=== PATIENT | female | born 2000 | race Caucasian/White ===

== ENCOUNTER 2024-04-23 14:13 | Emergency (ER) | payer SELFPAY ==
[2024-04-23 14:14] VITALS: BP 129/86; PULSE 89; RESP 16; TEMP 37; O2SAT 99; BMI 36.8
[2024-04-23 18:14] VITALS: BP 126/84; PULSE 77; RESP 16; O2SAT 98
[2024-04-23 18:23] LABS: Absolute Lymphocyte Count 2.28 X10^3/uL (0.83-4.51); Absolute Neutrophil Count 8.2 X10^3/uL (2.0-7.7); Basophil# 0.03 X10^3/uL; Basophil% 0.3 % (0-1); Eosinophil# 0.09 X10^3/uL; Eosinophils% 0.8 % (0-5); Hematocrit 40.3 % (37-47); Hemoglobin 13.1 g/dL (12.0-15.0); Lymphocyte # 2.28 X10^3/ul (0.83-4.51); Lymphocyte % 20.2 % (19-41); Mean Corp Hgb Conc 32.5 g/dL (32-36); Mean Corpuscular Hgb 28.8 pg (27.0-32.0); Mean Corpuscular Volume 88.6 fL (81-99); Monocyte# 0.71 X10^3/uL; Monocyte% 6.3 % (0-10); NRBC Flagged by Analyzer 0 % (0-5); Neutrophil # 8.16 X10^3/uL (2.7-7.7); Platelet Count 312 K/mm3 (150-450); RBC Distribution Width CV 12.7 % (11.6-14.6); RBC Distribution Width SD 41.1 fl (35.1-43.9); Red Blood Count 4.55 M/mm3 (4.2-5.4); White Blood Count 11.3 K/mm3 (4.4-11.0)
[2024-04-23 18:32] LABS: Red Blood Cells-Urine 0 SEEN /hpf (0-5)
--- NOTE | 2024-04-23 18:37 | EDS_ITS ---
HPI History of Present Illness Chief Complaint: Nausea/Vomiting Narrative Narrative: Chief complaint and HPI: Nausea and vomiting. 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 Patient states that she follows with [facility]. She states that she has been having nausea and vomiting since she was 6 weeks . She states that she assumed this was normal so she did not follow-up with her OB. Patient states that her nausea worsened today so she called the OB office. They referred her to the emergency department for IV fluids. Patient denies any fever, chills, headache, lightheadedness, chest pain, shortness of breath, abdominal pain, dysuria, diarrhea, constipation, vaginal bleeding, vaginal discharge. Patient states that she is not on any antiemetics. Review of systems: See HPI Medications: As listed on the chart Allergies: As listed on the chart PFSH: Per chart Vital signs: As listed on the chart. Reviewed. Physical exam: Gen: A&O x3, NAD Head: Normocephalic, atraumatic Eyes: No sclera icterus, conjunctiva clear ENT: Mildly dry mucous membranes Neck: Trachea midline, No JVD CV: RRR, no murmurs, no peripheral edema Resp: Lungs CTA BL, no w/r/c GI: Abd soft, non-distended, non-tender, no r/r/g : No CVA tender Musc: Full ROM, no deformity Skin: Warm, dry Neuro: Alert, oriented, grossly intact, sensation intact Psych: Cooperative, appropriate mood and affect PFS PFS Home Medications ?Medication ?Instructions ?Recorded ?Last Taken ?Type cephalexin 500 mg capsule 500 mg PO Q8H 7 days #21 caps 04/23/24 Unknown Rx ondansetron 4 mg disintegrating 4 mg PO Q8H PRN PRN Nausea #10 tabs 04/23/24 Unknown Rx tablet Allergy/AdvReac Type Severity Reaction Status Date / Time codeine AdvReac HEADACHE Verified 04/23/24 14:16 prednisone AdvReac HEADACHE Verified 04/23/24 14:16 Social History Smoking Status: Never smoker EXAM Physical Exam Const Vital Signs: 04/23/24 14:14 04/23/24 18:14 12/06/24 20:00 Temperature 98.6 F Temperature Source Oral Pulse Rate 89 77 Respiratory Rate 16 16 14 Blood Pressure 129/86 H 126/84 H Blood Pressure Mean 100 98 Pulse Ox 99 98 Oxygen Delivery Method Room Air Room Air 04/23/24 20:42 Temperature 98.6 F Temperature Source Pulse Rate 77 Respiratory Rate 14 Blood Pressure 126/84 H Blood Pressure Mean 98 Pulse Ox 98 Oxygen Delivery Method MDM MDM MDM Narrative Medical decision making narrative: 24-year-old female with past medical history of coarctation status post surgery as a child who is G1, P0 at 9 weeks via ultrasound presents for evaluation of nausea and vomiting. Patient denies any abdominal pain, chest pain, shortness of breath, dysuria, abdominal pain. She is mildly dry on physical exam. NS bolus and Zofran ordered. Basic lab work obtained as well as UA to assess for dehydration as well as UTI. Differential diagnosis includes but is not limited to symptomatic , dehydration, KIMMY, electrolyte abnormality, UTI. CBC with mild leukocytosis of 11.3 this can be seen in . No anemia. CMP without KIMMY or electrolyte abnormality. No transaminitis. UA positive for mild dehydration with ketones as well as UTI. Patient denies any dysuria or hematuria. Urine culture sent and patient ordered Rocephin. Patient's nausea and vomiting may be secondary to UTI versus symptomatic . On reevaluation, her nausea is improved. Able to tolerate p.o. intake. Patient stable to discharge home. She was educated on her UTI. She will be placed on a 7-day course of Keflex 3 times daily as well as prescribed Zofran. She needs to follow-up with her OB as well as PCP. Return precautions explained. She confirmed understanding the plan. Impression: 1. Nausea and vomiting 2. First trimester 3. UTI Lab Data Labs: Laboratory Results - last 24 hr 04/23/24 04/23/24 18:06 18:25 WBC 11.3 H RBC 4.55 Hgb 13.1 Hct 40.3 MCV 88.6 MCH 28.8 MCHC 32.5 RDW Std Deviation 41.1 RDW Coeff of Ole 12.7 Plt Count 312 MPV 11.0 Immature Gran % (Auto) 0.400 Neut % (Auto) 72.0 H Lymph % (Auto) 20.2 Hubbard % (Auto) 6.3 Eos % (Auto) 0.8 Baso % (Auto) 0.3 Absolute Neuts (auto) 8.2 H Absolute Lymphs (auto) 2.28 Nucleated RBC % 0 Sodium 136 Potassium 3.9 Chloride 106 Carbon Dioxide 24.0 Anion Gap 6 BUN 5 L Creatinine 0.65 Estim Creat Clear Calc 159.53 Est GFR (MDRD) Af Amer 142 Est GFR (MDRD) Non-Af 117 BUN/Creatinine Ratio 7.7 L Glucose 99 Calcium 9.4 Total Bilirubin 0.50 AST 18 ALT 33 Alkaline Phosphatase 57 Total Protein 7.1 Albumin 3.3 Globulin 3.8 Albumin/Globulin Ratio 0.9 Urine Color Yellow Urine Clarity Cloudy Urine pH 6.0 Ur Specific [place] 1.020 Urine Protein 30 H Urine Glucose (UA) Normal Urine Ketones 5 H Urine Occult Blood 10 H Urine Nitrite Negative Urine Bilirubin 1 H Urine Urobilinogen 4 H Ur Leukocyte Esterase 25 H Urine RBC 0 SEEN Urine WBC 10-25 SEEN Ur Squamous Epith Cells 0-5 SEEN Ur Transition Epith Cell 0-5 SEEN Urine Bacteria 2+ Hyaline Casts 0-5 SEEN Urine Mucus 3+ Discharge Plan Triage Chief Complaint: Nausea/Vomiting ED Provider: Stanley Holguin Dx/Rx/DC Orders Clinical Impression: Nausea and vomiting during , UTI (urinary tract infection) during Instructions: Urinary Tract Infections in Women, ED Vomiting (Adult) Prescriptions: New cephalexin 500 mg capsule 500 mg PO Q8H 7 Days Qty: 21 0RF ondansetron 4 mg tablet,disintegrating 4 mg PO Q8H PRN PRN (Reason: Nausea) Qty: 10 0RF Primary Care Provider: Fozia Pope Referrals: Fozia Pope, [id number] [Primary Care Provider] - 3-5 Days Activity Restrictions/Additional Instructions: Take all of your antibiotics. Follow-up with your OB. Return back to the ED if symptoms change or worsen Print Language: Turkmen Disposition Disposition: Home, Self Care Discharge Date/Time: 04/23/24 21:27
[2024-04-23 18:39] LABS: Color, Urine Yellow (Yellow); Glucose, Dipstick Normal (Normal); Ketone-Dipstick 5 mg/dl (Negative); Leukocyte Esterase-Dipstick 25 /ul (Negative); Nitrite-Dipstick Negative (Negative); Occult Blood-Urine 10 /ul (Negative); Protein-Dipstick 30 mg/dl (Negative); Urine Clarity Cloudy (Clear); Urine Urobilinogen 4 mg/dl (Normal)
[2024-04-23 18:45] LABS: Urine Bilirubin Dipstick 1 mg/dL (Negative)
[2024-04-23 18:54] LABS: Bacteria 2+ /hpf (None Seen); Hyaline Cast 0-5 SEEN /lpf (0-5); Mucous, Urine 3+ /hpf (<or=2+); Squamous Epithelial Cells - UA 0-5 SEEN /hpf (5-10); Transitional Epithelial - Ur 0-5 SEEN /hpf (0-5); White Blood Cells 10-25 SEEN /hpf (0-5)
[2024-04-23 19:03] LABS: ALB/GLOB Ratio 0.9 RATIO (0.9-2.4); AST(SGOT) 18 U/L (15-37); Alanine Aminotransfer ALT/SGPT 33 U/L (13-56); Albumin, Serum 3.3 g/dL (3.2-5.0); Alkaline Phosphatase 57 U/L (45-117); Anion Gap 6 (5-15); BUN 5 mg/dL (7-18); BUN/Creat Ratio 7.7 RATIO (10-20); Calcium,Total 9.4 mg/dL (8.5-10.1); Chloride 106 mmol/L (98-107); Creatinine, Serum 0.65 mg/dL (0.55-1.02); EST Glomerular Filtration Rate 117 mL/min (>60); Est Glom Filt Rate - Afr Amer 142 mL/min (>60); Estimated Creatinine Clearance 159.53 ml/min; Globulin 3.8 g/dL (2.2-4.2); Glucose 99 mg/dL (74-106); Potassium 3.9 mmol/L (3.5-5.1); Protein, Total 7.1 g/dL (6.4-8.2); Sodium Level 136 mmol/L (136-145)
[2024-04-23] MEDS: Ondansetron 4 MG/2 ML Vial IV (19:18)
[2024-04-23] MEDS: 0.9% Normal Saline (1000mL) 1,000 ML 999 ML IV (19:18)
[2024-04-23 20:00] VITALS: RESP 14
[2024-04-23] MEDS: Ceftriaxone 1 GM/50 ML BAG IV (20:23)
[2024-04-23 20:42] VITALS: BP 126/84; PULSE 77; RESP 14; TEMP 37; O2SAT 98
== END 2024-04-23 21:27 | disposition home or self-care (01) ==
PROVIDERS: Emergency Provider Surgery; PCP Nurse Practitioner Family; Visit Provider Surgery
DX: O23.41 Unspecified infection of urinary tract in pregnancy, first trimester (principal); O21.9 Vomiting of pregnancy, unspecified; Z3A.09 9 weeks gestation of pregnancy
CPT/HCPCS: 80053; 81001; 85025; 96361; 96365; 96374; 96375; 99282; A4216; J2405

== ENCOUNTER 2024-10-27 10:15 | Outpatient (CLI) | payer SELFPAY ==
--- NOTE | 2024-10-27 10:24 | US_ITS ---
PROCEDURE: BIOPHYSICAL PROF W/O NON STRES 10/27/2024 REASON FOR EXAM: HAVING MULTIPLE VARIABLES DURING ROUTINE VISIT TECHNIQUE: Biophysical profile was performed. COMPARISON: None FINDINGS Number: 1 Position: Vertex Placental Position: Fundal Placental Abnormalities: No evidence of previa. ESTIMATED GESTATIONAL AGE: Baseline: 36 weeks and 2 days. ESTIMATED DATE OF DELIVERY: Baseline: November 22, 2024. BIOPHYSICAL ASSESSMENT: Amniotic Fluid Volume: 4.7 cm Amniotic Fluid Index: 11.1 (8-24 cm normal range) Cardiac Motion: 157 beats per minute (average) Trunk and Limb Motion: Present. Biophysical profile: Breathing movement: 2 Gross body movements: 2 tone: 2 Amniotic fluid volume: 2 Total score: 8/8 US/Biophysical Prof W/O Non Stres IMPRESSION: Normal biophysical profile. Reading Location: [place] [id number]
[2024-10-27 10:37] VITALS: RESP 16; TEMP 36.9
[2024-10-27 10:38] VITALS: BP 114/59; PULSE 95
[2024-10-27 10:47] VITALS: BMI 42.2
--- NOTE | 2024-10-28 07:33 | OB.TRI.NOTE ---
HPI - General General Date of Admission: 10/27/24 Date of Service: 10/27/24 Chief Complaint: variables HPI Narrative LICO CHAWLA, is a 24 F who presents from office with variable on NST. BPP ordered and prolonged monitoring. BPP 8/8 with RICO 11. Reactive tracing. Per MFM NST tomorrow and scheduled for delivery this weekend. Kick counts precautions Maternal Data Information Final VIJAY: 12/02/24 Gestational age: 36+2 PFSH PFSH Home Medications ?Medication ?Instructions ?Recorded ?Last Taken ?Type ondansetron 4 mg disintegrating 4 mg PO Q8H PRN PRN Nausea #10 tabs 04/23/24 10/26/24 Rx tablet aspirin 81 mg tablet 81 mg PO DAILY 10/27/24 10/26/24 History famotidine 20 mg tablet (Pepcid) 20 mg PO DAILY 10/27/24 10/26/24 History labetalol 100 mg tablet 200 mg PO BID 10/27/24 10/27/24 History vit no.95-ferrous 1 tab PO DAILY 10/27/24 10/26/24 History fumarate 28 mg-folic acid 800 mcg tablet () Allergy/AdvReac Type Severity Reaction Status Date / Time codeine AdvReac HEADACHE Verified 10/27/24 10:33 prednisone AdvReac HEADACHE Verified 10/27/24 10:33 Social History Smoking Status: Never smoker History 1 Elective abortions Hx Para 0 Spontaneous abortions Hx # Term Pregnancies Ectopic pregnancies Hx # Pregnancies Multiple births # of living children NST FHR Rate Baby A Baseline: 135 Variability:: Moderate Accelerations:: 15 x 15 Decelerations:: None NST Reactive:: Yes Assessment & Plan (1) 36 weeks gestation of : (2) Chronic hypertension affecting : (3) Maternal congenital cardiac anomaly affecting , antepartum: PLAN: Plan Reactive NST. BPP 8/8 kick counts NST tomorrow Scheduled IOL this at 37 weeks
== END 2024-10-27 13:20 | disposition home or self-care (01) ==
LOC: WPOUT 10:19 → WP 10:19
PROVIDERS: PCP Nurse Practitioner Family; Referring Provider Obstetrics & Gynecology; Visit Provider Obstetrics & Gynecology
DX: O16.3 Unspecified maternal hypertension, third trimester (principal); Z79.82 Long term (current) use of aspirin; Z79.899 Other long term (current) drug therapy; Z3A.36 36 weeks gestation of pregnancy; O99.891 Other specified diseases and conditions complicating pregnancy; Q24.9 Congenital malformation of heart, unspecified
CPT/HCPCS: 59025; 59050; 76819; 99221; G0378

== ENCOUNTER 2024-11-14 01:25 | Emergency (ER) | payer MEDICAID, SELFPAY ==
[2024-11-14 01:26] VITALS: BP 119/73; PULSE 77; RESP 16; TEMP 36.2; O2SAT 99; BMI 40.3
--- NOTE | 2024-11-14 01:51 | CT_ITS ---
PROCEDURE: ABDOMEN/PELVIS W IV CONT ONLY 11/14/2024 REASON FOR EXAM: ABD PAIN S/P TECHNIQUE: ABDOMEN/PELVIS W IV CONT ONLY Coronal and Sagittal reconstruction series were provided. One or more dose reduction techniques were used (e.g., Automated exposure control, adjustment of the mA and/or kV according to patient size, use of iterative reconstruction technique. RADIATION DOSE SUMMARY: CTDlvol: 22 mGy DLP: 1182 mGycm COMPARISON: No FINDINGS: Dependent atelectasis. Small right and tiny left-sided effusions. Normal heart size. The liver, gallbladder, pancreas, spleen, adrenal glands, and kidneys show no acute findings. Small simple right renal cyst. No hydronephrosis or ureteral stone. Normal bladder. No retroperitoneal or pelvic adenopathy. Enlarged, uterus. Low- density, within the uterine cavity, probably represents hemorrhage, no specific evidence for retained products of conception. No free air. Mild omental fat stranding status post recent . Nonobstructed bowel. Normal appendix. No acute large bowel findings. There is anterior pelvic wall partially loculated linear fluid collection, at the incisional site, this is a typical postoperative appearance. Adjacent skin thickening and mild fat stranding. Superimposed infection not completely excluded. CT/Abdomen/Pelvis W IV Cont ONLY IMPRESSION: Status post recent , typical postoperative appearance. Follow up imag ing as clinically determined. Reading Location: [place] [id number]
--- OUTSIDE RECORDS SUMMARY | 2024-11-14 01:57 | XMS RPT_ITS | CCD ---
Author Organization [facility] Care Team Providers Care Solid Waste Facility Supervisor Name Role Phone No, Ref(Historical) Unavailable Unavailable Amalia Gonzales Primary Care Provider No, Referral Unavailable Unavailable Bhavesh Alas MD Unavailable No, Ref(Historical) Unavailable Unavailable No, Referral Unavailable Unavailable Bhavesh Alas MD Unavailable Toshia AMERICAN INDIAN POLICY SPECIALIST.Kwasi HOWELL Primary Care Provider No, Referral Unavailable Unavailable Bahvesh Alas MD Unavailable Toshia AMERICAN INDIAN POLICY SPECIALIST.Kwasi HOWELL Primary Care Provider Uvaldo RN, Lexie Fortune Unavailable Unavailable Toshia HOME MISSION WORKER-CKwasi Primary Care Provider Parish DANIELLE, Dr. Leon Attending Provider Dr. Carolyn Lugo MD Referring Provider Toshia, Kwasi Primary Care Unavailable Carolyn Lugo Attending Unavailable Carolyn Lugo Referring Unavailable Stanley Holguin Attending Unavailabl e Latoniaoble, Kwasi Primary Care Unavailable NEYVASILE BARBOSA MARION Referring Unavail able KNOBLE, KWASI Primary Care Unavailable NEYVASILE BARBOSA MARION Referring Unavail able NELSY AGARWAL Attending Unavailable KNOBLE, KWASI Primary Care Unavailable NEYSALOMONT FAMILIA, MARION Referring Unavail able KNOBLE, KWASI Primary Care Unavailable NEYHART FAMILIA, MARION Referring Unavail able NELSY AGARWAL Attending Unavailable KNOBLE, KWASI Primary Care Unavailable NEYVASILE BARBOSA MARION Referring Unavail able KNOBLE, KWASI Primary Care Unavailable NEYHART BARBOSA, MARION Attending Unavail able DIONNE CARRILLO Referring Unavailable KNOBLE, KWASI Primary Care Unavailable SELF Referring Unavailable KISHA KENDRA Attending Unavailable KNOBLE, KWASI Primary Care Unavailable MOODY, BHAVESH Referring Unavailable KNOBLE, KWASI Primary Care Unavailable BERYL LUGOFER Attending Unavailable KNOBLE, KWASI Primary Care Unavailable NEYHART BARBOSA, MARION Referring Unavail able MOODY, BHAVESH Referring Unavailable KNOBLE, KWASI Primary Care Unavailable JAILYN BOSS Attending Unavailable MOODY, BHAVESH Referring Unavailable KNOBLE, KWASI Primary Care Unavailable KAREN MONTES Attending Unavailable KNOBLE, KWASI Primary Care Unavailable KNOBLE, KWASI Primary Care Unavailable NEYHART BARBOSA, MARION Referring Unavail able KNOBLE, KWASI Primary Care Unavailable NEYHART BARBOSA, MARION Referring Unavail able NEYHART BARBOSA, MARION Referring Unavail able NELSY AGARWAL Attending Unavailable KNOBLE, KWASI Primary Care Unavailable MOODY, BHAVESH Referring Unavailable KNOBLE, KWASI Primary Care Unavailable KNOBLE, KWASI Primary Care Unavailable IDA TORRESA Attending Unavailable PARISHBERYLCAROLYN Referring Unavailable KNOBLE, KWASI Primary Care Unavailable KNOBLE, KWASI Primary Care Unavailable NEYSALOMONT BARBOSA, MARION Attending Unavail able NEYSALOMONT BARBOSA, MARION Referring Unavail able KNOBLE, KWASI Primary Care Unavailable CAROLYN LUGO Referring Unavailable KNOBLE, KWASI Primary Care Unavailable DEBORAH CARROLL Attending Unavailable KNOBLE, KWASI Referring Unavailable KNOBLE, KWASI Primary Care Unavailable DESTINI HANSON Referring Unavailable KNOBLE, KWASI Primary Care Unavailable DUYENUCHIEDENILSONJI Attending Unavailable HIGUCHI, ASHOK Referring Unavailable KNOBLE, KWASI Primary Care Unavailable MOODY, BHAVESH Attending Unavailable MOODY, BHAVESH Referring Unavailable KNOBLE, KWASI Primary Care Unavailable GERA JAILYN Referring Unavailable KNOBLE, KWASI Primary Care Unavailable KNOBLE, KWASI Primary Care Unavailable NEYHART BARBOSA, MARION Referring Unavail able NEYHART BARBOSA, MARION Attending Unavail able ASHLEY AMBRIZ Referring Unavailable DESTINI HANSON Attending Unavailable KNOBLE, KWASI Primary Care Unavailable PLOTTS, DESTINI Referring Unavailable KNOBLE, KWASI Primary Care Unavailable NEYVASILE BARBOSA, MARION Attending Unavail able ASHOK PEDRO Referring Unavailable KNOBLE, KWASI Primary Care Unavailable NEYHART FAMILIA, MARION Attending Unavail able KNOBLE, KWASI Primary Care Unavailable KNOBLE, KWASI Primary Care Unavailable NEYHART BARBOSA, MARION Referring Unavail able NELSY AGARWAL Attending Unavailable KNOBLE, KWASI Primary Care Unavailable NEYHART BARBOSA, MARION Referring Unavail able SELF Referring Unavailable KNOBLE, KWASI Primary Care Unavailable KNOBLE, KWASI Primary Care Unavailable PB, ASHLEY Attending Unavailable KNOBLE, KWASI Primary Care Unavailable KAREN MONTES Referring Unavailable KENDRA TORRES Attending Unavailable KNOBLE, KWASI Primary Care Unavailable PB, ASHLEY Referring Unavailable KNOBLE, KWASI Primary Care Unavailable PB, ASHLEY Referring Unavailable KNOBLE, KWASI Primary Care Unavailable BOSS, JAILYN Referring Unavailable KNOBLE, KWASI Primary Care Unavailable BOSSNAINJAILYN Attending Unavailable SELF Referring Unavailable KNOBLE, KWASI Referring Unavailable CARRILLO DIONNE Attending Unavailable KNOBLE, KWASI Primary Care Unavailable CARRILLO, DIONNE Referring Unavailable KNOBLE, KWASI Primary Care Unavailable LATISHA MALLORY Attending Unavailable KNOBLE, KWASI Primary Care Unavailable KNOBLE, KWASI Primary Care Unavailable NEYHART BARBOSA, MARION Referring Unavail able SELF Referring Unavailable KNOBLE, KWASI Attending Unavailable KNOBLE, KWASI Primary Care Unavailable BOSS, JAILYN Referring Unavailable KNOBLE, KWASI Primary Care Unavailable MEAGAN LEONARD Attending Josey OJEDAOBLE, KWASI Primary Care Unavailable SHIVANI HERNANDEZ Admitting Unavailable MOODY, BHAVESH Referring Unavailable KNOBLE, KWASI Primary Care Unavailable MOODY, BHAVESH Attending Unavailable Allergies Allergy Classification Reported Allergen(s) Allergy Type Date of Onset Reaction(s) Facility (20 sources) Codeine; Translations: [CODEINE] Drug Allergy 7 Other: See Comments [facility] Work Phone: (20 sources) predniSONE; Translations: [PREDNISONE] Drug Allergy 3 Intolerance [facility] Work Phone: (1 source) Codeine Drug Allergy 5 [facility] Repository (1 source) predniSONE Drug Allergy 5 [facility] Repository Medications Current Medications Medication Drug Class(es) Dates Sig (Normalized) Sig (Original) amoxicillin 875 mg oral tablet (3 sources) Penicillin-class Antibacterial Start: 04-06-2022 End: 04-13-2022 take 1 tablet by mouth twice daily amoxicillin (AMOXIL) 875 mg tablet Take 1 tablet by mouth twice daily for 7 days. 14 tablet 0 04/06/2022 04/13/2022 Active Start: 10-09-2021 End: 10-16-2021 take 1 tablet by mouth twice daily amoxicillin (AMOXIL) 875 mg tablet Take 1 tablet by mouth twice daily for 7 days. 14 tablet 0 10/09/2021 10/16/2021 Active Comment on above: Take 1 tablet by souleymane th twice daily for 7 days. amoxicillin 875 mg / clavulanate 125 mg oral tablet (2 sources) Penicillin-class Antibacterial Start: 09-04-19 End: 09-11-19 take 1 tablet by mouth twice daily amoxicillin-clavulanat e potassium (AUGMENTIN) 875-125 mg per tablet Indications: Rhinosinusitis Take 1 tablet by mouth two times a day for 7 days. 14 tablet 0 09/04/2023 09/11/2023 Active Comment on above: Take 1 tablet by souleymane th two times a day for 7 days. aspirin 81 mg oral tablet (20 sources) Platelet Aggregation Inhibitor, Nonsteroidal Anti-inflammatory Drug Start: 10-28-19 take 1 tablet by mouth once daily Aspirin 81 mg tablet Active 81 mg PO DAILY October 27, 2024 12:00am Start: 04-06-2024 take 1 tablet by souleymane th once daily aspirin, enteric coated (ECOTRIN LOW STRENGTH) 81 mg EC tablet Indications: 7 weeks gestation of (HCC) , Encounter for care in first trimester of first (HCC) Take 1 tablet by mouth once daily. 90 tablet 3 04/06/2024 Active cephalexin 500 mg oral capsule (3 sources) Cephalosporin Antibacterial Start: 11-11-2024 End: 11-18-2024 take 1 capsule by mouth four times daily cephALEXin (KEFLEX) 500 mg capsule Take 1 capsule by mouth four times daily for 7 days. 28 capsule 11/11/2024 11/18/2024 Active Start: 04-23-2024 End: 10-27-2024 take 1 capsule by mouth every eight hours Cephalexin 500 mg capsule Discontinued 500 mg PO Q8H 21 April 23, 2024 1:00am October 27, 2024 10:42am doxycycline monohydrate 100 mg oral tablet (2 sources) Tetracycline-class Drug Start: 01-27-2024 End: 02-06-2024 take 1 tablet by mouth twice daily doxycycline monohydrate 100 mg tablet Indications: Erythema migrans Take 1 tablet by mouth two times a day for 10 days. 20 tablet 01/27/2024 02/06/2024 Active famotidine 20 mg oral tablet (20 sources) Histamine-2 Receptor Antagonist Start: 10-27-2024 take 1 tablet by mouth once daily Famotidine (Pepcid) 20 mg tablet Active 20 mg PO DAILY October 27, 2024 12:00am Start: 05-10-2024 take 1 tablet by souleymane th twice daily famotidine (PEPCID) 20 mg tablet Take 1 tablet by mouth two times a day. 60 tablet 1 05/10/2024 Active iv contrast (will be provide d with radiology test) (4 sources) Start: 10-12-2024 End: 10-13-2024 iv contrast (will be provide d with radiology test) Indications: Coarctation of aorta (HCC) MRI Cardiac w/Qflow Inject, intravenously, once for 1 dose. No IV access, insert saline lock prior to the beginning of sedation, infusion, injection of imaging exam. Discontinue saline lock post exam. If Pt has a central line or IVAD, may access for administration according to line specific nursing protocol. Once exam is complete flush line and de-access according to line specific nursing protocol in the MR contrast administration guidelines link 1 each 10/12/2024 10/13/2024 Active Start: 12-03-2023 End: 12-04-2023 inject 1 dose intravenously once iv contrast (will be provided with radiology test) Indications: Inappropriate sinus node tachycardia (HCC) , Coarctation of aorta , SVT (supraventricular tachycardia) (HCC) , Bicuspid aortic valve MRI Card Congenital Inject, intravenously, once for 1 dose. No IV access, insert saline lock prior to the beginning of sedation, infusion, injection of imaging exam. Discontinue saline lock post exam. If Pt has a central line or IVAD, may access for administration according to line specific nursing protocol.Once exam is complete flush line and de-access according to line specific nursing protocol in the MR contrast administration guidelines link 1 Each 0 12/03/2023 12/04/2023 Active Start: 12-10-2022 End: 12-11-2022 inject 1 dose intravenously once iv contrast (will be provided with radiology test) MRI Card Congenital Inject, intravenously, once for 1 dose. No IV access, insert saline lock prior to the beginning of sedation, infusion, injection of imaging exam. Discontinue saline lock post exam. If Pt has a central line or IVAD, may access for administration according to line specific nursing protocol.Once exam is complete flush line and de-access according to line specific nursing protocol in the MR contrast administration guidelines link 1 Each 0 12/10/2022 12/11/2022 Comment on above: MRI Card Congenital Inject, intravenously, once for 1 dose. No IV access, insert saline lock prior to the beginning of sedation, infusion, injection of imaging exam. Discontinue saline lock post exam. If Pt has a central line or IVAD, may access for administration according to line specific nursing protocol.Once exam is complete flush line and de-access according to line specific nursing protocol in the MR contrast administration guidelines link labetalol hydrochloride 200 mg oral tablet (20 sources) beta-Adrenergic Tarik Start: End: take 1 tablet by mouth three times daily labetalol (TRANDATE) 200 mg tablet Take 1 tablet by mouth three times a day. 270 tablet 1 11/08/2024 05/07/2025 Active Start: 08-31-2024 take 1 tablet by souleymane th twice daily labetalol (TRANDATE) 200 mg tablet Take 1 tablet by mouth two times a day. 180 tablet 2 08/31/2024 Suspended Start: 08-07-2024 End: 11-05-2024 take 2 tablets by mouth twice daily Labetalol 100 mg tablet Active 200 mg PO TWICE A DAY October 27, 2024 12:00am Start: 04-07-2024 End: 09-26-2024 take 1 tablet by mouth twice daily labetalol (TRANDATE) 100 mg tablet Take 1 tablet by mouth two times a day. Patient should start on June 28, 2024. 180 tablet 1 06/28/2024 08/07/2024 Discontinued (Adjust Sig - Block E-Cancel) metoclopramide 10 mg oral tablet (5 sources) Dopamine-2 Receptor Antagonist Start: 04-26-2024 End: 05-26-2024 take 1 tablet by mouth every eight hours as needed metoclopramide HCl (REGLAN) 10 mg tablet Take 1 tablet by mouth three times a day as needed. 60 tablet 04/26/2024 05/26/2024 Active metroNIDAZOLE 500 mg oral tablet (3 sources) Nitroimidazole Antimicrobial Start: 05-23-2022 End: 05-30-2022 take 1 tablet by mouth twice daily metroNIDAZOLE (FLAGYL) 500 mg tablet Indications: Bacterial vaginosis Take 1 tablet by mouth twice daily for 7 days. 14 tablet 0 05/23/2022 05/30/2022 Active Comment on above: Take 1 tablet by souleymane th twice daily for 7 days. norethindrone 0.35 mg oral tablet (2 sources) Start: 11-08-2024 End: 10-10-2025 take 1 tablet by mouth once daily Norethindrone, Contraceptive, 0.35 mg tablet Take 1 tablet by mouth once daily. 84 tablet 3 11/08/2024 10/10/2025 Active ondansetron 8 mg oral tablet (20 sources) Serotonin-3 Receptor Antagonist Start: 04-28-2024 End: 10-15-2024 take 1 tablet by mouth every eight hours as needed for nausea ondansetron (ZOFRAN) 8 mg tablet Indications: Nausea and vomiting in (HCC) Take 1 tablet by mouth every 8 hours as needed for nausea/vomiting. 30 tablet 1 09/15/2024 10/15/2024 Active Start: 04-23-2024 take 1 tablet by souleymane th every eight hours as needed for nausea Ondansetron 4 mg tablet,disintegrating Active 4 mg PO EVERY 8 HOURS NEEDED as needed for Nausea April 23, 2024 1:00am End: 09-29-2024 ondansetron HCl (ZOFRAN ORAL ) Take by mouth as needed. 09/29/2024 Discontinued ondansetron HCl (ZOFRAN ORAL) Take by mouth as needed. Active perflutren lipid microsphere s 1.3 mL in NaCl (PF) 0.9% 10 mL injection (DEFINITY) (20 sources) Start: 11-03-2024 End: 11-10-2024 perflutren lipid microsphere s 1.3 mL in NaCl (PF) 0.9% 10 mL injection (DEFINITY) Start: 11-03-2024 End: 11-10-2024 perflutren lipid microsphere s 1.3 mL in NaCl (PF) 0.9% 10 mL injection (DEFINITY) Start: 07-12-2022 End: 10-11-2023 perflutren lipid microsphere s 1.3 mL in NaCl (PF) 0.9% 10 mL injection (DEFINITY) Start: 04-18-2021 End: 07-18-2022 perflutren lipid microsphere s 1.3 mL in NaCl (PF) 0.9% 10 mL injection (DEFINITY) Start: 07-01-2020 End: 09-30-2021 perflutren lipid microsphere s 1.3 mL in NaCl (PF) 0.9% 10 mL injection (DEFINITY) Pnv Cmb#95-Ferrous Fumarate-Fa () 28 mg iron- 800 mcg tablet (1 source) Start: 10-27-2024 Pnv Cmb#95-Omrro tor Fumarate-Fa () 28 mg iron- 800 mcg tablet Active 1 {tbl} PO DAILY October 27, 2024 12:00am predniSONE 20 mg oral tablet (2 sources) Start: 07-13-2022 End: 07-18-2022 take 2 tablets by mouth once daily predniSONE (DELTASONE) 20 mg tablet Take 2 tablets by mouth once daily for 5 days. 10 tablet 0 07/13/2022 07/18/2022 Active Start: 04-06-2022 End: 04-15-2022 predniSONE (DELTASONE) 10 mg tablet Take 4 tabs daily for 3 days, then 2 tabs daily for 3 days, then 1 tab daily for 3 days with food. 21 tablet 0 04/06/2022 04/15/2022 Active Comment on above: Take 4 tabs daily fo r 3 days, then 2 tabs daily for 3 days, then 1 tab daily for 3 days with food. Take 2 tablets by mo [facility] once daily for 5 days. vit no.124/iron/folic ( VITAMIN ORAL) (20 sources) vit no.124/iron/folic ( VITAMIN ORAL) Take by mouth once daily. Suspended vit no. 124/iron/folic ( VITAMIN ORAL) Take by mouth once daily. Active vit no. 124/iron/folic ( VITAMIN ORAL) Take by mouth once daily. 0 Active Comment on above: Take by mouth once d aily. 125 ml sodium chloride 9 mg/ml prefilled syringe (20 sources) Start: 11-03-2024 End: 11-10-2024 sodium chloride 0.9 % (flush) 10 mL (BD POSIFLUSH) Start: 07-01-2020 End: 10-11-2023 sodium chloride 0.9 % (flush ) 10 mL (BD POSIFLUSH) Completed/Discontinued Medications Medication Drug Class(es) Dates Sig (Normalized) Sig (Original) clotrimazole 10 mg/ml topical solution (1 source) Azole Antifungal End: 05-23-2022 clotrimazole (LOTRIMIN) 1 % external solution Apply 3 Drops to affected area three times daily. 0 05/23/2022 Discontinued Comment on above: Apply 3 Drops to aff ected area three times daily. copper 313 mg drug implant (11 sources) Copper-containing Intrauterine Device End: 05-29-2022 copper (PARAGARD) 380 square mm intrauterine device 1 Intra Uterine Device by INTRAUTERINE route. 0 05/29/2022 Discontinued Comment on above: 1 Intra Uterine Alaina ce by INTRAUTERINE route. cyclobenzaprine hydrochloride 5 mg oral tablet (1 source) Muscle Relaxant Start: 06-12-2020 End: 09-25-2021 cyclobenzaprine (FLEXERIL) 5 mg tablet Take 5 mg by mouth as needed. 0 06/12/2020 09/25/2021 Discontinued Comment on above: Take 5 mg by mouth a s needed. ibuprofen 600 mg oral tablet (6 sources) Nonsteroidal Anti-inflammatory Drug Start: 06-12-2020 End: 11-13-2021 ibuprofen (MOTRIN) 600 mg tablet Take 600 mg by mouth as needed. 0 06/12/2020 11/13/2021 Discontinued Comment on above: Take 600 mg by mouth as needed. L. acidophilus-L. rhamnosus 15 billion cell cap (1 source) Start: 02-07-2021 End: 09-25-2021 take 1 capsule by mouth once daily L. acidophilus-L. rhamnosus 15 billion cell cap Indications: BV (bacterial vaginosis) Take 1 capsule by mouth once daily. FLORAJEN WOMEN. If on antibiotic, take at least 1-2 hours before or after antibiotic. KEEP REFRIGERATED 30 capsule 11 02/07/2021 09/25/2021 Discontinued Comment on above: Take 1 capsule by mo [facility] once daily. FLORAJEN WOMEN. If on antibiotic, take at least 1-2 hours before or after antibiotic. KEEP REFRIGERATED letrozole 2.5 mg oral tablet (1 source) Aromatase Inhibitor Start: 03-15-2024 End: 04-06-2024 letrozole (FEMARA) 2.5 mg tablet Indications: Desire for Take 1 tablet by mouth once daily. Starting on cycle day 3 take 1 tablet PO once daily for 5 days. 5 tablet 2 03/15/2024 04/06/2024 Discontinued nadolol 20 mg oral tablet (19 sources) beta-Adrenergic Tarik Start: 04-25-2021 End: 06-24-2023 take 1 tablet by mouth once daily nadolol (CORGARD) 20 mg tablet Take 1 tablet by mouth once daily. 90 tablet 3 06/24/2022 10/07/2022 Discontinued (Course of therapy completed) Comment on above: Take 1 tablet by souleymane once daily. ofloxacin 3 mg/ml otic solution (1 source) Quinolone Antimicrobial Start: 03-30-2022 ofloxacin (FLOXIN) 0.3 % otic solution Indications: Acute otitis externa of left ear, unspecified type Use 5 Drops in both ears once daily. 5 mL 0 03/30/2022 Active Comment on above: Use 5 Drops in both ears once daily. promethazine hydrochloride 12.5 mg rectal suppository (6 sources) Phenothiazine Start: 10-22-2024 take 12.5 mg rectal route every six hours as needed promethazine (PHENERGAN) 12.5 mg suppository 1 suppository by RECTAL route every 6 hours as needed. 12 suppository 10/22/2024 Suspended propranolol hydrochloride 20 mg oral tablet (20 sources) beta-Adrenergic Tarik Start: 10-08-2022 End: 04-07-2024 take 1 tablet by mouth once daily propranolol (INDERAL) 20 mg tablet take 1 tablet by mouth once daily. 90 tablet 3 10/03/2023 04/07/2024 Discontinued (Course of therapy completed) Start: 06-25-2022 End: 08-24-2022 take 1 tablet by mouth twice daily propranolol (INDERAL) 20 mg tablet Take 1 tablet by mouth twice daily. 120 tablet 0 06/25/2022 08/24/2022 Active Comment on above: Take 1 tablet by souleymane th twice daily. Take 1 tablet by souleymane th once daily. take 1 tablet by souleymane th daily Problems Active Problems Problem Classification Problem Date Documented Date Episodic/Chronic Abdominal pain (1 source) Left sided abdominal pain; Translations: [Unspecified abdominal pain] Episodic Cardiac and circulatory congenital anomalies (20 sources) Coarctation of aorta; Translations: [Coarctation of aorta] Onset: 10-28-2016 04-15-2017 Chronic Cardiac and circulatory congenital anomalies (19 sources) History of repair of patent ductus arteriosus; Translations: [Personal history of (corrected) congenital malformations of heart and circulatory system] Onset: 09-30-2024 09-30-2024 Episodic Cardiac dysrhythmias (20 sources) Supraventricular tachycardia; Translations: [Supraventricular tachycardia] Onset: 05-01-2017 Resolved: 11-01-2024 05-01-2017 Chronic Complication of device; implant or graft (1 source) Malposition of intrauterine contraceptive device; Translations: [Displacement of intrauterine contraceptive device, initial encounter] Episodic Deficiency and other anemia (1 source) Iron deficiency anemia, unspecified; Translations: [Iron deficiency anemia, unspecified iron deficiency anemia type] Onset: 10-31-2024 Episodic Esophageal disorders (16 sources) Gastroesophageal reflux disease; Translations: [Gastro-esophageal reflux disease without esophagitis] Onset: 09-30-2024 09-30-2024 Chronic Essential hypertension (1 source) Hypertensive disorder; Translations: [Essential (primary) hypertension] Onset: 10-31-2024 10-31-2024 Chronic Genitourinary symptoms and ill-defined conditions (3 sources) Dysuria; Translations: [Dysuria] Onset: 06-08-2024 06-08-2024 Episodic Heart valve disorders (4 sources) Aortic valve stenosis; Translations: [Nonrheumatic aortic (valve) stenosis] Onset: 11-01-2024 11-04-2024 Chronic Hypertension complicating ; childbirth and the puerperium (20 sources) Pre-existing hypertension complicating , childbirth and puerperium; Translations: [Unspecified pre-existing hypertension complicating , second trimester] Onset: 08-07-2024 08-07-2024 Chronic Immunizations and screening for infectious disease (12 sources) Patient encounter status; Translations: [Encounter for screening for human papillomavirus (HPV)] Onset: 09-01-2024 Episodic Inflammatory diseases of female pelvic organs (1 source) Bacterial vaginosis; Translations: [Acute vaginitis] Episodic Menstrual disorders (20 sources) Secondary oligomenorrhea; Translations: [Secondary oligomenorrhea] Onset: 11-28-2023 Resolved: 08-07-2024 11-28-2023 Chronic Other complications of ; puerperium affecting management of mother (1 source) Suspected abnormality affecting management of mother; Translations: [Maternal care for (suspected) abnormality and damage, unspecified, not applicable or unspecified] 07-21-2024 Episodic Other complications of ; puerperium affecting management of mother (2 sources) Delivered by section - at term; Translations: [Encounter for delivery without indication] Onset: 11-05-2024 11-07-2024 Episodic Other complications of (20 sources) Maternal obesity complicating , childbirth and the puerperium, antepartum; Translations: [Obesity complicating , second trimester] Onset: 12-13-2022 06-08-2024 Chronic Other complications of (2 sources) Obesity complicating , unspecified trimester; Translations: [Obesity in (HCC)] Onset: 06-08-2024 Chronic Other complications of (1 source) Obesity complicating , third trimester; Translations: [Obesity affecting in third trimester, unspecified obesity type (HCC)] Onset: 09-30-2024 Chronic Other complications of (5 sources) Vomiting of , unspecified; Translations: [Unspecified vomiting of , unspecified as to episode of care or not applicable] Onset: 05-26-2024 04-26-2024 Episodic Other complications of (14 sources) Congenital heart disease in ; Translations: [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, antepartum] Onset: 10-28-2016 08-07-2024 Episodic Other complications of (1 source) Urinary tract infection in ; Translations: [Unspecified infection of urinary tract in , unspecified trimester] 05-01-2024 Episodic Other complications of (1 source) Abnormal findings on screening of mother; Translations: [Other abnormal findings on screening of mother] 10-27-2024 Episodic Other complications of (4 sources) Group B Streptococcus carrier; Translations: [Streptococcus B carrier state complicating ] Onset: 10-31-2024 10-31-2024 Episodic Other complications of (1 source) Diseases of the circulatory system complicating , third trimester; Translations: [Maternal congenital cardiac anomaly affecting , antepartum, third trimester (HCC)] Onset: 11-01-2024 Episodic Other complications of (1 source) Other abnormal findings on screening of mother; Translations: [NST (non-stress test) with decelerations] Onset: 10-27-2024 Episodic Other complications of (1 source) Supervision of high risk , unspecified, third trimester; Translations: [Supervision of high risk in third trimester (HCC)] Onset: 10-13-2024 Episodic Other complications of (2 sources) Supervision of high risk , unspecified, first trimester; Translations: [Supervision of high risk in first trimester (HCC)] Onset: 04-06-2024 Episodic Other ear and sense organ disorders (1 source) Impacted cerumen in left ear; Translations: [Impacted cerumen, left ear] Episodic Other female genital disorders (1 source) Vaginal discharge; Translations: [Other specified noninflammatory disorders of vagina] Episodic Other nutritional; endocrine; and metabolic disorders (14 sources) Obese class II; Translations: [Obesity, unspecified] Onset: 12-13-2022 12-13-2022 Chronic Other nutritional; endocrine; and metabolic disorders (20 sources) Obesity; Translations: [Obesity, unspecified] Onset: 12-13-2022 11-28-2023 Chronic Other nutritional; endocrine; and metabolic disorders (20 sources) Body mass index 30+ - obesity; Translations: [Body mass index (BMI) 37.0-37.9, adult] Onset: 04-06-2024 04-06-2024 Chronic Other nutritional; endocrine; and metabolic disorders (1 source) Obesity, unspecified; Translations: [Class 2 obesity with body mass index (BMI) of 39.0 to 39.9 in adult, unspecified obesity type, unspecified whether serious comorbidity present] Onset: 11-28-2023 Chronic Other nutritional; endocrine; and metabolic disorders (1 source) Body mass index (BMI) 39.0-39.9, adult; Translations: [Class 2 obesity with body mass index (BMI) of 39.0 to 39.9 in adult, unspecified obesity type, unspecified whether serious comorbidity present] Onset: 11-28-2023 Chronic Other and delivery including normal (4 sources) First trimester ; Translations: [Encounter for supervision of normal first , first trimester] Onset: 05-10-2024 04-06-2024 Episodic Other screening for suspected conditions (not mental disorders or infectious disease) (2 sources) Cancer cervix screening status; Translations: [Encounter for screening for malignant neoplasm of cervix] Onset: 09-01-2024 Episodic Other skin disorders (2 sources) Hirsutism; Translations: [Hirsutism] 11-28-2023 Episodic Other upper respiratory infections (2 sources) Chronic sinusitis, unspecified; Translations: [Unspecified sinusitis (chronic)] 09-04-2023 Chronic Other upper respiratory infections (1 source) Sore throat symptom; Translations: [Acute pharyngitis, unspecified] Episodic Otitis media and related conditions (2 sources) Acute left otitis media; Translations: [Otitis media, unspecified, left ear] Episodic Ovarian cyst (1 source) Cyst of right ovary; Translations: [Unspecified ovarian cyst, right side] Episodic Jessica-; endo-; and myocarditis; cardiomyopathy (except that caused by tuberculosis or sexually transmitted disease) (4 sources) Cardiomyopathy; Translations: [Cardiomyopathy, unspecified] Chronic Residual codes; unclassified (1 source) Gestation period, 7 weeks; Translations: [Less than 8 weeks gestation of ] 04-06-2024 Episodic Residual codes; unclassified (1 source) Gestation period, 10 weeks; Translations: [10 weeks gestation of ] 04-26-2024 Episodic Residual codes; unclassified (2 sources) Gestation period, 12 weeks; Translations: [12 weeks gestation of ] 05-10-2024 Episodic Residual codes; unclassified (2 sources) Gestation period, 16 weeks; Translations: [16 weeks gestation of ] 06-08-2024 Episodic Residual codes; unclassified (2 sources) Gestation period, 20 weeks; Translations: [20 weeks gestation of ] 07-06-2024 Episodic Residual codes; unclassified (2 sources) Gestation period, 24 weeks; Translations: [24 weeks gestation of ] 08-03-2024 Episodic Residual codes; unclassified (1 source) Gestation period, 28 weeks; Translations: [28 weeks gestation of ] 09-01-2024 Episodic Residual codes; unclassified (1 source) Gestation period, 30 weeks; Translations: [30 weeks gestation of ] 09-15-2024 Episodic Residual codes; unclassified (3 sources) Gestation period, 32 weeks; Translations: [32 weeks gestation of ] 09-29-2024 Episodic Residual codes; unclassified (1 source) Gestation period, 34 weeks; Translations: [34 weeks gestation of ] 10-13-2024 Episodic Residual codes; unclassified (1 source) Gestation period, 35 weeks; Translations: [35 weeks gestation of ] 10-20-2024 Episodic Residual codes; unclassified (3 sources) Gestation period, 36 weeks; Translations: [36 weeks gestation of ] Onset: 10-31-2024 10-27-2024 Episodic Residual codes; unclassified (2 sources) Gestation period, 37 weeks; Translations: [37 weeks gestation of ] Onset: 11-05-2024 11-07-2024 Episodic Residual codes; unclassified (1 source) 37 weeks gestation of ; Translations: [37 weeks gestation of (HCC)] Onset: 11-07-2024 Episodic Residual codes; unclassified (1 source) 36 weeks gestation of ; Translations: [36 weeks gestation of (HCC)] Onset: 10-28-2024 Episodic Residual codes; unclassified (1 source) 35 weeks gestation of ; Translations: [35 weeks gestation of (HCC)] Onset: 10-20-2024 Episodic Residual codes; unclassified (1 source) 34 weeks gestation of ; Translations: [34 weeks gestation of (HCC)] Onset: 10-13-2024 Episodic Residual codes; unclassified (1 source) 32 weeks gestation of ; Translations: [32 weeks gestation of (HCC)] Onset: 10-06-2024 Episodic Residual codes; unclassified (1 source) 30 weeks gestation of ; Translations: [30 weeks gestation of (HCC)] Onset: 09-15-2024 Episodic Residual codes; unclassified (1 source) 28 weeks gestation of ; Translations: [28 weeks gestation of (HCC)] Onset: 09-01-2024 Episodic Unclassified (20 sources) [facility] Education - COMMON Onset: 04-06-2024 04-06-2024 Unclassified (20 sources) Education - [place] Onset: 04-06-2024 04-06-2024 Unclassified (1 source) OPENED IN ERROR 06-08-2024 Unclassified (1 source) Early Onset: 11-11-2024 Unclassified (1 source) Aortic stenosis due to bicuspid aortic valve (HCC); Translations: [Aortic stenosis due to bicuspid aortic valve (HCC)] Onset: 11-04-2024 Unclassified (1 source) Inappropriate sinus node tachycardia (HCC); Translations: [Inappropriate sinus node tachycardia (HCC)] Onset: 06-08-2024 Past or Other Problems Problem Classification Problem Date Documented Date Episodic/Chronic Cardiac dysrhythmias (20 sources) Inappropriate sinus tachycardia; Translations: [Tachycardia, unspecified] Onset: 05-07-2017 05-07-2017 Episodic Contraceptive and procreative management (3 sources) Intrauterine contraceptive device in situ; Translations: [Encounter for routine checking of intrauterine contraceptive device] Onset: 08-06-2024 Episodic Diseases of mouth; excluding dental (2 sources) Geographic tongue; Translations: [Geographic tongue] Onset: 01-27-2024 01-27-2024 Episodic Other circulatory disease (20 sources) History of supraventricular tachycardia; Translations: [Personal history of other diseases of the circulatory system] Onset: 03-24-2017 04-06-2024 Episodic Other circulatory disease (1 source) Personal history of other diseases of the circulatory system; Translations: [History of supraventricular tachycardia] Onset: 04-06-2024 Episodic Other complications of (20 sources) High risk ; Translations: [Supervision of high risk , unspecified, first trimester] Onset: 04-06-2024 04-06-2024 Episodic Other complications of (20 sources) Congenital heart disease; Translations: [Diseases of the circulatory system complicating , third trimester] Onset: 10-28-2016 09-30-2024 Episodic Other complications of (1 source) Supervision of high risk , unspecified, second trimester; Translations: [Supervision of high risk in second trimester] Onset: 08-06-2024 Episodic Other skin disorders (1 source) Hirsutism; Translations: [Hirsutism] Onset: 11-28-2023 Episodic Residual codes; unclassified (20 sources) History of cardiovascular surgery; Translations: [Other specified postprocedural states] Onset: 10-28-2016 Resolved: 11-01-2024 04-06-2024 Episodic Residual codes; unclassified (1 source) 16 weeks gestation of ; Translations: [16 weeks gestation of ] Onset: 06-08-2024 Episodic Residual codes; unclassified (1 source) 12 weeks gestation of ; Translations: [12 weeks gestation of ] Onset: 06-08-2024 Episodic Residual codes; unclassified (1 source) Less than 8 weeks gestation of ; Translations: [7 weeks gestation of ] Onset: 04-06-2024 Episodic Results Test Name Value Interpretation Reference Range Facility Bacteria Ur Culton Bacteria identified Cx Nom (U) Normal [facility] Comment on above: Performed By: #### 6 30-4 ####[facility] [id number] [place] [address] [place] Urinalysis complete panel (U )on 11-10-2024 Bacteria LM.HPF (Urine sed) [#/Area] Negative Normal Negative [facility] Comment on above: Order Comment: Speci men Type: URINE SPECIMENOrdering Facility: [facility] Address: [address] [place] [address] Performed By: #### 2 4356-8 ####[facility] [id number] [place] [address] [place] Bilirubin Ql (U) Negative Normal Negative [facility] Comment on above: Order Comment: Speci men Type: URINE SPECIMENOrdering Facility: [facility] Address: [address] [place] [address] Performed By: #### 2 4356-8 ####[facility] [id number] [address] [place] [address] [place] Clarity (Unsp spec) Clear Normal Clear [facility] Comment on above: Order Comment: Speci men Type: URINE SPECIMENOrdering Facility: [facility] Address: [address] [place] [address] Performed By: #### 2 4356-8 ####[facility] [id number] [place] [id number] [place] [facility] Color (U) Yellow Normal Yellow [facility] Comment on above: Order Comment: Speci men Type: URINE SPECIMENOrdering Facility: [facility] Address: [address] [place] [address] Performed By: #### 2 4356-8 ####[facility] [id number] [address], [facility] [place] Epithelial cells LM.HPF (Urine sed) [#/Area] Few Normal [facility] Comment on above: Order Comment: Speci men Type: URINE SPECIMENOrdering Facility: [facility] Address: [address] [place] [address] Result Comment: Few Performed By: #### 2 4356-8 ####[facility] [id number] [address] [place] [address] [place] Glucose Test strip (U) [Mass/Vol] Negative Normal Negative [facility] Comment on above: Order Comment: Speci men Type: URINE SPECIMENOrdering Facility: [facility] Address: [address] [place] [address] Performed By: #### 2 4356-8 ####[facility] [id number] [address] [place] [address] [place] Hemoglobin Ql (U) 3+ Abnormal Negative [facility] Comment on above: Order Comment: Speci men Type: URINE SPECIMENOrdering Facility: [facility] Address: [address] [place] [address] Performed By: #### 2 4356-8 ####[facility] [id number] [place] [address] [place] Hyaline casts (Urine sed) [#/Area] 0 /[LPF] Normal 0 /LPF [facility] Comment on above: Order Comment: Speci men Type: URINE SPECIMENOrdering Facility: [facility] Address: [address] [place] [address] Performed By: #### 2 4356-8 ####[facility] [id number] [place] [address] [place] Ketones Ql (U) Negative Normal Negative [facility] Comment on above: Order Comment: Speci men Type: URINE SPECIMENOrdering Facility: [facility] Address: [address] [place] [address] Performed By: #### 2 4356-8 ####[facility] [id number] [place] [address] [place] Leukocyte esterase Test strip Ql (U) 2+ Abnormal Negative [facility] Comment on above: Order Comment: Speci men Type: URINE SPECIMENOrdering Facility: [facility] Address: [address] [place] [address] Performed By: #### 2 4356-8 ####[facility] [id number] [place] [address] [place] Nitrite Ql (U) Negative Normal Negative [facility] Comment on above: Order Comment: Speci men Type: URINE SPECIMENOrdering Facility: [facility] Address: [address] [place] [address] Performed By: #### 2 4356-8 ####[facility] [id number] [place] [address] [place] pH (U) 6.0 [pH] Normal <8.5 [facility] Comment on above: Order Comment: Speci men Type: URINE SPECIMENOrdering Facility: [facility] Address: [address] [place] [address] Performed By: #### 2 4356-8 ####[facility] [id number] [place] [address] [place] Protein (U) [Mass/Vol] 1+ Abnormal Negative [facility] Comment on above: Order Comment: Speci men Type: URINE SPECIMENOrdering Facility: [facility] Address: [address] [place] [address] Performed By: #### 2 4356-8 ####[facility] [id number] [place] [address] [place] RBC LM.HPF (Urine sed) [#/Area] 0-2 /HPF Normal 0-2 /HPF [facility] Comment on above: Order Comment: Speci men Type: URINE SPECIMENOrdering Facility: [facility] Address: [address] [place] [address] Performed By: #### 2 4356-8 ####[facility] [id number] [place] [address] [place] Specific gravity (U) [Rel density] 1.023 Normal 1.005-1.030 [facility] Comment on above: Order Comment: Speci men Type: URINE SPECIMENOrdering Facility: [facility] Address: [address] [place] [address] Performed By: #### 2 4356-8 ####[facility] [id number] [place] [address] [place] Urobilinogen Ql (U) 1.0 EU/dL Normal 0.2-1.0 EU/dL [facility] Comment on above: Order Comment: Speci men Type: URINE SPECIMENOrdering Facility: [facility] Address: [address] [place] [address] Performed By: #### 2 4356-8 ####[facility] [id number] [place] [address] [place] WBC LM.HPF (Urine sed) [#/Area] 11-20 /HPF Abnormal 0-5 /HPF [facility] Comment on above: Order Comment: Speci men Type: URINE SPECIMENOrdering Facility: [facility] Address: [address] [place] [address] Performed By: #### 2 4356-8 ####[facility] [id number] [place] [address] [place] CBC panel Auto (Bld)on 11-08 Erythrocyte distribution width (RBC) [Ratio] 15.3 % High 11.5-15.0 [facility] Comment on above: Order Comment: Speci men Type: BLOOD SPECIMENOrdering Facility: [facility] Address: [address] [place] [address] Performed By: #### 5 8410-2 ####[facility] [id number] [place] [address] [place] Hematocrit (Bld) [Volume fraction] 29.5 % Low 36.0-46.0 [facility] Comment on above: Order Comment: Speci men Type: BLOOD SPECIMENOrdering Facility: [facility] Address: [address] [place] [address] Performed By: #### 5 8410-2 ####[facility] [id number] [place] [address] [place] Hemoglobin (Bld) [Mass/Vol] 9.1 g/dL Low 11.5-15.5 [facility] Comment on above: Order Comment: Speci men Type: BLOOD SPECIMENOrdering Facility: [facility] Address: [address] [place], [place] [id number] Performed By: #### 5 8410-2 ####[facility] [id number] [address], [place] [address] [place] MCH (RBC) [Entitic mass] 28.3 pg Normal 26.0-34.0 [facility] Comment on above: Order Comment: Speci men Type: BLOOD SPECIMENOrdering Facility: [facility] Address: [address] [place] [address] Performed By: #### 5 8410-2 ####[facility] [id number] [address], [place] [address] [place] MCHC (RBC) [Mass/Vol] 30.8 g/dL Normal 30.5-36.0 [facility] Comment on above: Order Comment: Speci men Type: BLOOD SPECIMENOrdering Facility: [facility] Address: [address] [place] [address] Performed By: #### 5 8410-2 ####[facility] [id number] [address], [place] [address] [place] MCV (RBC) [Entitic vol] 91.9 fL Normal 80.0-100.0 [facility] Comment on above: Order Comment: Speci men Type: BLOOD SPECIMENOrdering Facility: [facility] Address: [address] [place] [address] Performed By: #### 5 8410-2 ####[facility] [id number] [place] [address] [place] Nucleated RBC (Bld) [#/Vol] 10*3/uL Normal <0.01 [facility] Comment on above: Order Comment: Speci men Type: BLOOD SPECIMENOrdering Facility: [facility] Address: [address] [place] [address] Performed By: #### 5 8410-2 ####[facility] [id number] [place] [address] [place] Platelet mean volume (Bld) [Entitic vol] 10.4 fL Normal 9.0-12.7 [facility] Comment on above: Order Comment: Speci men Type: BLOOD SPECIMENOrdering Facility: [facility] Address: [address] [place] [address] Performed By: #### 5 8410-2 ####[facility] [id number] [place] [address] [place] Platelets (Bld) [#/Vol] 326 10*3/uL Normal 150-400 [facility] Comment on above: Order Comment: Speci men Type: BLOOD SPECIMENOrdering Facility: [facility] Address: [address] [place] [address] Performed By: #### 5 8410-2 ####[facility] [id number] [place] [address] [place] RBC (Bld) [#/Vol] 3.21 10*6/uL Low 3.90-5.20 [facility] Comment on above: Order Comment: Speci men Type: BLOOD SPECIMENOrdering Facility: [facility] Address: [address] [place] [address] Performed By: #### 5 8410-2 ####[facility] [id number] [place] [address] [place] WBC (Bld) [#/Vol] 8.62 10*3/uL Normal 3.70-11.00 [facility] Comment on above: Order Comment: Speci men Type: BLOOD SPECIMENOrdering Facility: [facility] Address: [address] [place] [address] Performed By: #### 5 8410-2 ####[facility] [id number] [place] [id number] [place] CNDSon 11-08-2024 CNDS Normal [facility] Renal function 2000 panelon 11-08-2024 Albumin [Mass/Vol] 3.3 g/dL Low 3.9-4.9 [facility] Comment on above: Order Comment: Speci men Type: BLOOD SPECIMENOrdering Facility: [facility] Address: [address] [place] [address] Performed By: #### 2 4362-6 ####[facility] [id number] [facility] [place] [id number] [place] Anion gap [Moles/Vol] 14 mmol/L Normal 8-15 [facility] Comment on above: Order Comment: Speci men Type: BLOOD SPECIMENOrdering Facility: [facility] Address: [address] [place] [address] Performed By: #### 2 4362-6 ####[facility] [id number] [facility] [address], [facility] [place] Calcium [Mass/Vol] 9.0 mg/dL Normal 8.5-10.2 [facility] Comment on above: Order Comment: Speci men Type: BLOOD SPECIMENOrdering Facility: [facility] Address: [address] [place] [address] Performed By: #### 2 4362-6 ####[facility] [id number] [facility] [place] [id number] [place] Chloride [Moles/Vol] 106 mmol/L Normal 98-107 [facility] Comment on above: Order Comment: Speci men Type: BLOOD SPECIMENOrdering Facility: [facility] Address: [address] [place] [address] Performed By: #### 2 4362-6 ####[facility] [id number] [facility] [place] [id number] [place] CO2 [Moles/Vol] 20 mmol/L Low 22-30 [facility] Comment on above: Order Comment: Speci men Type: BLOOD SPECIMENOrdering Facility: [facility] Address: [address] [place] [address] Performed By: #### 2 4362-6 ####[facility] [id number] [place] [id number] [place] [facility] Creatinine [Mass/Vol] 0.54 mg/dL Low 0.58-0.96 [facility] Comment on above: Order Comment: Speci men Type: BLOOD SPECIMENOrdering Facility: [facility] Address: [address] [place] [address] Performed By: #### 2 4362-6 ####[facility] [id number] [address] OF [facility] Creatinine and Glomerular filtration rate.predicted panel (S/P/Bld) 130 mL/min/1.73m??? Normal >=60 [facility] Comment on above: Order Comment: Speci men Type: BLOOD SPECIMENOrdering Facility: [facility] Address: [address] [place] [address] Result Comment: Hellen mated Glomerular Filtration Rate (eGFR) is calculated using the 2020 CKD-EPI creatinine equation. This equation utilizes serum creatinine, sex, and age as parameters. The creatinine assay has traceable calibration to isotope dilution-mass spectrometry. Refer to KDIGO guidelines for clinical interpretation. In patients with unstable renal function, e.g. those with acute kidney injury, the eGFR may not accurately reflect actual GFR. Performed By: #### 2 4362-6 ####[facility] [id number] [place] [id number] [place] Glucose [Mass/Vol] 78 mg/dL Normal 74-99 [facility] Comment on above: Order Comment: Speci men Type: BLOOD SPECIMENOrdering Facility: [facility] Address: [address] [place] [address] Result Comment: The Stateless Diabetes Association (ADA) provides guidance for cutoff values for fasting glucose and random glucose. The ADA defines fasting as no caloric intake for at least 8 hours. Fasting plasma glucose results between 100 to 125 mg/dL indicate increased risk for diabetes (prediabetes).Fasting plasma glucose results greater than or equal to 126 mg/dL meet the criteria for diagnosis of diabetes. In the absence of unequivocal hyperglycemia, results should be confirmed by repeat testing. In a patient with classic symptoms of hyperglycemia or hyperglycemic crisis, random plasma glucose results greater than or equal to 200 mg/dL meet the criteria for diagnosis of diabetes.Reference: Standards of Medical Care in Diabetes 2016, Stateless Diabetes Association. Diabetes Care. 2016.39(Suppl 1). Performed By: #### 2 4362-6 ####[facility] [id number] [place] [address] [place] Phosphate [Mass/Vol] 4.4 mg/dL Normal 2.7-4.8 [facility] Comment on above: Order Comment: Speci men Type: BLOOD SPECIMENOrdering Facility: [facility] Address: [address] [place] [address] Performed By: #### 2 4362-6 ####[facility] [id number] [place] [id number] [place] Potassium [Moles/Vol] 4.0 mmol/L Normal 3.7-5.1 [facility] Comment on above: Order Comment: Speci men Type: BLOOD SPECIMENOrdering Facility: [facility] Address: [address] [place] [address] Performed By: #### 2 4362-6 ####[facility] [id number] [place] [id number] [place] Sodium [Moles/Vol] 140 mmol/L Normal 136-144 [facility] Comment on above: Order Comment: Speci men Type: BLOOD SPECIMENOrdering Facility: [facility] Address: [address] [place] [address] Performed By: #### 2 4362-6 ####[facility] [id number] [facility] [address] [address] [place] Urea nitrogen [Mass/Vol] 9 mg/dL Normal 7-21 [facility] Comment on above: Order Comment: Speci men Type: BLOOD SPECIMENOrdering Facility: [facility] Address: [address] [place] [address] Performed By: #### 2 4362-6 ####[facility] [id number] [place] [address] [place] CBC panel Auto (Bld)on 11-07 Erythrocyte distribution width (RBC) [Ratio] 15.7 % High 11.5-15.0 [facility] Comment on above: Order Comment: Speci men Type: BLOOD SPECIMENOrdering Facility: [facility] Address: [address] [place] [address] Performed By: #### 5 8410-2 ####[facility] [id number] [place] [address] [place] Hematocrit (Bld) [Volume fraction] 27.9 % Low 36.0-46.0 [facility] Comment on above: Order Comment: Speci men Type: BLOOD SPECIMENOrdering Facility: [facility] Address: [address] [place] [address] Performed By: #### 5 8410-2 ####[facility] [id number] [place] [address] [place] Hemoglobin (Bld) [Mass/Vol] 8.6 g/dL Low 11.5-15.5 [facility] Comment on above: Order Comment: Speci men Type: BLOOD SPECIMENOrdering Facility: [facility] Address: [address] [place] [address] Performed By: #### 5 8410-2 ####[facility] [id number] [place] [address] [place] MCH (RBC) [Entitic mass] 27.9 pg Normal 26.0-34.0 [facility] Comment on above: Order Comment: Speci men Type: BLOOD SPECIMENOrdering Facility: [facility] Address: [address] [place] [address] Performed By: #### 5 8410-2 ####[facility] [id number] [place] [address] [place] MCHC (RBC) [Mass/Vol] 30.8 g/dL Normal 30.5-36.0 [facility] Comment on above: Order Comment: Speci men Type: BLOOD SPECIMENOrdering Facility: [facility] Address: [address] [place] [address] Performed By: #### 5 8410-2 ####[facility] [id number] [place] [address] [place] MCV (RBC) [Entitic vol] 90.6 fL Normal 80.0-100.0 [facility] Comment on above: Order Comment: Speci men Type: BLOOD SPECIMENOrdering Facility: [facility] Address: [address] [place] [address] Performed By: #### 5 8410-2 ####[facility] [id number] [place] [address] [place] Nucleated RBC (Bld) [#/Vol] 10*3/uL Normal <0.01 [facility] Comment on above: Order Comment: Speci men Type: BLOOD SPECIMENOrdering Facility: [facility] Address: [address] [place] [address] Performed By: #### 5 8410-2 ####[facility] [id number] [place] [address] [place] Platelet mean volume (Bld) [Entitic vol] 10.6 fL Normal 9.0-12.7 [facility] Comment on above: Order Comment: Speci men Type: BLOOD SPECIMENOrdering Facility: [facility] Address: [address] [place] [address] Performed By: #### 5 8410-2 ####[facility] [id number] [place] [address] [place] Platelets (Bld) [#/Vol] 301 10*3/uL Normal 150-400 [facility] Comment on above: Order Comment: Speci men Type: BLOOD SPECIMENOrdering Facility: [facility] Address: [address] [place] [address] Performed By: #### 5 8410-2 ####[facility] [id number] [place] [address] [place] RBC (Bld) [#/Vol] 3.08 10*6/uL Low 3.90-5.20 [facility] Comment on above: Order Comment: Speci men Type: BLOOD SPECIMENOrdering Facility: [facility] Address: [address] [place] [address] Performed By: #### 5 8410-2 ####[facility] [id number] [place] [address] [place] WBC (Bld) [#/Vol] 7.60 10*3/uL Normal 3.70-11.00 [facility] Comment on above: Order Comment: Speci men Type: BLOOD SPECIMENOrdering Facility: [facility] Address: [address] [place] [address] Performed By: #### 5 8410-2 ####[facility] [id number] [place] [address] [place] NUTRITIONon 11-07-2024 NUTRITION Normal [facility] Renal function 2000 panelon 11-07-2024 Albumin [Mass/Vol] 3.2 g/dL Low 3.9-4.9 [facility] Comment on above: Order Comment: Speci men Type: BLOOD SPECIMENOrdering Facility: [facility] Address: [address] [place] [address] Performed By: #### 2 4362-6 ####[facility] [id number] [place] [address] [place] Anion gap [Moles/Vol] 13 mmol/L Normal 8-15 [facility] Comment on above: Order Comment: Speci men Type: BLOOD SPECIMENOrdering Facility: [facility] Address: [address] [place] [address] Performed By: #### 2 4362-6 ####[facility] [id number] [facility] [address] [address] [place] Calcium [Mass/Vol] 9.1 mg/dL Normal 8.5-10.2 [facility] Comment on above: Order Comment: Speci men Type: BLOOD SPECIMENOrdering Facility: [facility] Address: [address] [place] [address] Performed By: #### 2 4362-6 ####[facility] [id number] [facility] [address], [place] [address] [place] Chloride [Moles/Vol] 108 mmol/L High 98-107 [facility] Comment on above: Order Comment: Speci men Type: BLOOD SPECIMENOrdering Facility: [facility] Address: [address] [place] [address] Performed By: #### 2 4362-6 ####[facility] [id number] [place] [address] [place] CO2 [Moles/Vol] 21 mmol/L Low 22-30 [facility] Comment on above: Order Comment: Speci men Type: BLOOD SPECIMENOrdering Facility: [facility] Address: [address] [place] [address] Performed By: #### 2 4362-6 ####[facility] [id number] [facility] [place] [id number] [place] Creatinine [Mass/Vol] 0.52 mg/dL Low 0.58-0.96 [facility] Comment on above: Order Comment: Speci men Type: BLOOD SPECIMENOrdering Facility: [facility] Address: [address] [place] [address] Performed By: #### 2 4362-6 ####[facility] [id number] [place] [address] [place] Creatinine and Glomerular filtration rate.predicted panel (S/P/Bld) 132 mL/min/1.73m??? Normal >=60 [facility] Comment on above: Order Comment: Lacey jules Type: BLOOD SPECIMENOrdering Facility: [facility] Address: [address] [place] [address] Result Comment: Hellen mated Glomerular Filtration Rate (eGFR) is calculated using the 2020 CKD-EPI creatinine equation. This equation utilizes serum creatinine, sex, and age as parameters. The creatinine assay has traceable calibration to isotope dilution-mass spectrometry. Refer to KDIGO guidelines for clinical interpretation. In patients with unstable renal function, e.g. those with acute kidney injury, the eGFR may not accurately reflect actual GFR. Performed By: #### 2 4362-6 ####[facility] [id number] [place] [address] [place] Glucose [Mass/Vol] 80 mg/dL Normal 74-99 [facility] Comment on above: Order Comment: Lacey jules Type: BLOOD SPECIMENOrdering Facility: [facility] Address: [address] [place] [address] Result Comment: The Stateless Diabetes Association (ADA) provides guidance for cutoff values for fasting glucose and random glucose. The ADA defines fasting as no caloric intake for at least 8 hours. Fasting plasma glucose results between 100 to 125 mg/dL indicate increased risk for diabetes (prediabetes).Fasting plasma glucose results greater than or equal to 126 mg/dL meet the criteria for diagnosis of diabetes. In the absence of unequivocal hyperglycemia, results should be confirmed by repeat testing. In a patient with classic symptoms of hyperglycemia or hyperglycemic crisis, random plasma glucose results greater than or equal to 200 mg/dL meet the criteria for diagnosis of diabetes.Reference: Standards of Medical Care in Diabetes 2016, Stateless Diabetes Association. Diabetes Care. 2016.39(Suppl 1). Performed By: #### 2 4362-6 ####[facility] [id number] [place] [address] [place] Phosphate [Mass/Vol] 4.3 mg/dL Normal 2.7-4.8 [facility] Comment on above: Order Comment: Speci men Type: BLOOD SPECIMENOrdering Facility: [facility] Address: [address] [place] [address] Performed By: #### 2 4362-6 ####[facility] [id number] [address], [facility]95 [place] Potassium [Moles/Vol] 4.1 mmol/L Normal 3.7-5.1 [facility] Comment on above: Order Comment: Speci men Type: BLOOD SPECIMENOrdering Facility: [facility] Address: [address] [place] [address] Performed By: #### 2 4362-6 ####[facility] [id number] [address], [facility]95 [place] Sodium [Moles/Vol] 142 mmol/L Normal 136-144 [facility] Comment on above: Order Comment: Speci men Type: BLOOD SPECIMENOrdering Facility: [facility] Address: [address] [place] [address] Performed By: #### 2 4362-6 ####[facility] [id number] [address], [facility]95 [place] Urea nitrogen [Mass/Vol] 9 mg/dL Normal 7-21 [facility] Comment on above: Order Comment: Speci men Type: BLOOD SPECIMENOrdering Facility: [facility] Address: [address] [place] [address] Performed By: #### 2 4362-6 ####[facility] [id number] [address], [facility]95 [place] CBC panel Auto (Bld)on 11-06 Erythrocyte distribution width (RBC) [Ratio] 15.5 % High 11.5-15.0 [facility] Comment on above: Order Comment: Speci men Type: BLOOD SPECIMENOrdering Facility: [facility] Address: [address] [place] [address] Performed By: #### 5 8410-2 ####[facility] [id number] [place] [address] [place] Hematocrit (Bld) [Volume fraction] 26.2 % Low 36.0-46.0 [facility] Comment on above: Order Comment: Speci men Type: BLOOD SPECIMENOrdering Facility: [facility] Address: [address] [place] [address] Performed By: #### 5 8410-2 ####[facility] [id number] [place] [address] [place] Hemoglobin (Bld) [Mass/Vol] 8.4 g/dL Low 11.5-15.5 [facility] Comment on above: Order Comment: Speci men Type: BLOOD SPECIMENOrdering Facility: [facility] Address: [address] [place] [address] Performed By: #### 5 8410-2 ####[facility] [id number] [place] [address] [place] MCH (RBC) [Entitic mass] 28.3 pg Normal 26.0-34.0 [facility] Comment on above: Order Comment: Speci men Type: BLOOD SPECIMENOrdering Facility: [facility] Address: [address] [place] [address] Performed By: #### 5 8410-2 ####[facility] [id number] [place] [address] [place] MCHC (RBC) [Mass/Vol] 32.1 g/dL Normal 30.5-36.0 [facility] Comment on above: Order Comment: Speci men Type: BLOOD SPECIMENOrdering Facility: [facility] Address: [address] [place] [address] Performed By: #### 5 8410-2 ####[facility] [id number] [place] [address] [place] MCV (RBC) [Entitic vol] 88.2 fL Normal 80.0-100.0 [facility] Comment on above: Order Comment: Speci men Type: BLOOD SPECIMENOrdering Facility: [facility] Address: [address] [place] [address] Performed By: #### 5 8410-2 ####[facility] [id number] [place] [address] [place] Nucleated RBC (Bld) [#/Vol] 10*3/uL Normal <0.01 [facility] Comment on above: Order Comment: Speci men Type: BLOOD SPECIMENOrdering Facility: [facility] Address: [address] [place] [address] Performed By: #### 5 8410-2 ####[facility] [id number] [place] [address] [place] Platelet mean volume (Bld) [Entitic vol] 10.9 fL Normal 9.0-12.7 [facility] Comment on above: Order Comment: Speci men Type: BLOOD SPECIMENOrdering Facility: [facility] Address: [address] [place] [address] Performed By: #### 5 8410-2 ####[facility] [id number] [place] [address] [place] Platelets (Bld) [#/Vol] 259 10*3/uL Normal 150-400 [facility] Comment on above: Order Comment: Speci men Type: BLOOD SPECIMENOrdering Facility: [facility] Address: [address] [place] [address] Performed By: #### 5 8410-2 ####[facility] [id number] [place] [address] [place] RBC (Bld) [#/Vol] 2.97 10*6/uL Low 3.90-5.20 [facility] Comment on above: Order Comment: Speci men Type: BLOOD SPECIMENOrdering Facility: [facility] Address: [address] [place] [address] Performed By: #### 5 8410-2 ####[facility] [id number] [place] [address] [place] WBC (Bld) [#/Vol] 9.43 10*3/uL Normal 3.70-11.00 [facility] Comment on above: Order Comment: Speci men Type: BLOOD SPECIMENOrdering Facility: [facility] Address: [address] [place] [address] Performed By: #### 5 8410-2 ####[facility] [id number] [place] [address] [place] Ferritin SerPl-ncon 2024 Ferritin [Mass/Vol] 74.9 ng/mL Normal 14.7-205.1 [facility] Comment on above: Order Comment: Speci men Type: BLOOD SPECIMENOrdering Facility: [facility] Address: [address] [place] [address] Performed By: #### 1 9123-9, 72138-6, 2276-4, 70045-1 ####[facility] [id number] [place] [address] [place] Iron and Iron binding capaci ty panelon 11-06-2024 Iron [Mass/Vol] 25 ug/dL Low 41-186 [facility] Comment on above: Order Comment: Speci men Type: BLOOD SPECIMENOrdering Facility: [facility] Address: [address] [place] [address] Performed By: #### 1 9123-9, 61228-9, 2276-4, 76017-9 ####[facility] [id number] [place] [address] [place] Iron binding capacity [Mass/Vol] 340 ug/dL Normal 232-386 [facility] Comment on above: Order Comment: Speci men Type: BLOOD SPECIMENOrdering Facility: [facility] Address: [address] [place], [place] [address] Performed By: #### 1 9123-9, 99473-4, 6-4, 09012-0 ####[facility] [id number] [place] [address] [place] Iron/TIBC [Molar ratio] 7.4 % Low 15.0-57.0 [facility] Comment on above: Order Comment: Speci men Type: BLOOD SPECIMENOrdering Facility: [facility] Address: [address] [place] [address] Performed By: #### 1 9123-9, 06942-1, 6-4, 69339-5 ####[facility] [id number] [place] [address] [place] Magnesium SerPl-mCncon 11-06 Magnesium [Mass/Vol] 1.7 mg/dL Normal 1.7-2.3 [facility] Comment on above: Order Comment: Speci men Type: BLOOD SPECIMENOrdering Facility: [facility] Address: [address] [place], [place] [address] Performed By: #### 1 9123-9, 17747-8, 6-4, 50807-7 ####[facility] [id number] [place] [address] [place] NURSING PROGon 11-06-2024 NURSING PROG Normal [facility] Renal function 2000 panelon 11-06-2024 Albumin [Mass/Vol] 2.9 g/dL Low 3.9-4.9 [facility] Comment on above: Order Comment: Speci men Type: BLOOD SPECIMENOrdering Facility: [facility] Address: [address] [place] [address] Performed By: #### 1 9123-9, 14179-3, 6-4, 23253-7 ####[facility] [id number] [address] [address] [place] Anion gap [Moles/Vol] 12 mmol/L Normal 8-15 [facility] Comment on above: Order Comment: Speci men Type: BLOOD SPECIMENOrdering Facility: [facility] Address: [address] [place] [address] Performed By: #### 1 9123-9, 16682-3, 6-4, 59758-9 ####[facility] [id number] [place] [address] [place] Calcium [Mass/Vol] 9.1 mg/dL Normal 8.5-10.2 [facility] Comment on above: Order Comment: Speci men Type: BLOOD SPECIMENOrdering Facility: [facility] Address: [address] [place] [address] Performed By: #### 1 9123-9, 50527-6, 6-4, 68408-9 ####[facility] [id number] [place] [address] [place] Chloride [Moles/Vol] 106 mmol/L Normal 98-107 [facility] Comment on above: Order Comment: Speci men Type: BLOOD SPECIMENOrdering Facility: [facility] Address: [address] [place], [place] [address] Performed By: #### 1 9123-9, 67401-6, 6-4, 85287-9 ####[facility] [id number] [place] [address] [place] CO2 [Moles/Vol] 21 mmol/L Low 22-30 [facility] Comment on above: Order Comment: Speci men Type: BLOOD SPECIMENOrdering Facility: [facility] Address: [address] [place] [address] Performed By: #### 1 9123-9, 77765-9, 6-4, 79415-0 ####[facility] [id number] [address] [address] [place] Creatinine [Mass/Vol] 0.51 mg/dL Low 0.58-0.96 [facility] Comment on above: Order Comment: Lacey jules Type: BLOOD SPECIMENOrdering Facility: [facility] Address: [address] [place] [address] Performed By: #### 1 9123-9, 00309-8, 2275-4, 62482-8 ####[facility] [id number] [place] [address] [place] Creatinine and Glomerular filtration rate.predicted panel (S/P/Bld) 132 mL/min/1.73m??? Normal >=60 [facility] Comment on above: Order Comment: Lacey jules Type: BLOOD SPECIMENOrdering Facility: [facility] Address: [address] [place] [address] Result Comment: Hellen mated Glomerular Filtration Rate (eGFR) is calculated using the 2020 CKD-EPI creatinine equation. This equation utilizes serum creatinine, sex, and age as parameters. The creatinine assay has traceable calibration to isotope dilution-mass spectrometry. Refer to KDIGO guidelines for clinical interpretation. In patients with unstable renal function, e.g. those with acute kidney injury, the eGFR may not accurately reflect actual GFR. Performed By: #### 1 9123-9, 56192-5, 2275-4, 59263-7 ####[facility] [id number] [address] [address] [place] Glucose [Mass/Vol] 85 mg/dL Normal 74-99 [facility] Comment on above: Order Comment: Lacey jules Type: BLOOD SPECIMENOrdering Facility: [facility] Address: [address] [place] [address] Result Comment: The Stateless Diabetes Association (ADA) provides guidance for cutoff values for fasting glucose and random glucose. The ADA defines fasting as no caloric intake for at least 8 hours. Fasting plasma glucose results between 100 to 125 mg/dL indicate increased risk for diabetes (prediabetes).Fasting plasma glucose results greater than or equal to 126 mg/dL meet the criteria for diagnosis of diabetes. In the absence of unequivocal hyperglycemia, results should be confirmed by repeat testing. In a patient with classic symptoms of hyperglycemia or hyperglycemic crisis, random plasma glucose results greater than or equal to 200 mg/dL meet the criteria for diagnosis of diabetes.Reference: Standards of Medical Care in Diabetes 2016, Stateless Diabetes Association. Diabetes Care. 2016.39(Suppl 1). Performed By: #### 1 9123-9, 97455-6, 6-4, 10925-2 ####[facility] [id number] [place] [address] [place] Phosphate [Mass/Vol] 4.2 mg/dL Normal 2.7-4.8 [facility] Comment on above: Order Comment: Speci men Type: BLOOD SPECIMENOrdering Facility: [facility] Address: [address] [place] [address] Performed By: #### 1 9123-9, 74312-4, 6-4, 82348-9 ####[facility] [id number] [place] [address] [place] Potassium [Moles/Vol] 3.8 mmol/L Normal 3.7-5.1 [facility] Comment on above: Order Comment: Speci jorge a Type: BLOOD SPECIMENOrdering Facility: [facility] Address: [address] [place] [address] Performed By: #### 1 9123-9, 64561-7, 6-4, 88242-1 ####[facility] [id number] [place] [address] [place] Sodium [Moles/Vol] 139 mmol/L Normal 136-144 [facility] Comment on above: Order Comment: Speci men Type: BLOOD SPECIMENOrdering Facility: [facility] Address: [address] [place], [place] [address] Performed By: #### 1 9123-9, 31285-9, 6-4, 70735-6 ####[facility] [id number] [place] [address] [place] Urea nitrogen [Mass/Vol] 10 mg/dL Normal 7-21 [facility] Comment on above: Order Comment: Speci men Type: BLOOD SPECIMENOrdering Facility: [facility] Address: [address] [place] [address] Performed By: #### 1 9123-9, 91976-5, 6-4, 29293-0 ####[facility] [id number] [place] [address] [place] CBC panel Auto (Bld)on 11-05 Erythrocyte distribution width (RBC) [Ratio] 15.6 % High 11.5-15.0 [facility] Comment on above: Order Comment: Speci men Type: BLOOD SPECIMENOrdering Facility: [facility] Address: [address] [place] [address] Performed By: #### 5 8410-2 ####[facility] [id number] [place] [address] [place] Hematocrit (Bld) [Volume fraction] 28.5 % Low 36.0-46.0 [facility] Comment on above: Order Comment: Speci men Type: BLOOD SPECIMENOrdering Facility: [facility] Address: [address] [place] [address] Performed By: #### 5 8410-2 ####[facility] [id number] [place] [id number] [place] Hemoglobin (Bld) [Mass/Vol] 8.8 g/dL Low 11.5-15.5 [facility] Comment on above: Order Comment: Speci men Type: BLOOD SPECIMENOrdering Facility: [facility] Address: [address] [place] [address] Performed By: #### 5 8410-2 ####[facility] [id number] [place] [address] [place] MCH (RBC) [Entitic mass] 28.1 pg Normal 26.0-34.0 [facility] Comment on above: Order Comment: Speci men Type: BLOOD SPECIMENOrdering Facility: [facility] Address: [address] [place] [address] Performed By: #### 5 8410-2 ####[facility] [id number] [place] [address] [place] MCHC (RBC) [Mass/Vol] 30.9 g/dL Normal 30.5-36.0 [facility] Comment on above: Order Comment: Speci men Type: BLOOD SPECIMENOrdering Facility: [facility] Address: [address] [place] [address] Performed By: #### 5 8410-2 ####[facility] [id number] [place] [address] [place] MCV (RBC) [Entitic vol] 91.1 fL Normal 80.0-100.0 [facility] Comment on above: Order Comment: Speci men Type: BLOOD SPECIMENOrdering Facility: [facility] Address: [address] [place] [address] Performed By: #### 5 8410-2 ####[facility] [id number] [place] [address] [place] Nucleated RBC (Bld) [#/Vol] 10*3/uL Normal <0.01 [facility] Comment on above: Order Comment: Speci men Type: BLOOD SPECIMENOrdering Facility: [facility] Address: [address] [place] [address] Performed By: #### 5 8410-2 ####[facility] [id number] [place] [address] [place] Platelet mean volume (Bld) [Entitic vol] 11.1 fL Normal 9.0-12.7 [facility] Comment on above: Order Comment: Speci men Type: BLOOD SPECIMENOrdering Facility: [facility] Address: [address] [place] [address] Performed By: #### 5 8410-2 ####[facility] [id number] [place] [address] [place] Platelets (Bld) [#/Vol] 244 10*3/uL Normal 150-400 [facility] Comment on above: Order Comment: Speci men Type: BLOOD SPECIMENOrdering Facility: [facility] Address: [address] [place] [address] Performed By: #### 5 8410-2 ####[facility] [id number] [place] [address] [place] RBC (Bld) [#/Vol] 3.13 10*6/uL Low 3.90-5.20 [facility] Comment on above: Order Comment: Speci men Type: BLOOD SPECIMENOrdering Facility: [facility] Address: [address] [place] [address] Performed By: #### 5 8410-2 ####[facility] [id number] [place] [address] [place] WBC (Bld) [#/Vol] 9.67 10*3/uL Normal 3.70-11.00 [facility] Comment on above: Order Comment: Speci men Type: BLOOD SPECIMENOrdering Facility: [facility] Address: [address] [place] [address] Performed By: #### 5 8410-2 ####[facility] [id number] [place] [address] [place] CONSULT PROGon 11-05-2024 CONSULT PROG Normal [facility] Magnesium SerPl-mCncon 11-05 Magnesium [Mass/Vol] 1.6 mg/dL Low 1.7-2.3 [facility] Comment on above: Order Comment: Speci men Type: BLOOD SPECIMENOrdering Facility: [facility] Address: [address] [place] [address] Performed By: #### 1 9123-9, 59314-9 ####[facility] [id number] [address] [place] [address] [place] Renal function 2000 panelon 11-05-2024 Albumin [Mass/Vol] 2.8 g/dL Low 3.9-4.9 [facility] Comment on above: Order Comment: Speci men Type: BLOOD SPECIMENOrdering Facility: [facility] Address: [address] [place] [address] Performed By: #### 1 9123-9, 69620-0 ####[facility] [id number] [place] [address] [place] Anion gap [Moles/Vol] 12 mmol/L Normal 8-15 [facility] Comment on above: Order Comment: Speci men Type: BLOOD SPECIMENOrdering Facility: [facility] Address: [address] [place] [address] Performed By: #### 1 9123-9, 32638-7 ####[facility] [id number] [address] [address] [place] Calcium [Mass/Vol] 8.7 mg/dL Normal 8.5-10.2 [facility] Comment on above: Order Comment: Speci men Type: BLOOD SPECIMENOrdering Facility: [facility] Address: [address] [place] [address] Performed By: #### 1 9123-9, 47418-9 ####[facility] [id number] [address] [place] [address] [place] Chloride [Moles/Vol] 108 mmol/L High 98-107 [facility] Comment on above: Order Comment: Speci men Type: BLOOD SPECIMENOrdering Facility: [facility] Address: [address] [place] [address] Performed By: #### 1 9123-9, 89305-8 ####[facility] [id number] [place] [address] [place] CO2 [Moles/Vol] 21 mmol/L Low 22-30 [facility] Comment on above: Order Comment: Speci men Type: BLOOD SPECIMENOrdering Facility: [facility] Address: [address] [place] [address] Performed By: #### 1 9123-9, 22421-9 ####[facility] [id number] [place] [address] [place] Creatinine [Mass/Vol] 0.59 mg/dL Normal 0.58-0.96 [facility] Comment on above: Order Comment: Speci men Type: BLOOD SPECIMENOrdering Facility: [facility] Address: [address] [place] [address] Performed By: #### 1 9123-9, 74840-3 ####[facility] [id number] [address] [place] Creatinine and Glomerular filtration rate.predicted panel (S/P/Bld) 128 mL/min/1.73m??? Normal >=60 [facility] Comment on above: Order Comment: Speci men Type: BLOOD SPECIMENOrdering Facility: [facility] Address: [address] [place] [address] Result Comment: Hellen mated Glomerular Filtration Rate (eGFR) is calculated using the 2020 CKD-EPI creatinine equation. This equation utilizes serum creatinine, sex, and age as parameters. The creatinine assay has traceable calibration to isotope dilution-mass spectrometry. Refer to KDIGO guidelines for clinical interpretation. In patients with unstable renal function, e.g. those with acute kidney injury, the eGFR may not accurately reflect actual GFR. Performed By: #### 1 9123-9, 48443-7 ####[facility] [id number] [place] [address] [place] Glucose [Mass/Vol] 83 mg/dL Normal 74-99 [facility] Comment on above: Order Comment: Speci men Type: BLOOD SPECIMENOrdering Facility: [facility] Address: [address] [place] [address] Result Comment: The Stateless Diabetes Association (ADA) provides guidance for cutoff values for fasting glucose and random glucose. The ADA defines fasting as no caloric intake for at least 8 hours. Fasting plasma glucose results between 100 to 125 mg/dL indicate increased risk for diabetes (prediabetes).Fasting plasma glucose results greater than or equal to 126 mg/dL meet the criteria for diagnosis of diabetes. In the absence of unequivocal hyperglycemia, results should be confirmed by repeat testing. In a patient with classic symptoms of hyperglycemia or hyperglycemic crisis, random plasma glucose results greater than or equal to 200 mg/dL meet the criteria for diagnosis of diabetes.Reference: Standards of Medical Care in Diabetes 2016, Stateless Diabetes Association. Diabetes Care. 2016.39(Suppl 1). Performed By: #### 1 9123-9, 21964-1 ####[facility] [id number] [place] [address] [place] Phosphate [Mass/Vol] 4.0 mg/dL Normal 2.7-4.8 [facility] Comment on above: Order Comment: Speci men Type: BLOOD SPECIMENOrdering Facility: [facility] Address: [address] [place] [address] Performed By: #### 1 9123-9, 44750-1 ####[facility] [id number] [place] [address] [place] Potassium [Moles/Vol] 3.7 mmol/L Normal 3.7-5.1 [facility] Comment on above: Order Comment: Speci men Type: BLOOD SPECIMENOrdering Facility: [facility] Address: [address] [place] [address] Performed By: #### 1 9123-9, 14883-9 ####[facility] [id number] [place] [address] [place] Sodium [Moles/Vol] 141 mmol/L Normal 136-144 [facility] Comment on above: Order Comment: Speci men Type: BLOOD SPECIMENOrdering Facility: [facility] Address: [address] [place] [address] Performed By: #### 1 9123-9, 56532-8 ####[facility] [id number] [place] [address] [place] Urea nitrogen [Mass/Vol] 9 mg/dL Normal 7-21 [facility] Comment on above: Order Comment: Speci men Type: BLOOD SPECIMENOrdering Facility: [facility] Address: [address] [place] [address] Performed By: #### 1 9123-9, 28546-9 ####[facility] [id number] [place] [address] [place] CASE MANAGEMon 11-04-2024 CASE MANAGEM Normal [facility] CBC panel Auto (Bld)on 11-04 Erythrocyte distribution width (RBC) [Ratio] 15.7 % High 11.5-15.0 [facility] Comment on above: Order Comment: Speci men Type: BLOOD SPECIMENOrdering Facility: [facility] Address: [address] [place] [address] Performed By: #### 5 8410-2 ####[facility] [id number] [place] [address] [place] Hematocrit (Bld) [Volume fraction] 27.8 % Low 36.0-46.0 [facility] Comment on above: Order Comment: Speci men Type: BLOOD SPECIMENOrdering Facility: [facility] Address: [address] [place] [address] Performed By: #### 5 8410-2 ####[facility] [id number] [place] [address] [place] Hemoglobin (Bld) [Mass/Vol] 8.8 g/dL Low 11.5-15.5 [facility] Comment on above: Order Comment: Speci men Type: BLOOD SPECIMENOrdering Facility: [facility] Address: [address] [place] [address] Performed By: #### 5 8410-2 ####[facility] [id number] [place] [address] [place] MCH (RBC) [Entitic mass] 28.7 pg Normal 26.0-34.0 [facility] Comment on above: Order Comment: Speci men Type: BLOOD SPECIMENOrdering Facility: [facility] Address: [address] [place] [address] Performed By: #### 5 8410-2 ####[facility] [id number] [place] [address] [place] MCHC (RBC) [Mass/Vol] 31.7 g/dL Normal 30.5-36.0 [facility] Comment on above: Order Comment: Speci men Type: BLOOD SPECIMENOrdering Facility: [facility] Address: [address] [place] [address] Performed By: #### 5 8410-2 ####[facility] [id number] [place] [address] [place] MCV (RBC) [Entitic vol] 90.6 fL Normal 80.0-100.0 [facility] Comment on above: Order Comment: Speci men Type: BLOOD SPECIMENOrdering Facility: [facility] Address: [address] [place] [address] Performed By: #### 5 8410-2 ####[facility] [id number] [place] [address] [place] Nucleated RBC (Bld) [#/Vol] 10*3/uL Normal <0.01 [facility] Comment on above: Order Comment: Speci men Type: BLOOD SPECIMENOrdering Facility: [facility] Address: [address] [place] [address] Performed By: #### 5 8410-2 ####[facility] [id number] [place] [address] [place] Platelet mean volume (Bld) [Entitic vol] 12.0 fL Normal 9.0-12.7 [facility] Comment on above: Order Comment: Speci men Type: BLOOD SPECIMENOrdering Facility: [facility] Address: [address] [place] [address] Performed By: #### 5 8410-2 ####[facility] [id number] [place] [address] [place] Platelets (Bld) [#/Vol] 217 10*3/uL Normal 150-400 [facility] Comment on above: Order Comment: Speci men Type: BLOOD SPECIMENOrdering Facility: [facility] Address: [address] [place] [address] Performed By: #### 5 8410-2 ####[facility] [id number] [place] [address] [place] RBC (Bld) [#/Vol] 3.07 10*6/uL Low 3.90-5.20 [facility] Comment on above: Order Comment: Speci men Type: BLOOD SPECIMENOrdering Facility: [facility] Address: [address] [place] [address] Performed By: #### 5 8410-2 ####[facility] [id number] [place] [address] [place] WBC (Bld) [#/Vol] 10.70 10*3/uL Normal 3.70-11.00 [facility] Comment on above: Order Comment: Speci men Type: BLOOD SPECIMENOrdering Facility: [facility] Address: [address] [place] [address] Performed By: #### 5 8410-2 ####[facility] [id number] [address] [place] [address] [place] Comprehensive metabolic 2000 panelon 11-04-2024 Albumin [Mass/Vol] 2.9 g/dL Low 3.9-4.9 [facility] Comment on above: Order Comment: Speci men Type: BLOOD SPECIMENOrdering Facility: [facility] Address: [address] [place] [address] Performed By: #### 2 4323-8 ####[facility] [id number] [address] [place] [address] [place] ALP [Catalytic activity/Vol] 92 U/L Normal 34-123 [facility] Comment on above: Order Comment: Speci men Type: BLOOD SPECIMENOrdering Facility: [facility] Address: [address] [place] [address] Performed By: #### 2 4323-8 ####[facility] [id number] [address] [place] [address] [place] ALT [Catalytic activity/Vol] 18 U/L Normal 7-38 [facility] Comment on above: Order Comment: Speci men Type: BLOOD SPECIMENOrdering Facility: [facility] Address: [address] [place] [address] Performed By: #### 2 4323-8 ####[facility] [id number] [address] [address] [place] Anion gap [Moles/Vol] 12 mmol/L Normal 8-15 [facility] Comment on above: Order Comment: Speci men Type: BLOOD SPECIMENOrdering Facility: [facility] Address: [address] [place] [address] Performed By: #### 2 4323-8 ####[facility] [id number] [address] [place] [address] [place] AST [Catalytic activity/Vol] 30 U/L Normal 13-35 [facility] Comment on above: Order Comment: Speci men Type: BLOOD SPECIMENOrdering Facility: [facility] Address: [address] [place], [place] [address] Performed By: #### 2 4323-8 ####[facility] [id number] [address] [address] [place] Bilirubin [Mass/Vol] 0.3 mg/dL Normal 0.2-1.3 [facility] Comment on above: Order Comment: Speci men Type: BLOOD SPECIMENOrdering Facility: [facility] Address: [address] [place], [place] [address] Performed By: #### 2 4323-8 ####[facility] [id number] [place] [address] [place] Calcium [Mass/Vol] 9.1 mg/dL Normal 8.5-10.2 [facility] Comment on above: Order Comment: Speci men Type: BLOOD SPECIMENOrdering Facility: [facility] Address: [address] [place], [place] [address] Performed By: #### 2 4323-8 ####[facility] [id number] [place] [address] [place] Chloride [Moles/Vol] 106 mmol/L Normal 98-107 [facility] Comment on above: Order Comment: Speci men Type: BLOOD SPECIMENOrdering Facility: [facility] Address: [address] [place], [place] [address] Performed By: #### 2 4323-8 ####[facility] [id number] [address] [address] [place] CO2 [Moles/Vol] 21 mmol/L Low 22-30 [facility] Comment on above: Order Comment: Speci men Type: BLOOD SPECIMENOrdering Facility: [facility] Address: [address] [place], [place] [address] Performed By: #### 2 4323-8 ####[facility] [id number] [address] [address] [place] Creatinine [Mass/Vol] 0.70 mg/dL Normal 0.58-0.96 [facility] Comment on above: Order Comment: Lacey jules Type: BLOOD SPECIMENOrdering Facility: [facility] Address: [address] [place] [address] Performed By: #### 2 4323-8 ####[facility] [id number] [address] Creatinine and Glomerular filtration rate.predicted panel (S/P/Bld) 123 mL/min/1.73m??? Normal >=60 [facility] Comment on above: Order Comment: Lacey jules Type: BLOOD SPECIMENOrdering Facility: [facility] Address: [address] [place] [address] Result Comment: Hellen mated Glomerular Filtration Rate (eGFR) is calculated using the 2020 CKD-EPI creatinine equation. This equation utilizes serum creatinine, sex, and age as parameters. The creatinine assay has traceable calibration to isotope dilution-mass spectrometry. Refer to KDIGO guidelines for clinical interpretation. In patients with unstable renal function, e.g. those with acute kidney injury, the eGFR may not accurately reflect actual GFR. Performed By: #### 2 4323-8 ####[facility] [id number] [address] [address] [place] Glucose [Mass/Vol] 88 mg/dL Normal 74-99 [facility] Comment on above: Order Comment: Lacey jules Type: BLOOD SPECIMENOrdering Facility: [facility] Address: [address] [place] [address] Result Comment: The Stateless Diabetes Association (ADA) provides guidance for cutoff values for fasting glucose and random glucose. The ADA defines fasting as no caloric intake for at least 8 hours. Fasting plasma glucose results between 100 to 125 mg/dL indicate increased risk for diabetes (prediabetes).Fasting plasma glucose results greater than or equal to 126 mg/dL meet the criteria for diagnosis of diabetes. In the absence of unequivocal hyperglycemia, results should be confirmed by repeat testing. In a patient with classic symptoms of hyperglycemia or hyperglycemic crisis, random plasma glucose results greater than or equal to 200 mg/dL meet the criteria for diagnosis of diabetes.Reference: Standards of Medical Care in Diabetes 2016, Stateless Diabetes Association. Diabetes Care. 2016.39(Suppl 1). Performed By: #### 2 4323-8 ####[facility] [id number] [facility] [id number] [address] [place] Potassium [Moles/Vol] 3.7 mmol/L Normal 3.7-5.1 [facility] Comment on above: Order Comment: Speci men Type: BLOOD SPECIMENOrdering Facility: [facility] Address: [address] [place] [address] Performed By: #### 2 4323-8 ####[facility] [id number] [facility] [address] [place] [address] [place] Protein [Mass/Vol] 5.5 g/dL Low 6.3-8.0 [facility] Comment on above: Order Comment: Speci men Type: BLOOD SPECIMENOrdering Facility: [facility] Address: [address] [place] [address] Performed By: #### 2 4323-8 ####[facility] [id number] [facility] [address] [place] [address] [place] Sodium [Moles/Vol] 139 mmol/L Normal 136-144 [facility] Comment on above: Order Comment: Speci men Type: BLOOD SPECIMENOrdering Facility: [facility] Address: [address] [place] [address] Performed By: #### 2 4323-8 ####[facility] [id number] [facility] [address] [place] [address] [place] Urea nitrogen [Mass/Vol] 9 mg/dL Normal 7-21 [facility] Comment on above: Order Comment: Speci men Type: BLOOD SPECIMENOrdering Facility: [facility] Address: [address] [place] [address] Performed By: #### 2 4323-8 ####[facility] [id number] [place] [address] [place] ECHO SPECIALIST COMPLEX ADUL T CONGENITALon 11-04-2024 ECHO SPECIALIST COMPLEX ADULT CONGENITAL Normal [facility] NURSING PROGon 11-04-2024 NURSING PROG Normal [facility] XR CHEST 1V FRONTAL PORTon 0 11-04-2024 XR CHEST 1V FRONTAL PORT Normal [facility] ANES POSTPROC EVALon 025 ANES POSTPROC EVAL Normal [facility] ARTERIAL BLOOD GASESon 11-03 Base deficit (BldA) [Moles/Vol] -5 mmol/L Low -2-0 [facility] Comment on above: Order Comment: Speci men Type: ARTERIAL BLOOD SPECIMENOrdering Facility: [facility] Address: [address] [place] [address] Performed By: #### A LLBG ####[facility] [id number] [place] [address] [place] Calcium.ionized (Bld) [Mass/Vol] 1.21 mmol/L Normal 1.08-1.30 [facility] Comment on above: Order Comment: Speci men Type: ARTERIAL BLOOD SPECIMENOrdering Facility: [facility] Address: [address] [place] [address] Performed By: #### A LLBG ####[facility] [id number] [place] [address] [place] Calcium.ionized adjusted to pH 7.4 (BldA) [Moles/Vol] 1.22 mmol/L Normal 1.08-1.30 [facility] Comment on above: Order Comment: Speci men Type: ARTERIAL BLOOD SPECIMENOrdering Facility: [facility] Address: [address] [place] [address] Performed By: #### A LLBG ####[facility] [id number] [place] [address] [place] Carboxyhemoglobin (BldA) [Mass fraction] 1.4 % Normal 0.0-2.0 [facility] Comment on above: Order Comment: Speci men Type: ARTERIAL BLOOD SPECIMENOrdering Facility: [facility] Address: [address] [place] [address] Result Comment: Carb oxyhemoglobin Reference Range for Smokers: 2.0-8.0% Performed By: #### A LLBG ####[facility] [id number] [place] [address] [place] CO2 (Bld) [Partial pressure] 30 mm Hg Low 36-46 [facility] Comment on above: Order Comment: Speci men Type: ARTERIAL BLOOD SPECIMENOrdering Facility: [facility] Address: [address] [place] [address] Performed By: #### A LLBG ####[facility] [id number] [address] [place] CO2 adjusted to patient's actual temperature (Bld) [Partial pressure] 30 mmHg Low 36-46 [facility] Comment on above: Order Comment: Speci men Type: ARTERIAL BLOOD SPECIMENOrdering Facility: [facility] Address: [address] [place] [address] Performed By: #### A LLBG ####[facility] [id number] [place] [address] [place] Glucose [Mass/Vol] 112 mg/dL High 60-105 [facility] Comment on above: Order Comment: Speci men Type: ARTERIAL BLOOD SPECIMENOrdering Facility: [facility] Address: [address] [place] [address] Performed By: #### A LLBG ####[facility] [id number] [place] [address] [place] HCO3 (Bld) [Moles/Vol] 19 mmol/L Low 22-26 [facility] Comment on above: Order Comment: Speci men Type: ARTERIAL BLOOD SPECIMENOrdering Facility: [facility] Address: [address] [place] [address] Performed By: #### A LLBG ####[facility] [id number] [place] [id number] [place] Hematocrit (Bld) [Volume fraction] 32.6 % Low 36.0-46.0 [facility] Comment on above: Order Comment: Speci men Type: ARTERIAL BLOOD SPECIMENOrdering Facility: [facility] Address: [address] [place] [address] Performed By: #### A LLBG ####[facility] [id number] [place] [address] [place] Hemoglobin (Bld) [Mass/Vol] 10.6 g/dL Low 11.5-15.5 [facility] Comment on above: Order Comment: Speci men Type: ARTERIAL BLOOD SPECIMENOrdering Facility: [facility] Address: [address] [place] [address] Performed By: #### A LLBG ####[facility] [id number] [place] [address] [place] Order Comment: Speci men Type: BLOOD SPECIMENOrdering Facility: [facility] Address: [address] [place] [address] Performed By: #### 5 7021-8 ####[facility] [id number] [place] [id number] [place] Lactate [Moles/Vol] 2.1 mmol/L Normal 0.5-2.2 [facility] Comment on above: Order Comment: Speci men Type: ARTERIAL BLOOD SPECIMENOrdering Facility: [facility] Address: [address] [place] [address] Performed By: #### A LLBG ####[facility] [id number] [place] [address] [place] Methemoglobin (Bld) [Mass fraction] 1.1 % Normal 0.0-1.5 [facility] Comment on above: Order Comment: Speci men Type: ARTERIAL BLOOD SPECIMENOrdering Facility: [facility] Address: [address] [place] [address] Performed By: #### A LLBG ####[facility] [id number] [place] [address] [place] Oxygen (Bld) [Partial pressure] 195 mm Hg High 85-95 [facility] Comment on above: Order Comment: Speci men Type: ARTERIAL BLOOD SPECIMENOrdering Facility: [facility] Address: [address] [place] [address] Performed By: #### A LLBG ####[facility] [id number] [place] [id number] [place] Oxygen adjusted to patient's actual temperature (Bld) [Partial pressure] 195 mmHg High 85-95 [facility] Comment on above: Order Comment: Speci men Type: ARTERIAL BLOOD SPECIMENOrdering Facility: [facility] Address: [address] [place] [address] Performed By: #### A LLBG ####[facility] [id number] [place] [address] [place] Oxyhemoglobin (BldA) [Mass fraction] 97 % Normal 95-98 [facility] Comment on above: Order Comment: Speci men Type: ARTERIAL BLOOD SPECIMENOrdering Facility: [facility] Address: [address] [place] [address] Performed By: #### A LLBG ####[facility] [id number] [place] [address] [place] pH (Bld) 7.42 [pH] Normal 7.35-7.45 [facility] Comment on above: Order Comment: Speci men Type: ARTERIAL BLOOD SPECIMENOrdering Facility: [facility] Address: [address] [place], [place] [address] Performed By: #### A LLBG ####[facility] [id number] [place] [address] [place] pH adjusted to patient's actual temperature (Bld) 7.42 Normal 7.35-7.45 [facility] Comment on above: Order Comment: Speci men Type: ARTERIAL BLOOD SPECIMENOrdering Facility: [facility] Address: [address] [place] [address] Performed By: #### A LLBG ####[facility] [id number] [place] [address] [place] Potassium [Moles/Vol] 3.7 mmol/L Normal 3.5-5.0 [facility] Comment on above: Order Comment: Speci men Type: ARTERIAL BLOOD SPECIMENOrdering Facility: [facility] Address: [address] [place] [address] Performed By: #### A LLBG ####[facility] [id number] [place] [address] [place] Sodium [Moles/Vol] 132 mmol/L Low 136-144 [facility] Comment on above: Order Comment: Speci men Type: ARTERIAL BLOOD SPECIMENOrdering Facility: [facility] Address: [address] [place] [address] Performed By: #### A LLBG ####[facility] [id number] [place] [address] [place] CASE MGT INIT ASSESon 2024 CASE MGT INIT ASSES Normal [facility] CBC W Auto Differential pane l (Bld)on 11-03-2024 Anisocytosis Ql (Bld) Present Normal [facility] Comment on above: Order Comment: Speci men Type: BLOOD SPECIMENOrdering Facility: [facility] Address: [address] [place] [address] Performed By: #### 5 7021-8 ####[facility] [id number] [place] [address] [place] Basophils (Bld) [#/Vol] 0.00 10*3/uL Normal <0.11 [facility] Comment on above: Order Comment: Speci men Type: BLOOD SPECIMENOrdering Facility: [facility] Address: [address] [place] [address] Performed By: #### 5 7021-8 ####[facility] [id number] [facility] [address], [place] [address] [place] Basophils/100 WBC (Bld) 0.0 % Normal [facility] Comment on above: Order Comment: Speci men Type: BLOOD SPECIMENOrdering Facility: [facility] Address: [address] [place] [address] Performed By: #### 5 7021-8 ####[facility] [id number] [place] [address] [place] Differential cell count method Nom (Bld) Manual Normal [facility] Comment on above: Order Comment: Speci men Type: BLOOD SPECIMENOrdering Facility: [facility] Address: [address] [place] [address] Performed By: #### 5 7021-8 ####[facility] [id number] [place] [address] [place] Eosinophils (Bld) [#/Vol] 0.00 10*3/uL Normal <0.46 [facility] Comment on above: Order Comment: Speci men Type: BLOOD SPECIMENOrdering Facility: [facility] Address: [address] [place] [address] Performed By: #### 5 7021-8 ####[facility] [id number] [place] [address] [place] Eosinophils/100 WBC (Bld) 0.0 % Normal [facility] Comment on above: Order Comment: Speci men Type: BLOOD SPECIMENOrdering Facility: [facility] Address: [address] [place] [address] Performed By: #### 5 7021-8 ####[facility] [id number] [place] [address] [place] Erythrocyte distribution width (RBC) [Ratio] 15.2 % High 11.5-15.0 [facility] Comment on above: Order Comment: Speci men Type: BLOOD SPECIMENOrdering Facility: [facility] Address: [address] [place] [address] Performed By: #### 5 7021-8 ####[facility] [id number] [place] [address] [place] Hematocrit (Bld) [Volume fraction] 33.4 % Low 36.0-46.0 [facility] Comment on above: Order Comment: Speci men Type: BLOOD SPECIMENOrdering Facility: [facility] Address: [address] [place] [address] Performed By: #### 5 7021-8 ####[facility] [id number] [place] [address] [place] Lymphocytes (Bld) [#/Vol] 0.60 10*3/uL Low 1.00-4.00 [facility] Comment on above: Order Comment: Speci men Type: BLOOD SPECIMENOrdering Facility: [facility] Address: [address] [place] [address] Performed By: #### 5 7021-8 ####[facility] [id number] [place] [address] [place] Lymphocytes/100 WBC (Bld) 3.5 % Normal [facility] Comment on above: Order Comment: Speci men Type: BLOOD SPECIMENOrdering Facility: [facility] Address: [address] [place] [address] Performed By: #### 5 7021-8 ####[facility] [id number] [place] [address] [place] MCH (RBC) [Entitic mass] 27.5 pg Normal 26.0-34.0 [facility] Comment on above: Order Comment: Speci men Type: BLOOD SPECIMENOrdering Facility: [facility] Address: [address] [place] [address] Performed By: #### 5 7021-8 ####[facility] [id number] [place] [address] [place] MCHC (RBC) [Mass/Vol] 31.7 g/dL Normal 30.5-36.0 [facility] Comment on above: Order Comment: Speci men Type: BLOOD SPECIMENOrdering Facility: [facility] Address: [address] [place] [address] Performed By: #### 5 7021-8 ####[facility] [id number] [address] [place] MCV (RBC) [Entitic vol] 86.8 fL Normal 80.0-100.0 [facility] Comment on above: Order Comment: Speci men Type: BLOOD SPECIMENOrdering Facility: [facility] Address: [address] [place] [address] Performed By: #### 5 7021-8 ####[facility] [id number] [place] [address] [place] Monocytes (Bld) [#/Vol] 0.16 10*3/uL Normal <0.87 [facility] Comment on above: Order Comment: Speci men Type: BLOOD SPECIMENOrdering Facility: [facility] Address: [address] [place] [address] Performed By: #### 5 7021-8 ####[facility] [id number] [place] [address] [place] Monocytes/100 WBC (Bld) 0.9 % Normal [facility] Comment on above: Order Comment: Speci men Type: BLOOD SPECIMENOrdering Facility: [facility] Address: [address] [place] [address] Performed By: #### 5 7021-8 ####[facility] [id number] [place] [address] [place] Neutrophils (Bld) [#/Vol] 16.52 10*3/uL High 1.45-7.50 [facility] Comment on above: Order Comment: Speci men Type: BLOOD SPECIMENOrdering Facility: [facility] Address: [address] [place] [address] Performed By: #### 5 7021-8 ####[facility] [id number] [place] [address] [place] Neutrophils/100 WBC (Bld) 95.6 % Normal [facility] Comment on above: Order Comment: Speci men Type: BLOOD SPECIMENOrdering Facility: [facility] Address: [address] [place] [address] Performed By: #### 5 7021-8 ####[facility] [id number] [place] [address] [place] Nucleated RBC (Bld) [#/Vol] 10*3/uL Normal <0.01 [facility] Comment on above: Order Comment: Speci men Type: BLOOD SPECIMENOrdering Facility: [facility] Address: [address] [place] [address] Performed By: #### 5 7021-8 ####[facility] [id number] [place] [address] [place] Nucleated RBC/100 WBC (Bld) [Ratio] 0.0 /100 WBC Normal [facility] Comment on above: Order Comment: Speci men Type: BLOOD SPECIMENOrdering Facility: [facility] Address: [address] [place] [address] Performed By: #### 5 7021-8 ####[facility] [id number] [facility] [address] [place] [address] [place] Platelet mean volume (Bld) [Entitic vol] 11.3 fL Normal 9.0-12.7 [facility] Comment on above: Order Comment: Speci men Type: BLOOD SPECIMENOrdering Facility: [facility] Address: [address] [place] [address] Performed By: #### 5 7021-8 ####[facility] [id number] [facility] [address] [place] [address] [place] Platelets (Bld) [#/Vol] 247 10*3/uL Normal 150-400 [facility] Comment on above: Order Comment: Speci men Type: BLOOD SPECIMENOrdering Facility: [facility] Address: [address] [place] [address] Performed By: #### 5 7021-8 ####[facility] [id number] [address] [place] [address] [place] Platelets Estimate (Bld) [#/Vol] Adequate Normal [facility] Comment on above: Order Comment: Speci men Type: BLOOD SPECIMENOrdering Facility: [facility] Address: [address] [place] [address] Performed By: #### 5 7021-8 ####[facility] [id number] [address] [place] [address] [place] Polychromasia LM Ql (Bld) Slight Normal [facility] Comment on above: Order Comment: Speci men Type: BLOOD SPECIMENOrdering Facility: [facility] Address: [address] [place] [address] Performed By: #### 5 7021-8 ####[facility] [id number] [address] [place] [address] [place] RBC (Bld) [#/Vol] 3.85 10*6/uL Low 3.90-5.20 [facility] Comment on above: Order Comment: Speci men Type: BLOOD SPECIMENOrdering Facility: [facility] Address: [address] [place] [address] Performed By: #### 5 7021-8 ####[facility] [id number] [place] [address] [place] RED CELL MORPH Reviewed: see result s of individual morphologies Normal [facility] Comment on above: Order Comment: Speci men Type: BLOOD SPECIMENOrdering Facility: [facility] Address: [address] [place] [address] Performed By: #### 5 7021-8 ####[facility] [id number] [place] [address] [place] WBC (Bld) [#/Vol] 17.28 10*3/uL High 3.70-11.00 [facility] Comment on above: Order Comment: Speci men Type: BLOOD SPECIMENOrdering Facility: [facility] Address: [address] [place] [address] Performed By: #### 5 7021-8 ####[facility] [id number] [place] [address] [place] CONSULT PROGon 11-03-2024 CONSULT PROG Normal [facility] NT[facility]proBNP [facility]-03 Natriuretic peptide.B prohormone N-Terminal [Mass/Vol] 61 pg/mL Normal <125 [facility] Comment on above: Order Comment: Speci men Type: BLOOD SPECIMENOrdering Facility: [facility] Address: [address] [place] [address] Performed By: #### 3 3762-6 ####[facility] [id number] [place] [address] [place] NURSING PROGon 11-03-2024 NURSING PROG Normal [facility] OPERATIVE NOon 11-03-2024 OPERATIVE NO Normal [facility] Pathology biopsy report Herve (Tiss)on 11-03-2024 AP DISCLAIMER Normal [facility] Comment on above: Order Comment: Speci men Type: TISSUE SPECIMENOrdering Facility: [facility] Address: [address] [place] [address] Result Comment: Sol phelps Developed Test (LDT) Disclaimer:Performance characteristics of immunohistochemical, immunofluorescent, and chromogenic in-situ hybridization tests have been determined by the performing laboratory within [facility]'s [facility] Pathology and Laboratory Medicine Department ([facility], [facility], [facility], [facility], [facility], [facility], or [facility]) in a manner consistent with CLIA requirements. One or more of these tests may not have been cleared or approved by the FDA. [facility] is regulated under CLIA as qualified to perform high-complexity testing. These tests are used for clinical purposes. These should not be regarded as investigational or for research. Positive and negative controls stain appropriately. Performed By: #### 6 6121-5 ####[facility] [id number] [place] [address] [place] CASE REPORT Normal [facility] Comment on above: Order Comment: Speci men Type: TISSUE SPECIMENOrdering Facility: [facility] Address: [address] [place] [address] Result Comment: [facility] Pathology Report Case: [id number] Provider: Christal Valle MD Collected: 11/03/2024 09:10 AMOrdering Location: [place] [address] Received: 11/03/2024 11:08 AMPathologist: Kali Mendoza MDSpecimen: Placenta, Single Performed By: #### 6 6121-5 ####[facility] [id number] [place] [address] [place] CLINICAL HISTORY Normal [facility] Comment on above: Order Comment: Speci men Type: TISSUE SPECIMENOrdering Facility: [facility] Address: [address] [place] [address] Result Comment: Pre- op diagnosis:37 weeks gestation of ([facility]) [Z3A.37]Additional clinical history as abstracted from the electronic medical record by Luciano Mendoza MD:- Liveborn male delivered via section at 37 weeks and 2 days gestational age (3350 g; Apgars 8, 9)- Maternal body mass index 42.0 kg/m??? Performed By: #### 6 6121-5 ####[facility] [id number] [place] [id number] [facility] DIAGNOSIS COMMENT The infant nuris ght to placental weight ratio (corrected for formalin fixation) is normal for gestational age at 6.3. Normal [facility] Comment on above: Order Comment: Speci jorge a Type: TISSUE SPECIMENOrdering Facility: [facility] Address: [address] [place] [address] Performed By: #### 6 6121-5 ####[facility] [id number] [address] FINAL DIAGNOSIS Normal [facility] Comment on above: Order Comment: Lacey jules Type: TISSUE SPECIMENOrdering Facility: [facility] Address: [address] [place] [address] Result Comment: Cecilia martino, 37 weeks and 2 days gestational age, section:- Formalin fixed placental weight 549 g, appropriate for gestational age- Third-trimester chorionic villi with appropriate maturation for gestational age- Hypocoiled trivascular umbilical cord (0.7 coils per 10 cm)- Intramural fibrin deposition within several large chorionic and stem villous vessels, compatible with low-grade vascular malperfusion at 2020 EDT Performed By: #### 6 6121-5 ####[facility] [id number] [place] [id number] [facility] FINAL PERFORMING LAB Normal [facility] Comment on above: Order Comment: Sabrai jorge a Type: TISSUE SPECIMENOrdering Facility: [facility] Address: [address] [place] [address] Result Comment: Diag nostic interpretation performed at: [facility], [address] [place] [address] CLIA# [id number] Director: Fitz Marquez MD Performed By: #### 6 6121-5 ####[facility] [id number] [place] [address] [place] GROSS DESCRIPTION Normal [facility] Comment on above: Order Comment: Speci men Type: TISSUE SPECIMENOrdering Facility: [facility] Address: [address] [place] [address] Result Comment: Dinesh. Nuno martino, SingleReceived in formalin labeled placenta is a single placental disc with attached umbilical cord and membranes. The hobson-white umbilical cord measures 15.2 cm in length by 1.2 cm in maximum diameter. It shows one coil and inserts eccentrically, 4.0 cm of the nearest peripheral placental margin. It contains three vessels on cut section. The hobson-pink, semitranslucent membranes attach marginally for the entirety of the circumference. The area of membrane rupture is located 10.5 cm from the closest placental margin. The discoid trimmed placental disc weighs 549.1 g and measures 19.0 x 18.2 x 3.0 cm. The surface is blue-jesus and glistening with normal dispersion of chorionic plate vessels. The maternal surface appears intact. Serial sectioning through the placental disc at 1 cm intervals reveals spongy, dark red parenchyma with no gross lesions identified.[employer] sections are submitted as follows:A1 umbilical cord end and two membrane rollsA2 umbilical cord placental end and chorionic plate section near cord insertionA3 central placenta full thicknessA4 placenta full thicknessA5 maternal wedge sectionsZ 11/03/24 1:48 PMGross examination performed at [facility], [address] [place] [address] Performed By: #### 6 6121-5 ####[facility] [id number] [place] [address] [place] MICROSCOPIC DESCRIPTION Normal [facility] Comment on above: Order Comment: Speci men Type: TISSUE SPECIMENOrdering Facility: [facility] Address: [address] [place] [address] Result Comment: Umbi lical cord: Trivascular umbilical cord without significant diagnostic abnormalityFetal membranes: No significant diagnostic abnormalitiesMembranous decidua: Patchy persistent vascular smooth muscleChorionic plate: Mild acute subchorionitisChorionic plate vasculature: Focal intramural fibrin deposition; multifocal mild acute vasculitis of chorionic plate vesselsStem villi: Intramural fibrin depositionTerminal villi: Appropriate maturation for gestational age; multifocal mild chorangiosisIntervillous space: Basal intervillous thrombus (less than 1 cm in greatest dimension)Basal plate/decidua basalis: No significant diagnostic abnormalities; maternal vessels appear appropriately adapted for Performed By: #### 6 6121-5 ####[facility] [id number] [place] [address] [place] ANES PRE-OPon 11-01-2024 ANES PRE-OP Normal [facility] CONSULTon 11-01-2024 CONSULT Normal [facility] ANES PRE-OPon 10-31-2024 ANES PRE-OP Normal [facility] CBC W Auto Differential pane l (Bld)on 10-31-2024 Basophils (Bld) [#/Vol] 0.03 10*3/uL Normal <0.11 [facility] Comment on above: Order Comment: Speci men Type: BLOOD SPECIMENOrdering Facility: [facility] Address: [address] [place] [address] Performed By: #### 5 7021-8 ####[facility] [id number] [place] [address] [place] Basophils/100 WBC (Bld) 0.3 % Normal [facility] Comment on above: Order Comment: Speci men Type: BLOOD SPECIMENOrdering Facility: [facility] Address: [address] [place] [address] Performed By: #### 5 7021-8 ####[facility] [id number] [place] [address] [place] Differential cell count method Nom (Bld) Auto Normal [facility] Comment on above: Order Comment: Speci men Type: BLOOD SPECIMENOrdering Facility: [facility] Address: [address] [place] [address] Performed By: #### 5 7021-8 ####[facility] [id number] [place] [address] [place] Eosinophils (Bld) [#/Vol] 0.16 10*3/uL Normal <0.46 [facility] Comment on above: Order Comment: Speci men Type: BLOOD SPECIMENOrdering Facility: [facility] [facility] Address: [address] [place] [address] Performed By: #### 5 7021-8 ####[facility] [id number] [place] [address] [place] Eosinophils/100 WBC (Bld) 1.5 % Normal [facility] Comment on above: Order Comment: Speci men Type: BLOOD SPECIMENOrdering Facility: [facility] Address: [address] [place] [address] Performed By: #### 5 7021-8 ####[facility] [id number] [place] [address] [place] Erythrocyte distribution width (RBC) [Ratio] 15.5 % High 11.5-15.0 [facility] Comment on above: Order Comment: Speci men Type: BLOOD SPECIMENOrdering Facility: [facility] Address: [address] [place] [address] Performed By: #### 5 7021-8 ####[facility] [id number] [place] [address] [place] Hematocrit (Bld) [Volume fraction] 32.9 % Low 36.0-46.0 [facility] Comment on above: Order Comment: Speci men Type: BLOOD SPECIMENOrdering Facility: [facility] Address: [address] [place] [address] Performed By: #### 5 7021-8 ####[facility] [id number] [place] [address] [place] Hemoglobin (Bld) [Mass/Vol] 10.7 g/dL Low 11.5-15.5 [facility] Comment on above: Order Comment: Speci men Type: BLOOD SPECIMENOrdering Facility: [facility] Address: [address] [place] [address] Performed By: #### 5 7021-8 ####[facility] [id number] [address], [place] [address] [place] Immature granulocytes (Bld) [#/Vol] 0.06 10*3/uL Normal <0.10 [facility] Comment on above: Order Comment: Speci men Type: BLOOD SPECIMENOrdering Facility: [facility] Address: [address] [place] [address] Performed By: #### 5 7021-8 ####[facility] [id number] [place] [address] [place] Immature granulocytes/100 WBC (Bld) 0.6 % Normal [facility] Comment on above: Order Comment: Speci men Type: BLOOD SPECIMENOrdering Facility: [facility] Address: [address] [place] [address] Performed By: #### 5 7021-8 ####[facility] [id number] [place] [address] [place] Lymphocytes (Bld) [#/Vol] 1.98 10*3/uL Normal 1.00-4.00 [facility] Comment on above: Order Comment: Speci men Type: BLOOD SPECIMENOrdering Facility: [facility] Address: [address] [place] [address] Performed By: #### 5 7021-8 ####[facility] [id number] [place] [address] [place] Lymphocytes/100 WBC (Bld) 18.9 % Normal [facility] Comment on above: Order Comment: Speci men Type: BLOOD SPECIMENOrdering Facility: [facility] Address: [address] [place] [address] Performed By: #### 5 7021-8 ####[facility] [id number] [place] [address] [place] MCH (RBC) [Entitic mass] 28.1 pg Normal 26.0-34.0 [facility] Comment on above: Order Comment: Speci men Type: BLOOD SPECIMENOrdering Facility: [facility] Address: [address] [place] [address] Performed By: #### 5 7021-8 ####[facility] [id number] [place] [address] [place] MCHC (RBC) [Mass/Vol] 32.5 g/dL Normal 30.5-36.0 [facility] Comment on above: Order Comment: Speci men Type: BLOOD SPECIMENOrdering Facility: [facility] Address: [address] [place] [address] Performed By: #### 5 7021-8 ####[facility] [id number] [address] [place] MCV (RBC) [Entitic vol] 86.4 fL Normal 80.0-100.0 [facility] Comment on above: Order Comment: Speci men Type: BLOOD SPECIMENOrdering Facility: [facility] Address: [address] [place] [address] Performed By: #### 5 7021-8 ####[facility] [id number] [place] [address] [place] Monocytes (Bld) [#/Vol] 0.78 10*3/uL Normal <0.87 [facility] Comment on above: Order Comment: Speci men Type: BLOOD SPECIMENOrdering Facility: [facility] Address: [address] [place] [address] Performed By: #### 5 7021-8 ####[facility] [id number] [place] [address] [place] Monocytes/100 WBC (Bld) 7.4 % Normal [facility] Comment on above: Order Comment: Speci men Type: BLOOD SPECIMENOrdering Facility: [facility] Address: [address] [place] [address] Performed By: #### 5 7021-8 ####[facility] [id number] [place] [address] [place] Neutrophils (Bld) [#/Vol] 7.47 10*3/uL Normal 1.45-7.50 [facility] Comment on above: Order Comment: Speci men Type: BLOOD SPECIMENOrdering Facility: [facility] Address: [address] [place] [address] Performed By: #### 5 7021-8 ####[facility] [id number] [place] [address] [place] Neutrophils/100 WBC (Bld) 71.3 % Normal [facility] Comment on above: Order Comment: Speci men Type: BLOOD SPECIMENOrdering Facility: [facility] Address: [address] [place] [address] Performed By: #### 5 7021-8 ####[facility] [id number] [place] [address] [place] Nucleated RBC (Bld) [#/Vol] 10*3/uL Normal <0.01 [facility] Comment on above: Order Comment: Speci men Type: BLOOD SPECIMENOrdering Facility: [facility] Address: [address] [place] [address] Performed By: #### 5 7021-8 ####[facility] [id number] [place] [address] [place] Nucleated RBC/100 WBC (Bld) [Ratio] 0.0 /100 WBC Normal [facility] Comment on above: Order Comment: Speci men Type: BLOOD SPECIMENOrdering Facility: [facility] Address: [address] [place] [address] Performed By: #### 5 7021-8 ####[facility] [id number] [place] [address] [place] Platelet mean volume (Bld) [Entitic vol] 11.3 fL Normal 9.0-12.7 [facility] Comment on above: Order Comment: Speci men Type: BLOOD SPECIMENOrdering Facility: [facility] Address: [address] [place] [address] Performed By: #### 5 7021-8 ####[facility] [id number] [place] [address] [place] Platelets (Bld) [#/Vol] 264 10*3/uL Normal 150-400 [facility] Comment on above: Order Comment: Speci men Type: BLOOD SPECIMENOrdering Facility: [facility] Address: [address] [place] [address] Performed By: #### 5 7021-8 ####[facility] [id number] [place] [address] [place] RBC (Bld) [#/Vol] 3.81 10*6/uL Low 3.90-5.20 [facility] Comment on above: Order Comment: Speci men Type: BLOOD SPECIMENOrdering Facility: [facility] Address: [address] [place] [address] Performed By: #### 5 7021-8 ####[facility] [id number] [place] [address] [place] WBC (Bld) [#/Vol] 10.48 10*3/uL Normal 3.70-11.00 [facility] Comment on above: Order Comment: Speci men Type: BLOOD SPECIMENOrdering Facility: [facility] Address: [address] [place] [address] Performed By: #### 5 7021-8 ####[facility] [id number] [place] [address] [place] HISTORY PHYSICALon HISTORY PHYSICAL Normal [facility] Reagin and Treponema pallidu m IgG and IgM [Interp]on 10-31-2024 T. pallidum IgG+IgM IA Ql (S) Non-Reactive Normal Nonreactive [facility] Comment on above: Order Comment: Speci men Type: BLOOD SPECIMENOrdering Facility: [facility] Address: [address] [place] [address] Performed By: #### 7 3752-8 ####[facility] [id number] [place] [address] [place] Reagin+T pallidum IgG+IgM Se rPl-Impon 10-31-2024 Reagin and Treponema pallidum IgG and IgM [Interp] Cannot exclude recent Treponemal infection if specimen collected within 7-10 days after appearance of suspect lesions or 2-3 weeks after an exposure. Clinical correlation is required. Normal [facility] Comment on above: Order Comment: Speci men Type: BLOOD SPECIMENOrdering Facility: [facility] Address: [address] [place] [address] Performed By: #### 7 3752-8 ####[facility] [id number] [place] [address] [place] TYPE + SCREEN PRENATALon ABO A Normal [facility] Comment on above: Order Comment: Speci men Type: BLOOD SPECIMENOrdering Facility: [facility] Address: [address] [place] [address] Performed By: #### T SPN ####[facility] B[facility] BANKCL[facility] [id number] [place] [address] [place] Rh Nom (Bld) Positive Normal [facility] Comment on above: Order Comment: Speci men Type: BLOOD SPECIMENOrdering Facility: [facility] Address: [address] [place] [address] Performed By: #### T SPN ####[facility]ANKCLIA [id number] [place] [id number] [facility] [place] TYPE AND SCREEN EXPIRATION 11/03/2024 23:59 Normal [facility] Comment on above: Order Comment: Speci men Type: BLOOD SPECIMENOrdering Facility: [facility] Address: [address] [place] [address] Performed By: #### T SPN ####[facility]ANKCL[facility] [id number] [address] OF [facility] OB Triage Physician Noteon 0 10-28-2024 OB Triage Physician Note [facility] Medical Records Department [address] [place] [address] OB Triage Physician Note 10/28/24 0733 MR#: [id number] Acct: [id number] Name: LUZMARIA CHAWLA Rep #: [id number] : 2000 24 From: Carolyn Lugo MD PCP: MARYCRUZ FariaC Status:DEP CLI Y Location: [facility] HPI - General General Date of Admission: 10/27/24 Date of Service: 10/27/24 Chief Complaint: variables HPI Narrative LUZMAIRA HCAWLA, is a 24 F who presents from office with variable on NST. BPP ordered and prolonged monitoring. BPP 12/24 with RICO 11. Reactive tracing. Per MFM NST tomorrow and scheduled for delivery this weekend. Kick counts precautions Maternal Data Information Final VIJAY: 12/02/24 Gestational age: 36+2 PFSH PFSH Home Medications ???Medication ???Instructions ???Recorded ???Last Taken ???Type ondansetron 4 mg disintegrating 4 mg PO Q8H PRN PRN Nausea #10 tab s 04/23/24 10/26/24 Rx tablet aspirin 81 mg tablet 81 mg PO DAILY 10/27/24 10/26/24 H istory famotidine 20 mg tablet (Pepcid) 20 mg PO DAILY 10/27/24 10/26/24 H istory labetalol 100 mg tablet 200 mg PO BID 10/27/24 10/27/24 Hi story vit no.95-ferrous 1 tab PO DAILY 10/27/24 10/26/24 H istory fumarate 28 mg-folic acid 800 mcg tablet () Allergy/AdvReac Type Severity Reaction Status Date / Time codeine AdvReac HEADACHE Verified 10/27/24 10:33 prednisone AdvReac HEADACHE Verified 10/27/24 10:33 Social History Smoking Status: Never smoker History 1 Elective abortions Hx Para 0 Spontaneous abortions Hx # Term Pregnancies Ectopic pregnancies Hx # Pregnancies Multiple births # of living children NST FHR Rate Baby A Baseline: 135 Variability:: Moderate Accelerations:: 15 x 15 Decelerations:: None NST Reactive:: Yes Assessment Plan (1) 36 weeks gestation of : (2) Chronic hypertension affecting : (3) Maternal congenital cardiac anomaly affecting , antepartum: PLAN: Plan Reactive NST. BPP 12/24 kick counts NST tomorrow Scheduled IOL this weekend at 37 weeks 10/28/24 0738 Date Carolyn Lugo MD Cosigner Signature (if applicable): Date CC: HOME MISSION WORKER-C Kwasi Garcia; Dr. Carolyn Lugo MD Signed Normal [facility] URINE OB DIP B/Oon Glucose Ql (U) Negative Neg mg/dL [facility] Protein.monoclonal (U) [Mass/Vol] Negative Neg mg/dL [facility] Biophysical Prof W/O Non Str eson 10-27-2024 Biophysical Prof W/O Non Lorenza [facility] Services [address] [place], [place] [id number] Biophysical Prof W/O Rose Mary Britt MR#: [id number] Acct: [id number] Name: LUZMARIA CHAWLA Rep #: [id number] : 2000 F 24 From: Cristiano manning MD PCP: MARYCRUZ FariaC Status: REG CLI Study: Biophysical Prof W/O Non Stres Date of Exam: 0 10/27/24 Exam# [id number] Ordering Dr: Brantley MD PROCEDURE: BIOPHYSICAL PROF W/O NON STRES 10/27/2024 REASON FOR EXAM: HAVING MULTIPLE VARIABLES DURING ROUTINE VISIT TECHNIQUE: Biophysical profile was performed. COMPARISON: None FINDINGS Number: 1 Position: Vertex Placental Position: Fundal Placental Abnormalities: No evidence of previa. ESTIMATED GESTATIONAL AGE: Baseline: 36 weeks and 2 days. ESTIMATED DATE OF DELIVERY: Baseline: November 22, 2024. BIOPHYSICAL ASSESSMENT: Amniotic Fluid Volume: 4.7 cm Amniotic Fluid Index: 11.1 (8-24 cm normal range) Cardiac Motion: 157 beats per minute (average) Trunk and Limb Motion: Present. Biophysical profile: Breathing movement: 2 Gross body movements: 2 tone: 2 Amniotic fluid volume: 2 Total score: 8/8 US/Biophysical Prof W/O Non Stres IMPRESSION: Normal biophysical profile. Reading Location: [place] [address] CC: HOME MISSION WORKER-C Kwasi Garcia; Dr Marion Woodard MD Internet Marketing Specialist: Signed Normal [facility] URINE OB DIP B/Oon 5 Glucose Ql (U) Negative Neg mg/dL [facility] Protein.monoclonal (U) [Mass/Vol] Negative Neg mg/dL [facility] CNPNon 10-25-2024 CNPN Normal [facility] CNPNon 10-22-2024 CNPN Normal [facility] URINE OB DIP B/Oon 5 Glucose Ql (U) Negative Neg mg/dL [facility] Interpretation and review of laboratory results Normal [facility] Protein.monoclonal (U) [Mass/Vol] Negative Neg mg/dL [facility] HISTORY PHYSICALon 5 HISTORY PHYSICAL Normal [facility] ROUTINE, GROUP B ST REPTOCOCCUS BY PCRon 10-13-2024 ROUTINE, GROUP B STREPTOCOCCUS BY PCR Detected Abnormal [facility] Comment on above: Performed By: #### G BPCR ####[facility] [id number] [place] [address] [place] URINE OB DIP B/Oon 5 Glucose Ql (U) Negative Neg mg/dL [facility] Interpretation and review of laboratory results Normal [facility] Protein.monoclonal (U) [Mass/Vol] Negative Neg mg/dL [facility] CNPNon 10-07-2024 CNPN Normal [facility] CNPNon 10-01-2024 CNPN Normal [facility] ECHO SPECIALIST COMPLEX ADUL T CONGENITALon 09-30-2024 ECHO SPECIALIST COMPLEX ADULT CONGENITAL Normal [facility] Examination level ultrasound on 09-30-2024 [facility] Radiology Study observation (narrative) [facility] HISTORY PHYSICALon HISTORY PHYSICAL Normal [facility] URINE OB DIP B/Oon 5 Glucose Ql (U) Negative Neg mg/dL [facility] Interpretation and review of laboratory results Normal [facility] Protein.monoclonal (U) [Mass/Vol] Negative Neg mg/dL [facility] GESTATIONAL GLUCOSE SCREEN, 1-HOUR, 50 GRAM, NON-FASTINGon 09-01-2024 Glucose [Mass/Vol] 93 mg/dL Normal 74-134 [facility] Comment on above: Order Comment: Speci men Type: BLOOD SPECIMENOrdering Facility: [facility] Address: [address] [place] [address] Result Comment: [facility] Congress of Obstetricians and Gynecologists (Enzo/Jarod) guidelines state a gestational diabetes mellitus positive screen is made, in women not previously diagnosed with overt diabetes, when the 1 hr plasma glucose level is equal to or above 140 mg/dL. The [facility] [employer] Research Scientist and [facility] [employer] recommends a 135 mg/dL cutoff. Performed By: #### G LTGST ####[facility] [id number] [place] [address] [place] CBC W Auto Differential pane l (Bld)on 08-06-2024 Basophils (Bld) [#/Vol] 0.03 10*3/uL Normal <0.11 [facility] Comment on above: Order Comment: Speci men Type: BLOOD SPECIMENOrdering Facility: [facility] Address: [address] [place] [address] Performed By: #### 5 7021-8 ####[facility] [id number] [place] [address] [place] Basophils/100 WBC (Bld) 0.3 % Normal [facility] Comment on above: Order Comment: Speci men Type: BLOOD SPECIMENOrdering Facility: [facility] Address: [address] [place] [address] Performed By: #### 5 7021-8 ####[facility] [id number] [place] [address] [place] Differential cell count method Nom (Bld) Auto Normal [facility] Comment on above: Order Comment: Speci men Type: BLOOD SPECIMENOrdering Facility: [facility] Address: [address] [place] [address] Performed By: #### 5 7021-8 ####[facility] [id number] [place] [address] [place] Eosinophils (Bld) [#/Vol] 0.25 10*3/uL Normal <0.46 [facility] Comment on above: Order Comment: Speci men Type: BLOOD SPECIMENOrdering Facility: [facility] Address: [address] [place] [address] Performed By: #### 5 7021-8 ####[facility] [id number] [place] [address] [place] Eosinophils/100 WBC (Bld) 2.3 % Normal [facility] Comment on above: Order Comment: Speci men Type: BLOOD SPECIMENOrdering Facility: [facility] Address: [address] [place] [address] Performed By: #### 5 7021-8 ####[facility] [id number] [place] [address] [place] Erythrocyte distribution width (RBC) [Ratio] 13.3 % Normal 11.5-15.0 [facility] Comment on above: Order Comment: Speci men Type: BLOOD SPECIMENOrdering Facility: [facility] Address: [address] [place] [address] Performed By: #### 5 7021-8 ####[facility] [id number] [place] [address] [place] Hematocrit (Bld) [Volume fraction] 36.3 % Normal 36.0-46.0 [facility] Comment on above: Order Comment: Speci men Type: BLOOD SPECIMENOrdering Facility: [facility] Address: [address] [place] [address] Performed By: #### 5 7021-8 ####[facility] [id number] [place] [address] [place] Hemoglobin (Bld) [Mass/Vol] 11.6 g/dL Normal 11.5-15.5 [facility] Comment on above: Order Comment: Speci men Type: BLOOD SPECIMENOrdering Facility: [facility] Address: [address] [place] [address] Performed By: #### 5 7021-8 ####[facility] [id number] [place] [id number] [place] Immature granulocytes (Bld) [#/Vol] 0.07 10*3/uL Normal <0.10 [facility] Comment on above: Order Comment: Speci men Type: BLOOD SPECIMENOrdering Facility: [facility] Address: [address] [place] [address] Performed By: #### 5 7021-8 ####[facility] [id number] [address] [address] [place] Immature granulocytes/100 WBC (Bld) 0.7 % Normal [facility] Comment on above: Order Comment: Speci men Type: BLOOD SPECIMENOrdering Facility: [facility] Address: [address] [place] [address] Performed By: #### 5 7021-8 ####[facility] [id number] [place] [address] [place] Lymphocytes (Bld) [#/Vol] 1.89 10*3/uL Normal 1.00-4.00 [facility] Comment on above: Order Comment: Speci men Type: BLOOD SPECIMENOrdering Facility: [facility] Address: [address] [place] [address] Performed By: #### 5 7021-8 ####[facility] [id number] [place] [address] [place] Lymphocytes/100 WBC (Bld) 17.7 % Normal [facility] Comment on above: Order Comment: Speci men Type: BLOOD SPECIMENOrdering Facility: [facility] Address: [address] [place] [address] Performed By: #### 5 7021-8 ####[facility] [id number] [place] [address] [place] MCH (RBC) [Entitic mass] 29.9 pg Normal 26.0-34.0 [facility] Comment on above: Order Comment: Speci men Type: BLOOD SPECIMENOrdering Facility: [facility] Address: [address] [place] [address] Performed By: #### 5 7021-8 ####[facility] [id number] [address] [address] [place] MCHC (RBC) [Mass/Vol] 32.0 g/dL Normal 30.5-36.0 [facility] Comment on above: Order Comment: Speci men Type: BLOOD SPECIMENOrdering Facility: [facility] Address: [address] [place] [address] Performed By: #### 5 7021-8 ####[facility] [id number] [address] [address] [place] MCV (RBC) [Entitic vol] 93.6 fL Normal 80.0-100.0 [facility] Comment on above: Order Comment: Speci men Type: BLOOD SPECIMENOrdering Facility: [facility] Address: [address] [place] [address] Performed By: #### 5 7021-8 ####[facility] [id number] [place] [address] [place] Monocytes (Bld) [#/Vol] 0.57 10*3/uL Normal <0.87 [facility] Comment on above: Order Comment: Speci men Type: BLOOD SPECIMENOrdering Facility: [facility] Address: [address] [place] [address] Performed By: #### 5 7021-8 ####[facility] [id number] [place] [address] [place] Monocytes/100 WBC (Bld) 5.3 % Normal [facility] Comment on above: Order Comment: Speci men Type: BLOOD SPECIMENOrdering Facility: [facility] Address: [address] [place] [address] Performed By: #### 5 7021-8 ####[facility] [id number] [place] [id number] [place] Neutrophils (Bld) [#/Vol] 7.88 10*3/uL High 1.45-7.50 [facility] Comment on above: Order Comment: Speci men Type: BLOOD SPECIMENOrdering Facility: [facility] Address: [address] [place] [address] Performed By: #### 5 7021-8 ####[facility] [id number] [place] [address] [place] Neutrophils/100 WBC (Bld) 73.7 % Normal [facility] Comment on above: Order Comment: Speci men Type: BLOOD SPECIMENOrdering Facility: [facility] Address: [address] [place] [address] Performed By: #### 5 7021-8 ####[facility] [id number] [address], [place] [address] [place] Nucleated RBC (Bld) [#/Vol] 10*3/uL Normal <0.01 [facility] Comment on above: Order Comment: Speci men Type: BLOOD SPECIMENOrdering Facility: [facility] Address: [address] [place] [address] Performed By: #### 5 7021-8 ####[facility] [id number] [place] [address] [place] Nucleated RBC/100 WBC (Bld) [Ratio] 0.0 /100 WBC Normal [facility] Comment on above: Order Comment: Speci men Type: BLOOD SPECIMENOrdering Facility: [facility] Address: [address] [place] [address] Performed By: #### 5 7021-8 ####[facility] [id number] [place] [address] [place] Platelet mean volume (Bld) [Entitic vol] 10.9 fL Normal 9.0-12.7 [facility] Comment on above: Order Comment: Speci men Type: BLOOD SPECIMENOrdering Facility: [facility] Address: [address] [place] [address] Performed By: #### 5 7021-8 ####[facility] [id number] [place] [address] [place] Platelets (Bld) [#/Vol] 301 10*3/uL Normal 150-400 [facility] Comment on above: Order Comment: Speci men Type: BLOOD SPECIMENOrdering Facility: [facility] Address: [address] [place] [address] Performed By: #### 5 7021-8 ####[facility] [id number] [facility] [id number] [place] [address] [place] RBC (Bld) [#/Vol] 3.88 10*6/uL Low 3.90-5.20 [facility] Comment on above: Order Comment: Speci men Type: BLOOD SPECIMENOrdering Facility: [facility] Address: [address] [place] [address] Performed By: #### 5 7021-8 ####[facility] [id number] [place] [address] [place] WBC (Bld) [#/Vol] 10.69 10*3/uL Normal 3.70-11.00 [facility] Comment on above: Order Comment: Speci men Type: BLOOD SPECIMENOrdering Facility: [facility] Address: [address] [place] [address] Performed By: #### 5 7021-8 ####[facility] [id number] [address] [address] [place] CNOVon 08-06-2024 CNOV Normal [facility] Comprehensive metabolic 2000 panelon 08-06-2024 Albumin [Mass/Vol] 3.6 g/dL Low 3.9-4.9 [facility] Comment on above: Order Comment: Speci men Type: BLOOD SPECIMENOrdering Facility: [facility] Address: [address] [place] [address] Performed By: #### 3 3762-6, 65907-5, 09572-7 ####[facility] [id number] [place] [id number] [place] ALP [Catalytic activity/Vol] 67 U/L Normal 34-123 [facility] Comment on above: Order Comment: Speci men Type: BLOOD SPECIMENOrdering Facility: [facility] Address: [address] [place] [address] Performed By: #### 3 3762-6, 94818-7, ####[facility] [id number] [facility] [address] [place] ALT [Catalytic activity/Vol] 15 U/L Normal 7-38 [facility] Comment on above: Order Comment: Speci men Type: BLOOD SPECIMENOrdering Facility: [facility] Address: [address] [place] [address] Performed By: #### 3 3762-6, , ####[facility] [id number] [place] [address] [place] Anion gap [Moles/Vol] 11 mmol/L Normal 8-15 [facility] Comment on above: Order Comment: Speci men Type: BLOOD SPECIMENOrdering Facility: [facility] Address: [address] [place] [address] Performed By: #### 3 3762-6, , ####[facility] [id number] [place] [address] [place] AST [Catalytic activity/Vol] 17 U/L Normal 13-35 [facility] Comment on above: Order Comment: Speci men Type: BLOOD SPECIMENOrdering Facility: [facility] Address: [address] [place] [address] Performed By: #### 3 3762-6, , ####[facility] [id number] [facility] [address] [address] [place] Bilirubin [Mass/Vol] 0.3 mg/dL Normal 0.2-1.3 [facility] Comment on above: Order Comment: Speci men Type: BLOOD SPECIMENOrdering Facility: [facility] Address: [address] [place] [address] Performed By: #### 3 3762-6, 76620-1, 17244-7 ####[facility] [id number] [address] [place] [address] [place] Calcium [Mass/Vol] 9.7 mg/dL Normal 8.5-10.2 [facility] Comment on above: Order Comment: Speci men Type: BLOOD SPECIMENOrdering Facility: [facility] Address: [address] [place], [place] [address] Performed By: #### 3 3762-6, 45698-2, ####[facility] [id number] [address] [place] [address] [place] Chloride [Moles/Vol] 102 mmol/L Normal 98-107 [facility] Comment on above: Order Comment: Speci men Type: BLOOD SPECIMENOrdering Facility: [facility] Address: [address] [place] [address] Performed By: #### 3 3762-6, 29475-8, ####[facility] [id number] [address] [place] [address] [place] CO2 [Moles/Vol] 22 mmol/L Normal 22-30 [facility] Comment on above: Order Comment: Speci men Type: BLOOD SPECIMENOrdering Facility: [facility] Address: [address] [place] [address] Performed By: #### 3 3762-6, 42548-3, 17090-4 ####[facility] [id number] [address] [place] [address] [place] Creatinine [Mass/Vol] 0.55 mg/dL Low 0.58-0.96 [facility] Comment on above: Order Comment: Speci men Type: BLOOD SPECIMENOrdering Facility: [facility] Address: [address] [place] [address] Performed By: #### 3 3762-6, 30773-1, 63699-5 ####[facility] [id number] [place] [address] [place] Creatinine and Glomerular filtration rate.predicted panel (S/P/Bld) 130 mL/min/1.73m??? Normal >=60 [facility] Comment on above: Order Comment: Lacey jules Type: BLOOD SPECIMENOrdering Facility: [facility] Address: [address] [place] [address] Result Comment: Hellen mated Glomerular Filtration Rate (eGFR) is calculated using the 2020 CKD-EPI creatinine equation. This equation utilizes serum creatinine, sex, and age as parameters. The creatinine assay has traceable calibration to isotope dilution-mass spectrometry. Refer to KDIGO guidelines for clinical interpretation. In patients with unstable renal function, e.g. those with acute kidney injury, the eGFR may not accurately reflect actual GFR. Performed By: #### 3 3762-6, 30329-9, 32257-4 ####[facility] [id number] [place] [address] [place] Glucose [Mass/Vol] 78 mg/dL Normal 74-99 [facility] Comment on above: Order Comment: Lacey jules Type: BLOOD SPECIMENOrdering Facility: [facility] Address: [address] [place] [address] Result Comment: The Stateless Diabetes Association (ADA) provides guidance for cutoff values for fasting glucose and random glucose. The ADA defines fasting as no caloric intake for at least 8 hours. Fasting plasma glucose results between 100 to 125 mg/dL indicate increased risk for diabetes (prediabetes).Fasting plasma glucose results greater than or equal to 126 mg/dL meet the criteria for diagnosis of diabetes. In the absence of unequivocal hyperglycemia, results should be confirmed by repeat testing. In a patient with classic symptoms of hyperglycemia or hyperglycemic crisis, random plasma glucose results greater than or equal to 200 mg/dL meet the criteria for diagnosis of diabetes.Reference: Standards of Medical Care in Diabetes 2016, Stateless Diabetes Association. Diabetes Care. 2016.39(Suppl 1). Performed By: #### 3 3762-6, 12830-5, ####[facility] [id number] [address] [address] [place] Potassium [Moles/Vol] 4.3 mmol/L Normal 3.7-5.1 [facility] Comment on above: Order Comment: Speci men Type: BLOOD SPECIMENOrdering Facility: [facility] Address: [address] [place] [address] Performed By: #### 3 3762-6, 49522-3, ####[facility] [id number] [address] [address] [place] Protein [Mass/Vol] 6.8 g/dL Normal 6.3-8.0 [facility] Comment on above: Order Comment: Speci men Type: BLOOD SPECIMENOrdering Facility: [facility] Address: [address] [place] [address] Performed By: #### 3 3762-6, , ####[facility] [id number] [address] [address] [place] Sodium [Moles/Vol] 135 mmol/L Low 136-144 [facility] Comment on above: Order Comment: Speci men Type: BLOOD SPECIMENOrdering Facility: [facility] Address: [address] [place], [place] [address] Performed By: #### 3 3762-6, 89962-9, ####[facility] [id number] [address] [address] [place] Urea nitrogen [Mass/Vol] 7 mg/dL Normal 7-21 [facility] Comment on above: Order Comment: Speci men Type: BLOOD SPECIMENOrdering Facility: [facility] Address: [address] [place], [place] [address] Performed By: #### 3 3762-6, 24960-5, 86472-6 ####[facility] [id number] [address] [address] [place] ECG COMPLETEon 08-06-2024 ECG COMPLETE Normal [facility] ECHO SPECIALIST COMPLEX ADUL T CONGENITALon 08-06-2024 ECHO SPECIALIST COMPLEX ADULT CONGENITAL Normal [facility] Lipid 1996 panelon Cholesterol [Mass/Vol] 245 mg/dL High <200 [facility] Comment on above: Order Comment: Lacey jules Type: BLOOD SPECIMENOrdering Facility: [facility] Address: [address] [place] [address] Result Comment: <200 mg/dL, Desirable 200-239 mg/dL, Borderline high>239 mg/dL, High Performed By: #### 3 3762-6, 60347-0, 48482-0 ####[facility] [id number] [address] [address] [place] Cholesterol in HDL [Mass/Vol] 79 mg/dL Normal >39 [facility] Comment on above: Order Comment: Lacey jules Type: BLOOD SPECIMENOrdering Facility: [facility] Address: [address] [place] [address] Result Comment: 40-5 9 mg/dL, Acceptable>59 mg/dL, High: Negative risk factor for coronary heart disease<40 mg/dL, Low: Positive risk factor for coronary heart disease Performed By: #### 3 3762-6, 63155-4, 71711-1 ####[facility] [id number] [address] [address] [place] Cholesterol in LDL [Mass/Vol] 133 mg/dL High <100 [facility] Comment on above: Order Comment: Lacey jules Type: BLOOD SPECIMENOrdering Facility: [facility] Address: [address] [place] [address] Result Comment: <100 mg/dL, Optimal 100-129 mg/dL, Near optimal/above optimal 130-159 mg/dL, Borderline high 160-189 mg/dL, High>189 mg/dL, Very highSecondary prevention optimal LDL Cholesterol levels are recommended to be < 70 mg/dL Performed By: #### 3 3762-6, 63159-0, 70024-9 ####[facility] [id number] [address] [address] [place] Cholesterol in LDL/Cholesterol in HDL [Mass ratio] 1.68 {ratio} Normal <2.54 [facility] Comment on above: Order Comment: Speci men Type: BLOOD SPECIMENOrdering Facility: [facility] Address: [address] [place] [address] Result Comment: Refe rence:1. National Cholesterol Education Program ATP III Guideline At-A-Glance Quick Desk Reference: National Heart, Lung, and Blood [place]. National Institutes of Health. 2001: NIH Publication No. 01-3305.2. An International Atherosclerosis Society position paper: global recommendations for the management of dyslipidemia: executive summary, Atherosclerosis. 2014: 232(2):410-413. Performed By: #### 3 3762-6, 02253-7, 36581-1 ####[facility] [id number] [address] [address] [place] Cholesterol in VLDL [Mass/Vol] 33 mg/dL High <30 [facility] Comment on above: Order Comment: Speci men Type: BLOOD SPECIMENOrdering Facility: [facility] Address: [address] [place] [address] Performed By: #### 3 3762-6, 74119-8, 84885-9 ####[facility] [id number] [address] [address] [place] Cholesterol non HDL [Mass/Vol] 166 mg/dL High <130 [facility] Comment on above: Order Comment: Speci men Type: BLOOD SPECIMENOrdering Facility: [facility] Address: [address] [place] [address] Result Comment: <130 mg/dL, Optimal 130-159 mg/dL, Near optimal/above optimal 160-189 mg/dL, Borderline high 190-219 mg/dL, High>219 mg/dL, Very highSecondary prevention optimal non HDL Cholesterol levels are recommended to be <100 mg/dL Performed By: #### 3 3762-6, 21808-5, 82670-1 ####[facility] [id number] [address] [place] [address] [place] Cholesterol.total/C holesterol in HDL [Mass ratio] 3.10 {ratio} Normal <5.10 [facility] Comment on above: Order Comment: Speci men Type: BLOOD SPECIMENOrdering Facility: [facility] Address: [address] [place] [address] Performed By: #### 3 3762-6, 82681-1, ####[facility] [id number] [place] [address] [place] FASTING TIME 12 hrs Normal [facility] Comment on above: Order Comment: Speci men Type: BLOOD SPECIMENOrdering Facility: [facility] Address: [address] [place] [address] Performed By: #### 3 3762-6, 01633-4, ####[facility] [id number] [address], [place] [address] [place] Triglyceride [Mass/Vol] 167 mg/dL High <150 [facility] Comment on above: Order Comment: Speci men Type: BLOOD SPECIMENOrdering Facility: [facility] Address: [address] [place] [address] Result Comment: <150 mg/dL, Normal 150-199 mg/dL, Borderline high 200-499 mg/dL, High>499 mg/dL, Very high Performed By: #### 3 3762-6, 13726-8, 65773-7 ####[facility] [id number] [address] [address] [place] NT-proBNP [facility] 08-06 Natriuretic peptide.B prohormone N-Terminal [Mass/Vol] <36 Normal <125 [facility] Comment on above: Order Comment: Speci men Type: BLOOD SPECIMENOrdering Facility: [facility] Address: [address] [place] [address] Performed By: #### 3 3762-6, 62496-7, 59074-0 ####[facility] [id number] [place] [address] [place] Progest SerPl-mCncon 025 Progesterone [Mass/Vol] 47.3 ng/mL Normal See comment [facility] Comment on above: Order Comment: Speci men Type: BLOOD SPECIMENOrdering Facility: [facility] Address: [address] [place] [address] Result Comment: Mens trual Cycle Progesterone Reference Ranges:Follicular: <1.0 ng/mLOvulation: <12.1 ng/mLLuteal: 1.8 to 23.9 ng/mL. Progesterone Reference Ranges vary by gestational period:First Trimester: 11.0 to 44.3 ng/mLSecond Trimester: 25.4 to 83.3 ng/mLThird Trimester: 58.7 to 214 ng/mLPost menopausal Progesterone: <0.5 ng/mLReference: 1. Progesterone (Progesterone III) [package insert V 1.0 [place]]. [employer], [place], [place]. February 2015. Performed By: #### 2 839-9 ####[facility] [id number] [place] [address] [place] Reagin and Treponema pallidu m IgG and IgM [Interp]on 08-06-2024 T. pallidum IgG+IgM IA Ql (S) Non-Reactive Normal Nonreactive [facility] Comment on above: Order Comment: Speci men Type: BLOOD SPECIMENOrdering Facility: [facility] Address: [address] [place] [address] Performed By: #### 7 3752-8 ####[facility] [id number] [place] [address] [place] Reagin+T pallidum IgG+IgM Se rPl-Impon 08-06-2024 Reagin and Treponema pallidum IgG and IgM [Interp] Cannot exclude recent Treponemal infection if specimen collected within 7-10 days after appearance of suspect lesions or 2-3 weeks after an exposure. Clinical correlation is required. Normal [facility] Comment on above: Order Comment: Speci men Type: BLOOD SPECIMENOrdering Facility: [facility] Address: [address] [place] [address] Performed By: #### 7 3752-8 ####[facility] [id number] [place] [address] [place] FETALon 07-21-2024 Normal [facility] Examination level ultrasound on 07-06-2024 Indication Detailed anatomic survey Maternal obesity, BMI >35, history of cardiac anomaly Impression The patient is referred for a detailed anatomic survey. - Single, live, intrauterine . - biometry is consistent with the established gestational age. - No malformations were visualized on a complete detailed anatomic survey. - The amniotic fluid volume is normal amount. - The placenta is posterior, fundal. - The Transabdominal cervical length measures 39.6 mm with no evidence of funneling or other dynamic changes. - Not all structural malformations can be detected by ultrasound examination. Recommendations - growth at 32 weeks. - Additional follow up as clinically indicated. Maternal Assessment Height 170 cm Height (ft) 5 ft Height (in) 7 in Physical Exam Initial weight (lb) 235 lb Initial BMI 36.81 kg/m Maternal assessment other: 1 Para 0 Method Transabdominal ultrasound examination. View: Adequate visualization Robles . Number of fetuses: 1 Dating LMP on: 02/16/2024 GA by LMP 20 w + 1 d VIJAY by LMP: 11/22/2024 GA by prior assessment 20 w + 1 d VIJAY by prior assessment: 11/22/2024 Ultrasound examination on: 07/06/2024 GA by U/S based upon: AC, BPD, Femur, HC GA by U/S 20 w + 2 d VIJAY by U/S: 11/21/2024 Assigned: based on stated VIJAY, selected on 07/06/2024 Assigned GA 20 w + 1 d Assigned VIJAY: 11/22/2024 General Evaluation Cardiac activity present. FHR 154 bpm. movements: present. Presentation: breech Placenta: Placental site: posterior, fundal Umbilical cord: Cord vessels: 3 vessel cord Amniotic fluid: Amount of AF: normal amount. MVP 5.1 cm Growth Overview Exam date GA BPD (mm) HC (mm) AC (mm) FL (mm) HL (mm) EFW (g) 06/08/2024 16w 1d 33.3 56% 127.1 48% 106.8 67% 18.2 23% 143 35% 07/06/2024 20w 1d 47.1 54% 175.4 47% 158.7 72% 31.6 52% 31 59% 350 59% Biometry Standard BPD 47.1 mm 20w 2d 54% Hadlock OFD 62.1 mm 20w 0d 65% Nicolaides HC 175.4 mm 20w 0d 47% Gene Cerebellum tr 20.0 mm 19w 2d 42% Hill Nuchal fold 4.5 mm AC 158.7 mm 21w 0d 72% Hadlock Femur 31.6 mm 20w 0d 52% Gene Humerus 31.0 mm 20w 2d 59% Gene EFW 350 g 20w 2d 59% Hadlock EFW (lb) 0 lb EFW (oz) 12 oz EFW by: Hadlock (HC-AC-FL) Extended Manager Licensing 8.3 mm CM 4.1 mm 22% Nicolaides Extremities / Bony Struc FL / HC 0.18 24% Hadlock Other Structures FHR 154 bpm Anatomy Cranium: normal Lateral ventricles: normal Choroid plexus: normal Midline falx: normal Cavum septi pellucidi: normal Cerebellum: normal Cisterna magna: normal Head / Neck Vermis: normal Neck: normal Nuchal fold: normal Lips: normal Profile: normal Nose: normal Face Maxilla: normal Mandible: normal Orbits: normal Lens: normal 4-chamber view: normal RVOT view: normal LVOT view: normal 3-vessel view: normal 2-dwlvth-czdemxk view: normal Heart / Thorax Situs: situs solitus (normal) Aortic arch view: normal SVC: normal IVC: normal Cardiac axis: normal Rt lung: normal Lt lung: normal Diaphragm: normal Cord insertion: normal Stomach: normal Kidneys: normal Bladder: normal Genitals: normal Abdomen Abdom. wall: normal Cervical spine: normal Thoracic spine: normal Lumbar spine: normal Sacral spine: normal Arms: normal Legs: normal Rt upper arm: normal Rt forearm: normal Rt hand: normal Rt fingers: normal Lt upper arm: normal Lt forearm: normal Lt hand: normal Lt fingers: normal Rt upper leg: normal Rt lower leg: normal Rt foot: normal Lt upper leg: normal Lt lower leg: normal Lt foot: normal sex: male Wants to know sex: yes Maternal Structures Uterus / Cervix Uterus: Visualized Cervix: Visualized Approach: Transabdominal Cervical length 39.6 mm Other: Patient declined transvaginal ultrasound for cervical length. Ovaries / Tubes / Adnexa Rt ovary: Visualized Lt ovary: Visualized Performed By: Nanette Mckeon RDMS, RVT Read By: Latanya Bassett M.D. MATERNAL MEDICINE [facility] Radiology Study observation (narrative) [facility] Bacteria Ur Culton Bacteria identified Cx Nom (U) ORGANISM ID: 1 10,000 -<50,000 CFU/ml Normal urogenital tomy Normal [facility] Comment on above: Performed By: #### 6 30-4 ####[facility] [id number] [place] [address] [place] CNCOon 06-08-2024 CNCO Letter Text Normal [facility] CNOVon 06-08-2024 CNOV Normal [facility] CNPNon 06-08-2024 CNPN Normal [facility] ECG COMPLETEon 06-08-2024 ECG COMPLETE Normal [facility] Examination level ultrasound on 06-08-2024 Indication Early anatomic survey Maternal obesity, BMI >35, patient history of cardiac anomaly Impression The patient is referred for an early anatomic survey because of identified risk factors. - Single, live, intrauterine . - biometry is consistent with the established gestational age. - No malformations were visualized on an early anatomic assessment, although some anatomical structures were suboptimally seen as detailed below. - The amniotic fluid volume is normal amount. - The placenta is posterior. - Not all structural malformations can be detected by ultrasound examination. Recommendations Return around 20 weeks for detailed anatomic survey Maternal Assessment Height 170 cm Height (ft) 5 ft Height (in) 7 in Physical Exam Initial weight (lb) 235 lb Initial BMI 36.81 kg/m Maternal assessment other: 1 Para 0 Method Transabdominal ultrasound examination. View: Suboptimal view: limited by early gestational age Robles . Number of fetuses: 1 Dating LMP on: 02/16/2024 GA by LMP 16 w + 1 d VIJAY by LMP: 11/22/2024 GA by prior assessment 16 w + 1 d VIJAY by prior assessment: 11/22/2024 Ultrasound examination on: 06/08/2024 GA by U/S based upon: AC, BPD, Femur, HC GA by U/S 16 w + 1 d VIJAY by U/S: 11/22/2024 Assigned: based on stated VIJAY, selected on 06/08/2024 Assigned GA 16 w + 1 d Assigned VIJAY: 11/22/2024 General Evaluation Cardiac activity present. FHR 159 bpm. movements: present. Presentation: cephalic Placenta: Placental site: posterior Umbilical cord: Cord vessels: 3 vessel cord Amniotic fluid: Amount of AF: normal amount Biometry Standard BPD 33.3 mm 16w 2d 56% Hadlock OFD 45.5 mm 15w 6d 63% Nicolaides HC 127.1 mm 16w 1d 48% Gene AC 106.8 mm 16w 4d 67% Hadlock Femur 18.2 mm 15w 2d 23% Gene EFW 143 g 15w 6d 35% Hadlock EFW (lb) 0 lb EFW (oz) 5 oz EFW by: Hadlock (HC-AC-FL) Extremities / Bony Struc FL / HC 0.14 <1% Hadlock Other Structures FHR 159 bpm Anatomy Cranium: normal Lateral ventricles: suboptimally visualized Choroid plexus: normal Midline falx: normal Cerebellum: normal Cisterna magna: normal Lips: suboptimally visualized Profile: normal 4-chamber view: suboptimally visualized RVOT view: normal LVOT view: normal 3-vessel view: normal 3-lefytx-sprjhue view: normal Heart / Thorax Aortic arch view: normal Diaphragm: suboptimal Cord insertion: normal Stomach: normal Kidneys: normal Bladder: normal Cervical spine: normal Thoracic spine: normal Lumbar spine: normal Sacral spine: normal Arms: normal Legs: normal Rt upper arm: normal Rt forearm: normal Rt hand: normal Lt upper arm: normal Lt forearm: normal Lt hand: normal Rt upper leg: normal Rt lower leg: normal Rt foot: normal Lt upper leg: normal Lt lower leg: normal Lt foot: normal sex: male Wants to know sex: yes Maternal Structures Uterus / Cervix Uterus: Visualized Cervix: Visualized Approach: Transabdominal Cervical length 32.8 mm Ovaries / Tubes / Adnexa Rt ovary: Visualized Lt ovary: Visualized Performed By: Nanette Mckeon RDMS, RVT Read By: Latanya Bassett M.D. [facility]ERNAL MEDICINE [place] [facility] Rad[facility] Study observation (narrative) [facility] UA DIP, URINE (POC)on 2024 BILIRUBIN UA (POCT) Negative Negative [facility] CLARITY UA (POCT) Clear [facility] COLOR UA (POCT) Yellow [facility] GLUCOSE UA (POCT) Negative Negative mg/dL [facility] Hemoglobin Ql (U) Negative Negative [facility] Interpretation and review of laboratory results Abnormal [facility] KETONE UA (POCT) Negative Negative mg/dL [facility] LEUKOCYTES UA (POCT) Trace Abnormal Negative [facility] NITRITE UA (POCT) Negative Negative [facility] PH UA (POCT) 6.0 4.5 - 8.0 [facility] Protein Ql (U) Negative Negative mg/dL [facility] SPECIFIC GRAVITY UA (POCT) 1.020 1.005 - 1.030 [facility] UROBILINOGEN UA (POCT) 1.0 Normal E.U./dL [facility] Location:[facility], [address], [place], [place], [id number] [place] [address] POINT OF CARE [facility] CNPNon 05-14-2024 CNPN Normal [facility] nuchal translucency me asured by USon 05-10-2024 Indication First trimester anatomic survey Maternal obesity, BMI >35 Impression REMOTE READ The patient is referred for a first trimester anatomy scan including nuchal translucency measurement as clinically indicated. - Single, live, intrauterine . - [place] rump length measurement is consistent with the established gestational age. - No malformations visualized on a complete first trimester anatomic assessment. - The nuchal translucency measurement is 1.2 mm. - Not all structural malformations can be detected by ultrasound examination. Maternal Structures: Right Ovary: Size 25 mm x 30 mm x 23 mm Left Ovary: Size 30 mm x 24 mm x 13 mm Recommendations - A standard anatomic survey at 16 weeks can be offered and a detailed exam at 20 weeks is recommended for increased risk. Maternal Assessment Height 170 cm Height (ft) 5 ft Height (in) 7 in Physical Exam Initial weight (lb) 235 lb Initial BMI 36.81 kg/m Maternal assessment other: 1 Para 0 Method Transabdominal ultrasound examination Robles . Number of fetuses: 1 Dating LMP on: 02/16/2024 GA by LMP 12 w + 0 d VIJAY by LMP: 11/22/2024 GA by prior assessment 12 w + 0 d VIJAY by prior assessment: 11/22/2024 Ultrasound examination on: 05/10/2024 GA by U/S based upon: CRL GA by U/S 12 w + 0 d VIJAY by U/S: 11/22/2024 Assigned: based on stated VIJAY, selected on 05/10/2024 Assigned GA 12 w + 0 d Assigned VIJAY: 11/22/2024 General Evaluation Cardiac activity present Placenta: posterior Cord vessels: 3 vessel cord Amniotic fluid: normal amount Biometry Standard FHR 173 bpm CRL 53.5 mm 12w 0d 32% Hadlock NT 1.20 mm First Trimester Anatomy Calvarium: normal Falx cerebri: normal Choroid plexus: normal Profile: normal Nasal bone: normal Retronasal triangle: normal Maxilla: normal Mandible: normal Nuchal translucency: Unremarkable Situs: normal Cardiac position: normal Cardiac axis: normal 4-chamber view: visualized 4-chamber view with color: visualized 7-[id number]-[id number] view: normal Abdominal cord insertion: normal Stomach: normal Kidneys: normal Bladder: normal Color doppler of perivesical umbilical arteries: normal Vertebral alignment: suboptimal Arms: normal Hands: normal Legs: normal Feet: normal Maternal Structures Uterus / Cervix Uterus: Visualized Uterus length 142 mm Uterus width 99 mm Uterus height 66 mm Uterus Vol 489.9 cm Ovaries / Tubes / Adnexa Rt ovary: Visualized Rt ovary D1 25 mm Rt ovary D2 30 mm Rt ovary D3 23 mm Rt ovary Vol 9.2 cm Lt ovary: Visualized Lt ovary D1 30 mm Lt ovary D2 24 mm Lt ovary D3 13 mm Lt ovary Vol 5.0 cm Performed By: Nanette Mckeon, VERA, RVT Read By: Latanya Bassett M.D. MATERNAL MEDICINE [facility] Radiology Study observation (narrative) [facility] Basic metabolic 2000 panelon 12-16-2024 Anion gap [Moles/Vol] 9 mmol/L Normal 8-15 [facility] Comment on above: Order Comment: Speci men Type: BLOOD SPECIMENOrdering Facility: [facility] Address: [address] [place] [address] Performed By: #### 2 4321-2 ####[facility]ITALWNCLIA [id number] [place] [address] [place] Calcium [Mass/Vol] 9.7 mg/dL Normal 8.5-10.2 [facility] Comment on above: Order Comment: Speci men Type: BLOOD SPECIMENOrdering Facility: [facility] Address: [address] [place] [address] Performed By: #### 2 4321-2 ####[facility]CL[facility] [id number] [place] [address] [place] Chloride [Moles/Vol] 105 mmol/L Normal 98-107 [facility] Comment on above: Order Comment: Speci men Type: BLOOD SPECIMENOrdering Facility: [facility] Address: [address] [place] [address] Performed By: #### 2 4321-2 ####[facility] CENTERLIA [id number] [place] [address] [place] CO2 [Moles/Vol] 22 mmol/L Normal 22-30 [facility] Comment on above: Order Comment: Speci men Type: BLOOD SPECIMENOrdering Facility: [facility] Address: [address] [place] [address] Performed By: #### 2 4321-2 ####[facility]ERNCLIA [id number] [place] [address] [place] Creatinine [Mass/Vol] 0.56 mg/dL Low 0.58-0.96 [facility] Comment on above: Order Comment: Speci men Type: BLOOD SPECIMENOrdering Facility: [facility] Address: [address] [place] [address] Performed By: #### 2 4321-2 ####[facility] [id number] [place] [address] [place] Creatinine and Glomerular filtration rate.predicted panel (S/P/Bld) 129 mL/min/1.73m??? Normal >=60 [facility] Comment on above: Order Comment: Lacey jules Type: BLOOD SPECIMENOrdering Facility: [facility] Address: [address] [place] [address] Result Comment: Hellen mated Glomerular Filtration Rate (eGFR) is calculated using the 2020 CKD-EPI creatinine equation. This equation utilizes serum creatinine, sex, and age as parameters. The creatinine assay has traceable calibration to isotope dilution-mass spectrometry. Refer to KDIGO guidelines for clinical interpretation. In patients with unstable renal function, e.g. those with acute kidney injury, the eGFR may not accurately reflect actual GFR. Performed By: #### 2 4321-2 ####[facility] [id number] [place] [address] [place] Glucose [Mass/Vol] 71 mg/dL Low 74-99 [facility] Comment on above: Order Comment: Lacey jules Type: BLOOD SPECIMENOrdering Facility: [facility] Address: [address] [place] [address] Result Comment: The Stateless Diabetes Association (ADA) provides guidance for cutoff values for fasting glucose and random glucose. The ADA defines fasting as no caloric intake for at least 8 hours. Fasting plasma glucose results between 100 to 125 mg/dL indicate increased risk for diabetes (prediabetes).Fasting plasma glucose results greater than or equal to 126 mg/dL meet the criteria for diagnosis of diabetes. In the absence of unequivocal hyperglycemia, results should be confirmed by repeat testing. In a patient with classic symptoms of hyperglycemia or hyperglycemic crisis, random plasma glucose results greater than or equal to 200 mg/dL meet the criteria for diagnosis of diabetes.Reference: Standards of Medical Care in Diabetes 2016, Stateless Diabetes Association. Diabetes Care. 2016.39(Suppl 1). Performed By: #### 2 4321-2 ####[facility]OSPITALWNCLIA [id number] [place] [address] [place] Potassium [Moles/Vol] 4.1 mmol/L Normal 3.7-5.1 [facility] Comment on above: Order Comment: Speci men Type: BLOOD SPECIMENOrdering Facility: [facility] Address: [address] [place] [address] Performed By: #### 2 4321-2 ####[facility] [id number] [place] [address] [place] Sodium [Moles/Vol] 136 mmol/L Normal 136-144 [facility] Comment on above: Order Comment: Speci men Type: BLOOD SPECIMENOrdering Facility: [facility] Address: [address] [place] [address] Performed By: #### 2 4321-2 ####[facility] [id number] [place] [address] [place] Urea nitrogen [Mass/Vol] 4 mg/dL Low 7-21 [facility] Comment on above: Order Comment: Speci men Type: BLOOD SPECIMENOrdering Facility: [facility] Address: [address] [place] [address] Performed By: #### 2 4321-2 ####[facility] CENTERLIA [id number] [place] [address] [place] CBC W Auto Differential pane l (Bld)on 05-03-2024 Basophils (Bld) [#/Vol] 0.03 10*3/uL Normal <0.11 [facility] Comment on above: Order Comment: Speci men Type: BLOOD SPECIMENOrdering Facility: [facility] Address: [address] [place] [address] Performed By: #### 5 7021-8 ####[facility] [id number] [place] [address] [place] Basophils/100 WBC (Bld) 0.3 % Normal [facility] Comment on above: Order Comment: Speci men Type: BLOOD SPECIMENOrdering Facility: [facility] Address: [address] [place] [address] Performed By: #### 5 7021-8 ####[facility]ENTERSAMANTHAA [id number] [place] [address] [place] Differential cell count method Nom (Bld) Auto Normal [facility] Comment on above: Order Comment: Speci men Type: BLOOD SPECIMENOrdering Facility: [facility] Address: [address] [place] [address] Performed By: #### 5 7021-8 ####[facility]ENTERNCSALT [facility] [id number] [place] [address] [place] Eosinophils (Bld) [#/Vol] 0.09 10*3/uL Normal <0.46 [facility] Comment on above: Order Comment: Speci men Type: BLOOD SPECIMENOrdering Facility: [facility] Address: [address] [place] [address] Performed By: #### 5 7021-8 ####[facility]ENTERNCA [id number] [place] [address] [place] Eosinophils/100 WBC (Bld) 0.9 % Normal [facility] Comment on above: Order Comment: Speci men Type: BLOOD SPECIMENOrdering Facility: [facility] Address: [address] [place] [address] Performed By: #### 5 7021-8 ####[facility] [id number] [place] [address] [place] Erythrocyte distribution width (RBC) [Ratio] 12.8 % Normal 11.5-15.0 [facility] Comment on above: Order Comment: Speci men Type: BLOOD SPECIMENOrdering Facility: [facility] Address: [address] [place] [address] Performed By: #### 5 7021-8 ####[facility] MACKSANDY HOOKJARED [id number] [place] [address] [place] Hematocrit (Bld) [Volume fraction] 38.2 % Normal 36.0-46.0 [facility] Comment on above: Order Comment: Speci men Type: BLOOD SPECIMENOrdering Facility: [facility] Address: [address] [place] [address] Performed By: #### 5 7021-8 ####[facility]ENTERNCSALT [facility] [id number] [place] [address] [place] Hemoglobin (Bld) [Mass/Vol] 12.7 g/dL Normal 11.5-15.5 [facility] Comment on above: Order Comment: Speci men Type: BLOOD SPECIMENOrdering Facility: [facility] Address: [address] [place] [address] Performed By: #### 5 7021-8 ####[facility] [id number] [place] [address] [place] Immature granulocytes (Bld) [#/Vol] 0.03 10*3/uL Normal <0.10 [facility] Comment on above: Order Comment: Speci men Type: BLOOD SPECIMENOrdering Facility: [facility] Address: [address] [place] [address] Performed By: #### 5 7021-8 ####[facility]ENTERNCLIA [id number] [place] [address] [place] Immature granulocytes/100 WBC (Bld) 0.3 % Normal [facility] Comment on above: Order Comment: Speci men Type: BLOOD SPECIMENOrdering Facility: [facility] Address: [address] [place] [address] Performed By: #### 5 7021-8 ####[facility]OSPITALWNCLIA [id number] [place] [address] [place] Lymphocytes (Bld) [#/Vol] 1.96 10*3/uL Normal 1.00-4.00 [facility] Comment on above: Order Comment: Speci men Type: BLOOD SPECIMENOrdering Facility: [facility] Address: [address] [place] [address] Performed By: #### 5 7021-8 ####[facility] CENTERLIA [id number] [place] [address] [place] Lymphocytes/100 WBC (Bld) 19.5 % Normal [facility] Comment on above: Order Comment: Speci men Type: BLOOD SPECIMENOrdering Facility: [facility] Address: [address] [place] [address] Performed By: #### 5 7021-8 ####[facility] [id number] [place] [address] [place] MCH (RBC) [Entitic mass] 29.5 pg Normal 26.0-34.0 [facility] Comment on above: Order Comment: Speci men Type: BLOOD SPECIMENOrdering Facility: [facility] Address: [address] [place] [address] Performed By: #### 5 7021-8 ####[facility] CENTERLI [id number] [place] [address] [place] MCHC (RBC) [Mass/Vol] 33.2 g/dL Normal 30.5-36.0 [facility] Comment on above: Order Comment: Speci men Type: BLOOD SPECIMENOrdering Facility: [facility] Address: [address] [place] [address] Performed By: #### 5 7021-8 ####[facility]ENTERNCLI [id number] [place] [address] [place] MCV (RBC) [Entitic vol] 88.6 fL Normal 80.0-100.0 [facility] Comment on above: Order Comment: Speci men Type: BLOOD SPECIMENOrdering Facility: [facility] Address: [address] [place] [address] Performed By: #### 5 7021-8 ####[facility]ENTERNCSALT [facility] [id number] [place] [address] [place] Monocytes (Bld) [#/Vol] 0.67 10*3/uL Normal <0.87 [facility] Comment on above: Order Comment: Speci men Type: BLOOD SPECIMENOrdering Facility: [facility] Address: [address] [place] [address] Performed By: #### 5 7021-8 ####[facility]ERNCS[facility] [id number] [place] [address] [place] Monocytes/100 WBC (Bld) 6.7 % Normal [facility] Comment on above: Order Comment: Speci men Type: BLOOD SPECIMENOrdering Facility: [facility] Address: [address] [place] [address] Performed By: #### 5 7021-8 ####[facility] [id number] [place] [address] [place] Neutrophils (Bld) [#/Vol] 7.26 10*3/uL Normal 1.45-7.50 [facility] Comment on above: Order Comment: Speci men Type: BLOOD SPECIMENOrdering Facility: [facility] Address: [address] [place], [place] [address] Performed By: #### 5 7021-8 ####[facility]ERNCS[facility] [id number] [place] [address] [place] Neutrophils/100 WBC (Bld) 72.3 % Normal [facility] Comment on above: Order Comment: Speci men Type: BLOOD SPECIMENOrdering Facility: [facility] Address: [address] [place] [address] Performed By: #### 5 7021-8 ####[facility] CENTERMILTON [id number] [place] [address] [place] Nucleated RBC (Bld) [#/Vol] 10*3/uL Normal <0.01 [facility] Comment on above: Order Comment: Speci men Type: BLOOD SPECIMENOrdering Facility: [facility] Address: [address] [place] [address] Performed By: #### 5 7021-8 ####[facility]ERNCS[facility] [id number] [place] [address] [place] Nucleated RBC/100 WBC (Bld) [Ratio] 0.0 /100 WBC Normal [facility] Comment on above: Order Comment: Speci men Type: BLOOD SPECIMENOrdering Facility: [facility] Address: [address] [place] [address] Performed By: #### 5 7021-8 ####[facility] [id number] [place] [address] [place] Platelet mean volume (Bld) [Entitic vol] 10.3 fL Normal 9.0-12.7 [facility] Comment on above: Order Comment: Speci men Type: BLOOD SPECIMENOrdering Facility: [facility] Address: [address] [place] [address] Performed By: #### 5 7021-8 ####[facility]ERNCLIA [id number] [place] [address] [place] Platelets (Bld) [#/Vol] 283 10*3/uL Normal 150-400 [facility] Comment on above: Order Comment: Speci men Type: BLOOD SPECIMENOrdering Facility: [facility] Address: [address] [place] [address] Performed By: #### 5 7021-8 ####[facility]ENTERNCA [id number] [place] [address] [place] RBC (Bld) [#/Vol] 4.31 10*6/uL Normal 3.90-5.20 [facility] Comment on above: Order Comment: Speci men Type: BLOOD SPECIMENOrdering Facility: [facility] Address: [address] [place] [address] Performed By: #### 5 7021-8 ####[facility] [id number] [place] [address] [place] WBC (Bld) [#/Vol] 10.04 10*3/uL Normal 3.70-11.00 [facility] Comment on above: Order Comment: Speci men Type: BLOOD SPECIMENOrdering Facility: [facility] Address: [address] [place] [address] Performed By: #### 5 7021-8 ####[facility] [id number] [place] [address] [place] HBV surface Ag Ser Qlon 04-18 HBV surface Ag Ql (S) Negative Normal Negative [facility] Comment on above: Order Comment: Speci men Type: BLOOD SPECIMENOrdering Facility: [facility] Address: [address] [place] [address] Performed By: #### 5 195-3, 73699-0, 32824-1 ####[facility] [id number] [place] [address] [place] HCV Ab Ser Qlon 05-03-2024 HCV Ab Ql (S) Negative Normal Negative [facility] Comment on above: Order Comment: Speci men Type: BLOOD SPECIMENOrdering Facility: [facility] Address: [address] [place] [address] Result Comment: The result suggests no evidence of active infection with Hepatitis C virus. Should recent infection be suspected, repeat testing may be considered 4-6 weeks after this draw. Performed By: #### 1 6128-1 ####[facility] [id number] [place] [address] [place] HIV 1+2 Ab IA Qlon 4 HIV 1 and 2 Ab IA.rapid Nom (S/P/Bld) Normal [facility] Comment on above: Order Comment: Speci men Type: BLOOD SPECIMENOrdering Facility: [facility] Address: [address] [place] [address] Result Comment: Test not indicated. Performed By: #### 5 195-3, 73575-0, 81981-7 ####[facility] [id number] [address] OF [place] HIV 1+2 Ab+HIV1 p24 Ag IA Ql Non-Reactive Normal Nonreactive [facility] Comment on above: Order Comment: Speci men Type: BLOOD SPECIMENOrdering Facility: [facility] Address: [address] [place] [address] Performed By: #### 5 195-3, 20413-3, 86105-1 ####[facility] [id number] [address] [place] HIV immunoassay testing algorithm interpretation (S/P/Bld) [Interp] Normal [facility] Comment on above: Order Comment: Speci men Type: BLOOD SPECIMENOrdering Facility: [facility] Address: [address] [place] [address] Result Comment: No e vidence of HIV-1 or HIV-2 infection. Should recent infection be suspected, repeat testing may be considered 2-3 weeks after this draw.[place] Rev. Code 3701.243(E): This information has been disclosed to you from confidential records protected from disclosure by state law. ???You shall make no further disclosure of this information without the specific, written, and informed release of the individual to whom it pertains or as otherwise permitted by state law. A general authorization for the release of medical or other information is not sufficient for the purpose of the release of HIV test results or diagnoses. Performed By: #### 5 195-3, 45103-7, 13768-2 ####[facility] [id number] [address] OF [facility] HbA1c (Bld)on 05-03-2024 Average glucose Estimated from glycated hemoglobin (Bld) [Mass/Vol] 85 mg/dL Normal [facility] Comment on above: Order Comment: Speci men Type: BLOOD SPECIMENOrdering Facility: [facility] Address: [address] [place] [address] Result Comment: eAG: (Estimated average glucose) is a calculated value from HgbA1c and is food products sales representative of the average blood glucose level in the last 2-3 month period. Performed By: #### 5 5454-3 ####[facility] [id number] [address] STATES OF [facility] HbA1c (Bld) [Mass fraction] 4.6 % Normal 4.3-5.6 [facility] Comment on above: Order Comment: Speci men Type: BLOOD SPECIMENOrdering Facility: [facility] Address: [address] [place] [address] Result Comment: [place] Diabetes Association guidelines indicate that patients with HgbA1c in the range 5.7-6.4% are at increased risk for development of diabetes, and intervention by lifestyle modification may be beneficial. HgbA1c greater or equal to 6.5% is considered diagnostic of diabetes. Performed By: #### 5 5454-3 ####[facility] [id number] [address] OF [facility] NT-proBNP [facility] 05-03 Natriuretic peptide.B prohormone N-Terminal [Mass/Vol] 67 pg/mL Normal <125 [facility] Comment on above: Order Comment: Speci men Type: BLOOD SPECIMENOrdering Facility: [facility] Address: [address] [place] [address] Performed By: #### 3 3762-6 ####[facility] [id number] [place] [address] [place] RUBELLA IGG ANTIBODYon 05-03 RUBELLA IGG AB, QUAL Positive Normal Positive [facility] Comment on above: Order Comment: Speci men Type: BLOOD SPECIMENOrdering Facility: [facility] Address: [address] [place] [address] Result Comment: The result suggests recent or past exposure to Rubella virus or history of Rubella vaccination. Positive result may also be seen due to presence of passively-transferred antibodies. Please correlate with patient's history. Performed By: #### R UBIGG ####[facility] [id number] [place] [address] [place] Reagin and Treponema pallidu m IgG and IgM [Interp]on 05-03-2024 T. pallidum IgG+IgM IA Ql (S) Non-Reactive Normal Nonreactive [facility] Comment on above: Order Comment: Speci men Type: BLOOD SPECIMENOrdering Facility: [facility] Address: [address] [place] [address] Performed By: #### 5 195-3, 14492-6, 50957-5 ####[facility] LABIA [id number] [place] [address] [place] Reagin+T pallidum IgG+IgM Se rPl-Impon 05-03-2024 Reagin and Treponema pallidum IgG and IgM [Interp] Cannot exclude recent Treponemal infection if specimen collected within 7-10 days after appearance of suspect lesions or 2-3 weeks after an exposure. Clinical correlation is required. Normal [facility] Comment on above: Order Comment: Speci men Type: BLOOD SPECIMENOrdering Facility: [facility] Address: [address] [place] [address] Performed By: #### 5 195-3, 67173-7, 08750-3 ####[facility] LABCLIA [id number] [place] [address] [place] TYPE + SCREEN PRENATALon ABO A Normal [facility] Comment on above: Order Comment: Speci men Type: BLOOD SPECIMENOrdering Facility: [facility] Address: [address] [place] [address] Performed By: #### T SPN ####CC MAIN BLOOD BANKCLIA [id number] [place] [address] [place] Rh Nom (Bld) Positive Normal [facility] Comment on above: Order Comment: Speci men Type: BLOOD SPECIMENOrdering Facility: [facility] Address: [address] [place] [address] Performed By: #### T SPN ####CC MAIN BLOOD BANKCLIA [id number] [address] [place] TYPE AND SCREEN EXPIRATION 05/06/2024 23:59 Normal [facility] Comment on above: Order Comment: Speci men Type: BLOOD SPECIMENOrdering Facility: [facility] Address: [address] [place] [address] Performed By: #### T SPN ####CC MAIN BLOOD BANKCLIA [id number] [place] [id number] [place] CBC W/Diff, Automatedon 12-0 Absolute Lymph 2.28 X10 3/uL Normal 0.83-4.51 [facility] Comment on above: Performed By: #### L 500.4050, L100.0100 #### [facility] [address] [place], [address] Absolute Neut 8.2 X10 3/uL High 2.0-7.7 [facility] Comment on above: Performed By: #### L 500.4050, L100.0100 #### [facility] [address] [place], [address] Basophils/100 WBC (Bld) 0.3 % Normal 0-1 [facility] Comment on above: Performed By: #### L 500.4050, L100.0100 #### [facility] [address] [place], [address] Eosinophils/100 WBC (Bld) 0.8 % Normal 0-5 [facility] Comment on above: Performed By: #### L 500.4050, L100.0100 #### [facility] [address] [place], [address] Erythrocyte distribution width (RBC) [Ratio] 12.7 % Normal 11.6-14.6 [facility] Comment on above: Performed By: #### L 500.4050, L100.0100 #### [facility] [address] [place], [address] Hematocrit (Bld) [Volume fraction] 40.3 % Normal 37-47 [facility] Comment on above: Performed By: #### L 500.4050, L100.0100 #### [facility] [address] [place], [address] Hemoglobin (Bld) [Mass/Vol] 13.1 g/dL Normal 12.0-15.0 [facility] Comment on above: Performed By: #### L 500.4050, L100.0100 #### [facility] [address] [place], [address] IG% 0.400 Normal 0.0-0.9 [facility] Comment on above: Result Comment: IG% - Immature Granulocytes (promyelocytes, myelocytes and metamyelocytes) > 1% indicates that a LEFT SHIFT is Present. Performed By: #### L 500.4050, L100.0100 #### [facility] [address] [place], [address] Lymphocytes/100 WBC (Bld) 20.2 % Normal 19-41 [facility] Comment on above: Performed By: #### L 500.4050, L100.0100 #### [facility] [address] [place], [address] MCH (RBC) [Entitic mass] 28.8 pg Normal 27.0-32.0 [facility] Comment on above: Performed By: #### L 500.4050, L100.0100 #### [facility] [address] [place], [address] MCHC (RBC) [Mass/Vol] 32.5 g/dL Normal 32-36 [facility] Comment on above: Performed By: #### L 500.4050, L100.0100 #### [facility] [address] [place], [address] MCV (RBC) [Entitic vol] 88.6 fL Normal 81-99 [facility] Comment on above: Performed By: #### L 500.4050, L100.0100 #### [facility] [address] [place], [address] Monocytes/100 WBC (Bld) 6.3 % Normal 0-10 [facility] Comment on above: Performed By: #### L 500.4050, L100.0100 #### [facility] [address] [place], [address] Neutrophils/100 WBC (Bld) 72.0 % High 47-70 [facility] Comment on above: Performed By: #### L 500.4050, L100.0100 #### [facility] [address] [place], [address] Nucleated RBC (Bld) [#/Vol] 0 10*3/uL Normal 0-5 [facility] Comment on above: Performed By: #### L 500.4050, L100.0100 #### [facility] [address] [place], [address] Platelet mean volume (Bld) [Entitic vol] 11.0 fL Normal 6.2-12.0 [facility] Comment on above: Performed By: #### L 500.4050, L100.0100 #### [facility] [address] [place], [address] Platelets (Bld) [#/Vol] 312 10*3/uL Normal 150-450 [facility] Comment on above: Performed By: #### L 500.4050, L100.0100 #### [facility] [address] [place], [address] RBC (Bld) [#/Vol] 4.55 10*6/uL Normal 4.2-5.4 [facility] Comment on above: Performed By: #### L 500.4050, L100.0100 #### [facility] [address] [place], [address] RDW SD 41.1 fl Normal 35.1-43.9 [facility] Comment on above: Performed By: #### L 500.4050, L100.0100 #### [facility] [address] [place], [address] WBC (Bld) [#/Vol] 11.3 10*3/uL High 4.4-11.0 [facility] Comment on above: Performed By: #### L 500.4050, L100.0100 #### [facility] [address] [place], [address] [facility] 04-23-2024 Albumin [Mass/Vol] 3.3 g/dL Normal 3.2-5.0 [facility] Comment on above: Performed By: #### L 500.4050, L100.0100 #### [facility] [address] [place], [address] Albumin/Globulin [Mass ratio] 0.9 {ratio} Normal 0.9-2.4 [facility] Comment on above: Performed By: #### L 500.4050, L100.0100 #### [facility] [address] [place], [address] ALK P 57 U/L Normal 45-117 [facility] Comment on above: Performed By: #### L 500.4050, L100.0100 #### [facility] [address] [place], [address] ALT [Catalytic activity/Vol] 33 U/L Normal 13-56 [facility] Comment on above: Performed By: #### L 500.4050, L100.0100 #### [facility] [address] [place], [address] AST [Catalytic activity/Vol] 18 U/L Normal 15-37 [facility] Comment on above: Result Comment: Mode rate Hemolysis, Result may be falsely increased. Performed By: #### L 500.4050, L100.0100 #### [facility] [address] [place], [address] Bilirubin [Mass/Vol] 0.50 mg/dL Normal 0.20-1.00 [facility] Comment on above: Result Comment: For patients on eltrombopag therapy, use of Dimension [place] TBIL is not recommended. Performed By: #### L 500.4050, L100.0100 #### [facility] [address] [place], [address] BUN/CRE 7.7 RATIO Low 10-20 [facility] Comment on above: Performed By: #### L 500.4050, L100.0100 #### [facility] [address] [place], [address] CA,Total 9.4 mg/dL Normal 8.5-10.1 [facility] Comment on above: Performed By: #### L 500.4050, L100.0100 #### [facility] [address] [place], [address] Chloride [Moles/Vol] 106 mmol/L Normal 98-107 [facility] Comment on above: Performed By: #### L 500.4050, L100.0100 #### [facility] [address] [place], [address] CO2 [Moles/Vol] 24.0 mmol/L Normal 21.0-32.0 [facility] Comment on above: Performed By: #### L 500.4050, L100.0100 #### [facility] [address] [place], [address] Creatinine [Mass/Vol] 0.65 mg/dL Normal 0.55-1.02 [facility] Comment on above: Result Comment: The validity of the calculated GFR GFRAA in patients over 70 years has not been determined. Clinical correlation is essential. Performed By: #### L 500.4050, L100.0100 #### [facility] [address] [place], [address] ECRCL 159.53 ml/min Normal [facility] Comment on above: Performed By: #### L 500.4050, L100.0100 #### [facility] [address] [place], [address] EST GFR - AA 142 mL/min Normal >60 [facility] Comment on above: Result Comment: Afri can Stateless GFR Calc Performed By: #### L 500.4050, L100.0100 #### [facility] [address] [place], [address] GAP 6 Normal 5-15 [facility] Comment on above: Performed By: #### L 500.4050, L100.0100 #### [facility] [address] [place], [address] GFR/1.73 sq M.predicted among non-blacks MDRD (S/P/Bld) [Vol rate/Area] 117 mL/min/{1.73_m2} Normal >60 [facility] Comment on above: Result Comment: Non- GFR Calc Performed By: #### L 500.4050, L100.0100 #### [facility] [address] [place], [address] Globulin (S) [Mass/Vol] 3.8 g/dL Normal 2.2-4.2 [facility] Comment on above: Performed By: #### L 500.4050, L100.0100 #### [facility] [address] [place], [address] Glucose [Mass/Vol] 99 mg/dL Normal 74-106 [facility] Comment on above: Performed By: #### L 500.4050, L100.0100 #### [facility] [address] [place], [address] Potassium [Moles/Vol] 3.9 mmol/L Normal 3.5-5.1 [facility] Comment on above: Result Comment: Mode rate Hemolysis, Result may be falsely increased. Performed By: #### L 500.4050, L100.0100 #### [facility] [address] [place], [address] Sodium [Moles/Vol] 136 mmol/L Normal 136-145 [facility] Comment on above: Performed By: #### L 500.4050, L100.0100 #### [facility] [address] [place], [address] T PROT 7.1 g/dL Normal 6.4-8.2 [facility] Comment on above: Performed By: #### L 500.4050, L100.0100 #### [facility] [address] [place], [address] Urea nitrogen [Mass/Vol] 5 mg/dL Low 7-18 [facility] Comment on above: Performed By: #### L 500.4050, L100.0100 #### [facility] [address] [place], [address] Emergency Department Summary on 04-23-2024 Emergency Department Summary [facility] Medical Records Department [address] [place] [address] Emergency Department Summary 04/23/24 MR#: [id number] Acct: [id number] Name: LUZMARIA CHAWLA Rep #: [id number] : 2000 24 From: Stanley Holguin DO PCP: Kwasi Garcia [employer] Status:DEP ER Location: ED HPI History of Present Illness Chief Complaint: Nausea/Vomiting Narrative Narrative: Chief complaint and HPI: Nausea and vomiting. 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 Patient states that she follows with [facility]. She states that she has been having nausea and vomiting since she was 6 weeks . She states that she assumed this was normal so she did not follow-up with her OB. Patient states that her nausea worsened today so she called the OB office. They referred her to the emergency department for IV fluids. Patient denies any fever, chills, headache, lightheadedness, chest pain, shortness of breath, abdominal pain, dysuria, diarrhea, constipation, vaginal bleeding, vaginal discharge. Patient states that she is not on any antiemetics. Review of systems: See HPI Medications: As listed on the chart Allergies: As listed on the chart PFSH: Per chart Vital signs: As listed on the chart. Reviewed. Physical exam: Gen: A O x3, NAD Head: Normocephalic, atraumatic Eyes: No sclera icterus, conjunctiva clear ENT: Mildly dry mucous membranes Neck: Trachea midline, No JVD CV: RRR, no murmurs, no peripheral edema Resp: Lungs CTA BL, no w/r/c GI: Abd soft, non-distended, non-tender, no r/r/g : No CVA tender Musc: Full ROM, no deformity Skin: Warm, dry Neuro: Alert, oriented, grossly intact, sensation intact Psych: Cooperative, appropriate mood and affect PFSH [facility] Home Medications ???Medication ???Instructions ???Recorded ???Last Taken ???Type cephalexin 500 mg capsule 500 mg PO Q8H 7 days #21 caps 04/23/24 Unknown Rx ondansetron 4 mg disintegrating 4 mg PO Q8H PRN PRN Nausea #10 tabs 04/23/24 Unknown Rx tablet Allergy/AdvReac Type Severity Reaction Status Date / Time codeine AdvReac HEADACHE Verified 04/23/24 14:16 prednisone AdvReac HEADACHE Verified 04/23/24 14:16 Social History Smoking Status: Never smoker EXAM Physical Exam Const Vital Signs: 04/23/24 14:14 04/23/24 18:14 04/23/24 20:00 Temperature 98.6 F Temperature Source Oral Pulse Rate 89 77 Respiratory Rate 16 16 14 Blood Pressure 129/86 H 126/84 H Blood Pressure Mean 100 98 Pulse Ox 99 98 Oxygen Delivery Method Room Air Room Air 04/23/24 20:42 Temperature 98.6 F Temperature Source Pulse Rate 77 Respiratory Rate 14 Blood Pressure 126/84 H Blood Pressure Mean 98 Pulse Ox 98 Oxygen Delivery Method MDM MDM MDM Narrative Medical decision making narrative: 24-year-old female with past medical history of coarctation status post surgery as a child who is G1, P0 at 9 weeks via ultrasound presents for evaluation of nausea and vomiting. Patient denies any abdominal pain, chest pain, shortness of breath, dysuria, abdominal pain. She is mildly dry on physical exam. NS bolus and Zofran ordered. Basic lab work obtained as well as UA to assess for dehydration as well as UTI. Differential diagnosis includes but is not limited to symptomatic , dehydration, KIMMY, electrolyte abnormality, UTI. CBC with mild leukocytosis of 11.3 this can be seen in . No anemia. CMP without KIMMY or electrolyte abnormality. No transaminitis. UA positive for mild dehydration with ketones as well as UTI. Patient denies any dysuria or hematuria. Urine culture sent and patient ordered Rocephin. Patient's nausea and vomiting may be secondary to UTI versus symptomatic . On reevaluation, her nausea is improved. Able to tolerate p.o. intake. Patient stable to discharge home. She was educated on her UTI. She will be placed on a 7-day course of Keflex 3 times daily as well as prescribed Zofran. She needs to follow-up with her OB as well as PCP. Return precautions explained. She confirmed understanding the plan. Impression: 1. Nausea and vomiting 2. First trimester 3. UTI Lab Data Labs: Laboratory Results - last 24 hr 04/23/24 04/23/24 18:06 18:25 WBC 11.3 H RBC 4.55 Hgb 13.1 Hct 40.3 MCV 88.6 MCH 28.8 MCHC 32.5 RDW Std Deviation 41.1 RDW Coeff of Ole 12.7 Plt Count 312 MPV 11.0 Immature Gran % (Auto) 0.400 Neut % (Auto) 72.0 H Lymph % (Auto) 20.2 [place] % (Auto) 6.3 Eos % (Auto) 0.8 Baso % (Auto) 0.3 Absolute Neuts (auto) 8.2 H Absolute Lymphs (auto) 2.28 Nucleated RBC % (more content not included)... Normal [facility] Urinalysis, Completeon 04-23 BACTERIA 2+ /hpf Normal None Seen [facility] Comment on above: Order Comment: CLEAN CATCH Performed By: #### L 400.0001 #### [facility] [address] [place], [place], [id number] CAST,HYALINE 0-5 SEEN Normal 0-5 [facility] Comment on above: Order Comment: CLEAN CATCH Performed By: #### L 400.0001 #### [facility] [address] [place], [address] EPI,SQUAMOUS 0-5 SEEN Normal 5-10 [facility] Comment on above: Order Comment: CLEAN CATCH Performed By: #### L 400.0001 #### [facility] [address] [place], [address] EPI,TRANSITION 0-5 SEEN Normal 0-5 [facility] Comment on above: Order Comment: CLEAN CATCH Performed By: #### L 400.0001 #### [facility] [address] [place], [address] Mucus Ql (Urine sed) 3+ /hpf Normal [facility] Comment on above: Order Comment: CLEAN CATCH Performed By: #### L 400.0001 #### [facility] [address] [place], [address] WBC 10-25 SEEN Normal 0-5 [facility] Comment on above: Order Comment: CLEAN CATCH Performed By: #### L 400.0001 #### [facility] [address] [place], [address] BILIRUBIN URINE 1 mg/dL Abnormal Negative [facility] Comment on above: Order Comment: CLEAN CATCH Result Comment: COLO R OF URINE MAY AFFECT DIPSTICK RESULTS. Performed By: #### L 400.0001 #### [facility] [address] [place], [address] Clarity (U) Cloudy Normal Clear [facility] Comment on above: Order Comment: CLEAN CATCH Performed By: #### L 400.0001 #### [facility] [address] [place] [id number] Color (U) Yellow Normal Yellow [facility] Comment on above: Order Comment: CLEAN CATCH Performed By: #### L 400.0001 #### [facility] [address] [place] [id number] GLUCOSE, UR Normal Normal Normal [facility] Comment on above: Order Comment: CLEAN CATCH Performed By: #### L 400.0001 #### [facility] [address] [place], [address] KETONE UR 5 mg/dl Abnormal Negative [facility] Comment on above: Order Comment: CLEAN CATCH Performed By: #### L 400.0001 #### [facility] [address] [place] [id number] LEUK ESTERASE 25 /ul Abnormal Negative [facility] Comment on above: Order Comment: CLEAN CATCH Performed By: #### L 400.0001 #### [facility] [address] [place] [id number] Nitrite Ql (U) Negative Normal Negative [facility] Comment on above: Order Comment: CLEAN CATCH Performed By: #### L 400.0001 #### [facility] [address] [place], [address] OCCULT BLOOD-UR 10 /ul Abnormal Negative [facility] Comment on above: Order Comment: CLEAN CATCH Performed By: #### L 400.0001 #### [facility] [address] [place], [address] pH UR 6.0 Normal 5.0 - 8.0 [facility] Comment on above: Order Comment: CLEAN CATCH Performed By: #### L 400.0001 #### [facility] [address] [place], [address] PROT DIPSTX 30 mg/dl Abnormal Negative [facility] Comment on above: Order Comment: CLEAN CATCH Performed By: #### L 400.0001 #### [facility] [address] [place], [address] SP.GR. DIPSTX 1.020 Normal 1.002-1.030 [facility] Comment on above: Order Comment: CLEAN CATCH Performed By: #### L 400.0001 #### [facility] [address] [place], [address] UROBILI 4 mg/dl Abnormal Normal [facility] Comment on above: Order Comment: CLEAN CATCH Performed By: #### L 400.0001 #### [facility] [address] [place], [address] RBC 0 SEEN Normal 0-5 [facility] Comment on above: Order Comment: CLEAN CATCH Performed By: #### L 400.0001 #### [facility] [address] [place], [address] CNPNon 04-12-2024 CNPN Normal [facility] Bacteria Ur Culton Bacteria identified Cx Nom (U) ORGANISM ID: 1 10,000 -<50,000 CFU/ml Normal urogenital tomy Normal [facility] Comment on above: Performed By: #### 6 30-4 ####[facility]IA [id number] [address] [place] C. trachomatis+N. gonorrhoea e DNA ALLA+probe Ql (Unsp spec)on 04-06-2024 C. trachomatis rRNA ALLA+probe Ql (Unsp spec) Not detected Normal Not detected [facility] Comment on above: Order Comment: Speci men Type: SWABOrdering Facility: [facility] Address: [address] [place] [address] Performed By: #### 3 6902-5 ####[facility] LABIA [id number] [address] N. gonorrhoeae rRNA ALLA+probe Ql (Unsp spec) Not detected Normal Not detected [facility] Comment on above: Order Comment: Speci men Type: SWABOrdering Facility: [facility] Address: [address] [place] [address] Performed By: #### 3 6902-5 ####[facility] LABIA [id number] [address] [place] POC [employer]ITE [employer] EXAMINER ULTRASOUNDon 04-06-20 24 Indication Confirmation of intrauterine . Confirmation of cardiac activity Impression CRL is appropriate for clinical dates, corresponding to VIJAY 11/22/24 cardiac activity is visualized Recommendations Follow up for NT scan if desired Method Transvaginal ultrasound examination. View: Adequate visualization Robles . Number of embryos: 1 Dating LMP on: 02/16/2024 GA by LMP 7 w + 1 d VIJAY by LMP: 11/22/2024 Ultrasound examination on: 04/06/2024 GA by U/S based upon: CRL GA by U/S 7 w + 0 d VIJAY by U/S: 11/23/2024 Assigned: based on the LMP, selected on 04/06/2024 Assigned GA 7 w + 1 d Assigned VIJAY: 11/22/2024 Biometry Standard FHR 128 bpm CRL 9.8 mm 7w 0d 72% [facility] Assessment Gestational sac: visualized Location: intrauterine Yolk sac: visualized Embryo: visualized CRL 9.8 mm 7w 0d 72% [place] Cardiac activity: present FHR 128 bpm General Evaluation Cardiac activity present. FHR 128 bpm Performed By: Ashley Ambriz CNP Read By: Ashley Ambriz CNP MATERNAL MEDICINE [facility] Radiology Study observation (narrative) [facility] CNPNon 01-29-2024 CNPN Normal [facility] B. burgdorferi IgG and IgM p tiara (S)on 01-27-2024 B. burgdorferi IgG+IgM Qn (S) Negative Normal Negative [facility] Comment on above: Order Comment: Speci jorge a Type: BLOOD SPECIMENOrdering Facility: [facility] Address: [address] [place] [address] Result Comment: Rece nt infection with B. burgdorferi sensu lato cannot be excluded if the specimen collected within four weeks after the onset of signs and symptoms or within six weeks after a known tick exposure. Clinical and epidemiological correlation is required. Performed By: #### 3 4942-3 ####[facility] LABCLIA [id number] [place] [address] [place] CBC W Auto Differential pane l (Bld)on 01-27-2024 Basophils (Bld) [#/Vol] 0.05 10*3/uL Normal <0.11 [facility] Comment on above: Order Comment: Speci jorge a Type: BLOOD SPECIMENOrdering Facility: [facility] Address: [address] [place] [address] Performed By: #### 5 7021-8 ####[facility] [id number] [place] [address] [place] Basophils/100 WBC (Bld) 0.6 % Normal [facility] Comment on above: Order Comment: Lacey jules Type: BLOOD SPECIMENOrdering Facility: [facility] Address: [address] [place] [address] Performed By: #### 5 7021-8 ####[facility] [id number] [place] [address] [place] Differential cell count method Nom (Bld) Auto Normal [facility] Comment on above: Order Comment: Speci men Type: BLOOD SPECIMENOrdering Facility: [facility] Address: [address] [place] [address] Performed By: #### 5 7021-8 ####[facility] [id number] [place] [address] [place] Eosinophils (Bld) [#/Vol] 0.26 10*3/uL Normal <0.46 [facility] Comment on above: Order Comment: Speci men Type: BLOOD SPECIMENOrdering Facility: [facility] Address: [address] [place] [address] Performed By: #### 5 7021-8 ####[facility] [id number] [place] [address] [place] Eosinophils/100 WBC (Bld) 3.2 % Normal [facility] Comment on above: Order Comment: Speci men Type: BLOOD SPECIMENOrdering Facility: [facility] Address: [address] [place] [address] Performed By: #### 5 7021-8 ####[facility] [id number] [place] [address] [place] Erythrocyte distribution width (RBC) [Ratio] 12.9 % Normal 11.5-15.0 [facility] Comment on above: Order Comment: Speci men Type: BLOOD SPECIMENOrdering Facility: [facility] Address: [address] [place] [address] Performed By: #### 5 7021-8 ####[facility] [id number] [place] [address] [place] Hematocrit (Bld) [Volume fraction] 42.4 % Normal 36.0-46.0 [facility] Comment on above: Order Comment: Speci men Type: BLOOD SPECIMENOrdering Facility: [facility] Address: [address] [place] [address] Performed By: #### 5 7021-8 ####[facility] [id number] [place] [address] [place] Hemoglobin (Bld) [Mass/Vol] 13.8 g/dL Normal 11.5-15.5 [facility] Comment on above: Order Comment: Speci men Type: BLOOD SPECIMENOrdering Facility: [facility] Address: [address] [place] [address] Performed By: #### 5 7021-8 ####[facility] [id number] [place] [address] [place] Immature granulocytes (Bld) [#/Vol] 10*3/uL Normal <0.10 [facility] Comment on above: Order Comment: Speci men Type: BLOOD SPECIMENOrdering Facility: [facility] Address: [address] [place] [address] Performed By: #### 5 7021-8 ####[facility] [id number] [place] [address] [place] Immature granulocytes/100 WBC (Bld) 0.1 % Normal [facility] Comment on above: Order Comment: Speci men Type: BLOOD SPECIMENOrdering Facility: [facility] Address: [address] [place] [address] Performed By: #### 5 7021-8 ####[facility] [id number] [place] [address] [place] Lymphocytes (Bld) [#/Vol] 2.61 10*3/uL Normal 1.00-4.00 [facility] Comment on above: Order Comment: Speci men Type: BLOOD SPECIMENOrdering Facility: [facility] Address: [address] [place] [address] Performed By: #### 5 7021-8 ####[facility] [id number] [place] [address] [place] Lymphocytes/100 WBC (Bld) 31.8 % Normal [facility] Comment on above: Order Comment: Speci men Type: BLOOD SPECIMENOrdering Facility: [facility] Address: [address] [place] [address] Performed By: #### 5 7021-8 ####[facility] [id number] [place] [address] [place] MCH (RBC) [Entitic mass] 28.6 pg Normal 26.0-34.0 [facility] Comment on above: Order Comment: Speci men Type: BLOOD SPECIMENOrdering Facility: [facility] Address: [address] [place] [address] Performed By: #### 5 7021-8 ####[facility] [id number] [place] [address] [place] MCHC (RBC) [Mass/Vol] 32.5 g/dL Normal 30.5-36.0 [facility] Comment on above: Order Comment: Speci men Type: BLOOD SPECIMENOrdering Facility: [facility] Address: [address] [place] [address] Performed By: #### 5 7021-8 ####[facility] [id number] [place] [address] [place] MCV (RBC) [Entitic vol] 87.8 fL Normal 80.0-100.0 [facility] Comment on above: Order Comment: Speci men Type: BLOOD SPECIMENOrdering Facility: [facility] Address: [address] [place] [address] Performed By: #### 5 7021-8 ####[facility] [id number] [place] [address] [place] Monocytes (Bld) [#/Vol] 0.54 10*3/uL Normal <0.87 [facility] Comment on above: Order Comment: Speci men Type: BLOOD SPECIMENOrdering Facility: [facility] Address: [address] [place] [id number] Performed By: #### 5 7021-8 ####[facility] [id number] [address] [address] [place] Monocytes/100 WBC (Bld) 6.6 % Normal [facility] Comment on above: Order Comment: Speci men Type: BLOOD SPECIMENOrdering Facility: [facility] Address: [address] [place] [address] Performed By: #### 5 7021-8 ####[facility] [id number] [place] [address] [place] Neutrophils (Bld) [#/Vol] 4.75 10*3/uL Normal 1.45-7.50 [facility] Comment on above: Order Comment: Speci men Type: BLOOD SPECIMENOrdering Facility: [facility] Address: [address] [place] [address] Performed By: #### 5 7021-8 ####[facility] [id number] [place] [address] [place] Neutrophils/100 WBC (Bld) 57.7 % Normal [facility] Comment on above: Order Comment: Speci men Type: BLOOD SPECIMENOrdering Facility: [facility] Address: [address] [place] [address] Performed By: #### 5 7021-8 ####[facility] [id number] [place] [address] [place] Nucleated RBC (Bld) [#/Vol] 10*3/uL Normal <0.01 [facility] Comment on above: Order Comment: Speci men Type: BLOOD SPECIMENOrdering Facility: [facility] Address: [address] [place], [place] [id number] Performed By: #### 5 7021-8 ####[facility] [id number] [place] [address] [place] Nucleated RBC/100 WBC (Bld) [Ratio] 0.0 /100 WBC Normal [facility] Comment on above: Order Comment: Speci men Type: BLOOD SPECIMENOrdering Facility: [facility] Address: [address] [place] [address] Performed By: #### 5 7021-8 ####[facility] [id number] [place] [address] [place] Platelet mean volume (Bld) [Entitic vol] 11.3 fL Normal 9.0-12.7 [facility] Comment on above: Order Comment: Speci men Type: BLOOD SPECIMENOrdering Facility: [facility] Address: [address] [place] [address] Performed By: #### 5 7021-8 ####[facility] [id number] [place] [address] [place] Platelets (Bld) [#/Vol] 330 10*3/uL Normal 150-400 [facility] Comment on above: Order Comment: Speci men Type: BLOOD SPECIMENOrdering Facility: [facility] Address: [address] [place] [address] Performed By: #### 5 7021-8 ####[facility] [id number] [place] [address] [place] RBC (Bld) [#/Vol] 4.83 10*6/uL Normal 3.90-5.20 [facility] Comment on above: Order Comment: Speci men Type: BLOOD SPECIMENOrdering Facility: [facility] Address: [address] [place] [address] Performed By: #### 5 7021-8 ####[facility] [id number] [place] [address] [place] WBC (Bld) [#/Vol] 8.22 10*3/uL Normal 3.70-11.00 [facility] Comment on above: Order Comment: Speci men Type: BLOOD SPECIMENOrdering Facility: [facility] Address: [address] [place] [address] Performed By: #### 5 7021-8 ####[facility] [id number] [id number] [id number] [facility] CNOVon 01-27-2024 CNOV Normal [facility] CNOVon 12-29-2023 CNOV Normal [facility] UA DIP,URINE HCG (POC)on Beta HCG ( test) Ql (U) Negative Negative [facility] Comment on above: Location:[facility] [address] [facility], [place], [address] Income Tax Expert (POCT) Internal QC [place] [facility] Location:[facility], [place], [id number] [place] [address] POINT OF CARE [facility] CNPNon 12-18-2023 CNPN Normal [facility] US Pelvison 12-06-2023 Indication hirsutism, secondary oligomenorrhea Impression Normal appearing anteverted uterus that measures 80 mm x 34 mm x 44 mm. Endometrium has a normal trilaminar appearance and measures 4.2 mm. Normal endometrial contour. Both ovaries are visualized and appear normal with follicular change. No adnexal masses were observed. There is no free fluid visualized in the peritoneal cavity. Recommendations Follow up as clinically indicated. Menstrual History LMP on 11/22/2023. Cycle: irregular cycle. Contraception: none Method Transabdominal, transvaginal, 3D ultrasound examination, Color Doppler examination. View: Adequate visualization Uterus Uterus: Visualized Uterus position: anteverted Description of uterine malformations: none Myometrium: heterogeneous Endometrium: normal Cervix details: normal Uterus length 80 mm Uterus width 44 mm Uterus height 34 mm Uterus Vol 61.5 cm Endometrial thickness, total 4.2 mm Fibroids: No fibroids identified Polyps: No polyps identified Right Ovary Rt ovary: Visualized Rt ovary morphology: premenopausal normal follicular Rt ovary D1 42 mm Rt ovary D2 24 mm Rt ovary D3 30 mm Rt ovary Vol 15.7 cm Left Ovary Lt ovary: Visualized Lt ovary morphology: premenopausal normal follicular Lt ovary D1 29 mm Lt ovary D2 16 mm Lt ovary D3 18 mm Lt ovary Vol 4.4 cm Cul de Sac Visualized. no free fluid visualized Performed By: Fe Slaughter RDMS Read By: Dilcia Navarro M.D. MATERNAL MEDICINE [facility] US [place] 12-05-2023 Radiology Study observation (narrative) [facility] CNPNon 12-03-2023 CNPN Normal [facility] CNOVon 11-28-2023 CNOV Normal [facility] DHEA-S BLDon 11-28-2023 DHEA-S [Mass/Vol] 232.3 ug/dL Normal 98.8-340.0 [facility] Comment on above: Order Comment: Speci men Type: BLOOD SPECIMENOrdering Facility: [facility] Address: [address] [place] [address] Result Comment: Refe rence ranges are age and gender specific. For additional information, reference range tables can be found in the laboratory test directory.The normal values are based on the following source: Dehydroepiandrosterone sulfate (DHEA S) [package insert V 17.0 [place]er]. [facility], [place], [place]: December 2012. Performed By: #### 1 5067-2, DHEAS, 78311-5, 2243-4 ####[facility] [id number] [place] [address] [place] Estradiol SerPl-mCncon 11-27 E2 [Mass/Vol] 44 pg/mL Normal [facility] Comment on above: Order Comment: Speci men Type: BLOOD SPECIMENOrdering Facility: [facility] Address: [address] [place] [address] Result Comment: This test is not suitable for patients receiving treatment with the drug Fulvestrant (Faslodex). The drug causes an interference leading to falsely elevated estradiol results.Menstrual cycle Estradiol reference ranges:Follicular : < 234 pg/mLOvulation : 41 to 398 pg/mLLuteal : < 342 pg/mLPregnancy Estradiol reference ranges vary by gestational period:First trimester : 154 to 3243 pg/mLSecond trimester : 1561 to 05123 pg/mLThird trimester : 8285 to >56932 pg/mLPost-menopausal Estradiol reference range: < 41 pg/mLReference: 1. Estradiol - E2 (Estradiol III) [package insert V 3.0 [place]]. [facility], [place], [place], October 2015. Performed By: #### 1 5067-2, DHEAS, 47265-7, 2243-4 ####[facility] [id number] [place] [address] [place] FSH SerPl-aCncon 11-28-2023 Follitropin Qn 6.1 m[IU]/mL Normal See comment [facility] Comment on above: Order Comment: Speci men Type: BLOOD SPECIMENOrdering Facility: [facility] Address: [address] [place] [address] Result Comment: Refe rence range: Follicular: 3.5-12.5 mIU/mL Ovulation: 4.7-21.5 mIU/mL Luteal: 1.7-7.7 mIU/mL Postmenopausal: 25.8-134.8 mIU/mL Performed By: #### 1 5067-2, DHEAS, 25691-8, 2243-4 ####[facility] [id number] [place] [id number] [place] GLUCOSE, FASTINGon Glucose post fast [Mass/Vol] 89 mg/dL 74 - 99 mg/dL [facility] Comment on above: Stateless Diabetes As sociation guidelines state that a diabetes mellitus diagnosis is preliminarily made when the fasting plasma glucose meets or exceeds 126 mg/dL. In the absence of unequivocal hyperglycemia, results should be confirmed with repeat testing. Patients are at increased risk for diabetes mellitus (prediabetes) when the fasting glucose is 100 to 125 mg/dL. Glucose p fast SerPl-mCncon 11-28-2023 Glucose post fast [Mass/Vol] 89 mg/dL Normal 74-99 [facility] Comment on above: Order Comment: Speci men Type: BLOOD SPECIMENOrdering Facility: [facility] Address: [address] [place] [address] Result Comment: Amer ican Diabetes Association guidelines state that a diabetes mellitus diagnosis is preliminarily made when the fasting plasma glucose meets or exceeds 126 mg/dL. In the absence of unequivocal hyperglycemia, results should be confirmed with repeat testing. Patients are at increased risk for diabetes mellitus (prediabetes) when the fasting glucose is 100 to 125 mg/dL. Performed By: #### 1 558-6 ####[facility] [id number] [place] [address] [place] Glucose post fast [Mass/Vol] on 11-28-2023 Interpretation and review of laboratory results Normal [facility] HYDROXYPROGESTERONE-17on 17-HYDROXYPROGESTER ONE QUANTITATIVE BY HPLC-MS/MS, SERUM OR PLASMA 26.05 ng/dL Normal <=206.00 [facility] Comment on above: Order Comment: Speci men Type: BLOOD SPECIMENOrdering Facility: [facility] Address: [address] [place] [address] Result Comment: INTE RPRETIVE INFORMATION for 17-Hydroxyprogesterone in females:Follicular 15 to 70 ng/dLLuteal 35 to 290 ng/dLREFERENCE INTERVAL: 17-Hydroxyprogesterone Qnt, HPLC-MS/MSAccess complete set of age- and/or gender-specific referenceintervals for this test in the [facility] Test Directory(Qinti).This test was developed and its performance characteristicsdetermined by [facility]. It has not been cleared orapproved by the [place] Food and Drug Administration. This test wasperformed in a CLIA certified laboratory and is intended forclinical purposes.Performed By: [facility] [place], [place] [address] Director: Kali Lindo MD, PhDCLIA Number: [id number] Performed By: #### H PROG ####[facility] OncimmuneIA [id number] [place] [address] HbA1c (Bld)on 11-28-2023 Average glucose Estimated from glycated hemoglobin (Bld) [Mass/Vol] 94 mg/dL Normal [facility] Comment on above: Order Comment: Speci men Type: BLOOD SPECIMENOrdering Facility: [facility] Address: [address] [place] [address] Result Comment: eAG: (Estimated average glucose) is a calculated value from HgbA1c and is food products sales representative of the average blood glucose level in the last 2-3 month period. Performed By: #### 5 5454-3 ####[facility] [id number] [place] [address] [place] HbA1c (Bld) [Mass fraction] 4.9 % Normal 4.3-5.6 [facility] Comment on above: Order Comment: Speci men Type: BLOOD SPECIMENOrdering Facility: [facility] Address: [address] [place] [address] Result Comment: Amer ican Diabetes Association guidelines indicate that patients with HgbA1c in the range 5.7-6.4% are at increased risk for development of diabetes, and intervention by lifestyle modification may be beneficial. HgbA1c greater or equal to 6.5% is considered diagnostic of diabetes. Performed By: #### 5 5454-3 ####[facility] [id number] [place] [address] [place] LH SerPl-aCncon 11-28-2023 Lutropin Qn 4.6 m[IU]/mL Normal See comment [facility] Comment on above: Order Comment: Speci men Type: BLOOD SPECIMENOrdering Facility: [facility] Address: [address] [place] [address] Result Comment: Refe rence range: Follicular: 2.4-12.6 mIU/mL Midcycle: 14.0-95.6 mIU/mL Luteal: 1.0-11.4 mIU/mL Post Earling: 7.7-58.5 mIU/mL Performed By: #### 1 5067-2, DHEAS, 04566-0, 2243-4 ####[facility] [id number] [place] [address] [place] Prolactin SerPl-mCncon 11-27 Prolactin [Mass/Vol] 14.3 ng/mL Normal 4.5-26.8 [facility] Comment on above: Order Comment: Speci men Type: BLOOD SPECIMENOrdering Facility: [facility] Address: [address] [place] [address] Result Comment: Prol actin test is performed using the [facility] Electrochemiluminescence Immunoassay method. Results obtained with different methods or kits cannot be used interchangeably. Performed By: #### 3 016-3, 2842-3 ####[facility] [id number] [facility] [id number] [place] [address] [place] TESTOSTERONE, FREE AND TOTAL on 11-28-2023 TESTOSTERONE, FREE, S 0.88 ng/dL Normal <0.13-1.06 [facility] Comment on above: Order Comment: Speci men Type: BLOOD SPECIMENOrdering Facility: [facility] Address: [address] [place] [address] Result Comment: ---- ADDITIONAL INFORMATION This test was developed and its performance characteristicsdetermined by [facility] in a manner consistent with CLIArequirements. This test has not been cleared or approved bythe U.S. Food and Drug Administration. Performed By: #### T FTEST ####[facility] LABCLIA [id number] [place] [address] TESTOSTERONE, TOTAL, S 40 ng/dL Normal 8-60 [facility] Comment on above: Order Comment: Speci men Type: BLOOD SPECIMENOrdering Facility: [facility] Address: [address] [place] [address] Result Comment: ---- ADDITIONAL INFORMATION Testing performed by Liquid Chromatography-Tandem MassSpectrometry (LC-MS/MS).This test was developed and its performance characteristicsdetermined by [facility] in a manner consistent with CLIArequirements. This test has not been cleared or approved bythe U.S. Food and Drug Administration.Test Performed by:[facility] [facility], [place], [place] [address]Eoy Director: Rd Copeland Ph.D.; CLIA# [id number] Performed By: #### T FTEST ####[facility] LABCLIA [id number] [place] [address] TSH SerPl-aCncon 11-28-2023 TSH Qn 3.240 m[IU]/L Normal 0.270-4.200 [facility] Comment on above: Order Comment: Speci men Type: BLOOD SPECIMENOrdering Facility: [facility] Address: [address] [place] [address] Result Comment: If t he patient is , TSH reference range varies by gestational period:First Trimester (weeks 9-12): 0.180-2.990 mIU/LSecond Trimester: 0.110-3.980 mIU/LThird Trimester: 0.480-4.710 mIU/Jak Blas et al. A Practical Approach for the Verifications and Determination of Site- and Trimester-Specific Reference Intervals for Thyroid Function tests in . Thyroid, 2019:29:3:412-420. Mauricio E, et al. 2017 Guidelines of the Stateless Thyroid Association for the Diagnosis and Management of Thyroid Disease during and the . Thyroid, 2017:27:3:315-389. Performed By: #### 3 016-3, 2842-3 ####[facility] [id number] [place] [address] [place] STREP A MOLECULAR (POC)on Procedural Control Valid [facility] Strep A (POCT) Negative Negative [facility] No Panel Informationon 12-26 [facility] STREP A MOLECULAR (POC)on Procedural Control Valid [facility] Strep A (POCT) Negative Negative [facility] Microscopic observation Gram stain Nom (Vag fld)on 05-23-2022 Bacterial Vaginosis BACTERIAL VAGINOSIS RESULT: Stain results consistent with bacterial vaginosis. Abnormal [facility] Bacterial Vaginosis No Yeast observed Abnormal [facility] Bacterial Vaginosis Rare Polymorphonucle ar leukocytes Abnormal [facility] US FEMALE PELVIS TRANSVAGon 05-23-2022 [facility] Vital Signs Date Time Vital Sign Value Performing Clinician Facility 11-11-2024 15:36-0400 Body mass index (BMI) [Ratio] 39.33 kg/m2 Kendra Torres MD Work Phone: [facility] 11-11-2024 15:36-0400 Body weight 112.22 kg Kendra Torres MD Work Phone: [facility] 11-11-2024 15:36-0400 Diastolic blood pressure 70 mm[Hg] Kendra Torres MD Work Phone: [facility] 11-11-2024 15:36-0400 Systolic blood pressure 128 mm[Hg] Kendra Torres MD Work Phone: [facility] 11-03-2024 10:44-0400 SaO2% (BldA) [Mass fraction] 100 % MARION BARBOSA [facility] Comment on above: Order Comment: Specimen Type: ARTERIAL B LOOD SPECIMENOrdering Facility: [facility] Address: [address] [place] [address] Performed By: #### A LLBG ####[facility] [id number] [place] [address] [place] 10-28-2024 10:18-0400 Body mass index (BMI) [Ratio] 42.77 kg/m2 Marion Barbosa MD Work Phone: [facility] 10-28-2024 10:18-0400 Body weight 120.2 kg Marion Barbosa MD Work Phone: [facility] 10-28-2024 10:18-0400 Diastolic blood pressure 74 mm[Hg] Marion Barbosa MD Work Phone: [facility] 10-28-2024 10:18-0400 Systolic blood pressure 121 mm[Hg] Marion Barbosa MD Work Phone: [facility] 10-27-2024 10:47-0400 Body height 168.91 cm Kwasi Garcia [employer] Work Phone: [facility] 10-27-2024 10:47-0400 Body mass index (BMI) [Ratio] 42.2 kg/m2 Kwasi Garcia [employer] Work Phone: [facility] 10-27-2024 10:47-0400 Body weight 120.42 kg Kwasi Garcia [employer] MISSION WORKER-C Work Phone: [facility] 10-27-2024 10:38-0400 Diastolic blood pressure 59 mm[Hg] Kwasi Garcia HOME MISSION WORKER-C Work Phone: [facility] 10-27-2024 10:38-0400 Heart rate 95 /min Kwasi Garcia HOME MISSION WORKER-C Work Phone: [facility] 10-27-2024 10:38-0400 Systolic blood pressure 114 mm[Hg] Kwasi Garcia HOME MISSION WORKER-C Work Phone: [facility] 10-27-2024 10:37-0400 Body temperature 98.4 [degF] Kwasi Garcia HOME MISSION WORKER-C Work Phone: [facility] 10-27-2024 10:37-0400 Respiratory rate 16 /min Kwasi Garcia HOME MISSION WORKER-C Work Phone: [facility] 10-27-2024 08:50-0400 Body mass index (BMI) [Ratio] 42.61 kg/m2 Marion Barbosa MD Work Phone: [facility] 10-27-2024 08:50-0400 Body weight 119.75 kg Marion Barbosa MD Work Phone: [facility] 10-27-2024 08:50-0400 Diastolic blood pressure 66 mm[Hg] Marion Barbosa MD Work Phone: [facility] 10-27-2024 08:50-0400 Systolic blood pressure 96 mm[Hg] Marion Barbosa MD Work Phone: [facility] 10-20-2024 08:50-0400 Body mass index (BMI) [Ratio] 42.77 kg/m2 Nelsy Agarwal MD Work Phone: [facility] 10-20-2024 08:50-0400 Body weight 120.2 kg Nelsy Agarwal MD Work Phone: [facility] 10-20-2024 08:50-0400 Diastolic blood pressure 66 mm[Hg] Nelsy Agarwal MD Work Phone: [facility] 10-20-2024 08:50-0400 Systolic blood pressure 108 mm[Hg] Nelsy Agarwal MD Work Phone: [facility] 10-13-2024 09:17-0400 Body mass index (BMI) [Ratio] 42.77 kg/m2 Nelsy Agarwal MD Work Phone: [facility] 10-13-2024 09:17-0400 Body weight 120.2 kg Nelsy Agarwal MD Work Phone: [facility] 10-13-2024 09:17-0400 Diastolic blood pressure 78 mm[Hg] Nelsy Agarwal MD Work Phone: [facility] 10-13-2024 09:17-0400 Systolic blood pressure 122 mm[Hg] Nelsy Agarwal MD Work Phone: [facility] 09-30-2024 12:59-0400 Body height 167.6 cm Pac 7 Work Phone: [facility] 09-30-2024 12:59-0400 Body mass index (BMI) [Ratio] 42.29 kg/m2 Pac 7 Work Phone: [facility] 09-30-2024 12:59-0400 Body temperature 98.01 [degF] Pac 7 Work Phone: [facility] 09-30-2024 12:59-0400 Body weight 118.84 kg Pacc 7 Work Phone: [facility] 09-30-2024 12:59-0400 Diastolic blood pressure 70 mm[Hg] Pacc 7 Work Phone: [facility] 09-30-2024 12:59-0400 Heart rate 102 /min Pacc 7 Work Phone: [facility] 09-30-2024 12:59-0400 Respiratory rate 20 /min Pacc 7 Work Phone: [facility] 09-30-2024 12:59-0400 SaO2% (BldA) [Mass fraction] 98 % Pacc 7 Work Phone: [facility] 09-30-2024 12:59-0400 Systolic blood pressure 120 mm[Hg] Pacc 7 Work Phone: [facility] 09-30-2024 11:07-0400 Body mass index (BMI) [Ratio] 42.38 kg/m2 Jailyn Boss MD Work Phone: [facility] 09-30-2024 11:07-0400 Body weight 119.1 kg Jailyn Boss MD Work Phone: [facility] 09-30-2024 11:07-0400 Diastolic blood pressure 70 mm[Hg] Jailyn Boss MD Work Phone: [facility] 09-30-2024 11:07-0400 Heart rate 102 /min Jailyn Boss MD Work Phone: [facility] 09-30-2024 11:07-0400 Respiratory rate 20 /min Jailyn Boss MD Work Phone: [facility] 09-30-2024 11:07-0400 SaO2% (BldA) [Mass fraction] 98 % Jailyn Boss MD Work Phone: [facility] 09-30-2024 11:07-0400 Systolic blood pressure 120 mm[Hg] Jailyn Boss MD Work Phone: [facility] 09-29-2024 10:46-0400 Diastolic blood pressure 72 mm[Hg] Nelsy Agarwal MD Work Phone: [facility] 09-29-2024 10:46-0400 Systolic blood pressure 112 mm[Hg] Nelsy Agarwal MD Work Phone: [facility] 09-15-2024 10:27-0400 Body mass index (BMI) [Ratio] 41.8 kg/m2 Marion Barbosa MD Work Phone: [facility] 09-15-2024 10:27-0400 Body weight 117.48 kg Marion Barbosa MD Work Phone: [facility] 09-15-2024 10:27-0400 Diastolic blood pressure 78 mm[Hg] Marion Barbosa MD Work Phone: [facility] 09-15-2024 10:27-0400 Systolic blood pressure 124 mm[Hg] Marion Barbosa MD Work Phone: [facility] 09-01-2024 09:01-0400 Body mass index (BMI) [Ratio] 41.48 kg/m2 Marion Barbosa MD Work Phone: [facility] 09-01-2024 09:01-0400 Body weight 116.57 kg Marion Barbosa MD Work Phone: [facility] 09-01-2024 09:01-0400 Diastolic blood pressure 70 mm[Hg] Marion Barbosa MD Work Phone: [facility] 09-01-2024 09:01-0400 Systolic blood pressure 136 mm[Hg] Marion Barbosa MD Work Phone: [facility] 08-06-2024 12:50-0400 Body mass index (BMI) [Ratio] 40.35 kg/m2 Bhavesh Alas MD Work Phone: [facility] 08-06-2024 12:50-0400 Body weight 113.4 kg Bhavesh Alas MD Work Phone: [facility] 08-06-2024 12:50-0400 Diastolic blood pressure 79 mm[Hg] Bhavesh Alas MD Work Phone: [facility] 08-06-2024 12:50-0400 Heart rate 105 /min Bhavesh Alas MD Work Phone: [facility] 08-06-2024 12:50-0400 SaO2% (BldA) [Mass fraction] 97 % Bhavesh Alas MD Work Phone: [facility] 08-06-2024 12:50-0400 Systolic blood pressure 125 mm[Hg] Bhavesh Alas MD Work Phone: [facility] 08-03-2024 07:57-0400 Body mass index (BMI) [Ratio] 40.67 kg/m2 Karen Montes AMERICAN INDIAN POLICY SPECIALIST.CNM Work Phone: [facility] 08-03-2024 07:57-0400 Body weight 114.31 kg Karen Montes AMERICAN INDIAN POLICY SPECIALIST.CNM Work Phone: [facility] 08-03-2024 07:57-0400 Diastolic blood pressure 60 mm[Hg] Karen Montes AMERICAN INDIAN POLICY SPECIALIST.CNM Work Phone: [facility] 08-03-2024 07:57-0400 Systolic blood pressure 118 mm[Hg] Karen Montes AMERICAN INDIAN POLICY SPECIALIST.CNM Work Phone: [facility] 07-06-2024 15:21-0500 Body mass index (BMI) [Ratio] 39.45 kg/m2 Carolyn Lugo MD Work Phone: [facility] 07-06-2024 15:21-0500 Body weight 110.86 kg Carolyn Lugo MD Work Phone: [facility] 07-06-2024 15:21-0500 Diastolic blood pressure 72 mm[Hg] Carolyn Lugo MD Work Phone: [facility] 07-06-2024 15:21-0500 Systolic blood pressure 120 mm[Hg] Carolyn Lugo MD Work Phone: [facility] 06-08-2024 16:04-0500 Body mass index (BMI) [Ratio] 38.09 kg/m2 Marion Barbosa MD Work Phone: [facility] 06-08-2024 16:04-0500 Body weight 107.05 kg Marion Barbosa MD Work Phone: [facility] 06-08-2024 16:04-0500 Diastolic blood pressure 75 mm[Hg] Marion Barbosa MD Work Phone: [facility] 06-08-2024 16:04-0500 Systolic blood pressure 115 mm[Hg] Marion Barbosa MD Work Phone: [facility] 06-08-2024 12:31-0500 Body height 167.6 cm Ashok Pedro MD Work Phone: [facility] 06-08-2024 12:31-0500 Body mass index (BMI) [Ratio] 36.96 kg/m2 Ashok Pedro MD Work Phone: [facility] 06-08-2024 12:31-0500 Body weight 103.87 kg Ashok Pedro MD Work Phone: [facility] 06-08-2024 12:31-0500 Diastolic blood pressure 95 mm[Hg] Ashok Pedro MD Work Phone: [facility] 06-08-2024 12:31-0500 Heart rate 74 /min Ashok Pedro MD Work Phone: [facility] 06-08-2024 12:31-0500 Systolic blood pressure 150 mm[Hg] Ashok Pedro MD Work Phone: [facility] 05-10-2024 11:10-0500 Body mass index (BMI) [Ratio] 36.34 kg/m2 Destini Hanson APRN.CNM Work Phone: [facility] 05-10-2024 11:10-0500 Body weight 105.23 kg Destini Hanson AMERICAN INDIAN POLICY SPECIALIST.CNM Work Phone: [facility] 05-10-2024 11:10-0500 Diastolic blood pressure 68 mm[Hg] Destini Sierrats AMERICAN INDIAN POLICY SPECIALIST.CNM Work Phone: [facility] 05-10-2024 11:10-0500 Systolic blood pressure 110 mm[Hg] Destini Sierrats AMERICAN INDIAN POLICY SPECIALIST.CNM Work Phone: [facility] 04-26-2024 13:37-0500 Body mass index (BMI) [Ratio] 36.21 kg/m2 Karen Montes AMERICAN INDIAN POLICY SPECIALIST.CNM Work Phone: [facility] 04-26-2024 13:37-0500 Body weight 104.87 kg Karen Montes AMERICAN INDIAN POLICY SPECIALIST.CNM Work Phone: [facility] 04-26-2024 13:37-0500 Diastolic blood pressure 64 mm[Hg] Karen Montes AMERICAN INDIAN POLICY SPECIALIST.CNM Work Phone: [facility] 04-26-2024 13:37-0500 Systolic blood pressure 108 mm[Hg] Karen Montes AMERICAN INDIAN POLICY SPECIALIST.CNM Work Phone: [facility] 04-06-2024 08:09-0500 Body mass index (BMI) [Ratio] 37.5 kg/m2 Ashley Pb AMERICAN INDIAN POLICY SPECIALIST.VETERANS CONTACT REPRESENTATIVE Work Phone: [facility] 04-06-2024 08:09-0500 Body weight 108.59 kg Ashley Pb AMERICAN INDIAN POLICY SPECIALIST.VETERANS CONTACT REPRESENTATIVE Work Phone: [facility] 04-06-2024 08:09-0500 Diastolic blood pressure 62 mm[Hg] Ashley Pb AMERICAN INDIAN POLICY SPECIALIST.VETERANS CONTACT REPRESENTATIVE Work Phone: [facility] 04-06-2024 08:09-0500 Systolic blood pressure 118 mm[Hg] Ashley Pb AMERICAN INDIAN POLICY SPECIALIST.VETERANS CONTACT REPRESENTATIVE Work Phone: [facility] 01-27-2024 16:03-0400 Body mass index (BMI) [Ratio] 38.06 kg/m2 Kwasi Garcia APRN.VETERANS CONTACT REPRESENTATIVE Work Phone: [facility] 01-27-2024 16:03-0400 Body weight 110.22 kg Kwasi Garcia APRN.VETERANS CONTACT REPRESENTATIVE Work Phone: [facility] 01-27-2024 16:03-0400 Diastolic blood pressure 82 mm[Hg] Kwasi Garcia APRN.VETERANS CONTACT REPRESENTATIVE Work Phone: [facility] 01-27-2024 16:03-0400 Heart rate 99 /min Kwasi Garcia APRN.VETERANS CONTACT REPRESENTATIVE Work Phone: [facility] 01-27-2024 16:03-0400 Respiratory rate 14 /min Kwasi Garcia APRN.VETERANS CONTACT REPRESENTATIVE Work Phone: [facility] 01-27-2024 16:03-0400 Systolic blood pressure 120 mm[Hg] Kwasi Garcia APRN.VETERANS CONTACT REPRESENTATIVE Work Phone: [facility] 12-29-2023 14:01-0400 Body mass index (BMI) [Ratio] 39.41 kg/m2 Kendra Torres MD Work Phone: [facility] 12-29-2023 14:01-0400 Body weight 114.13 kg Kendra Torres MD Work Phone: [facility] 12-29-2023 14:01-0400 Diastolic blood pressure 74 mm[Hg] Kendra Torres MD Work Phone: [facility] 12-29-2023 14:01-0400 Systolic blood pressure 112 mm[Hg] Kendra Torres MD Work Phone: [facility] 11-28-2023 07:35-0400 Body height 170.2 cm Dionne Carrillo APRN.VETERANS CONTACT REPRESENTATIVE Work Phone: [facility] 11-28-2023 07:35-0400 Body mass index (BMI) [Ratio] 39.63 kg/m2 Dionne Carrillo APRN.VETERANS CONTACT REPRESENTATIVE Work Phone: [facility] 11-28-2023 07:35-0400 Body weight 114.76 kg Dionne Carrillo APRN.VETERANS CONTACT REPRESENTATIVE Work Phone: [facility] 11-28-2023 07:35-0400 Diastolic blood pressure 70 mm[Hg] Dionne Carrillo APRN.VETERANS CONTACT REPRESENTATIVE Work Phone: [facility] 11-28-2023 07:35-0400 Systolic blood pressure 108 mm[Hg] Dionne Carrillo APRN.VETERANS CONTACT REPRESENTATIVE Work Phone: [facility] 09-04-2023 09:18-0400 Body weight 114.76 kg Kwasi Garcia APRN.VETERANS CONTACT REPRESENTATIVE Work Phone: [facility] 09-04-2023 09:18-0400 Diastolic blood pressure 83 mm[Hg] Kwasi Garcia APRN.VETERANS CONTACT REPRESENTATIVE Work Phone: [facility] 09-04-2023 09:18-0400 Heart rate 110 /min Kwasi Garcia APRN.VETERANS CONTACT REPRESENTATIVE Work Phone: [facility] 09-04-2023 09:18-0400 Respiratory rate 18 /min Kwasi Garcia APRN.VETERANS CONTACT REPRESENTATIVE Work Phone: [facility] 09-04-2023 09:18-0400 SaO2% (BldA) [Mass fraction] 99 % Kwasi Gracia APRN.VETERANS CONTACT REPRESENTATIVE Work Phone: [facility] 09-04-2023 09:18-0400 Systolic blood pressure 118 mm[Hg] Kwasi Garcia APRN.VETERANS CONTACT REPRESENTATIVE Work Phone: [facility] 09-04-2023 07:11-0400 Body temperature 98.01 [degF] Gisel Sweet APRN.VETERANS CONTACT REPRESENTATIVE Work Phone: [facility] 09-04-2023 07:11-0400 Body weight 114.8 kg Gisel Sweet APRN.VETERANS CONTACT REPRESENTATIVE Work Phone: [facility] 09-04-2023 07:11-0400 Diastolic blood pressure 83 mm[Hg] Gisel Sweet APRN.VETERANS CONTACT REPRESENTATIVE Work Phone: [facility] 09-04-2023 07:11-0400 Heart rate 96 /min Gisel Sweet APRN.VETERANS CONTACT REPRESENTATIVE Work Phone: [facility] 09-04-2023 07:11-0400 Respiratory rate 18 /min Gisel Sweet APRN.VETERANS CONTACT REPRESENTATIVE Work Phone: [facility] 09-04-2023 07:11-0400 SaO2% (BldA) [Mass fraction] 98 % Gisel Sweet APRN.VETERANS CONTACT REPRESENTATIVE Work Phone: [facility] 09-04-2023 07:11-0400 Systolic blood pressure 118 mm[Hg] Gisel Sweet APRN.VETERANS CONTACT REPRESENTATIVE Work Phone: [facility] 12-26-2022 07:11-0400 Body height 167.6 cm Mri (I-Stat/1.5t) Work Phone: [facility] 12-26-2022 07:11-0400 Body weight 113.4 kg Mri (I-Stat/1.5t) Work Phone: [facility] 12-26-2022 07:11-0400 Diastolic blood pressure 90 mm[Hg] Mri (I-Stat/1.5 t) Work Phone: [facility] 12-26-2022 07:11-0400 Heart rate 69 /min Mri (I-Stat/1.5t) Work Phone: [facility] 12-26-2022 07:11-0400 Systolic blood pressure 120 mm[Hg] Mri (I-Stat/1.5t ) Work Phone: [facility] 12-10-2022 09:41-0400 Diastolic blood pressure 90 mm[Hg] Bhavesh Alas MD Work Phone: [facility] 12-10-2022 09:41-0400 Systolic blood pressure 153 mm[Hg] Bhavesh Alas MD Work Phone: [facility] 12-10-2022 09:38-0400 Body weight 112.49 kg Bhavesh Alas MD Work Phone: [facility] 12-10-2022 09:38-0400 Heart rate 63 /min Bhavesh Alas MD Work Phone: [facility] 12-10-2022 09:38-0400 Respiratory rate 15 /min Bhavesh Alas MD Work Phone: [facility] 12-10-2022 09:38-0400 SaO2% (BldA) [Mass fraction] 100 % Bhavehs Alas MD Work Phone: [facility] 07-13-2022 08:21-0500 Body temperature 98.4 [degF] Mallory Athy PA-C Work Phone: [facility] 07-13-2022 08:21-0500 Body weight 116.85 kg Mallory Athy PA-C Work Phone: [facility] 07-13-2022 08:21-0500 Diastolic blood pressure 78 mm[Hg] Mallory Athy PA-C Work Phone: [facility] 07-13-2022 08:21-0500 Heart rate 85 /min Mallory Athy PA-C Work Phone: [facility] 07-13-2022 08:21-0500 Respiratory rate 18 /min Mallory Athy PA-C Work Phone: [facility] 07-13-2022 08:21-0500 SaO2% (BldA) [Mass fraction] 99 % Mallory Athy PA-C Work Phone: [facility] 07-13-2022 08:21-0500 Systolic blood pressure 124 mm[Hg] Mallory Athy PA-C Work Phone: [facility] 06-25-2022 14:53-0500 Body height 167.6 cm Ashok Pedro MD Work Phone: [facility] 06-25-2022 14:53-0500 Body weight 113.4 kg Ashok Pedro MD Work Phone: [facility] 05-29-2022 13:48-0500 Body weight 115.76 kg Dionne Carrillo APRN.CNP Work Phone: [facility] 05-29-2022 13:48-0500 Diastolic blood pressure 80 mm[Hg] Dionne Carrillo APRN.VETERANS CONTACT REPRESENTATIVE Work Phone: [facility] 05-29-2022 13:48-0500 Systolic blood pressure 124 mm[Hg] Dionne Carrillo APRN.VETERANS CONTACT REPRESENTATIVE Work Phone: [facility] 05-22-2022 13:45-0500 Body weight 115.67 kg Kwasi Garcia APRN.VETERANS CONTACT REPRESENTATIVE Work Phone: [facility] 05-22-2022 13:45-0500 Diastolic blood pressure 74 mm[Hg] Kwasi Garcia APRN.VETERANS CONTACT REPRESENTATIVE Work Phone: [facility] 05-22-2022 13:45-0500 Heart rate 78 /min Kwasi Garcia APRN.VETERANS CONTACT REPRESENTATIVE Work Phone: [facility] 05-22-2022 13:45-0500 Respiratory rate 16 /min Kwasi Garcia APRN.VETERANS CONTACT REPRESENTATIVE Work Phone: [facility] 05-22-2022 13:45-0500 Systolic blood pressure 118 mm[Hg] Kwasi Garcia APRN.VETERANS CONTACT REPRESENTATIVE Work Phone: [facility] 04-06-2022 10:03-0500 Body temperature 97.7 [degF] Gisel Sweet APRN.VETERANS CONTACT REPRESENTATIVE Work Phone: [facility] 04-06-2022 10:03-0500 Body weight 113.4 kg Gisel wSeet APRN.VETERANS CONTACT REPRESENTATIVE Work Phone: [facility] 04-06-2022 10:03-0500 Diastolic blood pressure 68 mm[Hg] Gisel Sweet APRN.VETERANS CONTACT REPRESENTATIVE Work Phone: [facility] 04-06-2022 10:03-0500 Heart rate 92 /min Gisel Sweet APRN.VETERANS CONTACT REPRESENTATIVE Work Phone: [facility] 04-06-2022 10:03-0500 Respiratory rate 16 /min Gisel Sweet APRN.VETERANS CONTACT REPRESENTATIVE Work Phone: [facility] 04-06-2022 10:03-0500 SaO2% (BldA) [Mass fraction] 99 % Gisel Sweet AMERICAN INDIAN POLICY SPECIALIST.VETERANS CONTACT REPRESENTATIVE Work Phone: [facility] 04-06-2022 10:03-0500 Systolic blood pressure 118 mm[Hg] Gisel Sweet AMERICAN INDIAN POLICY SPECIALIST.VETERANS CONTACT REPRESENTATIVE Work Phone: [facility] 10-09-2021 10:00-0400 Body temperature 98.1 [degF] Karen Melgar AMERICAN INDIAN POLICY SPECIALIST.VETERANS CONTACT REPRESENTATIVE Work Phone: [facility] 10-09-2021 10:00-0400 Body weight 106.32 kg Karen Melgar AMERICAN INDIAN POLICY SPECIALIST.VETERANS CONTACT REPRESENTATIVE Work Phone: [facility] 10-09-2021 10:00-0400 Diastolic blood pressure 78 mm[Hg] Karen Melgar AMERICAN INDIAN POLICY SPECIALIST.VETERANS CONTACT REPRESENTATIVE Work Phone: [facility] 10-09-2021 10:00-0400 Heart rate 72 /min Karen Melgar AMERICAN INDIAN POLICY SPECIALIST.VETERANS CONTACT REPRESENTATIVE Work Phone: [facility] 10-09-2021 10:00-0400 Respiratory rate 18 /min Karen Melgar AMERICAN INDIAN POLICY SPECIALIST.VETERANS CONTACT REPRESENTATIVE Work Phone: [facility] 10-09-2021 10:00-0400 SaO2% (BldA) [Mass fraction] 98 % Karen Melgar AMERICAN INDIAN POLICY SPECIALIST.VETERANS CONTACT REPRESENTATIVE Work Phone: [facility] 10-09-2021 10:00-0400 Systolic blood pressure 104 mm[Hg] Karen Melgar AMERICAN INDIAN POLICY SPECIALIST.VETERANS CONTACT REPRESENTATIVE Work Phone: [facility] 09-25-2021 15:47-0400 Body height 167.6 cm Dionne Carrillo AMERICAN INDIAN POLICY SPECIALIST.VETERANS CONTACT REPRESENTATIVE Work Phone: [facility] 09-25-2021 15:47-0400 Body weight 105.51 kg Dionne Carrillo AMERICAN INDIAN POLICY SPECIALIST.VETERANS CONTACT REPRESENTATIVE Work Phone: [facility] 09-25-2021 15:47-0400 Diastolic blood pressure 80 mm[Hg] Dionne Carrillo AMERICAN INDIAN POLICY SPECIALIST.VETERANS CONTACT REPRESENTATIVE Work Phone: [facility] 09-25-2021 15:47-0400 Systolic blood pressure 120 mm[Hg] Dionne Oliverahrie LOKI Work Phone: [facility] Encounters Encounter Date Encounter Type Care Provider Facility Start: 11-11-2024 End: 11-11-2024 Patient encounter procedure Kendra Torres MD Work Phone: OB/Gynecology Comment on above: state (HC C) (Primary Dx) Start: 11-11-2024 End: 11-11-2024 ambulatory KWASI GARCIA Facility:[facility] Start: 11-10-2024 End: 11-10-2024 ambulatory CAROLYN LUGO Facility:[facility] Start: 11-08-2024 End: 11-08-2024 Encounter Ref(Historical) No HOSP MAIN [id number] Start: 11-05-2024 End: 11-05-2024 Orders Only Ashok Pedro MD Work Phone: Cardiology Comment on above: Inappropriate sinus tachycardia (HCC) (Primary Dx) Start: 10-31-2024 ambulatory JAILYN BOSS Facilit y:[facility] Start: 10-31-2024 End: 11-08-2024 Evaluation and management of inpatient MEAGAN KENNEDYCHOE Facility:[facility] Start: 10-28-2024 End: 10-28-2024 Patient encounter procedure Marion Barbosa MD Work Phone: OB/Gynecology Comment on above: Supervision of high risk in third trimester (HCC) (Primary Dx); Maternal congenital cardiac anomaly affecting , antepartum, third trimester (HCC); Pre-existing hypertension complicating in third trimester (HCC); Obesity in (HCC); 36 weeks gestation of (HCC) Start: 10-28-2024 End: 10-28-2024 ambulatory MARION BARBOSA Facility:[facility] Start: 10-27-2024 End: 10-27-2024 Chart abstracting Marion Barbosa MD Work Phone: OB/Gynecology Comment on above: Results (BPP) Start: 10-27-2024 End: 10-27-2024 ambulatory Kwasi Garcia HOME MISSION WORKER-C Work Phone: [facility] Work Phone: Start: 10-27-2024 End: 10-27-[address] Carolyn Lugo MD -[facility] Work Phone: Comment on above: Supervision of high risk in third trimester (HCC) (Primary Dx); NST (non-stress test) with decelerations; Maternal congenital cardiac anomaly affecting , antepartum, third trimester (HCC); Pre-existing hypertension complicating in third trimester (HCC); Obesity in (HCC); 36 weeks gestation of (HCC) Start: 10-27-2024 End: 10-27-2024 ambulatory MARION BARBOSA Facility:[facility] Start: 10-25-2024 End: 10-25-2024 Telephone encounter Marion Barbosa MD Work Phone: OB/Gynecology Comment on above: OB Back Pain Start: 10-22-2024 End: 10-22-2024 Telephone encounter Destini Hanson APRN.CNM Work Phone: OB/Gynecology Comment on above: OB N/V Start: 10-20-2024 End: 10-20-2024 Patient encounter procedure Nelsy Agarwal MD Work Phone: OB/Gynecology Comment on above: Supervision of high risk in third trimester (HCC) (Primary Dx); 35 weeks gestation of (HCC); Obesity in (HCC); Pre-existing hypertension complicating in third trimester (HCC) Start: 10-20-2024 End: 10-20-2024 ambulatory MARION BARBOSA Facility:[facility] Start: 10-13-2024 End: 10-13-2024 Patient encounter procedure Nelsy Agarwal MD Work Phone: OB/Gynecology Comment on above: Supervision of high risk in third trimester (HCC) (Primary Dx); Obesity in (HCC); Pre-existing hypertension complicating in third trimester (HCC); 34 weeks gestation of (HCC); Maternal congenital cardiac anomaly affecting , antepartum, third trimester (HCC) Start: 10-13-2024 End: 10-13-2024 ambulatory MARION BARBOSA Facility:[facility] Start: 10-12-2024 End: 10-12-2024 Telemedicine consultation with patient Bhavesh Alas MD Work Phone: Cardiology Start: 10-12-2024 End: 10-12-2024 ambulatory Bhavesh Alas MD Work Phone: Cardiology Comment on above: Coarctation of aorta (HCC) Start: 10-07-2024 End: 10-07-2024 ambulatory LATISHA MALLORY Facility:[facility] Start: 10-06-2024 End: 10-06-2024 ambulatory MARION BARBOSA Facility:[facility] Start: 10-01-2024 End: 10-01-2024 Telephone encounter Lexie Alonso RN Maternal Medicine Comment on above: Suction Roller - O ther Start: 09-30-2024 End: 09-30-2024 Admission to establishment Pacc Main 7 Work Phone: Pre Anesthesia Start: 09-30-2024 End: 09-30-2024 Anesthesia consultation Pacc Main 7 Work Phone: Pre Anesthesia Comment on above: Bicuspid aortic valv e (Primary Dx); Coarctation of aorta (HCC); SVT (supraventricular tachycardia) ([facility]); S/P repair of PDA; Preexisting hypertension complicating , antepartum (HCC) Start: 09-30-2024 End: 09-30-2024 ambulatory JAILYN BOSS Facility:[facility] Start: 09-30-2024 End: 09-30-2024 Patient encounter procedure Whi Tech 2 Lab Manager Mfm Main R Maternal Medicine Comment on above: Preexisting hyperten benson complicating , antepartum (HCC) (Primary Dx); 32 weeks gestation of (HCC); Maternal congenital cardiac anomaly affecting , antepartum, third trimester (HCC); Obesity affecting in third trimester, unspecified obesity type (HCC) Maternal congenital cardiac anomaly affecting , antepartum, third trimester (HCC) (Primary Dx); Preexisting hypertension complicating , antepartum (HCC); Bicuspid aortic valve; History of aortic coarctation repair; 32 weeks gestation of (HCC); Supervision of high risk in first trimester (HCC) Start: 09-30-2024 End: 09-30-2024 ambulatory JAILYN BOSS Facility:[facility] Start: 09-30-2024 End: 09-30-2024 ambulatory SELF Facility:[facility] Start: 09-29-2024 End: 09-29-2024 Patient encounter procedure Nelsy Agarwal MD Work Phone: OB/Gynecology Comment on above: Supervision of high risk in third trimester (HCC) (Primary Dx); Obesity in (HCC); 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, antepartum (HCC); 32 weeks gestation of (HCC); Pre-existing hypertension complicating in second trimester (HCC) Start: 09-29-2024 End: 09-29-2024 ambulatory KWASI GARCIA Facility:[facility] Start: 09-15-2024 End: 09-15-2024 Patient encounter procedure Marion Barbosa MD Work Phone: OB/Gynecology Comment on above: Supervision of high risk in third trimester (HCC) (Primary Dx); Obesity in (HCC); Nausea and vomiting in (HCC); 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, antepartum (HCC); Pre-existing hypertension complicating in second trimester (HCC); 30 weeks gestation of (HCC) Start: 09-15-2024 End: 09-15-2024 ambulatory KWASI GARCIA Facility:[facility] Start: 09-01-2024 End: 11-01-2024 Follow-up encounter Lissett Haynes APRN.CNP Work Phone: OB/Gynecology Start: 09-01-2024 End: 09-01-2024 Patient encounter procedure Marion Barbosa MD Work Phone: OB/Gynecology Comment on above: Supervision of high risk in third trimester (HCC) (Primary Dx); Obesity in (HCC); Adult congenital heart disease (HCC); 28 weeks gestation of (HCC); Need for vaccination; Supervision of high risk in first trimester (HCC) Start: 09-01-2024 End: 09-01-2024 ambulatory KWASI GARCIA Facility:[facility] Start: 08-23-2024 End: 08-23-2024 E-mail encounter from caregiver Lexie Alonso RN Maternal Medicine Start: 08-23-2024 End: 08-23-2024 Patient encounter procedure Lexie Alonso RN Maternal Medicine Comment on above: Dr. Moody merino Start: 08-20-2024 End: 08-20-2024 Orders Only Bhavesh Alas MD Work Phone: Cardiology Comment on above: Congenital cardiovas cular disorder (HCC) (Primary Dx) MFM appointment Start: 08-19-2024 End: 08-20-2024 Refill Marion Barbosa MD Work Phone: OB/Gynecology Comment on above: Refill Request Start: 08-06-2024 End: 08-06-2024 Patient encounter procedure Jailyn Boss MD Work Phone: [employer] [facility] Comment on above: 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, antepartum (Primary Dx); Coarctation of aorta; Bicuspid aortic valve; SVT (supraventricular tachycardia) (HCC); Inappropriate sinus tachycardia (HCC); Obesity affecting in second trimester, unspecified obesity type; Pre-existing hypertension complicating in second trimester; 24 weeks gestation of Coarctation of aorta (Primary Dx) Start: 08-06-2024 End: 08-06-2024 ambulatory BHAVESH ALAS Facility:[facility] Start: 08-06-2024 End: 08-06-2024 ambulatory BHAVESH ALAS Facility:[facility] Start: 08-03-2024 End: 08-03-2024 ambulatory KAREN MONTES Facility:[facility] Start: 08-03-2024 End: 08-03-2024 Patient encounter procedure Karen Montes APRN.CNM Work Phone: OB/Gynecology Comment on above: Supervision of high risk in second trimester (Primary Dx); Obesity in ; Adult congenital heart disease; History of surgery to heart and great vessels; Screening for diabetes mellitus; 24 weeks gestation of Start: 08-02-2024 End: 08-02-2024 ambulatory Bhavesh Alas MD Work Phone: Cardiology Comment on above: More questions on th e labs Start: 08-01-2024 End: 08-01-2024 ambulatory Bhavesh Alas MD Work Phone: Cardiology Comment on above: Labs Start: 07-23-2024 End: 07-23-2024 Refill Marion Barbosa MD Work Phone: OB/Gynecology Comment on above: Refill Request Start: 07-21-2024 End: 07-21-2024 ambulatory CAROLYN LUGO Facility:[facility] Start: 07-21-2024 End: 07-21-2024 FQHC visit new patient Deborah Carroll MD Work Phone: Pediatric Cardiology Comment on above: New Patient Start: 07-21-2024 End: 07-21-2024 Patient encounter procedure Deborah Carroll MD Work Phone: Pediatric Cardiology Start: 07-20-2024 End: 07-22-2024 ambulatory Ashok Pedro MD Work Phone: Cardiology Comment on above: Heart rate Start: 07-07-2024 End: 09-06-2024 Follow-up encounter Marion Barbosa MD Work Phone: OB/Gynecology Start: 07-06-2024 End: 07-06-2024 Office outpatient visit 15 minutes Carolyn Lugo MD Work Phone: OB/Gynecology Comment on above: 20 weeks gestation o f (Primary Dx); Supervision of high risk in second trimester Start: 07-06-2024 End: 07-06-2024 ambulatory CAROLYN LUGO Facility:[facility] Start: 07-06-2024 End: 07-06-2024 ambulatory KWASI GARCIA Facility:[facility] Start: 07-06-2024 End: 07-06-2024 Patient encounter procedure Whi Tech 1 Lab Manager Mfm Wstr Mob Maternal Medicine Comment on above: Encounter for anatomic survey (Primary Dx); Adult congenital heart disease; History of aortic coarctation repair; 20 weeks gestation of ; Obesity affecting in second trimester, unspecified obesity type Start: 06-30-2024 End: 06-30-2024 Refill Marion Barbosa MD Work Phone: OB/Gynecology Comment on above: Refill Request Start: 06-22-2024 End: 06-22-2024 Orders Only Bhavesh Alas MD Work Phone: Cardiology Comment on above: Congenital heart dis ease (Primary Dx) Start: 06-08-2024 End: 06-08-2024 Patient encounter procedure Marion Barbosa MD Work Phone: OB/Gynecology Comment on above: Supervision of high risk in second trimester (Primary Dx); Adult congenital heart disease; Dysuria; Obesity in ; History of aortic coarctation repair; Bicuspid aortic valve; Coarctation of aorta; History of supraventricular tachycardia; 16 weeks gestation of Start: 06-08-2024 End: 06-08-2024 ambulatory DESTINI HANSON Facility:[facility] Start: 06-08-2024 End: 06-22-2024 Telephone encounter Marion Barbosa MD Work Phone: OB/Gynecology Comment on above: Appointment Start: 06-08-2024 End: 06-08-2024 Unlisted evaluation and management service Karen Montes APRN.CNM Work Phone: OB/Gynecology Comment on above: Opened In Error Start: 06-08-2024 End: 06-08-2024 ambulatory ASHOK PEDRO Facility:[facility] Start: 06-08-2024 End: 06-08-2024 Patient encounter procedure Ashok Pedro MD Work Phone: Cardiology Comment on above: Inappropriate sinus node tachycardia (HCC) [I47.11] (Primary Dx); Inappropriate sinus node tachycardia (HCC) Start: 06-08-2024 End: 06-08-2024 ambulatory DESTINI CIARRASHEILA Facility:[facility] Start: 06-08-2024 End: 06-08-2024 Patient encounter procedure Whi Tech 1 Lab Manager Mfm Wstr Mob Maternal Medicine Comment on above: 16 weeks gestation o f (Primary Dx); Adult congenital heart disease; Encounter for screening for malformation using ultrasound; Obesity affecting in second trimester, unspecified obesity type Start: 05-14-2024 End: 05-14-2024 Telephone encounter Lexie Alonso RN Maternal Medicine Comment on above: Suction Roller - O ther Start: 05-12-2024 End: 05-13-2024 Refill Karen Montes APRN.CNM Work Phone: OB/Gynecology Comment on above: Refill Request Start: 05-10-2024 End: 05-10-2024 [facility] Facility:[facility] Start: 05-10-2024 End: 05-10-2024 Patient encounter procedure Destini Hanson APRN.CNM Work Phone: OB/Gynecology Comment on above: 12 weeks gestation o f (Primary Dx); Supervision of high risk in first trimester; Adult congenital heart disease; History of aortic coarctation repair; Coarctation of aorta; Bicuspid aortic valve; History of supraventricular tachycardia Encounter for antena chaz screening for malformation using ultrasound (Primary Dx); 12 weeks gestation of Start: 05-03-2024 End: 05-03-2024 [facility] Facility:[facility] Start: 04-26-2024 End: 04-26-2024 ambulatory KAREN MONTES Facility:[facility] Start: 04-26-2024 End: 04-26-2024 Patient encounter procedure Karen Montes APRN.CNEdith Work Phone: OB/Gynecology Comment on above: Supervision of high risk in first trimester (Primary Dx); 10 weeks gestation of ; Nausea/vomiting in Start: 04-23-2024 End: 04-23-2024 Emergency department patient visit Stanley Holguin Facility:[facility] Start: 04-23-2024 End: 04-23-2024 [facility] [employer] INDIAN POLICY SPECIALIST.VETERANS CONTACT REPRESENTATIVE Work Phone: OB/Gynecology Comment on above: Morning sickness Start: 04-12-2024 End: 04-13-2024 Telephone encounter Lexie Alonso RN Maternal Medicine Comment on above: Suction Roller - O ther Start: 04-07-2024 End: 04-07-2024 Orders Only Ashok Pedro MD Work Phone: Cardiology Start: 04-06-2024 End: 04-12-2024 ambulatory Ashok Pedro MD Work Phone: Cardiology Comment on above: Baby on the way! Baby one the way! Start: 04-06-2024 End: 04-06-2024 Patient encounter procedure Ashley Ambriz APRN.VETERANS CONTACT REPRESENTATIVE Work Phone: OB/Gynecology Comment on above: Supervision of high risk in first trimester (Primary Dx); 7 weeks gestation of ; Encounter for care in first trimester of first ; BMI 37.0-37.9, adult Start: 03-05-2024 End: 03-11-2024 ambulatory Bhavehs Alas MD Work Phone: Cardiology Comment on above: Asking for clearance to start Femara. Start: 01-29-2024 End: 01-29-2024 Telephone encounter Kwasi Garcia APRN.VETERANS CONTACT REPRESENTATIVE Work Phone: Family Medicine [place] Comment on above: Results Start: 01-27-2024 End: 01-27-2024 Patient encounter procedure Kwasi Garcia APRN.VETERANS CONTACT REPRESENTATIVE Work Phone: Family Medicine [place] Comment on above: Erythema migrans (Pr imary Dx) Start: 01-27-2024 End: 01-27-2024 ambulatory KWASI GARCIA Facility:[facility] Start: 12-29-2023 End: 12-29-2023 ambulatory SELF Facility:[facility] Start: 12-29-2023 End: 12-29-2023 Patient encounter procedure Kendra Torres MD Work Phone: OB/Gynecology Comment on above: Class 2 obesity with body mass index (BMI) of 39.0 to 39.9 in adult, unspecified obesity type, unspecified whether serious comorbidity present (Primary Dx); Desire for ; History of repair of coarctation of aorta Start: 12-18-2023 ambulatory Ashok Gtz Work Phone: Cardiology Start: 12-18-2023 Patient encounter procedure Ashok Pedro MD Work Phone: Cardiology Comment on above: Upcoming appointment Start: 12-18-2023 Telephone encounter Ashok izquierdo MD Work Phone: Cardiology Comment on above: Appointment (EP APPT MUST BE IN PERSON) Start: 12-07-2023 ambulatory Bhavesh blas MD Work Phone: Cardiology Comment on above: Zio patch Start: 12-05-2023 End: 12-05-2023 ambulatory DIONNE CARRILLO OB/Gynecology Start: 12-05-2023 End: 12-05-2023 Patient encounter procedure Whi Tech 1 Lab Manager Wstr Mob OB/Gynecology Start: 12-03-2023 Telephone encounter Bhavesh harrison MD Work Phone: Cardiology Comment on above: Orders Inappropriate sinus node tachycardia (HCC) (Primary Dx) Start: 11-28-2023 End: 11-28-2023 ambulatory DIONNE CARRILLO Facility:[facility] Start: 11-28-2023 End: 11-28-2023 ambulatory KWASI GARCIA Facility:[facility] Start: 11-28-2023 End: 11-28-2023 Patient encounter procedure Dionne Carrillo APRN.VETERANS CONTACT REPRESENTATIVE Work Phone: OB/Gynecology Comment on above: Encounter for gyneco logical examination with abnormal finding (Primary Dx); Secondary oligomenorrhea; Hirsutism; Class 2 obesity with body mass index (BMI) of 39.0 to 39.9 in adult, unspecified obesity type, unspecified whether serious comorbidity present Start: 11-28-2023 End: 04-06-2024 Patient encounter status Dionne Carrillo APRN.VETERANS CONTACT REPRESENTATIVE Work Phone: [facility] Work Phone: Start: 11-11-2023 ambulatory [facility] Start: 11-11-2023 Patient encounter procedure Bessie Jacob MA [facility] Comment on above: Population Health Na vigation Outreach ([facility]) Start: 10-02-2023 Refill Ashok Gtz Work Phone: Cardiology Comment on above: Refill Request (Prop ranolol) Start: 09-04-2023 End: 09-04-2023 Patient encounter procedure Kwasi Garcia APRN.VETERANS CONTACT REPRESENTATIVE Work Phone: [facility] [place] Comment on above: Rhinosinusitis (Prim cristiane Dx) Start: 09-04-2023 End: 09-04-2023 Patient encounter procedure Gisel Sweet APRN.VETERANS CONTACT REPRESENTATIVE Work Phone: [facility] Comment on above: Rhinosinusitis (Prim cristiane Dx) Start: 04-24-2023 End: 04-24-2023 ambulatory Ashok Pedro MD Work Phone: Cardiology Comment on above: Inappropriate sinus node tachycardia [I47.11] (Primary Dx); Inappropriate sinus node tachycardia Start: 04-24-2023 End: 04-24-2023 Telemedicine consultation with patient Ashok Pedro MD Work Phone: [facility] Start: 04-07-2023 Refill Ashok Gtz Work Phone: Cardiology Comment on above: Refill Request (Prop anolol) Start: 12-30-2022 Refill Ashok Gtz Work Phone: Cardiology Comment on above: Refill Request Start: 12-30-2022 Refill Ashok Gtz Work Phone: Cardiology Comment on above: Refill Request (Prop anolol) Start: 12-26-2022 End: 12-26-2022 Subsequent hospital visit by physician Mri Main J 2 (I-Stat/1.5t) Work Phone: MRI J Comment on above: Coarctation of aorta [Q25.1] Start: 12-25-2022 Orders Only Ramana King MD Work Phone: Cardiology Comment on above: Cardiomyopathy, unsp ecified type (HCC) Start: 12-22-2022 ambulatory Ashok Gtz Work Phone: Cardiology Comment on above: Propanolol Start: 12-18-2022 ambulatory Bhavesh blas MD Work Phone: Cardiology Comment on above: EKG Start: 12-10-2022 End: 12-10-2022 Patient encounter procedure Bhavesh Alas MD Work Phone: Cardiology Comment on above: Coarctation of aorta (Primary Dx); SVT (supraventricular tachycardia) (HCC); Obesity, Class II, BMI 35-39.9 Start: 11-22-2022 ambulatory Ashok Gtz Work Phone: Cardiology Comment on above: Is it okay if I star t a supplement? Start: 10-01-2022 ambulatory Dionne GAUTHIER RN.VETERANS CONTACT REPRESENTATIVE Work Phone: OB/Gynecology Comment on above: Weighty loss program Start: 07-13-2022 End: 07-13-2022 Patient encounter procedure Mallory Mcdonald PA-C Work Phone: [facility] Comment on above: Sore throat (Primary Dx) Start: 07-12-2022 Orders Only Bhavesh blas MD Work Phone: Cardiology Comment on above: Coarctation of aorta (Primary Dx) Start: 06-25-2022 End: 06-25-2022 ambulatory Ashok Pedro MD Work Phone: Cardiology Comment on above: Inappropriate sinus tachycardia [R00.0 (ICD-10-CM)] (Primary Dx); Coarctation of aorta; Palpitation Start: 06-25-2022 End: 06-25-2022 Telemedicine consultation with patient Ashok Pedro MD Work Phone: [facility] Start: 06-24-2022 Refill [facility] Provider Cardiology Comment on above: Refill Request (NADO LOL - needs visit with new EP first); Refill Request SVT (supraventricula r tachycardia) (HCC) (Primary Dx) Refill Request (NADO LOL) Start: 05-29-2022 End: 05-29-2022 Patient encounter procedure Dionne Carrillo APRN.VETERANS CONTACT REPRESENTATIVE Work Phone: OB/Gynecology Comment on above: Ovarian cyst, right (Primary Dx); Malpositioned intrauterine device (IUD), initial encounter; Encounter for IUD removal Start: 05-24-2022 Telephone encounter Kwasi sarmiento APRN.VETERANS CONTACT REPRESENTATIVE Work Phone: Family Medicine [place] Comment on above: Results Start: 05-23-2022 Telephone encounter Kwasi sarmiento APRN.VETERANS CONTACT REPRESENTATIVE Work Phone: [facility] [place] Comment on above: Results Start: 05-22-2022 End: 05-22-2022 Patient encounter procedure Kwasi Garcia APRN.VETERANS CONTACT REPRESENTATIVE Work Phone: [facility] [place] Comment on above: Left lateral abdomin al pain (Primary Dx); Encounter for immunization; Vaginal discharge Start: 04-06-2022 End: 04-06-2022 Patient encounter procedure Gisel Kee RG.VETERANS CONTACT REPRESENTATIVE Work Phone: [facility] Comment on above: Non-recurrent acute suppurative otitis media of left ear without spontaneous rupture of tympanic membrane (Primary Dx) Start: 11-13-2021 End: 11-13-2021 ambulatory Bhavesh Alas MD Work Phone: Cardiology Comment on above: Coarctation of aorta (Primary Dx) Start: 11-13-2021 End: 11-13-2021 Telemedicine consultation with patient Bhavesh Alas MD Work Phone: [facility] Start: 10-17-2021 End: 10-17-2021 Patient encounter status Mri (I-Stat/1.5t) MRI J Start: 10-17-2021 End: 10-17-2021 Subsequent hospital visit by physician Mri Main J (I-Stat/1.5t) MRI J Comment on above: Coarctation of aorta [Q25.1] Start: 10-16-2021 Orders Only Stan padilla MD Work Phone: Radiology Comment on above: Cardiomyopathy, unsp ecified type (HCC); Encounter for other preprocedural examination Start: 10-16-2021 Patient encounter status Marj Grajeda MD Work Phone: Radiology Start: 10-09-2021 End: 10-09-2021 Patient encounter procedure Karen Melgar VETERANS CONTACT REPRESENTATIVE Work Phone: [facility] Comment on above: Acute otitis media, left (Primary Dx); Impacted cerumen of left ear Start: 10-04-2021 E-mail encounter fro m caregiver [facility] Provider [facility] Start: 10-04-2021 Patient encounter procedure [facility] Provider Cardiology Comment on above: appointment Start: 09-25-2021 End: 09-25-2021 Patient encounter procedure Dionne Carrillo APRN.VETERANS CONTACT REPRESENTATIVE Work Phone: OB/Gynecology Comment on above: Encounter for gyneco logical examination (general) (routine) without abnormal findings (Primary Dx); Screening for cervical cancer; Encounter for screening for human papillomavirus (HPV); IUD check up Start: 09-25-2021 End: 09-25-2021 Patient encounter status Dionne Carrillo APRN.VETERANS CONTACT REPRESENTATIVE Work Phone: OB/Gynecology Procedures Date Procedure Procedure Detail Performing Clinician Start: 10-31-2024 Antibody screen MARION BARBOSA Comment on above: Order Comment: Speci men Type: BLOOD SPECIMENOrdering Facility: [facility] Address: [address] [place] [address] Performed By: #### T SPN ####CC MAIN BLOOD BANKCLIA [id number] [place] [address] [place] Start: 10-28-2024 Urnls dip stick/tabl et rgnt non-auto w/o micrscp Marion Barbosa MD Work Phone: Start: 10-27-2024 Ultrasonography for biophysical profile without non-stress testing Kwasi Garcia [employer] WORKER-C Work Phone: Start: 10-27-2024 Urnls dip stick/tabl et rgnt non-auto w/o micrscp Marion Barbosa MD Work Phone: Start: 10-20-2024 Urnls dip stick/tabl et rgnt non-auto w/o micrscp Driss Styles MD Work Phone: Start: 10-13-2024 Urnls dip stick/tabl et rgnt non-auto w/o micrscp Driss Styles MD Work Phone: Start: 09-30-2024 Us preg uterus after 1st trimest 05/19 gestation Jailyn Boss MD Work Phone: Start: 09-29-2024 Urnls dip stick/tabl et rgnt non-auto w/o micrscp Nelsy Agarwal MD Work Phone: Start: 07-06-2024 Us preg uterus after 1st trimest 05/19 gestation Marion Barbosa MD Work Phone: Start: 06-08-2024 Urnls dip stick/tabl et rgnt auto w/o microscopy Marion Barbosa MD Work Phone: Start: 06-08-2024 Us preg uterus after 1st trimest 05/19 gestation Destini Hanson AMERICAN INDIAN POLICY SPECIALIST.CNM Work Phone: Start: 05-10-2024 Us nuchal translucency 1st gestation Ashley Pb AMERICAN INDIAN POLICY SPECIALIST.VETERANS CONTACT REPRESENTATIVE Work Phone: Start: 05-03-2024 Antibody screen MARION BAROBSA Comment on above: Order Comment: Speci men Type: BLOOD SPECIMENOrdering Facility: [facility] Address: [address] [place] [address] Performed By: #### T SPN ####CC MAIN BLOOD BANKCLIA [id number] [facility] [id number] [place] [address] [place] Start: 04-06-2024 Us uterus l imited 1/> fetuses Ashley Pb AMERICAN INDIAN POLICY SPECIALIST.VETERANS CONTACT REPRESENTATIVE Work Phone: Start: 04-06-2024 Adult depression scr eening assessment Lexie Alonso RN Start: 12-29-2023 UA DIP,URINE HCG (POC) Kendra Torres MD Work Phone: Start: 12-05-2023 Us pelvic nonobstetr ic real-time image complete Dionne Carrillo AMERICAN INDIAN POLICY SPECIALIST.VETERANS CONTACT REPRESENTATIVE Work Phone: Start: 09-04-2023 STREP A MOLECULAR (POC) [facility] Provider Start: 12-26-2022 Cardiac mri for [place] flow mapping Bhavesh Alas MD Work Phone: Start: 07-13-2022 STREP A MOLECULAR (POC) Gisel Sweet AMERICAN INDIAN POLICY SPECIALIST.VETERANS CONTACT REPRESENTATIVE Work Phone: Start: 05-22-2022 Smr prim src gram/gi emsa stain bct fungi/cell Kwasi Garcia AMERICAN INDIAN POLICY SPECIALIST.VETERANS CONTACT REPRESENTATIVE Work Phone: Start: 05-22-2022 INFLUENZA VACCINE QUADRIVALENT 6 MO - 64 YRS IM Kwasi Garcia AMERICAN INDIAN POLICY SPECIALIST.VETERANS CONTACT REPRESENTATIVE Work Phone: Start: 10-17-2021 Cardiac mri for [place] flow mapping Bhavesh Alas MD Work Phone: Start: 04-13-2013 History of repair of coarctation of aorta History of aortic coarctation repair Ashley Ambriz AMERICAN INDIAN POLICY SPECIALIST.VETERANS CONTACT REPRESENTATIVE Work Phone: History of repair of coarctation of aorta History of repair of coarctation of aorta Kendra Torres MD Work Phone: History of repair of coarctation of aorta History of aortic coarctation repair Lexie Alonso RN History of repair of coarctation of aorta History of aortic coarctation repair Destini Hanson AMERICAN INDIAN POLICY SPECIALIST.CN Work Phone: History of repair of coarctation of aorta History of aortic coarctation repair Marion Barbosa MD Work Phone: History of repair of coarctation of aorta History of aortic coarctation repair Whi Mob History of repair of coarctation of aorta History of aortic coarctation repair Jailyn Boss MD Work Phone: Plan of Treatment Date Care Activity Detail Author Start: 2040 PAP TESTING PAP TESTING [facility] Start: 09-01-2034 Urine microalbumin profile DTaP,Tdap,Td Vaccine (8 - Td or Tdap) [facility] Start: 10-12-2025 End: 01-11-2026 CBC panel - Blood by Automated count COMPLETE BLOOD COUNT Lab Routine Coarctation of aorta (HCC) Expected: 10/12/2025, Expires: 01/11/2026 [facility] Comment on above: Expected: 10/12/2025 , Expires: 01/11/2026 Start: 10-12-2025 End: 01-11-2026 Comprehensive metabolic 2000 panel - Serum or Plasma COMPREHENSIVE METABOLIC PANEL Lab Routine Coarctation of aorta (HCC) Expected: 10/12/2025, Expires: 01/11/2026 [facility] Comment on above: Expected: 10/12/2025 , Expires: 01/11/2026 Start: 10-12-2025 End: 01-11-2026 Natriuretic peptide.B prohormone N-Terminal [Mass/volume] in Serum or Plasma NT PRO BNP Lab Routine Coarctation of aorta (HCC) Expected: 10/12/2025, Expires: 01/11/2026 [facility] Comment on above: Expected: 10/12/2025 , Expires: 01/11/2026 Start: 05-10-2025 End: 05-10-2025 Patient encounter procedure 05/10/2025 5:00 PM EST Office Visit Cardiology [address] [id number] Ashok Pedro MD [address] [place] [address] Sinus tachycardia Cardiology Comment on above: Sinus tachycardia Start: 05-10-2025 End: 05-10-2025 ambulatory 05/10/2025 4:30 PM EST Procedure Cardiology [address] [place] [address] Sinus tachycardia Cardiology Comment on above: Sinus tachycardia Start: 04-06-2025 Anxiety Screening Anxiety Screening [facility] Start: 04-06-2025 Depression Screening Depression Scre ening [facility] Start: 01-26-2025 Annual PCP Team [employer] mimi Disease Visit Annual PCP Team Chronic Disease Visit [facility] Start: 01-24-2025 End: 01-24-2025 Patient encounter procedure 01/24/2025 1:40 PM EDT Office Visit [facility] [place] [address] [place], [place] [address] Kwasi Garcia APRN.[employer]ETER[employer] CONTACT REPRESENTATIVE [address] [place], [place] [id number] annual physical [facility] [place] Comment on above: annual physical Start: 01-17-2025 Influenza vaccination Influenz a Vaccine (Season Ended) [facility] Start: 12-21-2024 End: 12-21-2024 Patient encounter procedure 12/21/2024 10:00 AM EDT Routine Office Visit Maternal Medicine [address] [facility] [place], [place] [phone] Christal Valle MD [address] [place], [place] [id number] Maternal Medicine Comment on above: Start: 12-06-2024 End: 12-06-2024 Patient encounter procedure 12/06/2024 8:30 AM EDT Office Visit OB/Gynecology [address] [facility] [address] [place], [place] [phone] Kendra Torres MD [address] [facility] [place], [place] [id number] 6 wk f/u post OB/Gynecology Comment on above: 6 wk f/u post Start: 11-21-2024 End: 02-20-2025 CBC panel - Blood by Automated count COMPLETE BLOOD COUNT Lab Routine Coarctation of aorta (HCC) Expected: 11/21/2024, Expires: 02/20/2025 [facility] Comment on above: Expected: 11/21/2024 , Expires: 02/20/2025 Start: 11-21-2024 End: 02-20-2025 Comprehensive metabolic 2000 panel - Serum or Plasma COMPREHENSIVE METABOLIC PANEL Lab Routine Coarctation of aorta (HCC) Expected: 11/21/2024, Expires: 02/20/2025 [facility] Work Phone: Comment on above: Expected: 11/21/2024 , Expires: 02/20/2025 Start: 11-21-2024 End: 02-20-2025 Natriuretic peptide.B prohormone N-Terminal [Mass/volume] in Serum or Plasma NT PRO BNP Lab Routine Coarctation of aorta (HCC) Expected: 11/21/2024, Expires: 02/20/2025 [facility] Comment on above: Expected: 11/21/2024 , Expires: 02/20/2025 Start: 11-12-2024 End: 11-12-2024 Patient encounter procedure 11/12/2024 9:00 AM EDT Office Visit OB/Gynecology [address] [place] [address] Carolyn Lugo MD [address] [place] [address] 1 week post OB/Gynecology Comment on above: 1 week post Start: 11-08-2024 End: 11-08-2024 Patient encounter procedure 11/08/2024 10:00 AM EDT Office Visit OB/Gynecology [address] [place] [address] Ashley Ambriz APRN.VETERANS CONTACT REPRESENTATIVE [address] [place] [address] 1 week post OB/Gynecology Comment on above: 1 week post Start: 10-28-2024 End: 10-28-2024 Patient encounter procedure 10/28/2024 10:30 AM EDT Routine Office Visit OB/Gynecology [address] [place] [address] NST only OB/Gynecology Comment on above: NST only Start: 10-27-2024 Nonstress test [facility] Start: 10-27-2024 Obstetric monitoring [facility] Start: 10-27-2024 Vital signs measurements [facility] Start: 10-27-2024 [facility] Start: 10-27-2024 End: 10-27-2024 Patient encounter procedure OB/Gynecology Comment on above: NST/ OB Ob Start: 10-27-2024 Patient discharge [facility] Start: 10-20-2024 End: 10-20-2024 Patient encounter procedure OB/Gynecology Comment on above: NST Ob Start: 10-13-2024 End: 10-13-2024 Patient encounter procedure OB/Gynecology Comment on above: nst/ob Ob Start: 10-12-2024 End: 10-12-2024 Follow-up encounter Cardiology Comment on above: Follow up appt Start: 10-06-2024 End: 10-06-2024 Patient encounter procedure OB/Gynecology Comment on above: NST /OB OB Start: 09-30-2024 End: 09-30-2024 Anesthesia consultation 09/30/2024 1:00 PM EDT PAT Pre Anesthesia [address] [place] [address] 7, Pacc Main [address] [place] [address] OB patient Pre Anesthesia Comment on above: OB patient Start: 09-30-2024 End: 09-30-2024 Patient encounter procedure Cardiology Comment on above: SILVANO ECHO growth est mfm COB BAV, Ao CoA repa ir, PDA repair Start: 09-29-2024 End: 09-29-2024 Patient encounter procedure OB/Gynecology Comment on above: NST OB Routine Start: 09-25-2024 PAP TESTING PAP TESTING [facility] Start: 09-25-2024 Screening for malign ant neoplasm of cervix [facility] Start: 09-15-2024 End: 09-15-2024 Patient encounter procedure OB/Gynecology Comment on above: NST OB Routine Start: 09-01-2024 End: 09-01-2024 Patient encounter procedure 09/01/2024 9:10 AM EDT Routine Office Visit OB/Gynecology [address] [place] [address] Marion Morgan MD [address] [place] [address] OB OB/Gynecology Comment on above: OB Start: 09-01-2024 End: 09-01-2024 ambulatory 09/01/2024 9:00 AM EDT Results Only Cindy [facility]wn [facility] Laboratory [address] [place] [address] Glucose Test Cindy [facility] Comment on above: Glucose Test Start: 08-07-2024 End: 08-07-2025 OBSTETRIC ULTRASOUND WHI OBSTETRIC ULTRASOUND I Anc Imaging Routine Pre-existing hypertension complicating in second trimester Expected: 08/07/2024, Expires: 08/07/2025 [facility] Work Phone: Comment on above: Expected: 08/07/2024 , Expires: 08/07/2025 Start: 08-06-2024 End: 08-06-2024 ambulatory 08/06/2024 12:30 PM EDT Results Only [address] [address] [address] [place] [address] LABS Main [place] [facility] Draw Station Comment on above: LABS Start: 08-06-2024 End: 08-06-2024 Patient encounter procedure Cardiology Comment on above: SILVANO ECHO EKG DX; Coarctation of a jacqueline Coarct repair Start: 08-03-2024 End: 11-02-2024 ANEMIA REFLEX PANEL ANEMIA REFLEX PANEL Lab Routine Supervision of high risk in second trimester Expected: 08/03/2024, Expires: 11/02/2024 [facility] Comment on above: Expected: 08/03/2024 , Expires: 11/02/2024 Start: 08-03-2024 End: 08-03-2025 GESTATIONAL GLUCOSE SCREEN, 1-HOUR, 50 GRAM, NON-FASTING GESTATIONAL GLUCOSE SCREEN, 1-HOUR, 50 GRAM, NON-FASTING Lab Routine Screening for diabetes mellitus Expected: 08/03/2024, Expires: 08/03/2025 [facility] Work Phone: Comment on above: Expected: 08/03/2024 , Expires: 08/03/2025 Start: 08-03-2024 End: 08-03-2025 OBSTETRIC ULTRASOUND WHI OBSTETRIC ULTRASOUND WHI Anc Imaging Routine Supervision of high risk in second trimester Obesity in Adult congenital heart disease History of surgery to heart and great vessels Expected: 08/03/2024, Expires: 08/03/2025 [facility] Comment on above: Expected: 08/03/2024 , Expires: 08/03/2025 Start: 08-03-2024 End: 08-03-2025 SYPHILIS TREPONEMAL W/REFLEX SYPHILIS TREPONEMAL W/REFLEX Lab Routine Supervision of high risk in second trimester Expected: 08/03/2024, Expires: 08/03/2025 [facility] Comment on above: Expected: 08/03/2024 , Expires: 08/03/2025 Start: 08-03-2024 End: 08-03-2024 Patient encounter procedure 08/03/2024 8:00 AM EDT Routine Office Visit OB/Gynecology [address] [place] [address] Karen Montes APRN.CN [address] [place] [place] [address] OB OB/Gynecology Comment on above: OB Start: 07-21-2024 End: 07-21-2024 ambulatory 07/21/2024 11:00 AM EST Procedure Pediatric Cardiology [address] [place] [address] Deborah Carroll MD [address] [place] [address] Adult congenital heart disease [Q24.9] Pediatric Cardiology Comment on above: Adult congenital hea rt disease [Q24.9] Start: 07-21-2024 End: 07-21-2024 Patient encounter procedure 07/21/2024 11:00 AM EST Office Visit Pediatric Cardiology [address] [place] [address] Adult congenital heart disease [Q24.9] Pediatric Cardiology Comment on above: Adult congenital hea rt disease [Q24.9] Start: 07-06-2024 End: 07-06-2024 Patient encounter procedure Maternal Medicine Comment on above: New MFM consult Anatomy @2:30/New MF M consult Anatomy/OB Anatomy/MFM/OB Start: 06-22-2024 End: 09-21-2024 CBC W Auto Differential panel - Blood COMPLETE BLOOD COUNT AND DIFFERENTIAL Lab Routine Congenital heart disease Expected: 06/22/2024, Expires: 09/21/2024 [facility] Comment on above: Expected: 06/22/2024 , Expires: 09/21/2024 Start: 06-22-2024 End: 09-21-2024 Comprehensive metabolic 2000 panel - Serum or Plasma COMPREHENSIVE METABOLIC PANEL Lab Routine Congenital heart disease Expected: 06/22/2024, Expires: 09/21/2024 [facility] Comment on above: Expected: 06/22/2024 , Expires: 09/21/2024 Start: 06-22-2024 End: 09-21-2024 Lipid 1996 panel - Serum or Plasma LIPID PANEL BASIC Lab Routine Congenital heart disease Expected: 06/22/2024, Expires: 09/21/2024 [facility] Work Phone: Comment on above: Expected: 06/22/2024 , Expires: 09/21/2024 Start: 06-22-2024 End: 09-21-2024 Natriuretic peptide.B prohormone N-Terminal [Mass/volume] in Serum or Plasma NT PRO BNP Lab Routine Congenital heart disease Expected: 06/22/2024, Expires: 09/21/2024 [facility] Comment on above: Expected: 06/22/2024 , Expires: 09/21/2024 Start: 06-22-2024 End: 06-22-2024 Patient encounter procedure Maternal Medicine Comment on above: Early Anatomy New MFM consult Start: 06-08-2024 End: 06-08-2024 Patient encounter procedure 06/08/2024 4:20 PM EST Routine Office Visit OB/Gynecology [address] [place] [address] Marion Morgan MD [address] [place] [address] ob OB/Gynecology Comment on above: ob Start: 06-08-2024 End: 06-08-2025 OBSTETRIC ULTRASOUND WHI OBSTETRIC ULTRASOUND WHI Anc Imaging Routine Supervision of high risk in second trimester Adult congenital heart disease History of aortic coarctation repair Expected: 06/08/2024, Expires: 06/08/2025 [facility] Work Phone: Comment on above: Expected: 06/08/2024 , Expires: 06/08/2025 Start: 06-08-2024 End: 06-08-2024 Patient encounter procedure 06/08/2024 12:15 PM EST Office Visit Cardiology [address] [phone] Ashok Pedro MD [address] [place] [address] DX: Inappropriate sinus node tachycardia Cardiology Comment on above: DX: Inappropriate si nus node tachycardia Start: 06-08-2024 End: 06-08-2024 ambulatory 06/08/2024 11:00 AM EST Results Only Cardiology [address] [place] [address] DX: Inappropriate sinus node tachycardia Cardiology Comment on above: DX: Inappropriate si nus node tachycardia Start: 06-08-2024 End: 06-08-2024 Patient encounter procedure 06/08/2024 9:15 AM EST Office Visit Cardiology [address] [place] [address] Bhavesh Alas MD [address] [place] [address] Dx: Coarctation of aorta Cardiology Comment on above: Dx: Coarctation of a jacqueline Start: 06-08-2024 End: 06-08-2024 Patient encounter procedure 06/08/2024 7:30 AM EST Routine Office Visit Maternal Medicine [address] [place] [address] Early Anatomy Maternal Medicine Comment on above: Early Anatomy Start: 05-26-2024 End: 05-26-2024 ambulatory 05/26/2024 7:00 AM EST Results Only Cindy [place] [facility] Laboratory [address] [place] [address] Cindy [facility] Start: 05-10-2024 End: 05-10-2025 OBSTETRIC ULTRASOUND WHI OBSTETRIC ULTRASOUND WHI Anc Imaging Routine 12 weeks gestation of Supervision of high risk in first trimester Adult congenital heart disease Expected: 05/10/2024, Expires: 05/10/2025 [facility] Work Phone: Comment on above: Expected: 05/10/2024 , Expires: 05/10/2025 Start: 05-10-2024 End: 05-10-2024 Patient encounter procedure Maternal Medicine Comment on above: 7 weeks gestation of [Z3A.01]; Encounter for care in first trimester of first [Z34.01] OB Start: 04-26-2024 End: 04-26-2024 Patient encounter procedure 04/26/2024 1:40 PM EST Routine Office Visit OB/Gynecology [address] [place] [address] Kendra Torres MD [address] [place] [address] OB - n/v f/u OB/Gynecology Comment on above: OB - n/v f/u Start: 04-12-2024 End: 07-12-2024 Basic metabolic 2000 panel - Serum or Plasma BASIC METABOLIC PANEL Lab Routine Coarctation of aorta Bicuspid aortic valve History of aortic coarctation repair Expected: 04/12/2024, Expires: 07/12/2024 [facility] Work Phone: Comment on above: Expected: 04/12/2024 , Expires: 07/12/2024 Start: 04-12-2024 End: 07-12-2024 CBC panel - Blood by Automated count COMPLETE BLOOD COUNT Lab Routine Coarctation of aorta Bicuspid aortic valve History of aortic coarctation repair Expected: 04/12/2024, Expires: 07/12/2024 [facility] Comment on above: Expected: 04/12/2024 , Expires: 07/12/2024 Start: 04-12-2024 End: 07-12-2024 Natriuretic peptide.B prohormone N-Terminal [Mass/volume] in Serum or Plasma NT PRO BNP Lab Routine Coarctation of aorta Bicuspid aortic valve History of aortic coarctation repair Expected: 04/12/2024, Expires: 07/12/2024 [facility] Comment on above: Expected: 04/12/2024 , Expires: 07/12/2024 Start: 04-06-2024 End: 07-06-2024 ANEMIA REFLEX PANEL ANEMIA REFLEX PANEL Lab Routine 7 weeks gestation of Encounter for care in first trimester of first Expected: 04/06/2024, Expires: 07/06/2024 [facility] Work Phone: Comment on above: Expected: 04/06/2024 , Expires: 07/06/2024 Start: 04-06-2024 End: 07-06-2024 Hemoglobin A1c in Blood HEMOGLOBIN A1C Lab Routine 7 weeks gestation of Encounter for care in first trimester of first Expected: 04/06/2024, Expires: 07/06/2024 [facility] Comment on above: Expected: 04/06/2024 , Expires: 07/06/2024 Start: 04-06-2024 End: 07-06-2024 Hepatitis B virus surface Ag [Presence] in Serum HEPATITIS B SURFACE ANTIGEN Lab Routine 7 weeks gestation of Encounter for care in first trimester of first Expected: 04/06/2024, Expires: 07/06/2024 [facility] Comment on above: Expected: 04/06/2024 , Expires: 07/06/2024 Start: 04-06-2024 End: 07-06-2024 Hepatitis C virus Ab [Presence] in Serum HEPATITIS C ANTIBODY IA WITH CONFIRMATION Lab Routine 7 weeks gestation of Encounter for care in first trimester of first Expected: 04/06/2024, Expires: 07/06/2024 [facility] Comment on above: Expected: 04/06/2024 , Expires: 07/06/2024 Start: 04-06-2024 End: 07-06-2024 HIV 1+2 Ab [Presence] in Serum or Plasma by Immunoassay HIV 1/2 COMBO WITH REFLEX TO DIFFERENTIATION Lab Routine 7 weeks gestation of Encounter for care in first trimester of first Expected: 04/06/2024, Expires: 07/06/2024 [facility] Comment on above: Expected: 04/06/2024 , Expires: 07/06/2024 Start: 04-06-2024 End: 04-06-2025 NUCHAL TRANSLUCENCY WHI NUCHAL TRANSLUCENCY WHI Anc Imaging Routine 7 weeks gestation of Encounter for care in first trimester of first Expected: 04/06/2024, Expires: 04/06/2025 [facility] Comment on above: Expected: 04/06/2024 , Expires: 04/06/2025 Start: 04-06-2024 End: 07-06-2024 RUBELLA IGG ANTIBODY RUBELLA IGG ANTIBODY Lab Routine 7 weeks gestation of Encounter for care in first trimester of first Expected: 04/06/2024, Expires: 07/06/2024 [facility] Comment on above: Expected: 04/06/2024 , Expires: 07/06/2024 Start: 04-06-2024 End: 07-06-2024 SYPHILIS TREPONEMAL W/REFLEX SYPHILIS TREPONEMAL W/REFLEX Lab Routine 7 weeks gestation of Encounter for care in first trimester of first Expected: 04/06/2024, Expires: 07/06/2024 [facility] Comment on above: Expected: 04/06/2024 , Expires: 07/06/2024 Start: 04-06-2024 End: 07-06-2024 TYPE + SCREEN TYPE + SCREEN Blood Bank Routine 7 weeks gestation of Encounter for care in first trimester of first Expected: 04/06/2024, Expires: 07/06/2024 [facility] Comment on above: Expected: 04/06/2024 , Expires: 07/06/2024 Start: 03-04-2024 End: 06-03-2024 CBC panel - Blood by Automated count COMPLETE BLOOD COUNT Lab Routine Inappropriate sinus node tachycardia (HCC) Coarctation of aorta SVT (supraventricular tachycardia) (HCC) Bicuspid aortic valve Expected: 03/04/2024, Expires: 06/03/2024 [facility] Work Phone: Comment on above: Expected: 03/04/2024 , Expires: 06/03/2024 Start: 03-04-2024 End: 06-03-2024 Comprehensive metabolic 2000 panel - Serum or Plasma COMPREHENSIVE METABOLIC PANEL Lab Routine Inappropriate sinus node tachycardia (HCC) Coarctation of aorta SVT (supraventricular tachycardia) (HCC) Bicuspid aortic valve Expected: 03/04/2024, Expires: 06/03/2024 [facility] Comment on above: Expected: 03/04/2024 , Expires: 06/03/2024 Start: 03-04-2024 End: 06-03-2024 Lipid 1996 panel - Serum or Plasma LIPID PANEL BASIC Lab Routine Inappropriate sinus node tachycardia (HCC) Coarctation of aorta SVT (supraventricular tachycardia) (HCC) Bicuspid aortic valve Expected: 03/04/2024, Expires: 06/03/2024 [facility] Comment on above: Expected: 03/04/2024 , Expires: 06/03/2024 Start: 03-04-2024 End: 06-03-2024 Natriuretic peptide.B prohormone N-Terminal [Mass/volume] in Serum or Plasma NT PRO BNP Lab Routine Inappropriate sinus node tachycardia (HCC) Coarctation of aorta SVT (supraventricular tachycardia) (HCC) Bicuspid aortic valve Expected: 03/04/2024, Expires: 06/03/2024 [facility] Comment on above: Expected: 03/04/2024 , Expires: 06/03/2024 Start: 01-27-2024 End: 04-27-2024 Borrelia burgdorferi IgG and IgM panel - Serum [facility] Work Phone: Comment on above: Expected: 01/27/2024 , Expires: 04/27/2024 Start: 01-27-2024 End: 04-27-2024 CBC W Auto Differential panel - Blood [facility] Comment on above: Expected: 01/27/2024 , Expires: 04/27/2024 Start: 01-18-2024 Covid-19 Vaccine () Covid-19 Vaccine () [facility] Start: 01-18-2024 Covid-19 Vaccine ( season) Covid-19 Vaccine ( season) [facility] Start: 01-18-2024 Influenza vaccination C [facility] Start: 01-06-2024 End: 01-06-2024 Patient encounter procedure 01/06/2024 7:30 AM EDT Office Visit OB/Gynecology [address] [place] [address] Dionne Carrillo APRN.VETER[employer] CONTACT REPRESENTATIVE [address] [place] [address] f/u pelvic ultrasound OB/Gynecology Comment on above: f/u pelvic ultrasoun d Start: 12-29-2023 End: 12-29-2023 Patient encounter procedure 12/29/2023 2:00 PM EDT Office Visit OB/Gynecology [address] [place] [address] Kendra Torres MD [address] [place] [address] discuss infertility, f/u US OB/Gynecology Comment on above: discuss infertility, f/u US Start: 12-05-2023 End: 12-05-2023 ambulatory 12/05/2023 8:30 AM EDT Procedure OB/Gynecology [address] [place], [place] [id number] Hirsutism [L68.0]; Secondary oligomenorrhea [N91.4]; Class 2 obesity with body mass index (BMI) of 39.0 to 39.9 in adult, unspecified obesity type, unspecified whether serious comorbidity present [E66.9, Z68.39] OB/Gynecology Comment on above: Hirsutism [L68.0]; S econdary oligomenorrhea [N91.4]; Class 2 obesity with body mass index (BMI) of 39.0 to 39.9 in adult, unspecified obesity type, unspecified whether serious comorbidity present [E66.9, Z68.39] Start: 11-28-2023 End: 02-27-2024 17-Hydroxyprogesterone [Mass/volume] in Serum or Plasma [facility] Comment on above: Expected: 11/28/2023 , Expires: 02/27/2024 Start: 11-28-2023 End: 02-27-2024 DHEA-S BLD [facility] Comment on above: Expected: 11/28/2023 , Expires: 02/27/2024 Start: 11-28-2023 End: 02-27-2024 Estradiol (E2) [Mass/volume] in Serum or Plasma [facility] Comment on above: Expected: 11/28/2023 , Expires: 02/27/2024 Start: 11-28-2023 End: 02-27-2024 Follitropin [Units/volume] in Serum or Plasma [facility] Comment on above: Expected: 11/28/2023 , Expires: 02/27/2024 Start: 11-28-2023 End: 02-27-2024 Hemoglobin A1c in Blood [facility] Comment on above: Expected: 11/28/2023 , Expires: 02/27/2024 Start: 11-28-2023 End: 02-27-2024 Lutropin [Units/volume] in Serum or Plasma [facility] Comment on above: Expected: 11/28/2023 , Expires: 02/27/2024 Start: 11-28-2023 End: 02-27-2024 Prolactin [Mass/volume] in Serum or Plasma [facility] Comment on above: Expected: 11/28/2023 , Expires: 02/27/2024 Start: 11-28-2023 End: 02-27-2024 TESTOSTERONE, FREE AND TOTAL [facility] Comment on above: Expected: 11/28/2023 , Expires: 02/27/2024 Start: 11-28-2023 End: 02-27-2024 Thyrotropin [Units/volume] in Serum or Plasma [facility] Work Phone: Comment on above: Expected: 11/28/2023 , Expires: 02/27/2024 Start: 11-28-2023 End: 11-27-2024 US Pelvis PELVIC US WHI Anc Imaging Routine Hirsutism Secondary oligomenorrhea Class 2 obesity with body mass index (BMI) of 39.0 to 39.9 in adult, unspecified obesity type, unspecified whether serious comorbidity present Expected: 11/28/2023, Expires: 11/27/2024 [facility] Comment on above: Expected: 11/28/2023 , Expires: 11/27/2024 Start: 11-28-2023 End: 11-28-2023 Patient encounter procedure 11/28/2023 7:30 AM EDT Office Visit OB/Gynecology [address] [place] [address] Dionne Carrillo APRN.VETERANS CONTACT REPRESENTATIVE [address] [place] [address] annual OB/Gynecology Comment on above: annual Start: 11-18-2023 End: 11-18-2023 Patient encounter procedure 11/18/2023 8:00 AM EDT Office Visit [facility] [address] [place], [place] [id number] Kwasi Garcia APRN.VETERANS CONTACT REPRESENTATIVE [address] [place] [address] None [facility] Comment on above: None Start: 06-24-2023 End: 06-24-2023 ECG COMPLETE ECG COMPLETE ECG Routine SVT (supraventricular tachycardia) (HCC) Expected: 06/24/2023, Expires: 06/24/2023 [facility] Work Phone: Comment on above: Expected: 06/24/2023 , Expires: 06/24/2023 Start: 05-19-2023 Behavioral Health Screening Behavioral Health Screening [facility] Start: 04-19-2023 Meningococcal B Vacc ine: Consider Based On Risk (1 of 2 - Patient Seeks Protection) Meningococcal B Vaccine: Consider Based On Risk (1 of 2 - Patient Seeks Protection) [facility] Comment on above: Postponed from 03/01 (Declined at this time) Start: 04-19-2023 MENINGOCOCCAL B: Con residential treatment specialist based on risk (1 of 2 - Patient Seeks Protection) MENINGOCOCCAL B: Consider based on risk (1 of 2 - Patient Seeks Protection) [facility] Comment on above: Postponed from 03/01 (Declined at this time) Start: 04-19-2023 MENINGOCOCCAL B: Con residential treatment specialist based on risk (1 of 2 - Risk Bexsero 2-dose series) MENINGOCOCCAL B: Consider based on risk (1 of 2 - Risk Bexsero 2-dose series) [facility] Comment on above: Postponed from 03/01 (Declined at this time) Start: 01-17-2023 Covid-19 Vaccine () Covid-19 Vaccine () [facility] Start: 01-17-2023 Influenza vaccination [facility] Start: 12-10-2022 End: 07-12-2023 Echocardiography ECHO Cardiology Routine Coarctation of aorta Expected: 12/10/2022, Expires: 07/12/2023 [facility] Work Phone: Comment on above: Expected: 12/10/2022 , Expires: 07/12/2023 Start: 10-17-2022 End: 02-16-2023 CBC panel - Blood by Automated count CBC Lab Routine Coarctation of aorta Expected: 10/17/2022, Expires: 02/16/2023 [facility] Work Phone: Comment on above: Expected: 10/17/2022 , Expires: 02/16/2023 Start: 10-17-2022 End: 02-16-2023 Comprehensive metabolic 2000 panel - Serum or Plasma COMP METABOLIC PANEL Lab Routine Coarctation of aorta Expected: 10/17/2022, Expires: 02/16/2023 [facility] Work Phone: Comment on above: Expected: 10/17/2022 , Expires: 02/16/2023 Start: 10-17-2022 End: 02-16-2023 Lipid 1996 panel - Serum or Plasma LIPID PANEL BASIC Lab Routine Coarctation of aorta Expected: 10/17/2022, Expires: 02/16/2023 [facility] Work Phone: Comment on above: Expected: 10/17/2022 , Expires: 02/16/2023 Start: 10-17-2022 End: 02-16-2023 Natriuretic peptide.B prohormone N-Terminal [Mass/volume] in Serum or Plasma NT PRO BNP Lab Routine Coarctation of aorta Expected: 10/17/2022, Expires: 02/16/2023 [facility] Work Phone: Comment on above: Expected: 10/17/2022 , Expires: 02/16/2023 Start: 05-19-2022 [facility] [facility] [facility] Start: 01-17-2022 Influenza vaccination [facility] Start: 05-19-2021 [facility] [facility] [facility] Start: 02-28-2021 COVID-19 VACCINE (3 - Booster for Pfizer series) COVID-19 VACCINE (3 - Booster for Pfizer series) [facility] Start: 11-23-2020 COVID-19 VACCINE (3 - Booster for Pfizer series) COVID-19 VACCINE (3 - Booster for Pfizer series) [facility] Start: 11-23-2020 COVID-19 VACCINE (3 - Pfizer series) COVID-19 VACCINE (3 - Pfizer series) [facility] Start: 12-06-2019 Urine microalbumin profile [facility] Start: 2019 PAP TESTING PAP TESTING [facility] Start: 2016 Anxiety Screening Anxiety Screening [facility] Start: 2016 CHLAMYDIA SCREENING (18-24) CHLAMYDIA SCREENING (18-24) [facility] Start: 2016 Depression Screening Depression Scre ening [facility] Start: 2016 GC (GONORRHEA) SCREE JAMES (18-24) GC (GONORRHEA) SCREENING (18-24) [facility] Start: 2016 HEPATITIS C SCREENING HEPATITIS C [facility] Start: 2016 Hepatitis C screening [facility] Start: 2016 HIV SCREENING HIV SCREENING [facility] Start: 2016 HIV screening HIV Screening [facility] Start: 2012 PEDS TO ADULT TRANSI TION ANNUAL ASSESSMENT PEDS TO ADULT TRANSITION ANNUAL ASSESSMENT [facility] Start: 2010 Adult depression screening assessment DEPRESSION SCREENING [facility] Start: 2010 PEDS TO ADULT TRANSI TION INITIAL DISCUSSION PEDS TO ADULT TRANSITION INITIAL DISCUSSION [facility] Start: 2008 MENINGOCOCCAL B: Con residential treatment specialist based on risk (1 of 2 - Risk Bexsero 2-dose series) MENINGOCOCCAL B: Consider based on risk (1 of 2 - Risk Bexsero 2-dose series) [facility] Bacteria identified in Urine by Culture URINE CULTURE Microbiology Routine 7 weeks gestation of Encounter for care in first trimester of first 04/06/2024 8:[address] [facility] Bacteria identified in Urine by Culture BACTERIAL CULTURE, URINE Microbiology Routine Dysuria Ordered: 06/08/2024 [facility] Comment on above: Ordered: 06/08/2024 Cardiac mri for [facility] flow mapping MRI CARDIAC VELOCITY FLOW MAP Radiology Routine Coarctation of aorta 10/17/2021 12:10 PM EDT [facility] Work Phone: End: 11-15-2022 Cardiac mri morphology & function w/o contrast MRI CARDIAC MORPH FUNC WO IVCON Radiology Routine Cardiomyopathy, unspecified type (HCC) 1 Occurrences starting 10/16/2021 until 11/15/2022 [facility] Work Phone: Comment on above: 1 Occurrences starti ng 10/16/2021 until 11/15/2022 Cardiac mri morpholo gy & function w/o contrast MRI CARDIAC MORPH FUNC WO IVCON Radiology Routine Cardiomyopathy, unspecified type (HCC) 10/17/2021 12:10 PM EDT [facility] Work Phone: End: 10-17-2021 Cardiac mri w/wo contrast & further seq MRI CARDIAC MORPH FUNC WO/W IVCON Radiology Routine Coarctation of aorta 1 Occurrences starting 10/17/2021 until 10/17/2021 [facility] Work Phone: Comment on above: 1 Occurrences starti ng 10/17/2021 until 10/17/2021 Chlamydia trachomatis+Neisseria gonorrhoeae DNA [Presence] in Unspecified specimen by ALLA with probe detection GONORRHEA/CHLAMYDIA NAAT Lab Routine 7 weeks gestation of Encounter for care in first trimester of first 04/06/2024 8:[address] [facility] End: 07-12-2023 ECG COMPLETE ECG COMPLETE ECG Routine Coarctation of aorta 1 Occurrences starting 07/12/2022 until 07/12/2023 [facility] Work Phone: Comment on above: 1 Occurrences starti ng 07/12/2022 until 07/12/2023 End: 12-02-2024 ECG COMPLETE [facility] Comment on above: 1 Occurrences starti ng 12/03/2023 until 12/02/2024 End: 04-12-2025 ECG COMPLETE ECG COMPLETE ECG Routine Coarctation of aorta Bicuspid aortic valve History of aortic coarctation repair 1 Occurrences starting 04/12/2024 until 04/12/2025 [facility] Comment on above: 1 Occurrences starti ng 04/12/2024 until 04/12/2025 End: 08-22-2025 ECG COMPLETE ECG COMPLETE ECG Routine Coarctation of aorta (HCC) 1 Occurrences starting 08/22/2024 until 08/22/2025 [facility] Comment on above: 1 Occurrences starti ng 08/22/2024 until 08/22/2025 End: 10-12-2025 ECG COMPLETE ECG COMPLETE ECG Routine Coarctation of aorta (HCC) 1 Occurrences starting 10/12/2024 until 10/12/2025 [facility] Comment on above: 1 Occurrences starti ng 10/12/2024 until 10/12/2025 End: 11-05-2025 ECG COMPLETE ECG COMPLETE ECG Routine Inappropriate sinus tachycardia (HCC) 1 Occurrences starting 11/05/2024 until 11/05/2025 [facility] Work Phone: Comment on above: 1 Occurrences starti ng 11/05/2024 until 11/05/2025 End: 07-06-2025 ECHO ECHO Cardiology Routine Adult congenital heart disease History of aortic coarctation repair 1 Occurrences starting 07/06/2024 until 07/06/2025 [facility] Work Phone: Comment on above: 1 Occurrences starti ng 07/06/2024 until 07/06/2025 End: 04-12-2025 ECHO SPECIALIST COMPLEX ADULT CONGENITAL ECHO SPECIALIST COMPLEX ADULT CONGENITAL Cardiology Routine Coarctation of aorta Bicuspid aortic valve History of aortic coarctation repair 1 Occurrences starting 04/12/2024 until 04/12/2025 [facility] Comment on above: 1 Occurrences starti ng 04/12/2024 until 04/12/2025 End: 08-20-2025 ECHO SPECIALIST COMPLEX ADULT CONGENITAL ECHO SPECIALIST COMPLEX ADULT CONGENITAL Cardiology Routine Congenital cardiovascular disorder (HCC) 1 Occurrences starting 08/20/2024 until 08/20/2025 [facility] Work Phone: Comment on above: 1 Occurrences starti ng 08/20/2024 until 08/20/2025 End: 08-22-2025 ECHO SPECIALIST COMPLEX ADULT CONGENITAL ECHO SPECIALIST COMPLEX ADULT CONGENITAL Cardiology Routine Coarctation of aorta (HCC) 1 Occurrences starting 08/22/2024 until 08/22/2025 [facility] Comment on above: 1 Occurrences starti ng 08/22/2024 until 08/22/2025 End: 10-12-2025 ECHO SPECIALIST COMPLEX ADULT CONGENITAL ECHO SPECIALIST COMPLEX ADULT CONGENITAL Cardiology Routine Coarctation of aorta (HCC) 1 Occurrences starting 10/12/2024 until 10/12/2025 [facility] Work Phone: Comment on above: 1 Occurrences starti ng 10/12/2024 until 10/12/2025 End: 12-11-2023 EXERCISE STRESS ECG METABOLIC (WITHOUT IMAGING) EXERCISE STRESS ECG METABOLIC (WITHOUT IMAGING) Cardiology Routine Coarctation of aorta 1 Occurrences starting 12/10/2022 until 12/11/2023 [facility] Work Phone: Comment on above: 1 Occurrences starti ng 12/10/2022 until 12/11/2023 End: 12-02-2024 EXERCISE STRESS ECG METABOLIC (WITHOUT IMAGING) EXERCISE STRESS ECG METABOLIC (WITHOUT IMAGING) Cardiology Routine Inappropriate sinus node tachycardia (HCC) Coarctation of aorta SVT (supraventricular tachycardia) (HCC) Bicuspid aortic valve 1 Occurrences starting 12/03/2023 until 12/02/2024 [facility] Comment on above: 1 Occurrences starti ng 12/03/2023 until 12/02/2024 End: 11-22-2024 nonstress test NON-STRESS TEST Procedures Routine Supervision of high risk in third trimester (HCC) Obesity in (HCC) Adult congenital heart disease (HCC) Once per week for 10 Occurrences starting 09/01/2024 until 11/22/2024 [facility] Work Phone: Comment on above: Once per week for 10 Occurrences starting 09/01/2024 until 11/22/2024 End: 01-01-2025 MR Heart cine for blood flow velocity mapping MRI CARDIAC VELOCITY FLOW MAP Radiology Routine Inappropriate sinus node tachycardia (HCC) Coarctation of aorta SVT (supraventricular tachycardia) (HCC) Bicuspid aortic valve 1 Occurrences starting 12/03/2023 until 01/01/2025 [facility] Comment on above: 1 Occurrences starti ng 12/03/2023 until 01/01/2025 End: 11-11-2025 MR Heart cine for blood flow velocity mapping MRI CARDIAC VELOCITY FLOW MAP Radiology Routine Coarctation of aorta (HCC) 1 Occurrences starting 10/12/2024 until 11/11/2025 [facility] Comment on above: 1 Occurrences starti ng 10/12/2024 until 11/11/2025 End: 01-24-2024 MRA CHEST CARDIOVASCULAR WO IVCON MRA CHEST CARDIOVASCULAR WO IVCON Radiology Routine Cardiomyopathy, unspecified type (HCC) 1 Occurrences starting 12/25/2022 until 01/24/2024 [facility] Work Phone: Comment on above: 1 Occurrences starti ng 12/25/2022 until 01/24/2024 End: 01-09-2024 MRA CHEST CARDIOVASCULAR WO/W IVCON MRA CHEST CARDIOVASCULAR WO/W IVCON Radiology Routine Coarctation of aorta 1 Occurrences starting 12/10/2022 until 01/09/2024 [facility] Work Phone: Comment on above: 1 Occurrences starti ng 12/10/2022 until 01/09/2024 End: 01-01-2025 MRA Chest vessels WO and W contrast IV MRA CHEST CARDIOVASCULAR WO/W IVCON Radiology Routine Inappropriate sinus node tachycardia (HCC) Coarctation of aorta SVT (supraventricular tachycardia) (HCC) Bicuspid aortic valve 1 Occurrences starting 12/03/2023 until 01/01/2025 [facility] Comment on above: 1 Occurrences starti ng 12/03/2023 until 01/01/2025 End: 11-11-2025 MRA Chest vessels WO contrast MRA CHEST CARDIOVASCULAR WO IVCON Radiology Routine Coarctation of aorta (HCC) 1 Occurrences starting 10/12/2024 until 11/11/2025 [facility] Comment on above: 1 Occurrences starti ng 10/12/2024 until 11/11/2025 End: 11-15-2022 Mra chest w/o & w/contrast material MRA CHEST CARDIOVASCULAR WO IVCON Radiology Routine Encounter for other preprocedural examination 1 Occurrences starting 10/16/2021 until 11/15/2022 [facility] Work Phone: Comment on above: 1 Occurrences starti ng 10/16/2021 until 11/15/2022 Mra chest w/o & w/contrast material MRA CHEST CARDIOVASCULAR WO IVCON Radiology Routine Encounter for other preprocedural examination 10/17/2021 12:10 PM EDT [facility] Work Phone: End: 01-24-2024 MRI CARDIAC MORPH FUNC WO IVCON MRI CARDIAC MORPH FUNC WO IVCON Radiology Routine Cardiomyopathy, unspecified type (HCC) 1 Occurrences starting 12/25/2022 until 01/24/2024 [facility] Work Phone: Comment on above: 1 Occurrences starti ng 12/25/2022 until 01/24/2024 End: 01-09-2024 MRI CARDIAC MORPH FUNC WO/W IVCON MRI CARDIAC MORPH FUNC WO/W IVCON Radiology Routine Coarctation of aorta 1 Occurrences starting 12/10/2022 until 01/09/2024 [facility] Work Phone: Comment on above: 1 Occurrences starti ng 12/10/2022 until 01/09/2024 End: 01-01-2025 MRI CARDIAC MORPH FUNC WO/W IVCON MRI CARDIAC MORPH FUNC WO/W IVCON Radiology Routine Inappropriate sinus node tachycardia (HCC) Coarctation of aorta SVT (supraventricular tachycardia) (HCC) Bicuspid aortic valve 1 Occurrences starting 12/03/2023 until 01/01/2025 [facility] Comment on above: 1 Occurrences starti ng 12/03/2023 until 01/01/2025 End: 11-11-2025 MRI CARDIAC MORPH FUNC WO/W IVCON MRI CARDIAC MORPH FUNC WO/W IVCON Radiology Routine Coarctation of aorta (HCC) 1 Occurrences starting 10/12/2024 until 11/11/2025 [facility] Comment on above: 1 Occurrences starti ng 10/12/2024 until 11/11/2025 End: 01-09-2024 MRI CARDIAC VELOCITY FLOW MAP MRI CARDIAC VELOCITY FLOW MAP Radiology Routine Coarctation of aorta 1 Occurrences starting 12/10/2022 until 01/09/2024 [facility] Work Phone: Comment on above: 1 Occurrences starti ng 12/10/2022 until 01/09/2024 OUTSIDE VENDOR CARDI AC OUTPATIENT EXTENDED RHYTHM RECORDING (WITHOUT TELEMETRY) OUTSIDE VENDOR CARDIAC OUTPATIENT EXTENDED RHYTHM RECORDING (WITHOUT TELEMETRY) Holter Routine Coarctation of aorta Ordered: 12/10/2022 [facility] Work Phone: Comment on above: Ordered: 12/10/2022 OUTSIDE VENDOR CARDI AC OUTPATIENT EXTENDED RHYTHM RECORDING (WITHOUT TELEMETRY) OUTSIDE VENDOR CARDIAC OUTPATIENT EXTENDED RHYTHM RECORDING (WITHOUT TELEMETRY) Holter Routine Inappropriate sinus node tachycardia (HCC) Coarctation of aorta SVT (supraventricular tachycardia) (HCC) Bicuspid aortic valve Ordered: 12/03/2023 [facility] Comment on above: Ordered: 12/03/2023 PAP FLUID CERVICAL SCREENING PAP FLUID CERVICAL SCREENING Lab Routine Encounter for gynecological examination (general) (routine) without abnormal findings Screening for cervical cancer Encounter for screening for human papillomavirus (HPV) 09/25/2021 4:18 PM EDT [facility] Work Phone: Patient Education Kick Counts ED False Labor OB Triage: Return to Hospital or Notify Physician if you Experience: [facility] Work Phone: Patient referral [facility] Work Phone: Removal intrauterine device iud REMOVE INTRAUTERINE DEVICE Procedures Routine Encounter for IUD removal Malpositioned intrauterine device (IUD), initial encounter Ordered: 05/29/2022 [facility] Work Phone: Comment on above: Ordered: 05/29/2022 ROUTINE, GR OUP B STREPTOCOCCUS BY PCR ROUTINE, GROUP B STREPTOCOCCUS BY PCR Microbiology Routine Supervision of high risk in third trimester ([facility]) Obesity in (HCC) Pre-existing hypertension complicating in third trimester (HCC) 34 weeks gestation of (HCC) Maternal congenital cardiac anomaly affecting , antepartum, third trimester (HCC) 10/13/2024 10:11 AM EDT [facility] Work Phone: Urine test visual color cmprsn meths HCG QUAL UR B/O Lab Routine Left lateral abdominal pain Ordered: 05/22/2022 [facility] Work Phone: Comment on above: Ordered: 05/22/2022 [facility] Immunizations Immunization Date Immunization Notes Care Provider [facility] 09-01-2024 tetanus toxoid, redu katey diphtheria toxoid, and acellular pertussis vaccine, adsorbed Marion Owen Barbosa MD Work Phone: [facility] 05-22-2022 influenza, injectabl e, quadrivalent, contains preservative Kwasi Garcia APRN.[employer] Work Phone: [facility] 05-22-2022 influenza virus vaccine, unspecified formulation Ashok Pedro MD Work Phone: [facility] 09-28-2020 COVID-19 vaccine, ag e 12+ yr (PFIZER-BIONTECH - DIAL TOP) Dionne Carrillo APRN.[employer] Work Phone: [facility] 09-07-2020 COVID-19 vaccine, ag e 12+ yr (PFIZER-BIONTECH - DIAL TOP) Dionne Carrillo APRN.[employer]PRESENT[employer] Work Phone: [facility] 06-07-2015 meningococcal polysaccharide (groups A, C, Y and W-135) diphtheria toxoid conjugate vaccine (MCV4P) Dionne Carrillo APRN.[employer]ENT[employer] Work Phone: [facility] Work Phone: 07-18-2010 human papilloma viru s vaccine, quadrivalent Dionen Carrillo APRN.[employer] Work Phone: [facility] Work Phone: 02-07-2010 human papilloma viru s vaccine, quadrivalent Dionne Carrillo APRN.[employer] Work Phone: [facility] Work Phone: 12-05-2009 human papilloma viru s vaccine, quadrivalent Dionne Carrillo APRN.[facility] Work Phone: [facility] Work Phone: 12-05-2009 meningococcal polysaccharide (groups A, C, Y and W-135) diphtheria toxoid conjugate vaccine (MCV4P) Dionne Carrillo APRN.[facility] Work Phone: [facility] Work Phone: 12-05-2009 tetanus toxoid, redu katey diphtheria toxoid, and acellular pertussis vaccine, adsorbed Dionne Carrillo APRN.[facility] Work Phone: [facility] Work Phone: 10-26-2008 hepatitis A vaccine, pediatric/adolescent dosage, 2 dose schedule Dionne Carrillo APRN.[facility] Work Phone: [facility] Work Phone: 04-26-2008 hepatitis A vaccine, pediatric/adolescent dosage, 2 dose schedule Dionne Carrillo APRN.[facility] Work Phone: [facility] Work Phone: 04-26-2008 varicella virus vaccine Dionne Carrillo APRN.[facility] Work Phone: [facility] Work Phone: 06-14-2003 diphtheria, tetanus toxoids and acellular pertussis vaccine Dionne Carrillo APRN.[facility] Work Phone: [facility] Work Phone: 06-14-2003 measles, mumps and rubella virus vaccine Dionne Carrillo APRN.[facility] Work Phone: [facility] Work Phone: 06-14-2003 poliovirus vaccine, unspecified formulation Dionne Carrillo APRN.[employer] Work Phone: [facility] Work Phone: 11-09-1999 haemophilus influenz ae type b vaccine, HbOC conjugate Dionne Carrillo APRN.[facility] Work Phone: [facility] Work Phone: 08-28-1999 varicella virus vaccine Dionne Carrillo APRN.[facility] Work Phone: [facility] Work Phone: 05-30-1999 diphtheria, tetanus toxoids and acellular pertussis vaccine Dionne Carrillo APRN.[employer] Work Phone: [facility] Work Phone: 05-30-1999 measles, mumps and rubella virus vaccine Dionne Carrillo APRN.[employer] Work Phone: [facility] Work Phone: 05-30-1999 trivalent poliovirus vaccine, live, oral Dionne Carrillo APRN.[facility] Work Phone: [facility] Work Phone: 1998 hepatitis B vaccine, pediatric or pediatric/adolescent dosage Dionne Carrillo APRN.[facility] Work Phone: [facility] Work Phone: 1998 DTP-Haemophilus influenzae type b conjugate vaccine Dionne Carrillo APRN.[facility] Work Phone: [facility] Work Phone: 1998 diphtheria, tetanus toxoids and acellular pertussis vaccine Dionne Carrillo APRN.[facility] Work Phone: [facility] Work Phone: 1998 haemophilus influenz ae type b vaccine, conjugate unspecified formulation Dionne Carrillo APRN.[employer] Work Phone: [facility] Work Phone: 1998 poliovirus vaccine, inactivated Dionne Carrillo APRN.[facility] Work Phone: [facility] Work Phone: 1998 diphtheria, tetanus toxoids and acellular pertussis vaccine Dionne Carrillo APRN.[employer] Work Phone: [facility] Work Phone: 1998 haemophilus influenz ae type b vaccine, conjugate unspecified formulation Dionne Carrillo APRN.[employer] Work Phone: [facility] Work Phone: 1998 hepatitis B vaccine, pediatric or pediatric/adolescent dosage Dionne Oliverafrancia RG.[employer] Work Phone: [facility] Work Phone: 1998 poliovirus vaccine, unspecified formulation Dionne Carrillo APRN.[employer] Work Phone: [facility] Work Phone: 1998 hepatitis B vaccine, pediatric or pediatric/adolescent dosage Dionne Oliverafrancia RG.[facility] Work Phone: [facility] Work Phone: NEGATED: Highlighted row has not occurred!11-08-2024 measles, mumps and rubella virus vaccine Ref(Historical) No [facility] Work Phone: Comment on above: Deferred: - Rubella immune. Does not meet screening criteria NEGATED: Highlighted row has not occurred!11-08-2024 RHO(D) immune globulin- IV or IM Ref(Historical) No [facility] Comment on above: Deferred: - blood ty pe A + NEGATED: Highlighted row has not occurred!11-08-2024 tetanus toxoid, reduced diphtheria toxoid, and acellular pertussis vaccine, adsorbed Ref(Historical) No [facility] Comment on above: Deferred: - given du ring third trimester. does not meet screening criteria Payers Date Payer Category Payer Medicaid [id number] 2024 Medicaid [id number] 2024 Self-pay 2024 Unknown [id number] 2023 Unknown [id number] 2021 Unknown MURALI LEE / MURALI [id number] 2021-[facility] [phone] [address] [address] [place] [address] [facility] [id number] 2021 Unknown [id number] Unknown [id number] Unknown [id number] Social History Date Type Detail Facility Start: 04-11-2017 End: 03-30-2022 Tobacco smoking status NHIS Never smoked tobacco [facility] Work Phone: Start: 04-11-2017 End: 03-30-2022 Tobacco use and exposure Smokeless tobacco non-user [facility] Work Phone: Start: 09-25-2021 End: 11-11-2024 Alcohol intake Current non-drinker of alcohol (finding) [facility] Start: 2000 Sex Assigned At Not on file [facility] Start: 09-11-2021 End: 04-06-2022 Exposure to SARS-CoV-2 (event) Not sure [facility] Start: 04-12-2022 History SDOH Alcohol Frequency 1 [facility] Start: 04-12-2022 History SDOH Alcohol Std Drinks 0 [facility] Start: 04-12-2022 History SDOH Social Connections Phone 5 [facility] Start: 04-12-2022 History SDOH Social Connections Yarsani 3 [facility] Start: 04-12-2022 History SDOH Physical Activity MPS 2 [facility] Start: 04-12-2022 History SDOH Financial 4 [facility] Start: 04-12-2022 End: 10-01-2022 History of Social function [facility] Start: 04-12-2022 End: 10-01-2022 Social connection and isolation panel [facility] Do you belong to any clubs or organizations such as samaritan groups, unions, fraternal or athletic groups, or school groups? Yes [facility] Are you now , , , , never or living with a partner? [facility] How often to you hav e a drink containing alcohol? Never [facility] How many standard dr inks containing alcohol do you have on a typical day? Patient does not drink [facility] How hard is it for y ou to pay for the very basics like food, housing, medical care, and heating Not very hard [facility] Do you feel stress - tense, restless, nervous, or anxious, or unable to sleep at night because your mind is troubled all the time - these days [OSQ] Not at all [facility] (I/We) worried wheth er (my/our) food would run out before (I/we) got money to buy more. Never true [facility] In the past 12 month s, was there a time when you were not able to pay the mortgage or rent on time? No [facility] Start: 2024 [facility] Start: 2000 Sex assigned at Female [facility] Start: 03-31-2024 Gender identity Identifies as female gender (finding) [facility] Start: 03-31-2024 Sexual orientation Heterosexual (finding) [facility] Goals Date Patient Goal Desired Activity /State Personal health goal Personal health goal Functional Status Date Assessment Result Facility 11-08-2024 Are you deaf, or do you have serious difficulty hearing No 11/08/2024 11:20 AM Amie Chase RN [facility] 11-08-2024 Are you blind, or do you have serious difficulty seeing, even when wearing glasses No 11/08/2024 11:20 AM Amie Chase RN [facility] 11-08-2024 Do you have serious difficulty walking or climbing stairs No 11/08/2024 11:20 AM Amie Chase RN [facility] 11-08-2024 Do you have difficul ty dressing or bathing No 11/08/2024 11:20 AM Amie Chase, ROBBIN [facility] 11-08-2024 Because of a physica l, mental, or emotional condition, do you have difficulty doing errands alone such as visiting a physician's office or shopping No 11/08/2024 11:20 AM Amie Chase, ROBBIN No [facility] Mental Status Date Assessment Result Facility 11-08-2024 Because of a physica l, mental, or emotional condition, do you have serious difficulty concentrating, remembering, or making decisions No 11/08/2024 11:20 AM EDT Amie Jerome RN No [facility] Clinical Notes 09-25-2021 to 11-11-2024 Kendra Torres MD - 11/11/2024 3:34 PM EDTLactation Note - Aubree Marquez RN - 11/08/2024 12:29 PM EDTLactation Note - Aubree Marquez RN - 11/08/2024 12:29 PM EDTPatient InstructionsPatient Instructions Note Date & Type Note Facility 11-11-2024 Note [facility] 11-11-2024 History of Present illness Narrative EARLY VISIT Luzmaria Chawla is a 24 year old here for 1 week visit. Urinary stream feels slower and bladder pain with urination. Delivery Summary: Nuno Mckinney [[id number]] Delivery Information: Delivery Date: 11/03/24 Delivery type: , Low Transverse : Gender: Male Weight (grams): 3350 g One Minute : 8 Five Minute : 9 ROS: General: Denies any fever or chills Hypertension Screening: Headache? No. Visual Changes? No Epigastric Pain? No Increased Swelling? No Taking any BP medications at home? Yes If applicable, monitoring BP at home? (If Yes, include results) No Mood: normal Depression: denies symptoms of depression. OB Depression and Anxiety Screening- This Encounter Feeling down, depressed, or hopeless: Not at all Little interest or pleasure in doing things: Not at all Feeling nervous, anxious, or on edge Not at all Not being able to stop or control worrying Not at all Anxiety Pre-Screening Total (If >/= 3 additional questions will be reviewed) 0 Feeding: Breast and bottle feeding problems: None Bladder: yes, was prescribed keflex Bowel symptoms: Negative for abdominal discomfort, blood in stools or black stools and change in bowel habits Abdomen: She reports no incisional redness, tenderness, erythema Bleeding: light-medium flow Bottom and Perineum: No issues Sleep: no sleep concerns, feels rested Sealy since delivery: Not resumed Emotional support: Yes Exercise: N/A Other issues: None SENSITIVE EXAM: Sensitive exam not performed. PHYSICAL EXAMINATION: BP 128/70 Wt 112.2 kg (247 lb 6.4 oz) LMP 02/16/2024 Yes BMI 39.33 kg/m General: pleasant,female in no apparent distress, A&O x 3. Skin warm and intact. Breast: Deferred Abdomen: soft, non-tender, and no masses /Incision: No incisional redness, swelling, or drainage Pelvic: Deferred Bimanual: Deferred ASSESSMENT AND PLAN: 24 year old status post CS with normal course. Contraception plan: Oral contraceptives and condoms . Reinforced 6-week pelvic rest. Encouraged condom usage should patient deviate. Education: resources provided - see MA/RN note Urinary symptoms and pain: Start Keflex as recommended and await urine cx. Follow up: Return to Clinic for 6 week visit and as needed Kendra Torres DO documented in this encounter [facility] 11-08-2024 Obstetrics Note This note was copied from a baby's chart. Received approval from [employer] to release Zomee pump to Luzmaria. Demo and instructions provided. [facility] 11-08-2024 Miscellaneous Notes This note was copied from a baby's chart. Received approval from [employer] to release Zomee pump to Luzmaria. Demo and instructions provided. documented in this encounter [facility] 11-08-2024 Note [facility] 11-07-2024 Note [facility] 11-07-2024 Note [facility] 11-06-2024 Note [facility] 11-06-2024 Note [facility] 11-05-2024 Note [facility] 11-05-2024 Note [facility] 11-04-2024 Note [facility] 11-04-2024 Note [facility] 11-03-2024 Note [facility] 11-03-2024 Note [facility] 11-03-2024 Note [facility] 11-03-2024 Note [facility] 11-03-2024 Note [facility] 11-02-2024 Note [facility] 11-02-2024 Note [facility] 11-02-2024 Note [facility] 11-02-2024 Note [facility] 11-02-2024 Note [facility] 11-02-2024 Note HNO ID: [id number] Author: SRAVAN PUENTE MD Service: Obstetrics Author Type: Physician Type: Progress Notes Filed: 11/02/2024 07:09 Note Text: FHR over night cat 1, on pitocin, CRB still in place. Patient sign out to remove CRB. [facility] 11-01-2024 Note [facility] 11-01-2024 Note [facility] 11-01-2024 Note [facility] 11-01-2024 Note [facility] 11-01-2024 Note [facility] 11-01-2024 Note [facility] 11-01-2024 Note [facility] 11-01-2024 Note [facility] 11-01-2024 Note [facility] 11-01-2024 Note [facility] 10-28-2024 Note [facility] 10-28-2024 Progress note Formatting of t his note might be different from the original. NST only [facility] 10-28-2024 History of Present illness Narrative NST SUMMARY PROVIDER ASSESSMENT AND INTERPRETATION Luzmaria Chawla is a 24 year old female, , who is at 36w3d with an VIJAY of 11/22/2024, by Last Menstrual Period dating method. Indications for NST: Chronic HTN and Obesity Baseline: 150 Variability: Moderate Accelerations: Present 15 X 15 Decelerations: None Contractions: TOCO: None Interpretation: Category I and Reactive SIGNATURE: Marion Woodard MD documented in this encounter [facility] 10-28-2024 Miscellaneous Notes NST only documented in this encounter [facility] 10-28-2024 Instructions Marcy Bishop MA - 10/28/2024 10:10 AM EDT SEQUENTIAL SCREENINGS The [facility] offers sequential screenings for women who are interested in screenings for chromosomal abnormalities and certain defects during a . The sequential screen combines ultrasound and blood tests to determine the risk of chromosomal abnormalities, including Down's Syndrome (Trisomy 21) and Trisomy 18, as well as open neural tube defects including spina bifida. Ultrasound examination is performed between 11 weeks and 13 weeks gestational age. Blood tests are drawn after the ultrasound and again later in the between 15 and 21 weeks gestational age. Please let your physician know if you are interested in this testing. It will require an appointment with our industrial manufacturing technician. This is not an ultrasound performed by a physician in our office during a routine visit. SIGNS AND SYMPTOMS OF LABOR 1. Contractions every 10 minutes or more often 2. Clear, pink, or brownish fluid (water) leaking from vagina 3. Feeling that baby is pushing down, pressure 4. Low, dull backache 5. Cramps that feel like a period 6. Cramps with or without diarrhea If you notice any of the above symptoms, contact our office at [phone] and ask to speak with a nurse. After hours, you can call doctors registry at [phone] OR call [facility] at [phone] and ask to have the doctor sales and operations trainee paged. If you consider this an emergency, dial [phone]- or go to your nearest emergency department. NEED HELP? Are you dealing with a violent or abusive relationship? Are you a victim of rape or sexual assult? Call [facility] ([place]) 24 hour Crisis Hotline: 101.464.9912 or 733-305-3702. MANUAL Your Guide to a Healthy manual is now on-line. Visit [email or web address] to download your free copy documented in this encounter [facility] 10-27-2024 Note [facility] 10-27-2024 History of Present illness Narrative Received Biophysical Profile report from [facility]. Please review. Scan on 10/27/2024 12:19 PM by Provider, Benoit, PAMiguelangelC: BPP documented in this encounter [facility] 10-27-2024 Radiology Diagnostic study note [facility] [address] [place], [place] [address] Biophysical Prof W/O Non Stres MR#: [id number] Acct: [id number] Name: LUZMARIA CHAWLA Rep #: [id number] : 2000 F 24 From: Emery Almanzar MD PCP: XAVI Faria Status: REG CLI Study:Biophysical Prof W/O Non Stres Date of Exam: 10/27/24 Exam# [id number] Ordering Dr: Marion Hi MD PROCEDURE: BIOPHYSICAL PROF W/O NON STRES 10/27/2024 REASON FOR EXAM: HAVING MULTIPLE VARIABLES DURING ROUTINE VISIT TECHNIQUE: Biophysical profile was performed. COMPARISON: None FINDINGS Number: 1 Position: Vertex Placental Position: Fundal Placental Abnormalities: No evidence of previa. ESTIMATED GESTATIONAL AGE: Baseline: 36 weeks and 2 days. ESTIMATED DATE OF DELIVERY: Baseline: November 22, 2024. BIOPHYSICAL ASSESSMENT: Amniotic Fluid Volume: 4.7 cm Amniotic Fluid Index: 11.1 (8-24 cm normal range) Cardiac Motion: 157 beats per minute (average) Trunk and Limb Motion: Present. Biophysical profile: Breathing movement: 2 Gross body movements: 2 tone: 2 Amniotic fluid volume: 2 Total score: 8/8 US/Biophysical Prof W/O Non Stres IMPRESSION: Normal biophysical profile. Reading Location: [facility] CC: XAVI Garcia; Dr Marion Woodard MD ~ Internet Marketing Specialist: Signed [facility] 10-27-2024 Note [facility] 10-27-2024 History of Present illness Narrative NST SUMMARY PROVIDER ASSESSMENT AND INTERPRETATION Luzmaria Chawla is a 24 year old female, , who is at 36w2d with an VIJAY of 11/22/2024, by Last Menstrual Period dating method. Indications for NST: Chronic HTN Baseline: 155 Variability: Moderate Accelerations: Present 15 X 15 Decelerations: Variable Contractions: TOCO: uterine irritability Interpretation: Category II and Reactive SIGNATURE: Marion Woodard MD documented in this encounter [facility] 10-27-2024 Progress note Formatting of t his note might be different from the original. DM-Pt doing well. Denies vaginal Bleeding, Leaking fluid, or regular Contractions. Pt reports good movement Physical Exam: Gen: female in no apparent distress Abd: soft, Gravid. Non tender to palpation. See flow sheet @ 36 weeks Assessment & Plan Supervision of high risk in third trimester ([facility]) Orders: URINE OB DIP B/O NST (non-stress test) with decelerations Will send to L&D for prolonged monitoring and BPP until I speak with MFM for plan of care Variable decelerations appreciated on NST today Maternal congenital cardiac anomaly affecting , antepartum, third trimester ([facility]) Plan [facility] delivery [facility] Orders: URINE OB DIP B/O Pre-existing hypertension complicating in third trimester ([facility]) No s/sx of pre eclampsia. BP well controlled. Pt feels like it may go a little low about one hour after medications but overall feels fine. Orders: URINE OB DIP B/O Obesity in ([facility]) Orders: URINE OB DIP B/O 36 weeks gestation of ([facility]) Orders: URINE OB DIP B/O Marion Woodard MD [facility] 10-27-2024 Miscellaneous Notes DM-Pt doing well. Denies vaginal Bleeding, Leaking fluid, or regular Contractions. Pt reports good movement Physical Exam: Gen: female in no apparent distress Abd: soft, Gravid. Non tender to palpation. See flow sheet @ 36 weeks Assessment & Plan Supervision of high risk in third trimester ([facility]) Orders: URINE OB DIP B/O NST (non-stress test) with decelerations Will send to L&D for prolonged monitoring and BPP until I speak with MFM for plan of care Variable decelerations appreciated on NST today Maternal congenital cardiac anomaly affecting , antepartum, third trimester ([facility]) Plan for delivery at [facility] Orders: URINE OB DIP B/O Pre-existing hypertension complicating in third trimester ([facility]) No s/sx of pre eclampsia. BP well controlled. Pt feels like it may go a little low about one hour after medications but overall feels fine. Orders: URINE OB DIP B/O Obesity in ([facility]) Orders: URINE OB DIP B/O 36 weeks gestation of ([facility]) Orders: URINE OB DIP B/O Marion Woodard MD documented in this encounter [facility] 10-27-2024 Instructions Marcy Bishop MA - 10/27/2024 8:47 AM EDT SEQUENTIAL SCREENINGS The [facility] offers sequential screenings for women who are interested in screenings for chromosomal abnormalities and certain defects during a . The sequential screen combines ultrasound and blood tests to determine the risk of chromosomal abnormalities, including Down's Syndrome (Trisomy 21) and Trisomy 18, as well as open neural tube defects including spina bifida. Ultrasound examination is performed between 11 weeks and 13 weeks gestational age. Blood tests are drawn after the ultrasound and again later in the between 15 and 21 weeks gestational age. Please let your physician know if you are interested in this testing. It will require an appointment with our industrial manufacturing technician. This is not an ultrasound performed by a physician in our office during a routine visit. SIGNS AND SYMPTOMS OF LABOR 1. Contractions every 10 minutes or more often 2. Clear, pink, or brownish fluid (water) leaking from vagina 3. Feeling that baby is pushing down, pressure 4. Low, dull backache 5. Cramps that feel like a period 6. Cramps with or without diarrhea If you notice any of the above symptoms, contact our office at [phone] and ask to speak with a nurse. After hours, you can call doctors registry at [phone] OR call [facility] at [phone] and ask to have the doctor sales and operations trainee paged. If you consider this an emergency, dial 9-1-8 or go to your nearest emergency department. NEED HELP? Are you dealing with a violent or abusive relationship? Are you a victim of rape or sexual assult? Call [facility] ([place]) 24 hour Crisis Hotline: 459.652.7070 or 576-521-3244. MANUAL Your Guide to a Healthy manual is now on-line. Visit [email or web address] to download your free copy documented in this encounter [facility] 10-25-2024 Telephone encounter Note Patient notified and voiced understanding. Nanette Miramontes RN [facility] 10-25-2024 Miscellaneous Notes Patient notified and voiced understanding. Nanette Miramontes RN Yes that is fine. Follow up as scheduled. 36w0d Patient called with c/o low back pain that began on Friday. Pain occurs when she is sitting or laying in certain positions. Has been taking Tylenol 1,000 MG with little relief. Asking if it would be okay if she went to a chiropractor. Advised that she can also try apply heat or sit in a warm bath. Has x1 episode of diarrhea yesterday with x2 episodes of loose stool. Good FM. Denies VB or LOF. Patient plans to call around to chiropractic offices to see who accept patients during . Next appointment is 10/27. Carolyn Clarke RN documented in this encounter [facility] 10-25-2024 Telephone encounter Note Yes that is fine. Follow up as scheduled. [facility] 10-25-2024 Telephone encounter Note 36w0d Patient called with c/o low back pain that began on Friday. Pain occurs when she is sitting or laying in certain positions. Has been taking Tylenol 1,000 MG with little relief. Asking if it would be okay if she went to a chiropractor. Advised that she can also try apply heat or sit in a warm bath. Has x1 episode of diarrhea yesterday with x2 episodes of loose stool. Good FM. Denies VB or LOF. Patient plans to call around to chiropractic offices to see who accept patients during . Next appointment is 10/27. Carolyn Clarke, RN [facility] 10-22-2024 Miscellaneous Notes The following approved medication requests have been transmitted electronically. Requested Prescriptions Signed Prescriptions Disp Refills promethazine (PHENERGAN) 12.5 mg suppository 12 suppository 0 Si suppository by RECTAL route every 6 hours as needed. Authorizing Provider: DESTINI HANSON Pharmacy Information Pharmacy Address Telephone [place] [id number] [facility] [place] [address] Addended by: DESTINI HANSON on: 10/22/2024 01:12 PM Modules accepted: Orders Rx sent. Destini Hanson APRN.CNM Patient notified. She does want to try phenergan. Please file. Alivia Solis RN Rest, continue sipping fluids and let us know if she can't keep food or liquid down for more than 24 hours. I can send phenergan rectal suppositories if she would like relief from nausea- she may be throwing up the Zofran. Destini Hanson APRN.CNM 35w4d Calling c/o n/v. She has typically has to take Zofran everyday d/t nausea but doesn't typically vomit because it helps within 1 hour. She has vomited x3 times and hasn't been able to keep any of the food/fluid down today so far. Feeling very weak/dizzy this morning. Zofran hasn't helped at all. She doesn't have a fever that she knows of and no body aches. Her niece was ill over 1 week ago, but no other sick contacts since. Concerned because she isn't sure that it is a GI virus with the way she is feeling. She is trying to sip fluids to keep hydrated. Planning delivery at [facility] d/t cardiac history. Induction is scheduled for 10/31/24. Please advise. Alivia Solis RN documented in this encounter [facility] 10-22-2024 Telephone encounter Note The following approved medication requests have been transmitted electronically. Requested Prescriptions Signed Prescriptions Disp Refills promethazine (PHENERGAN) 12.5 mg suppository 12 suppository 0 Si suppository by RECTAL route every 6 hours as needed. Authorizing Provider: DESTINI HANSON Pharmacy Information [place] [address] [facility] 10-22-2024 Note Addended by: DESTINI HANSON on: 10/22/2024 01:12 PM Modules accepted: Orders [facility] 10-22-2024 Telephone encounter Note Rx sent. Destini Hanson APRN.CNM [facility] 10-22-2024 Telephone encounter Note Patient notified. She does want to try phenergan. Please file. Alivia Solis RN [facility] 10-22-2024 Telephone encounter Note Rest, continue sipping fluids and let us know if she can't keep food or liquid down for more than 24 hours. I can send phenergan rectal suppositories if she would like relief from nausea- she may be throwing up the Zofran. Destini Plotts, [employer]IC[employer]IST.CNM [facility] 10-22-2024 Telephone encounter Note 35w4d Calling c/o n/v. She has typically has to take Zofran everyday d/t nausea but doesn't typically vomit because it helps within 1 hour. She has vomited x3 times and hasn't been able to keep any of the food/fluid down today so far. Feeling very weak/dizzy this morning. Zofran hasn't helped at all. She doesn't have a fever that she knows of and no body aches. Her niece was ill over 1 week ago, but no other sick contacts since. Concerned because she isn't sure that it is a GI virus with the way she is feeling. She is trying to sip fluids to keep hydrated. Planning delivery at [facility] d/t cardiac history. Induction is scheduled for 10/31/24. Please advise. Alivia Solis RN [facility] 10-20-2024 Progress note Formatting of t his note might be different from the original. RR- VB No. LOF No. CTXS No. Movement: present. Other c/o: No. Medication list reviewed. SENSITIVE EXAM: Sensitive exam not performed. Physical Exam See Flow Sheet Abd: soft, nontender, gravid Ext: edema: 1+ A/P 35w2d Estimated Date of Delivery: 11/22/24 Assessment & Plan 35 weeks gestation of ([facility]) Orders: URINE OB DIP B/O Supervision of high risk in third trimester ([facility]) Orders: URINE OB DIP B/O Obesity in ([facility]) Orders: URINE OB DIP B/O Pre-existing hypertension complicating in third trimester ([facility]) NSt and growth scans upt to date Orders: URINE OB DIP B/O NST reactive growth scans up to date plan to deliver at tertiary center in place no evidence of preeclampsia, cont. home meds f/u in 1 week or prn Nelsy Agarwal M.D. [facility] 10-20-2024 Miscellaneous Notes RR- VB No. LOF No. CTXS No. Movement: present. Other c/o: No. Medication list reviewed. SENSITIVE EXAM: Sensitive exam not performed. Physical Exam See Flow Sheet Abd: soft, nontender, gravid Ext: edema: 1+ A/P 35w2d Estimated Date of Delivery: 11/22/24 Assessment & Plan 35 weeks gestation of ([facility]) Orders: URINE OB DIP B/O Supervision of high risk in third trimester ([facility]) Orders: URINE OB DIP B/O Obesity in ([facility]) Orders: URINE OB DIP B/O Pre-existing hypertension complicating in third trimester ([facility]) NSt and growth scans upt to date Orders: URINE OB DIP B/O NST reactive growth scans up to date plan to deliver at tertiary center in place no evidence of preeclampsia, cont. home meds f/u in 1 week or prn Nelsy Agarwal M.D. documented in this encounter [facility] 10-20-2024 Note [facility] 10-20-2024 History of Present illness Narrative NST SUMMARY PROVIDER ASSESSMENT AND INTERPRETATION Luzmaria Chawla is a 24 year old female, , who is at 35w2d with an VIJAY of 11/22/2024, by Last Menstrual Period dating method. Indications for NST: Chronic HTN and Obesity Baseline: 145 Variability: Moderate Accelerations: Present 15 X 15 Decelerations: None Contractions: TOCO: None Interpretation: Reactive SIGNATURE: Nelsy Agarwal MD documented in this encounter [facility] 10-20-2024 Instructions Lazara Pantoja MA - 10/20/2024 8:49 AM EDT SEQUENTIAL SCREENINGS The [facility] offers sequential screenings for women who are interested in screenings for chromosomal abnormalities and certain defects during a . The sequential screen combines ultrasound and blood tests to determine the risk of chromosomal abnormalities, including Down's Syndrome (Trisomy 21) and Trisomy 18, as well as open neural tube defects including spina bifida. Ultrasound examination is performed between 11 weeks and 13 weeks gestational age. Blood tests are drawn after the ultrasound and again later in the between 15 and 21 weeks gestational age. Please let your physician know if you are interested in this testing. It will require an appointment with our industrial manufacturing technician. This is not an ultrasound performed by a physician in our office during a routine visit. SIGNS AND SYMPTOMS OF LABOR 1. Contractions every 10 minutes or more often 2. Clear, pink, or brownish fluid (water) leaking from vagina 3. Feeling that baby is pushing down, pressure 4. Low, dull backache 5. Cramps that feel like a period 6. Cramps with or without diarrhea If you notice any of the above symptoms, contact our office at [phone] and ask to speak with a nurse. After hours, you can call [address] registry at [phone] OR call [facility] at [phone] and ask to have the doctor sales and operations trainee paged. If you consider this an emergency, dial 2-1-3 or go to your nearest emergency department. NEED HELP? Are you dealing with a violent or abusive relationship? Are you a victim of rape or sexual assult? Call [facility] ([facility] 24 hour Crisis Hotline: 819.922.5652 or 902-494-3565. MANUAL Your Guide to a Healthy manual is now on-line. Visit [email or web address] Estella to download your free copy documented in this encounter [facility] 10-13-2024 Progress note Formatting of t his note might be different from the original. RR- VB No. LOF No. CTXS no regular ctxs. Movement: present. Other c/o: denies Varma or visual changes Medication list reviewed. SENSITIVE EXAM: The sensitive examination was discussed with the Patient or Patient's Authorized Car Repairer Helper. As applicable, any other physician, advance practice provider, medical student, or other health professional student that will be observing or involved in the sensitive examination for educational or training purposes was discussed with the Patient or Authorized Car Repairer Helper. The Patient or Authorized Car Repairer Helper has agreed to proceed with the sensitive examination. (Sensitive examination includes inspection and/or palpation of the breasts, pelvis, prostate and anorectal regions). Physical Exam See Flow Sheet Abd: soft, nontender, gravid Ext: edema: Trace A/P 34w2d Estimated Date of Delivery: 11/22/24 Assessment & Plan Supervision of high risk in third trimester ([facility]) Orders: URINE OB DIP B/O ROUTINE, GROUP B STREPTOCOCCUS BY PCR Obesity in ([facility]) growth scan/ NST up to date Orders: URINE OB DIP B/O ROUTINE, GROUP B STREPTOCOCCUS BY PCR Pre-existing hypertension complicating in third trimester ([facility]) bp stable, no signs/symptoms of preeclampsia Orders: URINE OB DIP B/O ROUTINE, GROUP B STREPTOCOCCUS BY PCR 34 weeks gestation of ([facility]) Orders: URINE OB DIP B/O ROUTINE, GROUP B STREPTOCOCCUS BY PCR Maternal congenital cardiac anomaly affecting , antepartum, third trimester ([facility]) Orders: ROUTINE, GROUP B STREPTOCOCCUS BY PCR gbs done H&P upated for induction Nelsy Agarwal M.D. [facility] 10-13-2024 Miscellaneous Notes RR- VB No. LOF No. CTXS no regular ctxs. Movement: present. Other c/o: denies Varma or visual changes Medication list reviewed. SENSITIVE EXAM: The sensitive examination was discussed with the Patient or Patient's Authorized Car Repairer Helper. As applicable, any other physician, advance practice provider, medical student, or other health professional student that will be observing or involved in the sensitive examination for educational or training purposes was discussed with the Patient or Authorized Car Repairer Helper. The Patient or Authorized Car Repairer Helper has agreed to proceed with the sensitive examination. (Sensitive examination includes inspection and/or palpation of the breasts, pelvis, prostate and anorectal regions). Physical Exam See Flow Sheet Abd: soft, nontender, gravid Ext: edema: Trace A/P 34w2d Estimated Date of Delivery: 11/22/24 Assessment & Plan Supervision of high risk in third trimester ([facility]) Orders: URINE OB DIP B/O ROUTINE, GROUP B STREPTOCOCCUS BY PCR Obesity in ([facility]) growth scan/ NST up to date Orders: URINE OB DIP B/O ROUTINE, GROUP B STREPTOCOCCUS BY PCR Pre-existing hypertension complicating in third trimester ([facility]) bp stable, no signs/symptoms of preeclampsia Orders: URINE OB DIP B/O ROUTINE, GROUP B STREPTOCOCCUS BY PCR 34 weeks gestation of ([facility]) Orders: URINE OB DIP B/O ROUTINE, GROUP B STREPTOCOCCUS BY PCR Maternal congenital cardiac anomaly affecting , antepartum, third trimester ([facility]) Orders: ROUTINE, GROUP B STREPTOCOCCUS BY PCR gbs done H&P upated for induction Nelsy Agarwal M.D. documented in this encounter [facility] 10-13-2024 History and physical note OBSTETRICS HISTORY AND PHYSICAL NAME: Luzmaria Chawla SERVICE DATE: October 13, 2024 SERVICE TIME: 1018 ASSESSMENT & PLAN: 24 year old EGA:34w2d. Plan for delivery in <30 days. POST DELIVERY CONTRACEPTION: Discussed post-delivery contraception options. Patient received written information about post-delivery contraception options. Declines SUBJECTIVE: CHIEF COMPLAINT: Scheduled Induction of labor for maternal CHD, obesity and chronic HTN HISTORY OF THE PRESENT ILLNESS: The patient is a 24 year old female, , who is at 34w2d with an VIJAY of 11/22/2024, by Last Menstrual Period dating method. Patient has Good movement. Denies vaginal bleeding., Denies contractions.. Patient is GBS pending, done 10/13. Her has been complicated by the following issues: Active Non-Hospital Problems Diagnosis Date Noted S/P repair of PDA 09/30/2024 Gastroesophageal reflux disease 09/30/2024 Preexisting hypertension complicating , antepartum ([facility]) 08/07/2024 Overview Note: On labetalol 200mg bid and low dose aspirin, controlled at 24 weeks. Serial growth ultrasounds starting 28 weeks. Weekly NSTs at 32 weeks. Delivery timing discussed. Given cardiac disease with mild symptoms and hypertension, will plan for 37 weeks. Monitor for pre-eclampsia. Supervision of high risk in first trimester ([facility]) 04/06/2024 Overview Note: Care Checklist Vaccines: [] Flu vaccine [] declined [] RSV vaccine 32 0/7 - 36 6/7 (Jan - Jun) [] declined [] COVID vaccine [] declined [x] TDaP 27-36 [] declined First trimester: [x] Dating US [x] 1st tri labs [] Pap smear [] Carrier screening [x] declined [] NIPT screening [x] declined [x] First trimester anatomy scan [] declined [x] universal ASA ordered (start 12w-16w) [] declined [] M Power Consult [x] not indicated [] declined Second trimester: [] AFP [] declined [x] Anatomy scan [] Mode of Delivery - [x] Feeding - breast feeding [] Pump ordered [x] Diabetes screen [x] CBC, RPR Third trimester (28-30 weeks): [x] Consent [x] Contraception - declines IUD, considering progesterone only pill for initial period. [] Shop Worker Third trimester (36-40 weeks): [] GBS [] Presentation - [] Scheduled [] yes - Hibiclens, pre-op instructions, CBC, T&S ordered [] no [] H&P BMI 37.0-37.9, adult 04/06/2024 Obesity affecting in second trimester ([facility]) 12/13/2022 Overview Note: Pregravid BMI 37 Inappropriate sinus tachycardia ([facility]) 05/07/2017 Bicuspid aortic valve 05/01/2017 SVT (supraventricular tachycardia) ([facility]) 05/01/2017 Coarctation of aorta ([facility]) 04/15/2017 History of supraventricular tachycardia 03/24/2017 Maternal congenital cardiac anomaly affecting , antepartum, third trimester ([facility]) 10/28/2016 Overview Note: Bicuspid aortic valve with moderate Coarctation s/p surgical repair History of SVT worse when in pain, history of inappropriate sinus tachycardia Having some fatigue and tachycardia with activity. Echo done 09/30 and result pending. Normal echo Cardiovascular genetic consultation requested. [facility] delivery at 37 weeks discussed, consents signed. History of surgery to heart and great vessels 10/28/2016 History of aortic coarctation repair 04/13/2013 ANESTHESIA COMPLICATIONS: None HISTORY REVIEW PAST MEDICAL HISTORY Diagnosis Date Bicuspid aortic valve Coarctation of aorta (HCC) s/p end to end anatomosis repair as 1997 Inappropriate sinus tachycardia (HCC) SVT (supraventricular tachycardia) (HCC) PAST SURGICAL HISTORY Procedure Laterality Date FOOT SURGERY HX PAST SURGICAL HISTORY OF Coartation repair as infant (98) TONSILLECTOMY AND ADENOIDECTOMY HX FAMILY HISTORY Problem Relation Age of Onset other (sinus pause) Mother X 13 seconds with syncope, s/p PPM No Known Problems Father No Known Problems Sister No Known Problems Sister No Known Problems Brother No Known Problems Brother Breast Cancer Maternal Grandmother 60 Ovarian cancer Maternal Aunt 48 other (Myocardial infarction) Paternal Uncle age 54 of [place] Social History Tobacco Use Smoking status: Never Smokeless tobacco: Never Vaping Use Vaping status: Never Used Substance Use Topics Alcohol use: No Drug use: No Obstetric History T0 L0 SAB0 IAB0 Ectopic0 Multiple0 Live Births0 Name of Baby 1: Not recorded Date: Not recorded GA: Not recorded Type: Not recorded Apgar1: Not recorded Apgar5: Not recorded Living: Not recorded ALLERGIES: ALLERGIES Allergen Reactions Codeine Other: See Comments headache, nausea Prednisone Intolerance Migraine PRIOR TO ADMISSION MEDICATIONS: Prior to Admission medications as of 10/13/24 1016 Medication Sig Last Dose Taking ondansetron (ZOFRAN) 8 mg tablet Take 1 tablet by mouth every 8 hours as needed for nausea/vomiting. Yes labetalol (TRANDATE) 200 mg tablet Take 1 tablet by mouth two times a day. Yes famotidine (PEPCID) 20 mg tablet Take 1 tablet by mouth two times a day. Yes aspirin, enteric coated (ECOTRIN LOW STRENGTH) 81 mg EC tablet Take 1 tablet by mouth once daily. Yes vit no.124/iron/folic ( VITAMIN ORAL) Take by mouth once daily. Yes iv contrast (will be provided with radiology test) MRI Cardiac w/Qflow Inject, intravenously, once for 1 dose. No IV access, insert saline lock prior to the beginning of sedation, infusion, injection of imaging exam. Discontinue saline lock post exam. If Pt has a central line or IVAD, may access for administration according to line specific nursing protocol. Once exam is complete flush line and de-access according to line specific nursing protocol in the MR contrast administration guidelines link No medication comments found. REVIEW OF SYSTEMS: GENERAL: No weight loss, malaise or fevers., Negative for weakness, chills, night sweats, and weight loss. The remainder of the review of systems is negative. OBJECTIVE: SENSITIVE EXAM: Sensitive exam not performed. PHYSICAL EXAM: General: WD, WN HEENT: NC/AT, sclera white, pupils equal, no thyromegaly Lungs: clear, Heart: RR Abdomen: soft, nontender, no masses Uterus: soft, NT Extremities: no edema DTRs: 2+ Pelvimetry: not done LAST VITALS: BP 122/78 Wt 120.2 kg (265 lb) LMP 02/16/2024 BMI 42.77 kg/m Heart Rate: 145 LABS Diagnostic tests reviewed for today's visit: Most recent labs and imaging results. Maternal Results (In Last 9 Months): Hemoglobin (g/dL) Date/Time Value 08/06/2024 1036 11.6 05/03/2024 1436 12.7 01/27/2024 1620 13.8 Hematocrit (%) Date/Time Value 08/06/2024 1036 36.3 05/03/2024 1436 38.2 01/27/2024 1620 42.4 Platelet Count (k/uL) Date/Time Value 08/06/2024 1036 301 05/03/2024 1436 283 01/27/2024 1620 330 ABO (no units) Date/Time Value 05/03/2024 1436 A Rh(D) (no units) Date/Time Value 05/03/2024 1436 Positive HBsAg (no units) Date/Time Value 05/03/2024 1436 Negative Hep C Antibody IA (no units) Date/Time Value 05/03/2024 1436 Negative HIV 12 Combo (Ag/Ab) (no units) Date/Time Value 05/03/2024 1436 Nonreactive Neisseria gonorrhoeae RNA (no units) Date/Time Value 04/06/2024 0854 Not detected Syphilis Treponemal Screen (no units) Date/Time Value 08/06/2024 1036 Nonreactive Glucose Scrn, Preg (mg/dL) Date/Time Value 09/01/2024 0952 93 Delivery Plan: Delivery Plan includes: Induction, Primary Reason for Induction is maternal CHD; Presentation: vtx, Burdick's Score: n/a, and EFW is: 2500 gm. Electronic Informed Consent completed: Yes SIGNATURE: Nelsy Agarwal MD DATE: October 13, 2024 TIME: 10:18 AM [facility] 10-13-2024 History and physical note OBSTETRICS HISTORY AND PHYSICAL NAME: Luzmaria Chawla SERVICE DATE: October 13, 2024 SERVICE TIME: 1018 ASSESSMENT & PLAN: 24 year old EGA:34w2d. Plan for delivery in <30 days. POST DELIVERY CONTRACEPTION: Discussed post-delivery contraception options. Patient received written information about post-delivery contraception options. Declines SUBJECTIVE: CHIEF COMPLAINT: Scheduled Induction of labor for maternal CHD, obesity and chronic HTN HISTORY OF THE PRESENT ILLNESS: The patient is a 24 year old female, , who is at 34w2d with an VIJAY of 11/22/2024, by Last Menstrual Period dating method. Patient has Good movement. Denies vaginal bleeding., Denies contractions.. Patient is GBS pending, done 10/13. Her has been complicated by the following issues: Active Non-Hospital Problems Diagnosis Date Noted S/P repair of PDA 09/30/2024 Gastroesophageal reflux disease 09/30/2024 Preexisting hypertension complicating , antepartum ([facility]) 08/07/2024 Overview Note: On labetalol 200mg bid and low dose aspirin, controlled at 24 weeks. Serial growth ultrasounds starting 28 weeks. Weekly NSTs at 32 weeks. Delivery timing discussed. Given cardiac disease with mild symptoms and hypertension, will plan for 37 weeks. Monitor for pre-eclampsia. Supervision of high risk in first trimester ([facility]) 04/06/2024 Overview Note: Care Checklist Vaccines: [] Flu vaccine [] declined [] RSV vaccine 32 0/7 - 36 6/ (Jan - Jun) [] declined [] COVID vaccine [] declined [x] TDaP 27-36 [] declined First trimester: [x] Dating US [x] 1st tri labs [] Pap smear [] Carrier screening [x] declined [] NIPT screening [x] declined [x] First trimester anatomy scan [] declined [x] universal ASA ordered (start 12w-16w) [] declined [] M Power Consult [x] not indicated [] declined Second trimester: [] AFP [] declined [x] Anatomy scan [] Mode of Delivery - [x] Feeding - breast feeding [] Pump ordered [x] Diabetes screen [x] CBC, RPR Third trimester (28-30 weeks): [x] Consent [x] Contraception - declines IUD, considering progesterone only pill for initial period. [] Shop Worker Third trimester (36-40 weeks): [] GBS [] Presentation - [] Scheduled [] yes - Hibiclens, pre-op instructions, CBC, T&S ordered [] no [] H&P BMI 37.0-37.9, adult 04/06/2024 Obesity affecting in second trimester ([facility]) 12/13/2022 Overview Note: Pregravid BMI 37 Inappropriate sinus tachycardia ([facility]) 05/07/2017 Bicuspid aortic valve 05/01/2017 SVT (supraventricular tachycardia) ([facility]) 05/01/2017 Coarctation of aorta ([facility]) 04/15/2017 History of supraventricular tachycardia 03/24/2017 Maternal congenital cardiac anomaly affecting , antepartum, third trimester ([facility]) 10/28/2016 Overview Note: Bicuspid aortic valve with moderate Coarctation s/p surgical repair History of SVT worse when in pain, history of inappropriate sinus tachycardia Having some fatigue and tachycardia with activity. Echo done 09/30 and result pending. Normal echo Cardiovascular genetic consultation requested. [facility] delivery at 37 weeks discussed, consents signed. History of surgery to heart and great vessels 10/28/2016 History of aortic coarctation repair 04/13/2013 ANESTHESIA COMPLICATIONS: None HISTORY REVIEW PAST MEDICAL HISTORY Diagnosis Date Bicuspid aortic valve Coarctation of aorta (HCC) s/p end to end anatomosis repair as 1997 Inappropriate sinus tachycardia ([facility]) SVT (supraventricular tachycardia) ([facility]) PAST SURGICAL HISTORY Procedure Laterality Date FOOT SURGERY HX PAST SURGICAL HISTORY OF Coartation repair as infant (98) TONSILLECTOMY AND ADENOIDECTOMY HX FAMILY HISTORY Problem Relation Age of Onset other (sinus pause) Mother X 13 seconds with syncope, s/p PPM No Known Problems Father No Known Problems Sister No Known Problems Sister No Known Problems Brother No Known Problems Brother Breast Cancer Maternal Grandmother 60 Ovarian cancer Maternal Aunt 48 other (Myocardial infarction) Paternal Uncle age 54 of [place] Social History Tobacco Use Smoking status: Never Smokeless tobacco: Never Vaping Use Vaping status: Never Used Substance Use Topics Alcohol use: No Drug use: No Obstetric History T0 L0 SAB0 IAB0 Ectopic0 Multiple0 Live Births0 Name of Baby 1: Not recorded Date: Not recorded GA: Not recorded Type: Not recorded Apgar1: Not recorded Apgar5: Not recorded Living: Not recorded ALLERGIES: ALLERGIES Allergen Reactions Codeine Other: See Comments headache, nausea Prednisone Intolerance Migraine PRIOR TO ADMISSION MEDICATIONS: Prior to Admission medications as of 10/13/24 1016 Medication Sig Last Dose Taking ondansetron (ZOFRAN) 8 mg tablet Take 1 tablet by mouth every 8 hours as needed for nausea/vomiting. Yes labetalol (TRANDATE) 200 mg tablet Take 1 tablet by mouth two times a day. Yes famotidine (PEPCID) 20 mg tablet Take 1 tablet by mouth two times a day. Yes aspirin, enteric coated (ECOTRIN LOW STRENGTH) 81 mg EC tablet Take 1 tablet by mouth once daily. Yes vit no.124/iron/folic ( VITAMIN ORAL) Take by mouth once daily. Yes iv contrast (will be provided with radiology test) MRI Cardiac w/Qflow Inject, intravenously, once for 1 dose. No IV access, insert saline lock prior to the beginning of sedation, infusion, injection of imaging exam. Discontinue saline lock post exam. If Pt has a central line or IVAD, may access for administration according to line specific nursing protocol. Once exam is complete flush line and de-access according to line specific nursing protocol in the MR contrast administration guidelines link No medication comments found. REVIEW OF SYSTEMS: GENERAL: No weight loss, malaise or fevers., Negative for weakness, chills, night sweats, and weight loss. The remainder of the review of systems is negative. OBJECTIVE: SENSITIVE EXAM: Sensitive exam not performed. PHYSICAL EXAM: General: WD, WN HEENT: NC/AT, sclera white, pupils equal, no thyromegaly Lungs: clear, Heart: RR Abdomen: soft, nontender, no masses Uterus: soft, NT Extremities: no edema DTRs: 2+ Pelvimetry: not done LAST VITALS: BP 122/78 Wt 120.2 kg (265 lb) LMP 02/16/2024 BMI 42.77 kg/m Heart Rate: 145 LABS Diagnostic tests reviewed for today's visit: Most recent labs and imaging results. Maternal Results (In Last 9 Months): Hemoglobin (g/dL) Date/Time Value 08/06/2024 1036 11.6 05/03/2024 1436 12.7 01/27/2024 1620 13.8 Hematocrit (%) Date/Time Value 08/06/2024 1036 36.3 05/03/2024 1436 38.2 01/27/2024 1620 42.4 Platelet Count (k/uL) Date/Time Value 08/06/2024 1036 301 05/03/2024 1436 283 01/27/2024 1620 330 ABO (no units) Date/Time Value 05/03/2024 1436 A Rh(D) (no units) Date/Time Value 05/03/2024 1436 Positive HBsAg (no units) Date/Time Value 05/03/2024 1436 Negative Hep C Antibody IA (no units) Date/Time Value 05/03/2024 1436 Negative HIV 12 Combo (Ag/Ab) (no units) Date/Time Value 05/03/2024 1436 Nonreactive Neisseria gonorrhoeae RNA (no units) Date/Time Value 04/06/2024 0854 Not detected Syphilis Treponemal Screen (no units) Date/Time Value 08/06/2024 1036 Nonreactive Glucose Scrn, Preg (mg/dL) Date/Time Value 09/01/2024 0952 93 Delivery Plan: Delivery Plan includes: Induction, Primary Reason for Induction is maternal CHD; Presentation: vtx, Burdick's Score: n/a, and EFW is: 2500 gm. Electronic Informed Consent completed: Yes SIGNATURE: Nelsy Agarwal MD DATE: October 13, 2024 TIME: 10:18 AM documented in this encounter [facility] 10-13-2024 Note [facility] 10-13-2024 History of Present illness Narrative NST SUMMARY PROVIDER ASSESSMENT AND INTERPRETATION Luzmaria Chawla is a 24 year old female, , who is at 34w2d with an VIJAY of 11/22/2024, by Last Menstrual Period dating method. Indications for NST: Obesity and Other: maternal HD, HTN Baseline: 145 Variability: Moderate Accelerations: Present 15 X 15 Decelerations: None Contractions: TOCO: no regular ctxs Interpretation: Reactive SIGNATURE: Nelsy Agarwal MD documented in this encounter [facility] 10-13-2024 Instructions Alysa Montes De Oca MA - 10/13/2024 9:15 AM EDT SEQUENTIAL SCREENINGS The [facility] offers sequential screenings for women who are interested in screenings for chromosomal abnormalities and certain defects during a . The sequential screen combines ultrasound and blood tests to determine the risk of chromosomal abnormalities, including Down's Syndrome (Trisomy 21) and Trisomy 18, as well as open neural tube defects including spina bifida. Ultrasound examination is performed between 11 weeks and 13 weeks gestational age. Blood tests are drawn after the ultrasound and again later in the between 15 and 21 weeks gestational age. Please let your physician know if you are interested in this testing. It will require an appointment with our industrial manufacturing technician. This is not an ultrasound performed by a physician in our office during a routine visit. SIGNS AND SYMPTOMS OF LABOR 1. Contractions every 10 minutes or more often 2. Clear, pink, or brownish fluid (water) leaking from vagina 3. Feeling that baby is pushing down, pressure 4. Low, dull backache 5. Cramps that feel like a period 6. Cramps with or without diarrhea If you notice any of the above symptoms, contact our office at [phone] and ask to speak with a nurse. After hours, you can call doctors registry at [phone] OR call [facility] at [phone] and ask to have the doctor sales and operations trainee paged. If you consider this an emergency, dial [phone]- or go to your nearest emergency department. NEED HELP? Are you dealing with a violent or abusive relationship? Are you a victim of rape or sexual assult? Call [facility] ([place]) 24 hour Crisis Hotline: 852.452.2521 or 606-205-7288. MANUAL Your Guide to a Healthy manual is now on-line. Visit [email or web address] to download your free copy SEQUENTIAL SCREENINGS The [facility] offers sequential screenings for women who are interested in screenings for chromosomal abnormalities and certain defects during a . The sequential screen combines ultrasound and blood tests to determine the risk of chromosomal abnormalities, including Down's Syndrome (Trisomy 21) and Trisomy 18, as well as open neural tube defects including spina bifida. Ultrasound examination is performed between 11 weeks and 13 weeks gestational age. Blood tests are drawn after the ultrasound and again later in the between 15 and 21 weeks gestational age. Please let your physician know if you are interested in this testing. It will require an appointment with our industrial manufacturing technician. This is not an ultrasound performed by a physician in our office during a routine visit. SIGNS AND SYMPTOMS OF LABOR 1. Contractions every 10 minutes or more often 2. Clear, pink, or brownish fluid (water) leaking from vagina 3. Feeling that baby is pushing down, pressure 4. Low, dull backache 5. Cramps that feel like a period 6. Cramps with or without diarrhea If you notice any of the above symptoms, contact our office at [phone] and ask to speak with a nurse. After hours, you can call doctors registry at [phone] OR call [facility] at [phone] and ask to have the doctor sales and operations trainee paged. If you consider this an emergency, dial 3-4-0 or go to your nearest emergency department. NEED HELP? Are you dealing with a violent or abusive relationship? Are you a victim of rape or sexual assult? Call [facility] ([facility] 24 hour Crisis Hotline: 252.425.8663 or 653-679-7202. MANUAL Your Guide to a Healthy manual is now on-line. Visit [email or web address] to download your free copy documented in this encounter [facility] 10-12-2024 History of Present illness Narrative [facility] [place] Department of Cardiovascular Medicine VIRTUAL VIDEO VISIT ESTABLISHED OUTPATIENT VISIT SERVICE DATE: 10/12/2024 Patient: Luzmaria Chawla SERVICE TIME: 6:12 AM : 2000 This is a virtual video visit. It required patient-provider interaction for the medical decision making as documented below. Luzmaria Chawla has consented to this video encounter. I have communicated my name and active licensure. The patient's identity and physical location were verified at the time of this visit. Either the patient or their legal food products sales representative has been informed of the risks and benefits of -- and alternatives to -- treatment through a remote evaluation and consents to proceed with the evaluation remotely. Luzmaria Chawla is a 24 year old female seen for high risk . CHIEF COMPLAINT High risk HISTORY OF PRESENT ILLNESS Luzmaria Chawla is a 24 year old female 34w1d. Plans on . Scheduled at 37 weeks. Plans on going on mini pill with progesterone only as control method. She denies any CP or SOB, except when she overdoes it with working around the yard she does get some SOB. PAST MEDICAL HISTORY Diagnosis Date Bicuspid aortic valve Coarctation of aorta (HCC) s/p end to end anatomosis repair as 1997 Inappropriate sinus tachycardia (HCC) SVT (supraventricular tachycardia) (HCC) PAST SURGICAL HISTORY Procedure Laterality Date FOOT SURGERY HX PAST SURGICAL HISTORY OF Coartation repair as (98) TONSILLECTOMY AND ADENOIDECTOMY HX FAMILY HISTORY Problem Relation Age of Onset other (sinus pause) Mother X 13 seconds with syncope, s/p PPM No Known Problems Father No Known Problems Sister No Known Problems Sister No Known Problems Brother No Known Problems Brother Breast Cancer Maternal Grandmother 60 Ovarian cancer Maternal Aunt 48 other (Myocardial infarction) Paternal Uncle age 54 of [place] Social History Tobacco Use Smoking status: Never Smokeless tobacco: Never Vaping Use Vaping status: Never Used Substance Use Topics Alcohol use: No Drug use: No ALLERGIES Allergen Reactions Codeine Other: See Comments headache, nausea Prednisone Intolerance Migraine CURRENT MEDICATIONS ondansetron (ZOFRAN) 8 mg tablet Take 1 tablet by mouth every 8 hours as needed for nausea/vomiting. labetalol (TRANDATE) 200 mg tablet Take 1 tablet by mouth two times a day. famotidine (PEPCID) 20 mg tablet Take 1 tablet by mouth two times a day. aspirin, enteric coated (ECOTRIN LOW STRENGTH) 81 mg EC tablet Take 1 tablet by mouth once daily. vit no.124/iron/folic ( VITAMIN ORAL) Take by mouth once daily. REVIEW OF SYSTEMS: GENERAL: Negative for: Weight loss or gain, Fever or Chills, Weakness and Sleep difficulties. HEENT: Negative for: Headache, Impaired Vision, Glasses, Hearing Impairment, Ringing in Ears, Nosebleeds, Poor dental care, Bleeding Gums, Dentures NECK: Negative for: Swelling, Pain, Stiffness RESPIRATORY: Negative for: Cough, Blood in Sputum, Shortness of breath, Wheezing, Apnea GASTROINTESTINAL: Negative for: Trouble swallowing, Heartburn, Change in bowel habits, Blood in stool, Dark black stools MUSCULOSKELETAL: Negative for: Muscle or joint pain, Stiffness , Joint swelling NEUROLOGIC/PSYCHIATRIC: Negative for: Weakness, Paralysis, Numbness, Tingling, Tremor, Nervousness, Depressed mood, Memory loss SKIN: Negative for: Rashes, Itching HEMATOLOGICAL/LYMPHATIC: Negative for: Easy bruising , Easy bleeding ENDOCRINE: Negative for: Heat or cold intolerance, Excessive sweating, Frequent urination, Frequent thirst PHYSICAL EXAMINATION: VIDEO EXAM: (if completed, performed via video enabled technology) No exam performed PATIENT ENTERED QUESTIONNAIRE SCORES 01/27/2024 PHQ-9 PHQ-2 Score 0 PHQ-9 Score 0 01/27/2024 HOSSEIN - 2/7 SCORES HOSSEIN-2 Score 0 HOSSEIN-7 Score 0 01/27/2024 04/12/2022 PROMIS Global Health - (T-Scores - the mean of general population = 50. Five points is a clinically meaningful difference.) Physical T-Score 50.8 Mental T-Score 67.6 50.8 CARDIOVASCULAR TESTING: Echo 09/30/2024 - The left ventricle is normal in size. Left ventricular systolic function is normal. EF = 55 5% (2D biplane) - The right ventricle is normal in size. Right ventricular systolic function is normal. - Bicuspid aortic valve with fusion of right and left coronary cusps. There is trace aortic valve regurgitation. There is moderate aortic valve stenosis caused by restricted opening, AV area is 1.04 cm (0.45 cm /m ) by continuity, VTI. The peak gradient is 47 mmHg, the mean gradient is 27 mmHg and the dimensionless valve index is 0.33. Prior Peak/Mean gradients: 60/31mmHg. - Hx of PDA Ligation: There is no residual PDA flow visualized - Hx of CoA Repair: Today's Peak/Mean gradients: 28/11mmHg. Non obstructive abdominal aorta flow. Prior Peak/Mean gradients of 28/11mmHg. - Exam was compared with the prior echocardiographic exam performed on 08/06/2024. Gradients appear overall similar on side by side comparison, now at 32 weeks gestation. ASSESSMENT: Ms. Dutta ([facility] TAYLERRevaArnaud Chawla is a rufus 24 yo F with: Coarctation of the aorta, PDA, and bicuspid aortic valve s/p end-to-end anastomosis and PDA ligation as a in , and residual moderate Surgery 02/1998: median sternotomy and end-to-end anastomosis and PDA doubly ligated and divided by Dr. oMntanez in [place], [place] Bicuspid aortic valve with LCC and RCC fusion, no significant AR, moderate with peak velocity 3.2 m/s, PG/MG 41/22 mmHg, DI 0.34, MIKE 1.28 cm2. 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 Follows with EP 34w1d PLAN : -Maternal Congenital Heart Problem Affecting -Coarctation of the aorta, PDA and BAV s/p end-to-end anastomosis, PDA ligation and residual BAV with moderate Her echo demonstrates expected increased gradients across her BAV has increased from 36/19 pre- to 47/27 mmHg in third trimester. Continue aspirin during her Goal BP <130/80, her BP at home is 114/72: she is on labetalol 200 mg BID Previously genetics referral placed See below for delivery plan Follow up DELIVERY PLAN: Diagnosis:Coarctation of the aorta, PDA and BAV s/p end-to-end anastomosis, PDA ligation and residual BAV with moderate PeriPartum/Cardiac Concerns: Location of Delivery: [facility] Mode of delivery: vaginal Timing of delivery: 37 weeks Staff required in delivery room: OB, OB anesthesia Anesthesia consult (WHO gp II-III and above): YES Type of anesthesia: slowly dosed epidural Drugs to avoid: any that cause hypertension or tachycardia Intrapartum fluid management: Type of monitoring: arterial line NO as long as not hypertensive by cuff pressures telemetry YES I/Os YES IV filters for those with residual shunts (R->L): NO When to proceed with induction of labor: 37 weeks Second stage: (assisted second stage): if prolonged active labor, >2-3 hours, and any evidence of elevated BP SBP>160's consistently, or ischemia on telemetry or symptoms such as CP or SOB, then proced with assisted second stage (forceps or vacuum) Endocarditis prophylaxis: (prosthetic material and cyanotics): NO Anticoagulation: ASA 81 mg daily Medications prior to delivery: ASA, BB Medications after delivery: ASA, BB Post-delivery location after 2 hour recovery: J building Post-delivery monitoring: EKG, echo, BNP. Post- follow up: When, Who, What studies/imaging ACHD in 3-6 months with echo, then cMRI at 9-12 months Service to consult on admission with contact information: [facility]D I personally spent 54 minutes in total time involved in the management and care of this patient. Bhavesh Alas MD October 12, 2024 6:12 AM documented in this encounter [facility] 10-12-2024 Note [facility] 10-07-2024 Note [facility] 10-06-2024 Note HNO ID: [id number] Author: LEXIE ALONSO RN Service: ? Author Type: Registered Nurse Type: Progress Notes Filed: 10/07/2024 10:41 Note Text: Whi i [facility] 10-06-2024 Note [facility] 10-01-2024 Telephone encounter Note Offered a virtual Desmond consult to Luzmaria on 10/07 at 10:00. She accepted. Lexie Alonso RN [facility] 10-01-2024 Miscellaneous Notes Offered a virtual Desmond consult to Luzmaria on 10/07 at 10:00. She accepted. Lexie Alonso RN documented in this encounter [facility] 09-30-2024 Note [facility] 09-30-2024 History of Present illness Narrative Images from the original note were not included. CARE VISIT Luzmaria Chawla is a 24 year old at 32w3d being seen for routine care and management of medical co morbidities. She reports Good movement. Denies vaginal bleeding., C/O of occasional contractions., Denies leaking of fluid. Luzmaria has congenital heart disease- repaired coarct, and bicuspid aortic stenosis with moderate on last exam Had echo today but not resulted. She has occasional mild edema. Having some increased heart rate and shortness of breath with activity, not sure if this is or her heart. Heart rate gets to 150-160 with activity but then resolves. Some increased fatigue. Generally feeling well. CONGENITAL CARDIAC HISTORY: Ms. Dutta (pronounced Misael Chawla is a rufus 24 yo F with: Coarctation of the aorta, PDA, and bicuspid aortic valve s/p end-to-end anastomosis and PDA ligation as a in , and residual moderate Surgery 02/1998: median sternotomy and end-to-end anastomosis and PDA doubly ligated and divided by Dr. Montanez in [place], [place] Bicuspid aortic valve with LCC and RCC fusion, no significant AR, moderate with peak velocity 3.2 m/s, PG/MG 41/22 mmHg, DI 0.34, MIKE 1.28 cm2. Brain MRI without silvestre aneurysms Aortopathy without significant dilation, and no e/o significant re-coarctation CMRI 2018 and 2021 with normal aortic dimensions and no significant recoarctation (3.1 root, 2.6 mid AsAo, 2.5 distal arch, 1.5 distal arch, 1.6 proximal DsAo, 1.6 diaphragmatic Ao) Normal LV size and function Normotensive on labetalol 200mg bid, home bps 120/70s OBJECTIVE: BP 120/70 Pulse 102 Resp 20 Wt 262 lb 9.1 oz (119.1kg) SpO2 98% LMP 02/16/2024 See ultrasound report for details. Normal growth EXAM: GENERAL: pleasant, in no apparent distress CHEST: Clear to auscultation, Normal inspiratory effort, Regular rate and rhythm, and III/ DARRYL EXTREMITIES: normal, trace bilateral edema ASSESSMENT/PLAN: 24 year old at 32w3d Problem List Items Addressed This Visit Cardiovascular Bicuspid aortic valve Maternal congenital cardiac anomaly affecting , antepartum, third trimester ([facility]) - Primary Overview Bicuspid aortic valve with moderate Coarctation s/p surgical repair History of SVT worse when in pain, history of inappropriate sinus tachycardia Having some fatigue and tachycardia with activity. Echo done 09/30 and result pending. Normal echo Cardiovascular genetic consultation requested. [facility] delivery at 37 weeks discussed, consents signed. Relevant Orders CONSULT TO PEDS NEONATOLOGY History of aortic coarctation repair Preexisting hypertension complicating , antepartum ([facility]) Overview On labetalol 200mg bid and low dose aspirin, controlled at 24 weeks. Serial growth ultrasounds starting 28 weeks. Weekly NSTs at 32 weeks. Delivery timing discussed. Given cardiac disease with mild symptoms and hypertension, will plan for 37 weeks. Monitor for pre-eclampsia. Other Supervision of high risk in first trimester ([facility]) Overview Care Checklist Vaccines: [] Flu vaccine [] declined [] RSV vaccine 32 0/7 - 36 6/7 (Jan - Jun) [] declined [] COVID vaccine [] declined [x] TDaP 27-36 [] declined First trimester: [x] Dating US [x] 1st tri labs [] Pap smear [] Carrier screening [x] declined [] NIPT screening [x] declined [x] First trimester anatomy scan [] declined [x] universal ASA ordered (start 12w-16w) [] declined [] M Power Consult [x] not indicated [] declined Second trimester: [] AFP [] declined [x] Anatomy scan [] Mode of Delivery - [x] Feeding - breast feeding [] Pump ordered [x] Diabetes screen [x] CBC, RPR Third trimester (28-30 weeks): [x] Consent [] Contraception - [] Shop Worker Third trimester (36-40 weeks): [] GBS [] Presentation - [] Scheduled [] yes - Hibiclens, pre-op instructions, CBC, T&S ordered [] no [] H&P Other Visit Diagnoses 32 weeks gestation of (HCC) Luzmaria will follow up with Dr. Alas in about two weeks. Weekly NSTs with her provider locally planned. Delivery / induction at 37 weeks Discussed early term outcomes. Might benefit from tarik alteration to improve heart rate control. Discussed contraception and family spacing. She declines IUD. She is interested in ocps but is wanting fewer side effects. She plans to breast feed. Discussed r/b/a of progesterone only IUD. Failure rate and need to transition to different method when she is weaning discussed. Jailyn Boss MD September 30, 2024 2:57 PM Medical Decision Making: Problems: Low: Acute, uncomplicated illness or injury Moderate: 2+ stable chronic illnesses Data: Unique source(s) for external note(s) reviewed: 1 Unique test result(s) reviewed: 1 Risk: Moderate: Moderate risk from testing/treatment Medical Decision Making Level: 4 - Moderate documented in this encounter [facility] 09-30-2024 Note [facility] 09-30-2024 History of Present illness Narrative Attending Note I evaluated the patient and personally participated in the an components. I agree with the resident's findings and plan as documented and have discussed the case and management of the patient's care with the resident. Very pleasant 24 yo F at 32 wk EGA with history of repaired coarctation, bicuspid aortic valve with moderate . Currently asymptomatic and well-compensated. We discussed the different options for labor analgesia. At this point, I believe she is a candidate for labor epidural analgesia, albeit with slightly increased risk of cardiovascular complications due to her . This could necessitate use of vasoactive drugs (e.g., phenylephrine) and/or invasive monitoring of her blood pressure peripartum. Signature: Stas Jeter III, MD Date: 09/30/2024 Time: 2:16 PM documented in this encounter [facility] 09-30-2024 Note Indication Evaluation of growth, Evaluation of well-being. Maternal obesity, BMI >35, congenital heart disease, Hypertension on medication Impression - Single, live, intrauterine . - presentation is cephalic. - The biometry is consistent with the assigned gestational dating. - The EFW is 2148 g, at the 65%. AC is at the 70%. - The amniotic fluid volume is normal amount with an MVP of 6.7 cm and an RICO of 19.1 cm. - The placenta is posterior. - BPP 12/24. - No malformations visualized on a limited survey as detailed below. Recommendations Weekly NSTs and serial growth ultrasounds planned. Maternal Assessment Height 170 cm Height (ft) 5 ft Height (in) 7 in Physical Exam Initial weight (lb) 235 lb Initial BMI 36.81 kg/m Method Transabdominal ultrasound examination Rob[place] . Number of fetuses: 1 Dating LMP on: 02/16/2024 GA by LMP 32 w + 3 d VIJAY by LMP: 11/22/2024 GA by prior assessment 32 w + 3 d VIJAY by prior assessment: 11/22/2024 Ultrasound examination on: 09/30/2024 GA by U/S based upon: AC, BPD, Femur, HC GA by U/S 33 w + 5 d VIJAY by U/S: 11/13/2024 Assigned: based on stated VIJAY, selected on 07/06/2024 Assigned GA 32 w + 3 d Assigned VIJAY: 11/22/2024 General Evaluation Cardiac activity present. FHR 152 bpm. movements: present. Presentation: cephalic Placenta: Placental site: posterior Umbilical cord: Cord vessels: 3 vessel cord. Insertion site: normal insertion Amniotic fluid: Amount of AF: normal amount. MVP 6.7 cm. RICO 19.1 cm. Q1 6.7 cm, Q2 1.8 cm, Q3 4.5 cm, Q4 6.0 cm Biophysical Profile 2: breathing movements 2: Gross body movements 2: tone 2: Amniotic fluid volume 12/24 Biophysical profile score Growth Overview Exam date GA BPD (mm) HC (mm) AC (mm) FL (mm) HL (mm) EFW (g) 06/08/2024 16w 1d 33.3 56% 127.1 48% 106.8 67% 18.2 23% 143 35% 07/06/2024 20w 1d 47.1 54% 175.4 47% 158.7 72% 31.6 52% 31 59% 350 59% 09/30/2024 32w 3d 86.8 97% 312.4 79% 291 70% 62.9 67% 2148 65% Biometry Standard BPD 86.8 mm 35w 0d 97% Hadlock OFD 109.7 mm 32w 6d 69% Nicolaides HC 312.4 mm 34w 0d 79% Gene AC 291.0 mm 33w 1d 70% Hadlock Femur 62.9 mm 32w 3d 67% Gene EFW 2,148 g 33w 0d 65% Hadlock EFW (lb) 4 lb EFW (oz) 12 oz EFW by: Hadlock (HC-AC-FL) Extended Manager Licensing 7.5 mm Extremities / Bony Struc FL / HC 0.20 Other Structures FHR 152 bpm Anatomy Lateral ventricles: normal Cavum septi pellucidi: normal Cerebellum: normal Cisterna magna: normal Profile: normal 4-chamber view: normal RVOT view: normal LVOT view: normal 3-vessel view: normal Heart / Thorax Situs: situs solitus (normal) Diaphragm: normal Stomach: normal Kidneys: normal Bladder: normal sex: male Wants to know sex: yes Maternal Structures Ovaries / Tubes / Adnexa Rt ovary: Not visualized Lt ovary: Not visualized Performed By: Candelaria Contreras RDMS Read By: Jailyn Boss M.D. [facility] 09-30-2024 Instructions Johny Philip MD - 09/30/2024 1:40 PM EDT Images from the original note were not included. [facility] PATIENT PREOPERATIVE INSTRUCTIONS Jailyn Boss MD has scheduled you for your procedure at this surgery center: [facility] [place] Scheduling Office: [phone] --[address] [place] [address]. Please read below carefully for your personalized instructions. Dietary Restrictions: - No solid food after midnight. - You may have 12 ounces of clear liquids (water, clear juices such as apple juice or gatorade, carbonated beverages, clear tea, black coffee, jello) until 2 hours before scheduled arrival at facility. Medications: Unless instructed differently below, stay on all of your medications until your surgery. If you start any new medications after today's visit, please contact your surgeon. Pre-Surgery Med Instructions Medication Instructions ondansetron (ZOFRAN) 8 mg tablet If you normally take this medication in the morning, take the morning of surgery. labetalol (TRANDATE) 200 mg tablet If you normally take this medication in the morning, take the morning of surgery. famotidine (PEPCID) 20 mg tablet If you normally take this medication in the morning, take the morning of surgery. aspirin, enteric coated (ECOTRIN LOW STRENGTH) 81 mg EC tablet If you normally take this medication in the morning, take the morning of surgery. vit no.124/iron/folic ( VITAMIN ORAL) If you normally take this medication in the morning, take the morning of surgery. If you start any new medications after today's visit, please contact the surgeon's office. If you are currently using a [id number] injectable or oral medication for diabetes or weight loss such as Dulaglutide (Trulicity), Exenatide (Byetta, Bydureon), Liraglutide (Victoza, Saxenda), Semaglutide (Ozempic, Wegovy, Rybelsus), or Tirzepatide (Mounjaro), the medicine should be stopped at least 7 days before surgery. These medicines can cause food to remain in your stomach for a very long time and increase the risks from surgery and anesthesia. Not stopping the medication for a long enough time may result in your surgery being rescheduled. Blood Thinning Medications: - Stop NSAIDS (Ibuprofen, Advil, Aleve, Motrin, Celebrex, Mobic, etc.) 7 days before surgery, as directed by your surgeon. Important Reminders: - If you are prescribed inhalers for breathing, continue using them. - Candy, mints, and tobacco products are NOT permitted the morning of surgery. - Hearing aids, dentures and glasses may be worn the morning of surgery. - NO jewelry, body piercings, makeup, hairpins or contacts are to be worn the day of surgery. If you develop symptoms such as a fever, cold, or flu, or have other changes to your health within TWO DAYS of scheduled surgery or the morning of surgery, please contact the surgery center above. Personal Belongings: -Please have photo ID and insurance cards. -If you do not have a copy of advance directives on file with us, please bring a copy with you on the day of surgery. - Leave ALL valuables and money at home or with family members. - Please bring high-quality footwear, such as sneakers, to the hospital for ambulating post-surgery. For Outpatient Procedures: - YOU MUST HAVE A RESPONSIBLE CROWN PERFORATOR OPERATOR TAKE YOU HOME. A VENEER DRIER FEEDER OR LARD MIXER CANNOT BE MADE A RESPONSIBLE CROWN PERFORATOR OPERATOR. - We recommend that a responsible person stays with you overnight to take care of you. - You cannot stay in a hotel alone after outpatient surgery. You will not be permitted to have your surgery, if you do not have someone to take care of you. Arrival Time for Surgery: - To obtain your arrival time for surgery, call your physician's office the day before your surgery. - If you have received different instructions about finding out your arrival time from your surgeon, please follow those instructions. - If your surgery is scheduled for Friday, call the Friday before. Your surgeon s continuous miner operator will tell you what time to call the office. - If you have not reached the departmental continuous miner operator by 5 P.M., call [phone] after 5 P.M. the day before your surgery. Please be aware that emergency situations arise, which may delay or change your surgical time. If this happens, we will notify you as soon as possible and regret any inconvenience. If you already have an Advance Directive, please fax a copy to [phone] or email to for it to be added to your chart. If you do not have an Advance Directive, you can find the appropriate form and more information at [email or web address]. We recommend that you complete the Advance Directive form found on the website and bring it with you the day of your surgery. It can be witnessed and scanned into your chart that day. Johny Philip MD documented in this encounter [facility] 09-30-2024 History and physical note Images from the original note were not included. [facility] Pre[facility]est[facility]ation [facility] HISTORY AND PHYSICAL EXAMINATION SERVICE DATE: 09/30/2024 SERVICE TIME: 1:43 PM PRIMARY CARE PHYSICIAN: Kwasi Garcia APRN.[employer] CONTACT REPRESENTATIVE Assessment Patient has the following medical conditions which may affect jessica-operative course: Bicuspid aortic valve - Bicuspid Valve, moderate valve stenosis/calcification on 08/06/24 echo, no regurgitation. Peak gradient 60 mmHg, mean gradient 31 mmHg. - LVEF 57%, normal LV/RV size/fx. - Had repeat echo earlier today Coarctation of aorta - S/p Repair SVT (supraventricular tachycardia) (HCC) - Had as a , reoccurred since around 2016, was put on beta tarik and well controlled since then. - Paroxysmal, induced by pain, stress. - Has had a few episodes during which self terminated. S/P repair of PDA - PDA s/p repair Preexisting hypertension complicating , antepartum (HCC) - Last 3 Encounter BP Readings: Date: BP: 09/30/2024 120/70 09/30/2024 120/70 09/29/2024 112/72 - On labetalol 200mg bid and low dose aspirin, controlled at 24 weeks. Gastroesophageal reflux disease - On Famotidine PRN during - On Ondansetron for associated nausea ANESTHESIA FINDINGS: Intubation History: No history of difficult intubation. No abnormal airway history. No prior intubation Significant Anesthesia Considerations: none Airway History: No history of difficult airway No abnormal airway history No prior intubation Edge Activity Status Index: METS: Walk indoors, such as around the house (1.75 METs) Do light work around the house, such as dusting or washing dishes (2.70 METs) Take care of self; that is eating, dressing, bathing, using the toilet (2.75 METs) Walk a block or two on level ground (2.75 METs) Do moderate work around the house, such as vacuuming, sweeping floors, or carrying in groceries (3.50 METs) Do yardwork, such as raking leaves, weeding, or pushing a power mower (4.50 METs) Climb a flight of stairs or walk up a hill (5.50 METs) Participate in moderate recreational activites, such as golf, bowling, dancing, doubles tennis, or throwing a baseball or football (6.00 METs) DASI Score: 29.45 Patient denies any chest pain or undue shortness of breath with the above physical activity. Clinical Frailty Scale: 3. Well, with treated comorbid disease STOP-Bang Score: STOP-Bang Score: 0 [id number] Score: Hypertension history: Yes [id number] Score: I - PHYSICAL EVALUATION AIRWAY Patient intubated: No. Tracheostomy tube not present Mallampati: II. TM distance: <3 FB. Neck ROM: full ROM without neurological symptoms. Mouth opening: adequate. Short neck: no. Thick neck: yes DENTAL Dental findings: teeth intact. II - ANESTHESIA PLAN Beta Tarik Monitoring Plan Post Procedure Analgesic Plan Informed Consent Anesthetic risks, benefits, alternatives, personnel and consent discussed: yes. Patient / Responsible Green Party agrees to proceed: yes Patient / Surrogate agrees to blood products: Yes Prepared for Surgery: optimally prepared for surgery, pending day of surgery. Patient is optimally prepared for surgery. She is able to have neuraxial block from an anesthesia standpoint with the understanding of some increased risk associated with her aortic stenosis. CONSULTS: Planned Anesthetic: The Following Tests/Procedures Have Been Initiated: No orders of the defined types were placed in this encounter. REASON FOR VISIT: Luzmaria Chawla is a 24 year old female who is scheduled for * No surgery found * at the request of Dr. Dr. Bossfor consultation. My final recommendation will be communicated back to the requesting physician by way of shared medical record or letter. Subjective The patient has the following: COVID-19 Immunization Status Current Care Gaps Covid-19 Vaccine () Overdue since 01/18/2024 09/28/2020 Imm Admin: COVID-19 original vaccine, age 12+ yr, monovalent ([employer] [facility]) 09/07/2020 Imm Admin: COVID-19 original vaccine, age 12+ yr, monovalent ([facility] - [facility]) CHIEF COMPLAINT: Pre-op Consultation HPI: Luzmaria Chawla is a 24 year old female with PMHx bicuspid aortic valve, coarctation of the aorta s/p repair, PDA s/p repair, who presents to [facility] today for preop exam. Denies fevers, chills, chest pain, and SOB. REVIEW OF SYSTEMS: Neurological: Negative for: seizures, TIA and strokes. Respiratory: Negative for: COPD, current cough and dyspnea. Cardiovascular: Positive for: hypertension Negative for: arrhythmia, atrial fibrillation, chest pain, CHF, DVT/PE, recent [place] and PVD. GI: Negative for: abdominal pain, nausea and vomiting. : Negative for: flank pain. Hematology: No history of bleeding or clotting disorder. Patient is not taking anti-coagulation or platelet medications. No history of hematological symptoms or problems. Oncology: No history of CA metastasis, chemo within 30 days, or radiotherapy within 90 days. No history of oncological symptoms or problems. Psych: No history of psychiatric symptoms or problems. Musculoskeletal: Negative for joint pain or swelling, back pain or muscle pain. Skin: Negative for lesions, rash and itching. PAST MEDICAL HISTORY Diagnosis Date Bicuspid aortic valve Coarctation of aorta (HCC) s/p end to end anatomosis repair as 1997 Inappropriate sinus tachycardia (HCC) SVT (supraventricular tachycardia) (HCC) PAST SURGICAL HISTORY Procedure Laterality Date FOOT SURGERY HX PAST SURGICAL HISTORY OF Coartation repair as (98) TONSILLECTOMY AND ADENOIDECTOMY HX FAMILY HISTORY Problem Relation Age of Onset other (sinus pause) Mother X 13 seconds with syncope, s/p PPM No Known Problems Father No Known Problems Sister No Known Problems Sister No Known Problems Brother No Known Problems Brother Breast Cancer Maternal Grandmother 60 Ovarian cancer Maternal Aunt 48 other (Myocardial infarction) Paternal Uncle age 54 of [place] Social History Tobacco Use Smoking status: Never Smokeless tobacco: Never Vaping Use Vaping status: Never Used Substance Use Topics Alcohol use: No Drug use: No Prior to Admission medications as of 09/30/24 1258 Medication Sig Last Dose Taking ondansetron (ZOFRAN) 8 mg tablet Take 1 tablet by mouth every 8 hours as needed for nausea/vomiting. Yes labetalol (TRANDATE) 200 mg tablet Take 1 tablet by mouth two times a day. Yes famotidine (PEPCID) 20 mg tablet Take 1 tablet by mouth two times a day. Yes aspirin, enteric coated (ECOTRIN LOW STRENGTH) 81 mg EC tablet Take 1 tablet by mouth once daily. Yes vit no.124/iron/folic ( VITAMIN ORAL) Take by mouth once daily. Yes No medication comments found. ALLERGIES Allergen Reactions Codeine Other: See Comments headache, nausea Prednisone Intolerance Migraine Objective PHYSICAL EXAM: General: Pertinent negatives noted - not alert or oriented and not distressed. Skin: normal color, no rash or lesions. HEENT: EOM intact. Cardiovascular: regular rate and rhythm, normal S1 and S2, no rub, murmurs, or gallop. Pulse characterized as regular. Respiratory: normal breath sounds, no wheezes or crackles. Abdomen: soft. Pertinent negatives noted - not distended, no mass and not tender. Extremities: no deformity, no edema or tenderness, no joint swelling or clubbing. Neurological: Pertinent negatives noted - no abnormal sensation, no speech abnormality and no limb weakness. PAIN ASSESSMENT: VITALS: BP 120/70 Pulse 102 Temp (Src) 98 (Temporal) Resp 20 Ht 5' 6 (1.68m) Wt 262 lb (118.8kg) SpO2 98% LMP 02/16/2024 BMI 42.31 kg/(m^2). Diagnostic tests reviewed for today's visit: Lab Value Units Date High Low HB 11.6 g/dL 08/06/2024 15.5 11.5 HCT 36.3 % 08/06/2024 46.0 36.0 WBC 10.69 k/uL 08/06/2024 11.00 3.70 PLT 301 k/uL 08/06/2024 400 150 NA 135 mmol/L 08/06/2024 144 136 K 4.3 mmol/L 08/06/2024 5.1 3.7 GLUC 78 mg/dL 08/06/2024 99 74 BUN 7 mg/dL 08/06/2024 21 7 CREAT 0.55 mg/dL 08/06/2024 0.96 0.58 PTSEC No results within date range. INR No results within date range. APTT No results within date range. ALT 15 U/L 08/06/2024 38 7 AST 17 U/L 08/06/2024 35 13 TBILI 0.3 mg/dL 08/06/2024 1.3 0.2 TSH No results within date range. Lab Value Units Date High Low HCGQT No results within date range. UHCG No results within date range. HCG, BODY* No results within date range. Lab Value Units Date High Low ABORHD No results within date range. ABSCREEN No results within date range. Hemoglobin A1C (%) Date Value 05/03/2024 4.6 11/28/2023 4.9 10/17/2021 5.0 Recent Results (from the past 8760 hours) ECG COMPLETE Collection Time: 08/06/24 11:46 AM Result Value Ventricular Rate 87 Atrial Rate 87 P-R Interval 152 QRS Duration 92 QT Interval 384 QTC Calculation (Bazett) 462 Calculated P [place] 32 Calculated R [place] 44 Calculated T [place] 16 Impression NORMAL SINUS RHYTHM INCOMPLETE RIGHT BUNDLE BRANCH BLOCK BORDERLINE ECG Confirmed by PATIENCE GOMEZ MD ([id number]) on 09/06/2024 1:15:16 PM Recent Results (from the past 84449 hours) ECHO Collection Time: 12/10/22 8:09 AM Impression CONCLUSIONS: - Technically difficult exam due to body habitus. - Exam indication: Coarctation of the aorta - Aortic coarctation, PDA, and bicuspid aortic valve. Status-post CoA end-to-end repair + PDA ligation (FEB-1998). - The left ventricle is normal in size. Left ventricular systolic function is normal. EF = 64 5% (2D biplane) Normal left ventricular diastolic function. - The right ventricle is normal in size. Right ventricular systolic function is normal. - Bicuspid aortic valve by history. Valve morphology is difficult to appreciate today. There is no aortic valve regurgitation. There is mild aortic valve stenosis. AV area is 1.32 cm (0.57 cm /m ) by continuity, VTI. The peak gradient is 22 mmHg, the mean gradient is 12 mmHg and the dimensionless valve index is 0.44. Prior pk/mn gradients were 32/17. - Estimated right ventricular systolic pressure is likely underestimated due to a weak or incomplete tricuspid regurgitation signal and is, at least, 21 mmHg consistent with normal pulmonary artery pressures. Estimated right atrial pressure is 3 mmHg based on IVC assessment. - Descending aorta peak/mean gradients 21/8 mmHg. Abdominal aortic Doppler signal is non-obstructive. - No residual PDA by color Doppler. - Exam was compared with the prior CC echocardiographic exam performed on 10/17/21. Similar findings at rest. * * * Final * * * Instructions Given to Patient: Instructions located in the after visit summary. Patient given verbal and written preop instructions and voices comprehension and compliance. SIGNATURE: Johny Philip MD PATIENT NAME: Luzmaria Chawla DATE: September 30, 2024 TIME: 1:14 PM PAGER/CONTACT #: [facility] 09-30-2024 History and physical note Images from the original note were not included. [facility]-Anesthesia Consult[facility] HISTORY AND PHYSICAL EXAMINATION SERVICE DATE: 09/30/2024 SERVICE TIME: 1:43 PM PRIMARY CARE PHYSICIAN: Kwasi Garcia APRN.[employer] REPRESENTATIVE Assessment Patient has the following medical conditions which may affect jessica-operative course: Bicuspid aortic valve - Bicuspid Valve, moderate valve stenosis/calcification on 08/06/24 echo, no regurgitation. Peak gradient 60 mmHg, mean gradient 31 mmHg. - LVEF 57%, normal LV/RV size/fx. - Had repeat echo earlier today Coarctation of aorta - S/p Repair SVT (supraventricular tachycardia) (HCC) - Had as a , reoccurred since around 2016, was put on beta traik and well controlled since then. - Paroxysmal, induced by pain, stress. - Has had a few episodes during which self terminated. S/P repair of PDA - PDA s/p repair Preexisting hypertension complicating , antepartum (HCC) - Last 3 Encounter BP Readings: Date: BP: 09/30/2024 120/70 09/30/2024 120/70 09/29/2024 112/72 - On labetalol 200mg bid and low dose aspirin, controlled at 24 weeks. Gastroesophageal reflux disease - On Famotidine PRN during - On Ondansetron for associated nausea ANESTHESIA FINDINGS: Intubation History: No history of difficult intubation. No abnormal airway history. No prior intubation Significant Anesthesia Considerations: none Airway History: No history of difficult airway No abnormal airway history No prior intubation Edge Activity Status Index: METS: Walk indoors, such as around the house (1.75 METs) Do light work around the house, such as dusting or washing dishes (2.70 METs) Take care of self; that is eating, dressing, bathing, using the toilet (2.75 METs) Walk a block or two on level ground (2.75 METs) Do moderate work around the house, such as vacuuming, sweeping floors, or carrying in groceries (3.50 METs) Do yardwork, such as raking leaves, weeding, or pushing a power mower (4.50 METs) Climb a flight of stairs or walk up a hill (5.50 METs) Participate in moderate recreational activites, such as golf, bowling, dancing, doubles tennis, or throwing a baseball or football (6.00 METs) DASI Score: 29.45 Patient denies any chest pain or undue shortness of breath with the above physical activity. Clinical Frailty Scale: 3. Well, with treated comorbid disease STOP-Bang Score: STOP-Bang Score: 0 [id number] Score: Hypertension history: Yes [id number] Score: I - PHYSICAL EVALUATION AIRWAY Patient intubated: No. Tracheostomy tube not present Mallampati: II. TM distance: <3 FB. Neck ROM: full ROM without neurological symptoms. Mouth opening: adequate. Short neck: no. Thick neck: yes DENTAL Dental findings: teeth intact. II - ANESTHESIA PLAN Beta Tarik Monitoring Plan Post Procedure Analgesic Plan Informed Consent Anesthetic risks, benefits, alternatives, personnel and consent discussed: yes. Patient / Responsible [employer] agrees to proceed: yes Patient / Surrogate agrees to blood products: Yes Prepared for Surgery: optimally prepared for surgery, pending day of surgery. Patient is optimally prepared for surgery. She is able to have neuraxial block from an anesthesia standpoint with the understanding of some increased risk associated with her aortic stenosis. CONSULTS: Planned Anesthetic: The Following Tests/Procedures Have Been Initiated: No orders of the defined types were placed in this encounter. REASON FOR VISIT: Luzmaria Chawla is a 24 year old female who is scheduled for * No surgery found * at the request of Dr. Dr. Bossfor consultation. My final recommendation will be communicated back to the requesting physician by way of shared medical record or letter. Subjective The patient has the following: COVID-19 Immunization Status Current Care Gaps Covid-19 Vaccine ( season) Overdue since 01/18/2024 09/28/2020 Imm Admin: COVID-19 original vaccine, age 12+ yr, monovalent ([employer] [facility]) 09/07/2020 Imm Admin: COVID-19 original vaccine, age 12+ yr, monovalent ([facility] - [facility]) CHIEF COMPLAINT: Pre-op Consultation HPI: Luzmaria Chawla is a 24 year old female with PMHx bicuspid aortic valve, coarctation of the aorta s/p repair, PDA s/p repair, who presents to [facility] today for preop exam. Denies fevers, chills, chest pain, and SOB. REVIEW OF SYSTEMS: Neurological: Negative for: seizures, TIA and strokes. Respiratory: Negative for: COPD, current cough and dyspnea. Cardiovascular: Positive for: hypertension Negative for: arrhythmia, atrial fibrillation, chest pain, CHF, DVT/PE, recent [place] and PVD. GI: Negative for: abdominal pain, nausea and vomiting. : Negative for: flank pain. Hematology: No history of bleeding or clotting disorder. Patient is not taking anti-coagulation or platelet medications. No history of hematological symptoms or problems. Oncology: No history of CA metastasis, chemo within 30 days, or radiotherapy within 90 days. No history of oncological symptoms or problems. Psych: No history of psychiatric symptoms or problems. Musculoskeletal: Negative for joint pain or swelling, back pain or muscle pain. Skin: Negative for lesions, rash and itching. PAST MEDICAL HISTORY Diagnosis Date Bicuspid aortic valve Coarctation of aorta (HCC) s/p end to end anatomosis repair as 1997 Inappropriate sinus tachycardia (HCC) SVT (supraventricular tachycardia) (HCC) PAST SURGICAL HISTORY Procedure Laterality Date FOOT SURGERY HX PAST SURGICAL HISTORY OF Coartation repair as infant (98) TONSILLECTOMY AND ADENOIDECTOMY HX FAMILY HISTORY Problem Relation Age of Onset other (sinus pause) Mother X 13 seconds with syncope, s/p PPM No Known Problems Father No Known Problems Sister No Known Problems Sister No Known Problems Brother No Known Problems Brother Breast Cancer Maternal Grandmother 60 Ovarian cancer Maternal Aunt 48 other (Myocardial infarction) Paternal Uncle age 54 of [place] Social History Tobacco Use Smoking status: Never Smokeless tobacco: Never Vaping Use Vaping status: Never Used Substance Use Topics Alcohol use: No Drug use: No Prior to Admission medications as of 09/30/24 1258 Medication Sig Last Dose Taking ondansetron (ZOFRAN) 8 mg tablet Take 1 tablet by mouth every 8 hours as needed for nausea/vomiting. Yes labetalol (TRANDATE) 200 mg tablet Take 1 tablet by mouth two times a day. Yes famotidine (PEPCID) 20 mg tablet Take 1 tablet by mouth two times a day. Yes aspirin, enteric coated (ECOTRIN LOW STRENGTH) 81 mg EC tablet Take 1 tablet by mouth once daily. Yes vit no.124/iron/folic ( VITAMIN ORAL) Take by mouth once daily. Yes No medication comments found. ALLERGIES Allergen Reactions Codeine Other: See Comments headache, nausea Prednisone Intolerance Migraine Objective PHYSICAL EXAM: General: Pertinent negatives noted - not alert or oriented and not distressed. Skin: normal color, no rash or lesions. HEENT: EOM intact. Cardiovascular: regular rate and rhythm, normal S1 and S2, no rub, murmurs, or gallop. Pulse characterized as regular. Respiratory: normal breath sounds, no wheezes or crackles. Abdomen: soft. Pertinent negatives noted - not distended, no mass and not tender. Extremities: no deformity, no edema or tenderness, no joint swelling or clubbing. Neurological: Pertinent negatives noted - no abnormal sensation, no speech abnormality and no limb weakness. PAIN ASSESSMENT: VITALS: BP 120/70 Pulse 102 Temp (Src) 98 (Temporal) Resp 20 Ht 5' 6 (1.68m) Wt 262 lb (118.8kg) SpO2 98% LMP 02/16/2024 BMI 42.31 kg/(m^2). Diagnostic tests reviewed for today's visit: Lab Value Units Date High Low HB 11.6 g/dL 08/06/2024 15.5 11.5 HCT 36.3 % 08/06/2024 46.0 36.0 WBC 10.69 k/uL 08/06/2024 11.00 3.70 PLT 301 k/uL 08/06/2024 400 150 NA 135 mmol/L 08/06/2024 144 136 K 4.3 mmol/L 08/06/2024 5.1 3.7 GLUC 78 mg/dL 08/06/2024 99 74 BUN 7 mg/dL 08/06/2024 21 7 CREAT 0.55 mg/dL 08/06/2024 0.96 0.58 PTSEC No results within date range. INR No results within date range. APTT No results within date range. ALT 15 U/L 08/06/2024 38 7 AST 17 U/L 08/06/2024 35 13 TBILI 0.3 mg/dL 08/06/2024 1.3 0.2 TSH No results within date range. Lab Value Units Date High Low HCGQT No results within date range. UHCG No results within date range. HCG, BODY* No results within date range. Lab Value Units Date High Low ABORHD No results within date range. ABSCREEN No results within date range. Hemoglobin A1C (%) Date Value 05/03/2024 4.6 11/28/2023 4.9 10/17/2021 5.0 Recent Results (from the past 8760 hours) ECG COMPLETE Collection Time: 08/06/24 11:46 AM Result Value Ventricular Rate 87 Atrial Rate 87 P-R Interval 152 QRS Duration 92 QT Interval 384 QTC Calculation (Bazett) 462 Calculated P [place] 32 Calculated R [place] 44 Calculated T [place] 16 Impression NORMAL SINUS RHYTHM INCOMPLETE RIGHT BUNDLE BRANCH BLOCK BORDERLINE ECG Confirmed by PATIENCE GOMEZ MD ([id number]) on 09/06/2024 1:15:16 PM Recent Results (from the past 94376 hours) ECHO Collection Time: 12/10/22 8:09 AM Impression CONCLUSIONS: - Technically difficult exam due to body habitus. - Exam indication: Coarctation of the aorta - Aortic coarctation, PDA, and bicuspid aortic valve. Status-post CoA end-to-end repair + PDA ligation (FEB-1998). - The left ventricle is normal in size. Left ventricular systolic function is normal. EF = 64 5% (2D biplane) Normal left ventricular diastolic function. - The right ventricle is normal in size. Right ventricular systolic function is normal. - Bicuspid aortic valve by history. Valve morphology is difficult to appreciate today. There is no aortic valve regurgitation. There is mild aortic valve stenosis. AV area is 1.32 cm (0.57 cm /m ) by continuity, VTI. The peak gradient is 22 mmHg, the mean gradient is 12 mmHg and the dimensionless valve index is 0.44. Prior pk/mn gradients were 32/17. - Estimated right ventricular systolic pressure is likely underestimated due to a weak or incomplete tricuspid regurgitation signal and is, at least, 21 mmHg consistent with normal pulmonary artery pressures. Estimated right atrial pressure is 3 mmHg based on IVC assessment. - Descending aorta peak/mean gradients 21/8 mmHg. Abdominal aortic Doppler signal is non-obstructive. - No residual PDA by color Doppler. - Exam was compared with the prior echocardiographic exam performed on 10/17/21. Similar findings at rest. * * * Final * * * Instructions Given to Patient: Instructions located in the after visit summary. Patient given verbal and written preop instructions and voices comprehension and compliance. SIGNATURE: Johny Philip MD PATIENT NAME: Luzmaria Chawla DATE: September 30, 2024 TIME: 1:14 PM PAGER/CONTACT #: documented in this encounter [facility] 09-29-2024 Note Addended by: Shae MONTES DE OCA on: 09/29/2024 10:54 AM Modules accepted: Orders [facility] 09-29-2024 Instructions Alysa Montes De Oca MA - 09/29/2024 10:54 AM EDT SEQUENTIAL SCREENINGS The [facility] offers sequential screenings for women who are interested in screenings for chromosomal abnormalities and certain defects during a . The sequential screen combines ultrasound and blood tests to determine the risk of chromosomal abnormalities, including Down's Syndrome (Trisomy 21) and Trisomy 18, as well as open neural tube defects including spina bifida. Ultrasound examination is performed between 11 weeks and 13 weeks gestational age. Blood tests are drawn after the ultrasound and again later in the between 15 and 21 weeks gestational age. Please let your physician know if you are interested in this testing. It will require an appointment with our industrial manufacturing technician. This is not an ultrasound performed by a physician in our office during a routine visit. SIGNS AND SYMPTOMS OF LABOR 1. Contractions every 10 minutes or more often 2. Clear, pink, or brownish fluid (water) leaking from vagina 3. Feeling that baby is pushing down, pressure 4. Low, dull backache 5. Cramps that feel like a period 6. Cramps with or without diarrhea If you notice any of the above symptoms, contact our office at [phone] and ask to speak with a nurse. After hours, you can call [facility] at [phone] OR call [facility] at [phone] and ask to have the doctor sales and operations trainee paged. If you consider this an emergency, dial 9-1-4 or go to your nearest emergency department. NEED HELP? Are you dealing with a violent or abusive relationship? Are you a victim of rape or sexual assult? Call [facility] ([place]) 24 hour Crisis Hotline: 316.833.7177 or 685-429-8694. MANUAL Your Guide to a Healthy manual is now on-line. Visit [email or web address] to download your free copy documented in this encounter [facility] 09-29-2024 Miscellaneous Notes Addended by: ALYSA MONTES DE OCA on: 09/29/2024 10:54 AM Modules accepted: Orders RR- VB No. LOF No. CTXS No. Movement: present. Other c/o: denies VARMA or visual changes, ocass LE edema Medication list reviewed. SENSITIVE EXAM: Sensitive exam not performed. Physical Exam See Flow Sheet Abd: soft, nontender, gravid Ext: edema: 1+, symetrical: Yes A/P 32w2d Estimated Date of Delivery: 11/22/24 Assessment & Plan Supervision of high risk in third trimester (HCC) Obesity in (HCC) cont. 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 32 weeks gestation of (HCC) Pre-existing hypertension complicating in second trimester (HCC) cont. asa prophylaxis and labetalol 200 nmg bid. Cont. antepartum surveillance kick counts growth scan tomorrow NST reactive urine dip reviewed Nelsy Agarwal M.D. Medical Decision Making: Problems: Moderate: 2+ stable chronic illnesses Data: Unique test result(s) reviewed: 2 Unique test(s) ordered: 2 Risk: Moderate: Moderate risk from testing/treatment Medical Decision Making Level: 4 - Moderate documented in this encounter [facility] 09-29-2024 Note [facility] 09-29-2024 History of Present illness Narrative NST SUMMARY PROVIDER ASSESSMENT AND INTERPRETATION Luzmaria Chawla is a 24 year old female, , who is at 32w2d with an VIJAY of 11/22/2024, by Last Menstrual Period dating method. Indications for NST: Other: chronic HTN and obesity Baseline: 140 Variability: Moderate Accelerations: Present 15 X 15 Decelerations: None Contractions: TOCO: None Interpretation: Reactive SIGNATURE: Nelsy Agarwal MD documented in this encounter [facility] 09-29-2024 Progress note Formatting of t his note might be different from the original. RR- VB No. LOF No. CTXS No. Movement: present. Other c/o: denies VARMA or visual changes, ocass LE edema Medication list reviewed. SENSITIVE EXAM: Sensitive exam not performed. Physical Exam See Flow Sheet Abd: soft, nontender, gravid Ext: edema: 1+, symetrical: Yes A/P 32w2d Estimated Date of Delivery: 11/22/24 Assessment & Plan Supervision of high risk in third trimester (HCC) Obesity in (HCC) cont. 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 32 weeks gestation of (HCC) Pre-existing hypertension complicating in second trimester (HCC) cont. asa prophylaxis and labetalol 200 nmg bid. Cont. antepartum surveillance kick counts growth scan tomorrow NST reactive urine dip reviewed Nelsy Agarwal M.D. 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, antepartum ([facility]) Delivery at [facility] 09-15-2024 Evaluation + Plan note Associated Problem(s): Pre-existing hypertension complicating in second trimester ([facility]) Continue PO labetalol 200mg BID Monitor BPs at home NSTs starting 32 weeks [facility] 09-15-2024 Miscellaneous Notes Associated Problem(s): 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 Denies vaginal Bleeding, Leaking fluid, or regular Contractions. Pt reports good movement Physical Exam: Gen: female in no apparent distress Abd: soft, Gravid. Non tender to palpation. See flow sheet @ 30.2 Assessment & Plan Supervision of high risk in third trimester ([facility]) Obesity in ([facility]) Continue ASA Nausea and vomiting in ([facility]) Orders: ondansetron (ZOFRAN) 8 mg tablet; Take 1 tablet by mouth every 8 hours as needed for nausea/vomiting. 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 DM-Pt doing well. Denies vaginal Bleeding, Leaking fluid, or regular Contractions. Pt reports good movement Physical Exam: Gen: female in no apparent distress Abd: soft, Gravid. Non tender to palpation. See flow sheet @ 30.2 Assessment & Plan Supervision of high risk in third trimester ([facility]) Obesity in ([facility]) Continue ASA Nausea and vomiting in ([facility]) Orders: ondansetron (ZOFRAN) 8 mg tablet; Take 1 tablet by mouth every 8 hours as needed for nausea/vomiting. 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, antepartum ([facility]) Delivery at [facility] Pre-existing hypertension complicating in second trimester ([facility]) Continue PO labetalol 200mg BID Monitor BPs at home NSTs starting 32 weeks 30 weeks gestation of ([facility]) Camilo arredondo reviewed RTO 2 weeks [place] Woodard MD [facility] 09-15-2024 Instructions Marcy Bishop MA - 09/15/2024 10:24 AM EDT SEQUENTIAL SCREENINGS The [facility] offers sequential screenings for women who are interested in screenings for chromosomal abnormalities and certain defects during a . The sequential screen combines ultrasound and blood tests to determine the risk of chromosomal abnormalities, including Down's Syndrome (Trisomy 21) and Trisomy 18, as well as open neural tube defects including spina bifida. Ultrasound examination is performed between 11 weeks and 13 weeks gestational age. Blood tests are drawn after the ultrasound and again later in the between 15 and 21 weeks gestational age. Please let your physician know if you are interested in this testing. It will require an appointment with our industrial manufacturing technician. This is not an ultrasound performed by a physician in our office during a routine visit. SIGNS AND SYMPTOMS OF LABOR 1. Contractions every 10 minutes or more often 2. Clear, pink, or brownish fluid (water) leaking from vagina 3. Feeling that baby is pushing down, pressure 4. Low, dull backache 5. Cramps that feel like a period 6. Cramps with or without diarrhea If you notice any of the above symptoms, contact our office at [phone] and ask to speak with a nurse. After hours, you can call doctors registry at [phone] OR call [facility] at [phone] and ask to have the doctor sales and operations trainee paged. If you consider this an emergency, dial 4--7 or go to your nearest emergency department. NEED HELP? Are you dealing with a violent or abusive relationship? Are you a victim of rape or sexual assult? Call [facility] ([place]) 24 hour Crisis Hotline: 290.461.4624 or 976-970-3979. MANUAL Your Guide to a Healthy manual is now on-line. Visit [email or web address] to download your free copy documented in this encounter [facility] 09-01-2024 Note [facility] 09-01-2024 History of Present illness Narrative Patient identified by name and date of . Luzmaria Chawla presents today for a vaccination of Tdap. Patient denies an allergy to latex: yes Patient denies a severe (life-threatening) allergy to a previous dose of Tdap, DTP, DTaP, DT or Td vaccine. Yes Patient denies history of epilepsy or neurological problems: Yes Patient is afebrile and denies being moderately or severely ill: Yes Patient denies history of Guillain-Lakeland Syndrome (a severe paralytic illness): Yes Tdap Adacel injection was given without incident. See immunizations for details of immunizations administered today. VIS sheet provided: Yes Provider Familia was present in office at time of injection. Marcy Bishop MA documented in this encounter [facility] 09-01-2024 Progress note Formatting of t his note might be different from the original. DM-Pt doing well. Denies vaginal Bleeding, Leaking fluid, or regular Contractions. Pt reports good movement. Reports BPs at home 110-130s/60s-80. Has some bleeding hemorrhoids. Physical Exam: Gen: female in no apparent distress Abd: soft, Gravid. Non tender to palpation. See flow sheet @ 28.2 weeks Assessment & Plan Supervision of high risk in third trimester ([facility]) Orders: TDAP VACCINE, AGE 7+ YR (ADACEL, BOOSTRIX) Obesity in ([facility]) Orders: NON-STRESS TEST; Standing Starting 32 weeks Adult congenital heart disease ([facility]) Echo done 07/2024 Continue ASA Weekly NSTS 32 weeks and continue growth us 28 weeks q4 weeks (was not scheduled will start at 32 weeks) Continue labetalol 200mg bid Monitor BPs at home Awaiting delivery plan- contra [facility]? 28 weeks gestation of ([facility]) 28 week Labs today Orders: TDAP VACCINE, AGE 7+ YR (ADACEL, BOOSTRIX) Marion Woodard MD [facility] 09-01-2024 Miscellaneous Notes DM-Pt doing well. Denies vaginal Bleeding, Leaking fluid, or regular Contractions. Pt reports good movement. Reports BPs at home 110-130s/60s-80. Has some bleeding hemorrhoids. Physical Exam: Gen: female in no apparent distress Abd: soft, Gravid. Non tender to palpation. See flow sheet @ 28.2 weeks Assessment & Plan Supervision of high risk in third trimester ([facility]) Orders: TDAP VACCINE, AGE 7+ YR (ADACEL, BOOSTRIX) Obesity in ([facility]) Orders: NON-STRESS TEST; Standing Starting 32 weeks Adult congenital heart disease ([facility]) Echo done 07/2024 Continue ASA Weekly NSTS 32 weeks and continue growth us 28 weeks q4 weeks (was not scheduled will start at 32 weeks) Continue labetalol 200mg bid Monitor BPs at home Awaiting delivery plan- contra [facility]? 28 weeks gestation of ([facility]) 28 week Labs today Orders: TDAP VACCINE, AGE 7+ YR (ADACEL, BOOSTRIX) Marion Woodard MD documented in this encounter [facility] 09-01-2024 Instructions Marcy Bishop MA - 09/01/2024 8:57 AM EDT SEQUENTIAL SCREENINGS The [facility] offers sequential screenings for women who are interested in screenings for chromosomal abnormalities and certain defects during a . The sequential screen combines ultrasound and blood tests to determine the risk of chromosomal abnormalities, including Down's Syndrome (Trisomy 21) and Trisomy 18, as well as open neural tube defects including spina bifida. Ultrasound examination is performed between 11 weeks and 13 weeks gestational age. Blood tests are drawn after the ultrasound and again later in the between 15 and 21 weeks gestational age. Please let your physician know if you are interested in this testing. It will require an appointment with our industrial manufacturing technician. This is not an ultrasound performed by a physician in our office during a routine visit. SIGNS AND SYMPTOMS OF LABOR 1. Contractions every 10 minutes or more often 2. Clear, pink, or brownish fluid (water) leaking from vagina 3. Feeling that baby is pushing down, pressure 4. Low, dull backache 5. Cramps that feel like a period 6. Cramps with or without diarrhea If you notice any of the above symptoms, contact our office at [phone] and ask to speak with a nurse. After hours, you can call doctors registry at [phone] OR call [facility] at [phone] and ask to have the doctor sales and operations trainee paged. If you consider this an emergency, dial or go to your nearest emergency department. NEED HELP? Are you dealing with a violent or abusive relationship? Are you a victim of rape or sexual assult? Call [facility] ([place]) 24 hour Crisis Hotline: 118.642.5351 or 742-714-5143. MANUAL Your Guide to a Healthy manual is now on-line. Visit [email or web address] to download your free copy documented in this encounter [facility] 08-19-2024 Telephone encounter Note 26w3d Patient called needing more Zofran Requested Prescriptions Pending Prescriptions Disp Refills ondansetron (ZOFRAN) 8 mg tablet 30 tablet 1 Sig: Take 1 tablet by mouth every 8 hours as needed for nausea/vomiting. Recent Office Visits - This Specialty 12/29/2023 Class 2 obesity with body mass index (BMI) of 39.0 to 39.9 in adult, unspecified obesity type, unspecified whether serious comorbidity present OB/Gynecology Kendra Torres MD 11/28/2023 Encounter for gynecological examination with abnormal finding OB/Gynecology Dionne Carrillo APRN.LYNDA 10/01/2022 Encounter for gynecological examination (general) (routine) without abnormal findings OB/Gynecology Dionne Carrillo APRN.LYNDA Next visit in this department: 09/01/2024 Carolyn Clarke RN [facility] 08-19-2024 Miscellaneous Notes 26w3d Patient called needing more Zofran Requested Prescriptions Pending Prescriptions Disp Refills ondansetron (ZOFRAN) 8 mg tablet 30 tablet 1 Sig: Take 1 tablet by mouth every 8 hours as needed for nausea/vomiting. Recent Office Visits - This Specialty 12/29/2023 Class 2 obesity with body mass index (BMI) of 39.0 to 39.9 in adult, unspecified obesity type, unspecified whether serious comorbidity present OB/Gynecology Kendra Torres MD 11/28/2023 Encounter for gynecological examination with abnormal finding OB/Gynecology Dionne Carrillo APRN.LYNAD 10/01/2022 Encounter for gynecological examination (general) (routine) without abnormal findings OB/Gynecology Dionne Carrillo APRN.CNP Next visit in this department: 09/01/2024 Carolyn Clarke RN documented in this encounter [facility] 08-06-2024 History of Present illness Narrative Images from the original note were not included. [facility] [place] [facility] OUTPATIENT VISIT DATE August 06, 2024 OUTPATIENT VISIT TYPE EST PRIMARY CARE PHYSICIAN: CINDY Reynaga [address] [place] [address] REFERRING PHYSICIAN: SELF CHIEF COMPLAINT: Coarctation, BAV CONGENITAL CARDIAC HISTORY: Ms. Dutta (pronounced JuanitaArnaud Chawla is a rufus 24 yo F with: Coarctation of the aorta, PDA, and bicuspid aortic valve s/p end-to-end anastomosis and PDA ligation as a in , and residual moderate Surgery 02/1998: median sternotomy and end-to-end anastomosis and PDA doubly ligated and divided by Dr. Montanez in [place], [place] Bicuspid aortic valve with LCC and RCC fusion, no significant AR, moderate with peak velocity 3.2 m/s, PG/MG 41/22 mmHg, DI 0.34, MIKE 1.28 cm2. 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 Follows with EP 24w4d INTERVAL HISTORY: Ms. Luzmaria Chawla (previously Litwiller) presents for a visit with her . Patient states she overall feels well during . She stays active with house work as well as regular bike rides. 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 Denies chest pain, shortness of breath, PND, orthopnea, palpitations, edema, light headedness and syncope. PAST MEDICAL HISTORY Diagnosis Date Bicuspid aortic valve Coarctation of aorta s/p end to end anatomosis repair as 1997 Inappropriate sinus tachycardia (HCC) SVT (supraventricular tachycardia) (HCC) PAST SURGICAL HISTORY Procedure Laterality Date FOOT SURGERY HX PAST SURGICAL HISTORY OF Coartation repair as infant (98) TONSILLECTOMY AND ADENOIDECTOMY HX Social History Tobacco Use Smoking status: Never Smokeless tobacco: Never Vaping Use Vaping status: Never Used Substance Use Topics Alcohol use: No Drug use: No FAMILY HISTORY Problem Relation Age of Onset other (sinus pause) Mother X 13 seconds with syncope, s/p PPM No Known Problems Father No Known Problems Sister No Known Problems Sister No Known Problems Brother No Known Problems Brother Breast Cancer Maternal Grandmother 60 Ovarian cancer Maternal Aunt 48 other (Myocardial infarction) Paternal Uncle age 54 of [place] ALLERGIES Allergen Reactions Codeine Other: See Comments headache, nausea Prednisone Intolerance Migraine MEDICATIONS: ondansetron HCl (ZOFRAN ORAL) Take by mouth as needed. famotidine (PEPCID) 20 mg tablet Take 1 tablet by mouth two times a day. aspirin, enteric coated (ECOTRIN LOW STRENGTH) 81 mg EC tablet Take 1 tablet by mouth once daily. vit no.124/iron/folic ( VITAMIN ORAL) Take by mouth once daily. ondansetron (ZOFRAN) 8 mg tablet Take 1 tablet by mouth every 8 hours as needed for nausea/vomiting. labetalol (TRANDATE) 100 mg tablet Take 2 tablets by mouth two times a day. Taking 4 tablets a day REVIEW OF SYSTEMS: 10 systems reviewed and negative unless included in the HPI above PHYSICAL EXAMINATION: BP 125/79 (BP Site: Left Arm) Pulse 105 Wt 113.4 kg (250 lb) LMP 02/16/2024 SpO2 97% BMI 40.35 kg/m General: Well appearing, in no acute distress. Skin: No clubbing, no cyanosis. Eyes: Extra ocular movements intact Oropharynx: Teeth in good repair. Neck: No jugular venous distention, no carotid bruits, carotids have a normal upstroke, no palpable thyromegaly. Lungs: Clear to auscultation bilaterally, no wheezing or rhonchi. Heart: Regular rhythm, PMI not displaced, S1, S2 normal, no murmurs. Abdomen: Soft, nontender, bowel sounds normal, no palpable organomegaly, no bruits. Extremities: No peripheral edema . Grade 2/4 distal pulses bilaterally. Neuro: Oriented to person, place and time, alert, cooperative, gait coordinated. CARDIOVASCULAR MEDICINE TESTING: TTE 08/06/24: - Aortic coarctation, PDA, and bicuspid aortic valve. Status-post CoA end-to-end repair + PDA ligation (FEB-1998). - The left ventricle is normal in size. Left ventricular systolic function is normal. EF = 57 5% (2D biplane) - The right ventricle is normal in size. Right ventricular systolic function is normal. - Bicuspid aortic valve. right and left cusp fusion. There is no aortic valve regurgitation. There is moderately elevated gradients across the aortic valve in the setting of (24 weeks). AV area is 1.15 cm (0.52 cm /m ) by continuity, VTI. The peak gradient is 60 mmHg, the mean gradient is 31 mmHg and the dimensionless valve index is 0.37. Prior AV peak and mean gradient of 22/12 mmHg. AV morphology difficult to visualize on today's exam, history of BAV. - Exam performed at 24 weeks and 4 days gestation. - There is no residual PDA flow. - Ao CoA: peak and mean gradients today of 28/11 mmHg, prior peak and mean gradients of 21/8 mmHg. Non-obstructive abdominal aorta flow. - Exam was compared with the prior CC echocardiographic exam performed on 12/10/2022. Increase in aortic valve gradients during . TTE 12/10/2022: - Aortic coarctation, PDA, and bicuspid aortic valve. Status-post CoA end-to-end repair + PDA ligation (FEB-1998). - The left ventricle is normal in size. Left ventricular systolic function is normal. EF = 64 5% (2D biplane) Normal left ventricular diastolic function. - The right ventricle is normal in size. Right ventricular systolic function is normal. - Bicuspid aortic valve by history. Valve morphology is difficult to appreciate today. There is no aortic valve regurgitation. There is mild aortic valve stenosis. AV area is 1.32 cm (0.57 cm /m ) by continuity, VTI. The peak gradient is 22 mmHg, the mean gradient is 12 mmHg and the dimensionless valve index is 0.44. Prior pk/mn gradients were 32/17. - Estimated right ventricular systolic pressure is likely underestimated due to a weak or incomplete tricuspid regurgitation signal and is, at least, 21 mmHg consistent with normal pulmonary artery pressures. Estimated right atrial pressure is 3 mmHg based on IVC assessment. - Descending aorta peak/mean gradients 21/8 mmHg. Abdominal aortic Doppler signal is non-obstructive. - No residual PDA by color Doppler. - Exam was compared with the prior echocardiographic exam performed on 10/17/21. Similar findings at rest. CMRI 10/17/2021: IMPRESSION: 1. S/P aortic coarctation surgical repair with end-to-end anastomosis with stable dimensions (1.5-1.6 cm in the arch to descending aorta). The remaining thoracic aorta is normal in course, caliber, and contour. There is no acute aortic pathology 2. Bicuspid aortic valve with fusion of the left/right cusps, mild leaflet thickening, restriction and flow acceleration across the valve, at least mild stenosis by peak velocity (2.8 m/s at VENC 3.0 m/s), and trivial aortic regurgitation. Correlate with echo findings. 3. Normal left ventricle size (LVEDVi 80 mL/m2) and systolic function (LVEF 60%). There are no segmental wall motion abnormalities. 4. Normal right ventricle size (RVEDVi 76 mL/m2) and systolic function (RVEF 61%). Stress Echo MEtabolic 10/17/2021: Metabolic Exercise Test Interpretation: - EXERCISE PERFORMANCE: Indeterminate (treadmill study) exercise power. Maximal aerobic effort. Normal aerobic capacity. Indeterminate aerobic efficiency (treadmill exercise). - CARDIOVASCULAR RESPONSE: Normal stroke volume response. Normal heart rate response. Normal chronotropic index. Normal BP response. Arrhythmias: No arrhythmias . ST segment and T-wave changes: No ST changes. - PULMONARY RESPONSE: There was no clinically significant oxygen desaturation during exercise. Normal ventilatory reserve. Normal ventilatory efficiency. No exercise oscillatory ventilation. - QUALITATIVE COMMENTS: Exercise capacity is normal compared to a sedentary female of this age and height. The pattern of cardio-respiratory responses to exercise is normal. Stress Observations: Metabolic stress lab #: 1 Study protocol type: Nabil 10% Final treadmill speed: 3.00 mph Final treadmill grade: 13.0% Total exercise duration: 7 min 25 sec [8-12 min] Peak RPE: 17.0 [>18; based on 6-20 scale] Reason for test termination: shortness of breath Symptoms during test: No symptoms provoked during stress Resting HR: 54 bpm Peak HR: 176 bpm (90% MPHR) Resting BP: 110 / 90 mmHg Peak BP: 140 / 82 mmHg Chronotropic response index (CRI): 0.86 Heart rate recovery (HRR): 44 bpm Rate Pressure Product (RPP): 98927 Metabolic Exercise Data Variable: Observed value [Expected Range] Peak RER: 1.16 [1.1 - 1.50] Peak VO2: 90.4% [>85% pred peak VO2] Peak VO2: 20.6 ml/kg/min METS (VO2/3.5): 5.89 Rest VO2: 2.7 ml/kg/min [2-5 ml/kg/min] VO2 at VAT: 60.8% [40-75% pred peak VO2] VO2 at VAT: 15.1 ml/kg/min CI: 0.95 [0.80-1.30] Peak VO2/HR: 101.0% [>85% pred peak VO2/HR] Peak SpO2: 98.0% [>95%] Peak VE: 58.0% [<85% pred peak VE] Peak VE: 72.2 L/min Peak RR: 42 breaths/min [<60 breaths/min] Peak VT: 1.7 L [1.5-3.0 L] Peak PETCO2: 39 mmHg [35-41 mmHg] VE/VCO2 slope: 27 [<30] EOV: None [None] ECG 06/27/2020 TTE 06/27/2020 - Exam indication: CHD- BAV and coarctation repair - Aortic coarctation status-post end-to-end anastomosis + PDA ligation (1997, elsewhere). - The left ventricle is normal in size. Left ventricular systolic function is normal. EF = 63 5% (2D biplane) Normal left ventricular diastolic function. - The right ventricle is normal in size. Right ventricular systolic function is normal. - Bicuspid aortic valve by history, leaflet morphology not well seen on today's study. There is trace aortic valve regurgitation. There is moderate aortic valve stenosis. AV area is 1.28 cm (0.63 cm /m ) by continuity, VTI. The peak gradient is 41 mmHg, the mean gradient is 22 mmHg and the dimensionless valve index is 0.34. Prior PK/MN gradients of 36/19mmHg. - Estimated right ventricular systolic pressure is 24 mmHg consistent with normal pulmonary artery pressures. Estimated right atrial pressure is 3 mmHg based on IVC assessment. - Descending thoracic aorta peak velocity 1.9 m/s. Abdominal aortic flow pattern with persistent forward flow in diastole but brisk upstroke in systole - likely no significant residual coarctation, but clinical correlation suggested. - No PFO seen by color Doppler. - Exam was compared with the prior CC echocardiographic exam performed on 06/30/2018. There is no significant change. cMRI 06/30/2018 IMPRESSION: 1. The thoracic aorta and visualized abdominal aorta are normal in course, caliber, and contour. The descending thoracic aorta is status post repair of coarctation with no residual coarctation or flow acceleration. There is no acute aortic pathology. 2. Bicuspid aortic valve with fused left and right coronary cusps without significant stenosis. There is no aortic regurgitation. 3. The left ventricle appears normal in size, shape, and function. There are no segmental wall motion abnormalities. TTE 06/30/2018 CONCLUSIONS: - Exam indication: CHD-BAV and h/o coactation repair - The left ventricle is normal in size. Left ventricular systolic function is normal. EF = 62 5% (2D biplane) - The right ventricle is normal in size. Right ventricular systolic function is normal. - Bicuspid aortic valve. There is no aortic valve regurgitation. There is mild aortic valve stenosis. The peak gradient is 36 mmHg, the mean gradient is 19 mmHg and the dimensionless valve index is 0.29. Previous gradients 48/25 mmHg. + saline study from previous echo. - Exam was compared with the prior echocardiographic exam performed on 04/08/2018 There is no significant change. [facility] 06/30/2018 - 07/14/2018 I have personally reviewed the Electrocardiogram, Laboratory Testing, Echocardiogram and Cardiac MRI. LABS: Hemoglobin (g/dL) Date Value 08/06/2024 11.6 06/27/2020 13.4 Hematocrit (%) Date Value 08/06/2024 36.3 06/27/2020 41.3 WBC (k/uL) Date Value 08/06/2024 10.69 06/27/2020 10.27 Platelet Count (k/uL) Date Value 08/06/2024 301 06/27/2020 327 CMP: Glucose 78 08/06/2024 BUN 7 08/06/2024 Creatinine 0.55 08/06/2024 Sodium 135 08/06/2024 Potassium 4.3 08/06/2024 Chloride 102 08/06/2024 CO2 22 08/06/2024 Protein, Total 6.8 08/06/2024 Albumin 3.6 08/06/2024 Calcium 9.7 08/06/2024 Alkaline Phosphatase 67 08/06/2024 Bilirubin, Total 0.3 08/06/2024 AST 17 08/06/2024 ALT 15 08/06/2024 NT Pro BNP Date Value Ref Range Status 08/06/2024 <36 <125 pg/mL Final Cholesterol, Total (mg/dL) Date Value 08/06/2024 245 12/10/2022 212 06/27/2020 169 05/01/2017 184 HDL Cholesterol (mg/dL) Date Value 08/06/2024 79 12/10/2022 45 06/27/2020 43 05/01/2017 59 LDL Cholesterol (mg/dL) Date Value 08/06/2024 133 12/10/2022 145 06/27/2020 111 05/01/2017 113 Triglyceride (mg/dL) Date Value 08/06/2024 167 12/10/2022 111 06/27/2020 77 05/01/2017 58 ASSESSMENT: Ms. Dutta (pronounced TAYLER-Reva) Jaya is a rufus 22 yo F with: Ms. Dutta (pronounced TAYLER-Reva) Jaya is a rufus 24 yo F with: Coarctation of the aorta, PDA, and bicuspid aortic valve s/p end-to-end anastomosis and PDA ligation as a in , and residual moderate Surgery 02/1998: median sternotomy and end-to-end anastomosis and PDA doubly ligated and divided by Dr. Montanez in [place], [place] Bicuspid aortic valve with LCC and RCC fusion, no significant AR, moderate with peak velocity 3.2 m/s, PG/MG 41/22 mmHg, DI 0.34, MIKE 1.28 cm2. 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 Follows with EP 24w4d PLAN: Luzmaria is subjectively doing quite well and asymptomatic in her , we reviewed her echo results, with expected increase in her BAV gradients during in the moderate range. Check home BP, goal <130/80, update us if elevated, would then consider adding BB Continue ASA Genetics referral placed Follow up in 3rd trimester with repeat echo and to formulate her delivery plan, likely delivery [facility] I spent a total of 55 minutes on the date of the service which included preparing to see the patient, [id number] patient care, completing clinical documentation, obtaining and/or reviewing separately obtained history, performing a medically appropriate examination, counseling and educating the patient/family/caregiver, ordering medications, tests, or procedures, communicating with other HCPs (not separately reported), independently interpreting results (not separately reported), communicating results to the patient/family/caregiver and care coordination (not separately reported). Bhavesh Alas MD, MSc ACHD/Interventional Cardiology Heart and Vascular [facility] Desk [id number] Pager# [phone] Appointments: [phone] documented in this encounter [facility] 08-06-2024 Note [facility] 08-06-2024 Note [facility] 08-06-2024 History of Present illness Narrative Images from the original note were not included. Heart ,Thoracic and [facility] Adult Congenital Cardiology Section of Maternal Medicine [facility] 08/06/2024 OUTPATIENT VISIT TYPE Established Patient OB: Dr. Lugo and Dr. Dane Barbosa HISTORY OF PRESENT ILLNESS: Luzmaria is a 24 year old at 24w4d here with her for combined cardio obstetrics visit with Dr. Alas from [facility] and myself due the following: Coarctation of the aorta, PDA, and bicuspid aortic valve s/p end-to-end anastomosis and PDA ligation as a in , and residual moderate Surgery 02/1998: median sternotomy and end-to-end anastomosis and PDA doubly ligated and divided by Dr. Montanez in [place], [place] Bicuspid aortic valve with LCC and RCC fusion, no significant AR, moderate with peak velocity 3.2 m/s, PG/MG 41/22 mmHg, DI 0.34, MIKE 1.28 cm2. Brain MRI without silvestre aneurysms Aortopathy without significant dilation, and no e/o significant re-coarctation CMRI with normal aortic dimensions and no significant recoarctation in 12/26/22 Normal LV size and function Blood pressure Inappropriate sinus tachycardia- on labetalol (previously on nadolol). Follows wit Dr. Pedro. Hypertension, improved blood pressures on labetalol Pre BMI 37.9 PAST MEDICAL HISTORY Diagnosis Date Bicuspid aortic valve Coarctation of aorta s/p end to end anatomosis repair as 1997 Inappropriate sinus tachycardia (HCC) SVT (supraventricular tachycardia) (HCC) PAST SURGICAL HISTORY Procedure Laterality Date FOOT SURGERY HX PAST SURGICAL HISTORY OF Coartation repair as infant (98) TONSILLECTOMY AND ADENOIDECTOMY HX SOCIAL HISTORY Social History Tobacco Use Smoking status: Never Smokeless tobacco: Never Vaping Use Vaping status: Never Used Substance Use Topics Alcohol use: No Drug use: No FAMILY HISTORY Problem Relation Age of Onset other (sinus pause) Mother X 13 seconds with syncope, s/p PPM No Known Problems Father No Known Problems Sister No Known Problems Sister No Known Problems Brother No Known Problems Brother Breast Cancer Maternal Grandmother 60 Ovarian cancer Maternal Aunt 48 other (Myocardial infarction) Paternal Uncle age 54 of [place] ALLERGIES: ALLERGIES Allergen Reactions Codeine Other: See Comments headache, nausea Prednisone Intolerance Migraine PHYSICAL EXAMINATION: LMP 02/16/2024 Last 2 Encounter Wt Readings: Date: Wt: 08/03/2024 114.3 kg (252 lb) 07/06/2024 110.9 kg (244 lb 6.4 oz) Last 3 BP Last 3 Encounter BP Readings: Date: BP: 08/03/2024 118/60 07/06/2024 120/72 06/08/2024 115/75 PHYSICAL EXAM: General-alert and oriented, no acute distress Skin-no jaundice, well perfused Resp-normal respirator effort Mood-appropriate affect LV Ejection Fraction (%) Date Value 12/10/2022 64 Sodium (mmol/L) Date Value 05/03/2024 136 12/10/2022 139 10/17/2021 140 06/27/2020 138 06/29/2018 140 04/08/2018 138 Potassium (mmol/L) Date Value 05/03/2024 4.1 12/10/2022 4.4 10/17/2021 4.1 06/27/2020 4.2 06/29/2018 4.1 04/08/2018 4.0 Chloride (mmol/L) Date Value 05/03/2024 105 12/10/2022 103 10/17/2021 105 06/27/2020 103 06/29/2018 104 04/08/2018 103 CO2 (mmol/L) Date Value 05/03/2024 22 12/10/2022 25 10/17/2021 24 06/27/2020 27 06/29/2018 23 04/08/2018 25 BUN (mg/dL) Date Value 05/03/2024 4 12/10/2022 10 10/17/2021 8 06/27/2020 9 06/29/2018 8 04/08/2018 10 Creatinine (mg/dL) Date Value 05/03/2024 0.56 12/10/2022 0.66 10/17/2021 0.66 06/27/2020 0.65 06/29/2018 0.63 04/08/2018 0.69 Calcium (mg/dL) Date Value 06/27/2020 9.7 06/29/2018 9.5 04/08/2018 9.7 Calcium, Total (mg/dL) Date Value 05/03/2024 9.7 12/10/2022 10.0 10/17/2021 10.1 Magnesium (mg/dL) Date Value 06/29/2018 1.9 Glucose (mg/dL) Date Value 05/03/2024 71 12/10/2022 81 10/17/2021 84 06/27/2020 88 06/29/2018 89 04/08/2018 74 NT Pro BNP (pg/mL) Date Value 05/03/2024 67 06/27/2020 <50 07/21/24 echo Technically difficult study secondary to poor acoustic windows and activity. 1. Normal echocardiogram with no cardiac anomalies detected. 2. Segmental anatomy and situs are normal. 3. Widely patent foramen ovale with normal intrauterine right to left flow. 4. No obvious VSD. 5. No valvar abnormalities seen. 6. Normal left ventricular size and wall thickness with normal systolic function. 7. Qualitatively normal right ventricular size and wall thickness with normal systolic function. 8. Aortic arch is left-sided and appears widely patent. 9. Ductal arch is widely patent with normal intrauterine right to left flow. 10. No pericardial effusion. 11. Normal heart rate and rhythm. 12. Three-vessel umbilical cord is present. 13. Umbilical artery and vein flow Dopplers are normal. 14. No prior studies or reports. 12/26/22 Coarctation of aorta. S/p repair with end-to-end anastomosis, as well as PDA ligation. 1.The thoracic aorta is stable in course, caliber, contour. No definitive evidence of recoarctation, intact repair with no anastomotic complications, no pseudoaneurysm. No significant intrathoracic collaterals identified. 2. Bicuspid aortic valve with fusion of the left and right cusps (tri-sinuate root, symmetric commissures) with mild leaflet thickening and mild stable flow acceleration across the valve (V-max 2.7 m/s, may be underestimated on CMR). No significant aortic regurgitation. 3. Normal left ventricle size (LVEDVi 69 mL/m2) and systolic function (LVEF 62 %). There are no segmental wall motion abnormalities. 4. Normal right ventricle size (RVEDVi 81 mL/m2) and systolic function (RVEF 51%). - Exam was compared with the prior cardiac MR exam performed on 10/17/2021, no significant change. Last ECHO Result Conclusion ECHO Collected: 12/10/2022 8:09 AM (Final result) Impression: CONCLUSIONS: - Technically difficult exam due to body habitus. - Exam indication: Coarctation of the aorta - Aortic coarctation, PDA, and bicuspid aortic valve. Status-post CoA end-to-end repair + PDA ligation (FEB-1998). - The left ventricle is normal in size. Left ventricular systolic function is normal. EF = 64 5% (2D biplane) Normal left ventricular diastolic function. - The right ventricle is normal in size. Right ventricular systolic function is normal. - Bicuspid aortic valve by history. Valve morphology is difficult to appreciate today. There is no aortic valve regurgitation. There is mild aortic valve stenosis. AV area is 1.32 cm (0.57 cm /m ) by continuity, VTI. The peak gradient is 22 mmHg, the mean gradient is 12 mmHg and the dimensionless valve index is 0.44. Prior pk/mn gradients were 32/17. - Estimated right ventricular systolic pressure is likely underestimated due to a weak or incomplete tricuspid regurgitation signal and is, at least, 21 mmHg consistent with normal pulmonary artery pressures. Estimated right atrial pressure is 3 mmHg based on IVC assessment. - Descending aorta peak/mean gradients 21/8 mmHg. Abdominal aortic Doppler signal is non-obstructive. - No residual PDA by color Doppler. - Exam was compared with the prior CC echocardiographic exam performed on 10/17/21. Similar findings at rest. * * * Final * * * Last EKG Result Conclusion ECG COMPLETE Collected: 06/08/2024 12:15 PM (Final result) Impression: NORMAL SINUS RHYTHM WITH SINUS ARRHYTHMIA INCOMPLETE RIGHT BUNDLE BRANCH BLOCK BORDERLINE ECG Confirmed by DENIA OG MD ([id number]) on 06/25/2024 9:09:02 AM 08/06/24 echo 08/06/24 echo - Technically difficult exam due to body habitus. - Exam indication: BAV, Ao CoA repair, PDA repair - Aortic coarctation, PDA, and bicuspid aortic valve. Status-post CoA end-to-end repair + PDA ligation (FEB-1998). - The left ventricle is normal in size. Left ventricular systolic function is normal. EF = 57 5% (2D biplane) - The right ventricle is normal in size. Right ventricular systolic function is normal. - Bicuspid aortic valve. right and left cusp fusion. There is no aortic valve regurgitation. There is moderately elevated gradients across the aortic valve in the setting of (24 weeks). AV area is 1.15 cm (0.52 cm /m ) by continuity, VTI. The peak gradient is 60 mmHg, the mean gradient is 31 mmHg and the dimensionless valve index is 0.37. Prior AV peak and mean gradient of 22/12 mmHg. AV morphology difficult to visualize on today's exam, history of BAV. - Exam performed at 24 weeks and 4 days gestation. - There is no residual PDA flow. - Ao CoA: peak and mean gradients today of 28/11 mmHg, prior peak and mean gradients of 21/8 mmHg. Non-obstructive abdominal aorta flow. - Exam was compared with the prior echocardiographic exam performed on 12/10/2022. Increase in aortic valve gradients during . Latest Ref Rng 08/06/2024 WBC 3.70 - 11.00 k/uL 10.69 RBC 3.90 - 5.20 m/uL 3.88 (L) Hemoglobin 11.5 - 15.5 g/dL 11.6 Hematocrit 36.0 - 46.0 % 36.3 MCV 80.0 - 100.0 fL 93.6 MCH 26.0 - 34.0 pg 29.9 MCHC 30.5 - 36.0 g/dL 32.0 RDW-CV 11.5 - 15.0 % 13.3 Platelet Count 150 - 400 k/uL 301 MPV 9.0 - 12.7 fL 10.9 Neut% % 73.7 Abs Neut (ANC) 1.45 - 7.50 k/uL 7.88 (H) Lymph% % 17.7 Abs Lymph 1.00 - 4.00 k/uL 1.89 [place]% % 5.3 Abs [place] <0.87 k/uL 0.57 Eosin% % 2.3 Abs Eosin <0.46 k/uL 0.25 Baso% % 0.3 Abs Baso <0.11 k/uL 0.03 Immature Gran % % 0.7 IMMATURE GRANS (ABS) <0.10 k/uL 0.07 NRBC /100 WBC 0.0 Absolute nRBC <0.01 k/uL <0.01 DTYPE Auto Protein, Total 6.3 - 8.0 g/dL 6.8 Albumin 3.9 - 4.9 g/dL 3.6 (L) Calcium 8.5 - 10.2 mg/dL 9.7 Bilirubin, Total 0.2 - 1.3 mg/dL 0.3 Alkaline Phosphatase 34 - 123 U/L 67 AST 13 - 35 U/L 17 ALT 7 - 38 U/L 15 Glucose 74 - 99 mg/dL 78 BUN 7 - 21 mg/dL 7 Creatinine 0.58 - 0.96 mg/dL 0.55 (L) Sodium 136 - 144 mmol/L 135 (L) Potassium 3.7 - 5.1 mmol/L 4.3 Chloride 98 - 107 mmol/L 102 CO2 22 - 30 mmol/L 22 Anion Gap 8 - 15 mmol/L 11 eGFR >=60 mL/min/1.73m 130 Cholesterol, Total <200 mg/dL 245 (H) Triglyceride <150 mg/dL 167 (H) HDL Cholesterol >39 mg/dL 79 Non HDL Cholesterol <130 mg/dL 166 (H) Fasting Time hrs 12 VLDL Cholesterol <30 mg/dL 33 (H) TC:HDL Ratio <5.10 3.10 LDL Cholesterol <100 mg/dL 133 (H) LDL:HDL Ratio <2.54 1.68 IMPRESSION: 24 year old at 24w5d with a history of Coarctation of the aorta, PDA, and bicuspid aortic valve s/p end-to-end anastomosis and PDA ligation as a in , and residual moderate , obesity, hypertension, SVT, in appropriate sinus tachycardia We reviewed physiologic changes in . Due to history of coarctation and BAV, risk for worsening aortic dimensions but currently doing well with 3D imaging was reassuring in 2022. Discussed risk for underlying genetic cause of her congenital heart disease. How a genetic diagnosis might affect her follow up and other organ risks and offspring risks was dicussed and cv genetics consultation was offered and ordered. Aortic valve stenosis with slightly increased gradients today but this is expected with increased volume of . This usually improves after . If it were severe, risk to her would be higher but currently it is in the moderate range. Avoid dehydration. Will need follow up cardio ob visit in third trimester to repeat echo, check aortic valve gradient and determine delivery timing and location. Location might be main campus. Main campus delivery logistics discussed. Risk for congenital heart disease in the offspring s/p reassuring anatomy ultrasound and echo. Importance of blood pressure control discussed. At risk for pre-eclampsia and recommend continued low dose aspirin, bp monitoring, serial growth ultrasounds at 28 weeks with weekly NSTs at 32 weeks. Obesity, watch weight gain and limit to 10-20 lbs. Currently at 17 lb weight gain. Jailyn Boss MD I spent a total of 55 minutes on the date of the service which included preparing to see the patient, [id number] patient care, completing clinical documentation, obtaining and/or reviewing separately obtained history, performing a medically appropriate examination, counseling and educating the patient/family/caregiver, communicating with other HCPs (not separately reported), independently interpreting results (not separately reported), communicating results to the patient/family/caregiver, and care coordination (not separately reported). documented in this encounter [facility] 08-03-2024 Progress note Formatting of t his note might be different from the original. YAIR-S: Luzmaria Chawla is a 24 year old female who presents at 24w1d with VIJAY:11/22/2024, by Last Menstrual Period for a routine visit. Denies headache, visual changes, chest pain, shortness of breath, vaginal bleeding, leakage of fluid, or dysuria. Feeling well, no complaints. O: See flow sheet Gen: No apparent distress Abd: Gravid, nontender S=D, 17lb TWG ASSESSMENT/PLAN: 1. Supervision of high risk in second trimester -Continue PNV -1hr GCT, CBC, and RPR next visit 2. Obesity in Pregravid BMI 37 Growth US every 4 wk starting at 32wk NSTs weekly starting at 36 wk 3. Adult congenital heart disease Seen by OB cardiology Dr. Boss [facility]. Consult completed. Taking labetalol 400mg PO once daily Continue ASA 4. History of surgery to heart and great vessels 5. Screening for diabetes mellitus 6. 24 weeks gestation of PTL precautions reviewed and when to call RTO in 4 weeks Karen Montes APRN.CNM [facility] 08-03-2024 Miscellaneous Notes YAIR-S: Luzmaria Chawla is a 24 year old female who presents at 24w1d with VIJAY:11/22/2024, by Last Menstrual Period for a routine visit. Denies headache, visual changes, chest pain, shortness of breath, vaginal bleeding, leakage of fluid, or dysuria. Feeling well, no complaints. O: See flow sheet Gen: No apparent distress Abd: Gravid, nontender S=D, 17lb TWG ASSESSMENT/PLAN: 1. Supervision of high risk in second trimester -Continue PNV -1hr GCT, CBC, and RPR next visit 2. Obesity in Pregravid BMI 37 Growth US every 4 wk starting at 32wk NSTs weekly starting at 36 wk 3. Adult congenital heart disease Seen by OB cardiology Dr. Gera CHOWDHURY. Consult completed. Taking labetalol 400mg PO once daily Continue ASA 4. History of surgery to heart and great vessels 5. Screening for diabetes mellitus 6. 24 weeks gestation of PTL precautions reviewed and when to call RTO in 4 weeks Karen Montes APRN.CNM documented in this encounter [facility] 08-03-2024 Instructions Karley Caraballo MA - 08/03/2024 7:52 AM EDT SEQUENTIAL SCREENINGS The [facility] offers sequential screenings for women who are interested in screenings for chromosomal abnormalities and certain defects during a . The sequential screen combines ultrasound and blood tests to determine the risk of chromosomal abnormalities, including Down's Syndrome (Trisomy 21) and Trisomy 18, as well as open neural tube defects including spina bifida. Ultrasound examination is performed between 11 weeks and 13 weeks gestational age. Blood tests are drawn after the ultrasound and again later in the between 15 and 21 weeks gestational age. Please let your physician know if you are interested in this testing. It will require an appointment with our industrial manufacturing technician. This is not an ultrasound performed by a physician in our office during a routine visit. SIGNS AND SYMPTOMS OF LABOR 1. Contractions every 10 minutes or more often 2. Clear, pink, or brownish fluid (water) leaking from vagina 3. Feeling that baby is pushing down, pressure 4. Low, dull backache 5. Cramps that feel like a period 6. Cramps with or without diarrhea If you notice any of the above symptoms, contact our office at [phone] and ask to speak with a nurse. After hours, you can call doctors registry at [phone] OR call [facility] at [phone] and ask to have the doctor sales and operations trainee paged. If you consider this an emergency, dial 9-1-1 or go to your nearest emergency department. NEED HELP? Are you dealing with a violent or abusive relationship? Are you a victim of rape or sexual assult? Call [facility] ([place]) 24 hour Crisis Hotline: 137.247.6165 or 813-180-8332. MANUAL Your Guide to a Healthy manual is now on-line. Visit [email or web address] to download your free copy documented in this encounter [facility] 07-21-2024 Note [facility] 07-21-2024 History of Present illness Narrative Kwasi Garcia APRN.[employer]ERANS CONTACT REPRESENTATIVE Kwasi Garcia [address] [place] [address] NAME: Luzmaria Chawla CLINIC Number.: [id number] Date of : 2000 Date of Visit: July 21, 2024 Dear Kwasi Garcia APRN.VETERANS CONTACT REPRESENTATIVE: Ms. Luzmaria Chawla was seen for echocardiogram and pediatric cardiology consultation on July 21, 2024. She is a 24 year old woman, with due date of 11/22/2024. She was referred due to her personal history of congenital heart disease - specifically bicuspid aortic valve with coarctation. She underwent surgical repair of the coarctation in infancy. She is now followed by our adult congenital team and has not required any additional surgical intervention since infancy. She reports no other significant past medical history. Her medications during include labetalol, ASA, vitamins, and Zofran PRN. Luzmaria reports cardiac disease in her mother (now s/p valve replacement). She presents today with her significant other. echocardiogram on July 21, 2024 at 22 2/7 weeks gestation was technically difficult secondary to position and poor acoustic windows. 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 SVC and IVC return normally to the right atrium. One right and one left pulmonary vein were seen returning normally into the left atrium. The atria were normal in size and there was normal right to left shunting at the atrial level. The left and right ventricles were normal in size and shortening. No ventricular hypertrophy. The ventricular septum appeared intact. Normal mitral and tricuspid valves without significant regurgitation. The left and right ventricular outflow tracts were widely patent. The aortic and ductal arches were widely patent. heart rate and rhythm were regular and no pericardial effusion was seen. Normal Doppler of umbilical artery, umbilical vein, and ductus venosus. In summary, the echocardiogram today showed normal intracardiac anatomy with normal ventricular function and normal heart rate and rhythm. I discussed these findings with Ms. Luzmaria Chawla and her significant other. In addition, the limitations of the echocardiogram and echocardiography in general, including the inability to exclude ASDs, some VSDs, minor valvar abnormalities, partial anomalous pulmonary venous return, persistent patent ductus arteriosus, and coarctation of the aorta, were explained. Recommendations: Based on these data we did not recommend any specific further cardiac evaluation, though we would be happy to see her back should new concerns arise. Rather, I have recommended evaluation for the fetus while in the nursery to better assess the aortic valve and aortic arch in light of mother's history. Specifically, I have recommended a cardiology consultation with echocardiogram as close to discharge from the nursery as possible, though can be sooner if clinical concerns arise. A consult to the care center will be placed today to help coordinate this care. Luzmaria and her significant other were agreeable to this plan. Otherwise, Luzmaria should continue to follow the recommendations from her primary OB/MFM and adult cardiology teams. Thank you for allowing me to participate in the care of your patient and please do not hesitate to contact me if I can be any further assistance. During this patient visit I have spent a total of 45 min on date of service reviewing prior notes and imaging including from referring maternal medicine specialists, devoting time to counseling/coordination of care regarding results of the echocardiogram, clincal manifestations of the potential identified disease, prognosis, test results and possible treatment options, formulating and providing my recommendations to other caregivers by verbal and written communication as appropriate and assisted in coordination of care as needed, as detailed in my Assessment/Plan. Consultation requested by Dr. Latanya Bassett for an opinion regarding cardiac evaluation in setting of maternal congenital heart disease. My final recommendations will be communicated back to the requesting physician by way of shared Medical record or letter to requesting physician via US mail. Sincerely, Deborah Carroll MD documented in this encounter [facility] 07-06-2024 Progress note Formatting of t his note might be different from the original. S: Luzmaria Chawla is a 24 year old female who presents at 11/22/2024, by Last Menstrual Period for a routine visit. Denies headache, visual changes, chest pain, shortness of breath, vaginal bleeding, leakage of fluid, or dysuria. Feeling well, no complaints. O: See flow sheet Gen: No apparent distress Abd: Gravid, nontender Anatomy completed today Echo to be scheduled Cardiology appointment on 08/06 Delivery at [place] ASSESSMENT/PLAN: 1. 20 weeks gestation of - ICD9: V22.2, ICD10: Z3A.20 (primary diagnosis) Nausea improving 2. Supervision of high risk in second trimester - ICD9: V23.9, ICD10: O09.92 Carolyn Lugo MD [facility] 07-06-2024 Miscellaneous Notes S: Luzmaria Chawla is a 24 year old female who presents at 11/22/2024, by Last Menstrual Period for a routine visit. Denies headache, visual changes, chest pain, shortness of breath, vaginal bleeding, leakage of fluid, or dysuria. Feeling well, no complaints. O: See flow sheet Gen: No apparent distress Abd: Gravid, nontender Anatomy completed today Echo to be scheduled Cardiology appointment on 08/06 Delivery at [place] ASSESSMENT/PLAN: 1. 20 weeks gestation of - ICD9: V22.2, ICD10: Z3A.20 (primary diagnosis) Nausea improving 2. Supervision of high risk in second trimester - ICD9: V23.9, ICD10: O09.92 Carolyn Lugo MD documented in this encounter [facility] 07-06-2024 Instructions Lazara Pantoja MA - 07/06/2024 3:17 PM EST SEQUENTIAL SCREENINGS The [facility] offers sequential screenings for women who are interested in screenings for chromosomal abnormalities and certain defects during a . The sequential screen combines ultrasound and blood tests to determine the risk of chromosomal abnormalities, including Down's Syndrome (Trisomy 21) and Trisomy 18, as well as open neural tube defects including spina bifida. Ultrasound examination is performed between 11 weeks and 13 weeks gestational age. Blood tests are drawn after the ultrasound and again later in the between 15 and 21 weeks gestational age. Please let your physician know if you are interested in this testing. It will require an appointment with our industrial manufacturing technician. This is not an ultrasound performed by a physician in our office during a routine visit. SIGNS AND SYMPTOMS OF LABOR 1. Contractions every 10 minutes or more often 2. Clear, pink, or brownish fluid (water) leaking from vagina 3. Feeling that baby is pushing down, pressure 4. Low, dull backache 5. Cramps that feel like a period 6. Cramps with or without diarrhea If you notice any of the above symptoms, contact our office at [phone] and ask to speak with a nurse. After hours, you can call doctors registry at [phone] OR call [facility] at [phone] and ask to have the doctor sales and operations trainee paged. If you consider this an emergency, dial 2-1-2 or go to your nearest emergency department. NEED HELP? Are you dealing with a violent or abusive relationship? Are you a victim of rape or sexual assult? Call [facility] 24 hour Crisis Hotline: 205.115.4715 or 682-949-9220. MANUAL Your Guide to a Healthy manual is now on-line. Visit [email or web address] to download your free copy documented in this encounter [facility] 06-30-2024 Telephone encounter Note Last OV 06/08/24. Requested Prescriptions Pending Prescriptions Disp Refills ondansetron (ZOFRAN) 8 mg tablet 30 tablet 0 Sig: Take 1 tablet by mouth every 8 hours as needed for nausea/vomiting. Lin Newberry RN [facility] 06-30-2024 Miscellaneous Notes Last OV 06/08/24. Requested Prescriptions Pending Prescriptions Disp Refills ondansetron (ZOFRAN) 8 mg tablet 30 tablet 0 Sig: Take 1 tablet by mouth every 8 hours as needed for nausea/vomiting. Lin Newberry RN documented in this encounter [facility] 06-08-2024 Telephone encounter Note Pt seen in office by DM today. MFM consulted and scheduled with Dr. Bassett on 07/06/24. Pt also needs Anatomy ultrasound scheduled and appointment placed on hold 07/06/24 from [id number]; however, needs PFA. Pt states she is changing insurance companies and as of 06/19/24 she will have medicaid. Can we get Pt cleared for this appointment now or do we have to wait for her insurance to change? Please advise. Lin Newberry RN [facility] 06-08-2024 Miscellaneous Notes Pt seen in office by DM today. MFM consulted and scheduled with Dr. Bassett on 07/06/24. Pt also needs Anatomy ultrasound scheduled and appointment placed on hold 07/06/24 from [id number]; however, needs PFA. Pt states she is changing insurance companies and as of 06/19/24 she will have medicaid. Can we get Pt cleared for this appointment now or do we have to wait for her insurance to change? Please advise. Lin Newberry RN documented in this encounter [facility] 06-08-2024 Progress note Formatting of t his note might be different from the original. DM-Pt doing well. Denies vaginal Bleeding, Leaking fluid, or cramping. C/O cloudy urine, no dysuria. Physical Exam: Gen: female in no apparent distress @ 16.1 weeks Assessment & Plan Supervision of high risk in second trimester Orders: OBSTETRIC ULTRASOUND WHI; Future Adult congenital heart disease Has appt with OB-cardiology August 06 Met with cardiology today Continue labetalol 100mg BID Encouraged to monitor BP at home Orders: OBSTETRIC ULTRASOUND WHI; Future Dysuria Orders: UA DIP, URINE (POC) BACTERIAL CULTURE, URINE Obesity in ASA History of aortic coarctation repair Planning [place] [facility] Orders: OBSTETRIC ULTRASOUND WHI; Future Bicuspid aortic valve Coarctation of aorta History of supraventricular tachycardia 16 weeks gestation of Anatomy us ordered with TRENTON Woodard MD [facility] 06-08-2024 Miscellaneous Notes DM-Pt doing well. Denies vaginal Bleeding, Leaking fluid, or cramping. C/O cloudy urine, no dysuria. Physical Exam: Gen: female in no apparent distress @ 16.1 weeks Assessment & Plan Supervision of high risk in second trimester Orders: OBSTETRIC ULTRASOUND WHI; Future Adult congenital heart disease Has appt with OB-cardiology August 06 Met with cardiology today Continue labetalol 100mg BID Encouraged to monitor BP at home Orders: OBSTETRIC ULTRASOUND WHI; Future Dysuria Orders: UA DIP, URINE (POC) BACTERIAL CULTURE, URINE Obesity in ASA History of aortic coarctation repair Planning [place] [facility] Orders: OBSTETRIC ULTRASOUND WHI; Future Bicuspid aortic valve Coarctation of aorta History of supraventricular tachycardia 16 weeks gestation of Anatomy us ordered with Edith Woodard MD documented in this encounter [facility] 06-08-2024 Instructions Marcy Bishop MA - 06/08/2024 4:02 PM EST SEQUENTIAL SCREENINGS The [facility] offers sequential screenings for women who are interested in screenings for chromosomal abnormalities and certain defects during a . The sequential screen combines ultrasound and blood tests to determine the risk of chromosomal abnormalities, including Down's Syndrome (Trisomy 21) and Trisomy 18, as well as open neural tube defects including spina bifida. Ultrasound examination is performed between 11 weeks and 13 weeks gestational age. Blood tests are drawn after the ultrasound and again later in the between 15 and 21 weeks gestational age. Please let your physician know if you are interested in this testing. It will require an appointment with our industrial manufacturing technician. This is not an ultrasound performed by a physician in our office during a routine visit. SIGNS AND SYMPTOMS OF LABOR 1. Contractions every 10 minutes or more often 2. Clear, pink, or brownish fluid (water) leaking from vagina 3. Feeling that baby is pushing down, pressure 4. Low, dull backache 5. Cramps that feel like a period 6. Cramps with or without diarrhea If you notice any of the above symptoms, contact our office at [phone] and ask to speak with a nurse. After hours, you can call doctors registry at [phone] OR call [facility] at [phone] and ask to have the doctor sales and operations trainee paged. If you consider this an emergency, dial 9--1 or go to your nearest emergency department. NEED HELP? Are you dealing with a violent or abusive relationship? Are you a victim of rape or sexual assult? Call [facility] ([place]) 24 hour Crisis Hotline: 227.709.5653 or 901-587-7630. MANUAL Your Guide to a Healthy manual is now on-line. Visit [email or web address] to download your free copy documented in this encounter [facility] 06-08-2024 Progress note Formatting of t his note might be different from the original. Anatomy ultrasound reviewed. No abnormalities identified. Follow up as clinically indicated. Please place copy in ob chart. Nelsy Agarwal MD [facility] Work Phone: 06-08-2024 Miscellaneous Notes Anatomy ultrasound reviewed. No abnormalities identified. Follow up as clinically indicated. Please place copy in ob chart. Nelsy Agarwal MD documented in this encounter [facility] 06-08-2024 History of Present illness Narrative Images from the original note were not included. [facility] Department of Cardiovascular Medicine SECTION OF CARDIAC PACING and ELECTROPHYSIOLOGY OUTPATIENT VISIT DATE June 08, 2024 OUTPATIENT VISIT TYPE ESTABLISHED PRIMARY CARE PHYSICIAN: Kwasi Garcia [address] [place] [address] CHIEF COMPLAINT: IST HISTORY OF PRESENT ILLNESS: Ms. Chawla is a 24 year old female who presents today for follow-up visit for IST. She was last seen via [facility] on 04/24/2023 She has a history of coarctation of the aorta s/p end to end anastomosis repair as (1997), bicuspid aortic valve and IST. She was maintained on nadolol. At her last visit this was changed to propranolol 20 mg daily and has since changed to labetalol due to . She reports doing well, no sustained arrhythmias. She was supposed to have a zio patch and an exercise stress test that have not been completed from 2023. She denies chest pain, shortness of breath, orthopnea, PND, cough, lightheadedness or syncope. She tries to drink 3 quarts of water a day and salts her food. She wears knee high compression garments as needed. She tries to use her stationary bike 20 minutes 5 days a week. She reports feeling well. She c/o intermittent palpitations that can last up to 10 minutes but usually only a few beats to a few minutes. The palpitations occur 1-2 per month. She denies CP, SOB, lightheadedness and dizziness. PAST MEDICAL HISTORY Diagnosis Date Bicuspid aortic valve Coarctation of aorta s/p end to end anatomosis repair as 1997 Inappropriate sinus tachycardia (HCC) SVT (supraventricular tachycardia) (HCC) PAST SURGICAL HISTORY Procedure Laterality Date FOOT SURGERY HX PAST SURGICAL HISTORY OF Coartation repair as (98) TONSILLECTOMY AND ADENOIDECTOMY HX SOCIAL HISTORY Social History Tobacco Use Smoking status: Never Smokeless tobacco: Never Vaping Use Vaping status: Never Used Substance Use Topics Alcohol use: No Drug use: No FAMILY HISTORY Problem Relation Age of Onset other (sinus pause) Mother X 13 seconds with syncope, s/p PPM No Known Problems Father No Known Problems Sister No Known Problems Sister No Known Problems Brother No Known Problems Brother Breast Cancer Maternal Grandmother 60 Ovarian cancer Maternal Aunt 48 other (Myocardial infarction) Paternal Uncle age 54 of [place] ALLERGIES: ALLERGIES Allergen Reactions Codeine Other: See Comments headache, nausea Prednisone Intolerance Migraine MEDICATIONS: ondansetron (ZOFRAN) 8 mg tablet Take 1 tablet by mouth every 8 hours as needed for nausea/vomiting. famotidine (PEPCID) 20 mg tablet Take 1 tablet by mouth two times a day. labetalol (TRANDATE) 100 mg tablet Take 1 tablet by mouth two times a day. aspirin, enteric coated (ECOTRIN LOW STRENGTH) 81 mg EC tablet Take 1 tablet by mouth once daily. vit no.124/iron/folic ( VITAMIN ORAL) Take by mouth once daily. Fe Friend RN PHYSICAL EXAMINATION: BP 150/95 Pulse 74 Ht 167.6 cm (5' 6) Wt 103.9 kg (229 lb) LMP 02/16/2024 BMI 36.96 kg/m General: Well appearing, in no acute distress, speaking in complete sentences. CARDIOVASCULAR MEDICINE TESTING: EKG 06/08/2024 reviewed: EXERCISE STRESS: 12/26/2022 Metabolic Exercise Test Interpretation: - EXERCISE PERFORMANCE: Indeterminate (treadmill study) exercise power. Maximal aerobic effort. Normal aerobic capacity. Indeterminate aerobic efficiency (treadmill exercise). Normal limitation pattern. - CARDIOVASCULAR RESPONSE: Normal stroke volume response. Normal heart rate response. Normal chronotropic index. Normal BP response. Arrhythmias: No arrhythmias . ST segment and T-wave changes: No ST changes. - PULMONARY RESPONSE: There was no clinically significant oxygen desaturation during exercise. Normal ventilatory reserve. Normal ventilatory pattern. Normal ventilatory efficiency. No exercise oscillatory ventilation. Previous cardiovascular interventions: Coarctation repair (1997) Medications: Last Used PROPRANOLOL 13 Hours Resting ECG: Normal Sinus Rhythm Symptoms at rest: No symptoms ZIO PATCH: 12/24/2022 Type of Monitor: Extended Monitoring-Zio Patch Enrollment Dates: 12/10/2022-12/17/2022 Patient had a min HR of 47 bpm, max HR of 158 bpm, and avg HR of 82 bpm. Predominant underlying rhythm was Sinus Rhythm. Slight P wave morphology changes were noted. Isolated SVEs were rare (<1.0%), SVE Couplets were rare (<1.0%), and no SVE Triplets were present. Isolated VEs were rare (<1.0%), and no VE Couplets or VE Triplets were present. Ashok Pedro MD Holter Monitor [id number] [facility] Signed by Ashok Pedro MD on 12/30/22 at 1107 ASSESSMENT: Ms. Chawla is a 24 year old female who has a PMH of coarctation of the aorta s/p end to end anastomosis repair as (1997), bicuspid aortic valve and IST. She was maintained on nadolol. At her last visit this was changed to propranolol 20 mg daily and has since changed to labetalol due to . She is here for follow-up. Previously she was on nadolol which was switched to propranolol when she started considering baby. Now it was switched to labetalol due to . She reports feeling well. I advised to continue labetalol until finishing breast feeding. Then we may consider switching to propranolol or stop BB PLAN (Active Outpatient Problems): # IST # Coarctation of aorta s/p end to end anastomosis repair as (1997) # Bicuspid AV - Please maintain labetalol - 1 year appointment It was a pleasure contributing to this patient's medical care. I reviewed any prior outside records with the patient, obtained relevant HPI and PMH from the patient, examined the patient and created the above report. I spent over 70% of my time counseling the patient regarding my assessment and recommendations. Signature: ASHOK PEDRO MD, PhD Department: Associate Staff, Department of Cardiac Electrophysiology DATE of SERVICE: 06/08/2024 TIME of SERVICE: 1:22 PM documented in this encounter [facility] 06-08-2024 Note [facility] 06-08-2024 Telephone encounter Note This encounter was opened in error. [facility] 06-08-2024 Miscellaneous Notes This encounter was opened in error. documented in this encounter [facility] 05-14-2024 Telephone encounter Note Call to Luzmaria to reschedule her US appointment on 06/08. There is not a [facility] MFM available for consult on that day. Luzmaria said she lives in [place] and it would be much easier to go there. Rescheduled to 2/[address] Bassett and an US. [facility] visit planed for 08/[address] Alas. Lexie Alonso RN [facility] 05-14-2024 Miscellaneous Notes Call to Luzmaria to reschedule her US appointment on 06/08. There is not a [facility] MFM available for consult on that day. Luzmaria said she lives in [place] and it would be much easier to go there. Rescheduled to 2/[address] Bassett and an US. [facility] visit planed for 08/[address] Alas. Lexie Alonso RN documented in this encounter [facility] 05-13-2024 Telephone encounter Note Last OV 05/10/24. Requested Prescriptions Pending Prescriptions Disp Refills ondansetron (ZOFRAN) 8 mg tablet 30 tablet 0 Sig: Take 1 tablet by mouth every 8 hours as needed for nausea/vomiting. Lin Newberry RN [facility] 05-13-2024 Miscellaneous Notes Last OV 05/10/24. Requested Prescriptions Pending Prescriptions Disp Refills ondansetron (ZOFRAN) 8 mg tablet 30 tablet 0 Sig: Take 1 tablet by mouth every 8 hours as needed for nausea/vomiting. Lin Newberry RN documented in this encounter [facility] 05-10-2024 Progress note Formatting of t his note might be different from the original. S: Luzmaria Chawla is a 24 year old female who presents at 12 weeks gestation for a routine visit. Just completed NT US. Declines aneuploidy screening. Occasional N/V but continues taking Zofran and Reglan daily. Appetite slowly increasing. Denies headache, visual changes, chest pain, shortness of breath, vaginal bleeding, leakage of fluid, or dysuria. O: See flow sheet Gen: No apparent distress Abd: Gravid, nontender ASSESSMENT/PLAN: 1. 12 weeks gestation of 2. Supervision of high risk in first trimester 3. Adult congenital heart disease 4. History of aortic coarctation repair 5. Coarctation of aorta 6. Bicuspid aortic valve 7. History of supraventricular tachycardia - Patient followed by Cardiology - Recently changed from Beta Tarik to Labetalol 100 mg PO BID - Declines aneuploidy labs - Continue Zofran 4 mg PO PRN - Continue Reglan 5 mg PO PRN - MFM consult - RTO 4 weeks for early anatomy / MFM consult Destini Hanson APRN.CNM [facility] 05-10-2024 Miscellaneous Notes S: Luzmaria Chawla is a 24 year old female who presents at 12 weeks gestation for a routine visit. Just completed NT US. Declines aneuploidy screening. Occasional N/V but continues taking Zofran and Reglan daily. Appetite slowly increasing. Denies headache, visual changes, chest pain, shortness of breath, vaginal bleeding, leakage of fluid, or dysuria. O: See flow sheet Gen: No apparent distress Abd: Gravid, nontender ASSESSMENT/PLAN: 1. 12 weeks gestation of 2. Supervision of high risk in first trimester 3. Adult congenital heart disease 4. History of aortic coarctation repair 5. Coarctation of aorta 6. Bicuspid aortic valve 7. History of supraventricular tachycardia - Patient followed by Cardiology - Recently changed from Beta Tarik to Labetalol 100 mg PO BID - Declines aneuploidy labs - Continue Zofran 4 mg PO PRN - Continue Reglan 5 mg PO PRN - MFM consult - RTO 4 weeks for early anatomy / MFM consult Destini Hanson APRN.CNM documented in this encounter [facility] 05-10-2024 Instructions Karley Caraballo MA - 05/10/2024 11:05 AM EST SEQUENTIAL SCREENINGS The [facility] offers sequential screenings for women who are interested in screenings for chromosomal abnormalities and certain defects during a . The sequential screen combines ultrasound and blood tests to determine the risk of chromosomal abnormalities, including Down's Syndrome (Trisomy 21) and Trisomy 18, as well as open neural tube defects including spina bifida. Ultrasound examination is performed between 11 weeks and 13 weeks gestational age. Blood tests are drawn after the ultrasound and again later in the between 15 and 21 weeks gestational age. Please let your physician know if you are interested in this testing. It will require an appointment with our industrial manufacturing technician. This is not an ultrasound performed by a physician in our office during a routine visit. SIGNS AND SYMPTOMS OF LABOR 1. Contractions every 10 minutes or more often 2. Clear, pink, or brownish fluid (water) leaking from vagina 3. Feeling that baby is pushing down, pressure 4. Low, dull backache 5. Cramps that feel like a period 6. Cramps with or without diarrhea If you notice any of the above symptoms, contact our office at [phone] and ask to speak with a nurse. After hours, you can call doctors registry at [phone] OR call [facility] at [phone] and ask to have the doctor sales and operations trainee paged. If you consider this an emergency, dial 9-1- or go to your nearest emergency department. NEED HELP? Are you dealing with a violent or abusive relationship? Are you a victim of rape or sexual assult? Call [facility] ([facility] 24 hour Crisis Hotline: 487.946.3088 or 314-789-6732. MANUAL Your Guide to a Healthy manual is now on-line. Visit [email or web address] Estella to download your free copy documented in this encounter [facility] 04-26-2024 Progress note Formatting of t his note might be different from the original. YAIR-S: Luzmaria Chawla is a 24 year old female who presents at 11/22/2024, by Last Menstrual Period for a problem visit. Presents today after ED follow up for N/V. Positive for UTI and completing antibiotic course. Nausea all day, Zofran helps with emesis but still has nausea. Staying hydrated now and able to keep food down after ED and IV fluids. Denies headache, visual changes, chest pain, shortness of breath, vaginal bleeding, leakage of fluid, or dysuria. O: See flow sheet Gen: No apparent distress Abd: nontender Unable to hear FHT via doppler, limited bedside US FHR 170 ASSESSMENT/PLAN: 1. Supervision of high risk in first trimester 2. 10 weeks gestation of 3. Nausea/vomiting in -Reglan added PRN and to interchange with zofran -Start Vitamin B6 and Unisom -If no improvement to notify office PTL precautions reviewed and when to call RTO as scheduled Karen Montes APRN.CNM [facility] 04-26-2024 Miscellaneous Notes YAIR-S: Luzmaria Chawla is a 24 year old female who presents at 11/22/2024, by Last Menstrual Period for a problem visit. Presents today after ED follow up for N/V. Positive for UTI and completing antibiotic course. Nausea all day, Zofran helps with emesis but still has nausea. Staying hydrated now and able to keep food down after ED and IV fluids. Denies headache, visual changes, chest pain, shortness of breath, vaginal bleeding, leakage of fluid, or dysuria. O: See flow sheet Gen: No apparent distress Abd: nontender Unable to hear FHT via doppler, limited bedside US FHR 170 ASSESSMENT/PLAN: 1. Supervision of high risk in first trimester 2. 10 weeks gestation of 3. Nausea/vomiting in -Reglan added PRN and to interchange with zofran -Start Vitamin B6 and Unisom -If no improvement to notify office PTL precautions reviewed and when to call RTO as scheduled Karen Montes APRN.CNM documented in this encounter [facility] 04-26-2024 Instructions Karen Montes APRN.CNM - 04/26/2024 1:23 PM EST Nausea and Vomitin) Vitamin B6 50 mg by mouth twice daily. Take this daily until approximately 14 weeks for prevention. 2) Unisom 1/2 tablet by mouth at bedtime. May increase to full tablet if needed. If no improvement in nausea may up to a full tablet every 8 hours as needed. For as needed relief you can take the Zofran or the Reglan. Do not take together but can interchange the medications. SIGNS AND SYMPTOMS OF LABOR 1. Contractions every 10 minutes or more often 2. Clear, pink, or brownish fluid (water) leaking from vagina 3. Feeling that baby is pushing down, pressure 4. Low, dull backache 5. Cramps that feel like a period 6. Cramps with or without diarrhea If you notice any of the above symptoms, contact our office at [phone] and ask to speak with a nurse. After hours, you can call doctors registry at [phone] OR call [facility] at [phone] and ask to have the doctor sales and operations trainee paged. If you consider this an emergency, dial 9-1-1 or go to your nearest emergency department. NEED HELP? Are you dealing with a violent or abusive relationship? Are you a victim of rape or sexual assult? Call [facility] ([place]) 24 hour Crisis Hotline: 498.442.5531 or 220-160-4072. MANUAL Your Guide to a Healthy manual is now on-line. Visit [email or web address] to download your free copy documented in this encounter [facility] 04-23-2024 Telephone encounter Note Patient cleared and appointment scheduled. Alivia Solis RN [facility] 04-23-2024 Miscellaneous Notes Patient cleared and appointment scheduled. Alivia Solis RN Patient notified. Placed 1:40 slot on 04/26 with SW on hold. Needs financial clearance. Sent message to [facility]. Alivia Solis RN I would recommend evaluation in ED for fluids and meds. Then recommend follow up next week.Thanks, Karen Montes APRN.CNM 9w4d Would you like patient seen in office to discuss? documented in this encounter [facility] 04-23-2024 Telephone encounter Note Patient notified. Placed 1:40 slot on 04/26 with SW on hold. Needs financial clearance. Sent message to [facility]. Alivia Solis RN [facility] 04-23-2024 Telephone encounter Note I would recommend evaluation in ED for fluids and meds. Then recommend follow up next week.Thanks, Karen Montes APRN.CNM [facility] Work Phone: 04-23-2024 Telephone encounter Note 9w4d Would you like patient seen in office to discuss? [facility] 04-12-2024 Telephone encounter Note Call to Luzmaria to introduce myself as her maternal health care legal assistant in the [facility]. Discussion of the services offered including support, education, coordination of care and appointment scheduling. My contact information was provided and she was encouraged to call with any questions or concerns. Offered to assist with scheduling appointments in the [facility] clinic. I explained the Cardio OB clinic and the purpose and function of the clinic. She is agreeable to an appointment on 08/[address] Alas. Also reviewed the multi-disciplinary team meetings in which patient's case will be discussed to optimize care planning. She is active on [employer]. I informed her that she will see an appointment time noted in [place] for her echocardiogram and for her ekg. I will send her directions to the buildings and where to park via [employer]. She is agreeable to the plan. . Elida Alonso RN Referring Physician: Moody OB: Cindy Hanson Battery Engineer: Moody Luzmaria Chawla is a 24 year old with an of Estimated Date of Delivery: 11/22/24 HISTORY OF PRESENT ILLNESS: Coarctation of the aorta, PDA, and bicuspid aortic valve s/p end-to-end anastomosis and PDA ligation as a in , and residual moderate Inappropriate sinus tachycardia- on nadolol. Follows with EP Cardio-OB NURSING INTAKE OB history: Primip Cardiac history: as above Genetic testing performed no Desired delivery location: [place] [facility] 04-12-2024 Miscellaneous Notes Call to Luzmaria to introduce myself as her maternal health care legal assistant in the Care Center. Discussion of the services offered including support, education, coordination of care and appointment scheduling. My contact information was provided and she was encouraged to call with any questions or concerns. Offered to assist with scheduling appointments in the [facility] clinic. I explained the Cardio OB clinic and the purpose and function of the clinic. She is agreeable to an appointment on 08/[address] Alas. Also reviewed the multi-disciplinary team meetings in which patient's case will be discussed to optimize care planning. She is active on [employer]. I informed her that she will see an appointment time noted in [place] for her echocardiogram and for her ekg. I will send her directions to the buildings and where to park via [employer]. She is agreeable to the plan. . Elida Alonso RN Referring Physician: Moody OB: Cindy Hanson Battery Engineer: Moody Luzmaria Chawla is a 24 year old with an of Estimated Date of Delivery: 11/22/24 HISTORY OF PRESENT ILLNESS: Coarctation of the aorta, PDA, and bicuspid aortic valve s/p end-to-end anastomosis and PDA ligation as a in , and residual moderate Inappropriate sinus tachycardia- on nadolol. Follows with EP Cardio-OB NURSING INTAKE OB history: Primip Cardiac history: as above Genetic testing performed no Desired delivery location: [place] documented in this encounter [facility] 04-08-2024 Telephone encounter Note Contact elida alonso from cardiothoracic clinic and she will set up everything. [facility] 04-08-2024 Miscellaneous Notes Contact elida alonso from cardiothoracic clinic and she will set up everything. documented in this encounter [facility] 04-01-2024 Note [facility] 04-01-2024 History of Present illness Narrative Patient declined local company flatbed truck driver. INITIAL OB ASSESSMENT HPI: Luzmaria is a 24 year old White Female here to establish Obstetrical Care. Patient's last menstrual period was 02/16/2024. from OB Dating Form. was planned Complaints: No OB History T0 L0 SAB0 IAB0 Ectopic0 Multiple0 Live Births0 Previous history: Prior : never History of 4th degree laceration: Perineal Laceration, 3rd or 4th degree none History of shoulder dystocia: History of Hypertensive disorders including pre-eclampsia or gestational hypertension: none History of gestational diabetes: Diabetes in none Patient's Risk Screening for delivery: Have you had a prior robles between 20w and 36w6d? No How many pregnancies have you had before? 0 Did you have a previous baby with a GBS Infection? No Please select all that apply for any prior : N/A MEDICAL/PSYCHOSOCIAL HISTORY: Severe bleeding with delivery none Thyroid Disease none Diabetes in none No results found for: ABORHD No weight on file for this encounter. Last Pap: 10/01/2021 History of abnormal pap: no abnormal pap Prior treatment for cervical dysplasia: none. Last HPV: History of STDs: None Partner History of STDs: None Did you have a partner with Herpes? No Tobacco use: No E-Cigarette/Vaping Use: No Caffeine use: Yes Drug use: No Alcohol use: No Multivitamin with Folic acid: Yes Would refuse blood transfusion if medically necessary: No Social Needs: How often does this describe you? I don't have enough money to pay my bills: Never Within the past 12 months, have you worried that your food would run out before you had money to buy more? Never In the past 12 months, has lack of reliable transportation kept you from going to medical appointments or work, or from getting things needed for daily living? Never In the past 12 months, have you had any concerns about having a place to live, or about the condition or quality of your housing? Never Would you like more information on any of the following (please check all that apply)? Not interested Social History: Do you have any history of depression, anxiety, PTSD, or other mood problems? No Do you have a history of abuse or trauma that may impact your experience? No Are you currently employed? No Depression/Anxiety Screening: denies symptoms of depression. OB Depression and Anxiety Screening- This Encounter (since 04/05/2024) None Genetic Screening: Partner present: No Patient verbalized knowledge of partner family health history: No Do you or your partner have any personal or family history of defects not previously discussed: No Do you have history of a complicated by anomaly, genetic condition, or demise: No Preeclampsia Risk Screening: Screening for prevention of preeclampsia: High risk factors: None Moderate risk ractors: Nulliparity and Obesity (body mass index greater than 30) OB Risk Screening: Completed, no positive findings documented. Marital Status: Partner: Name: Hank Age: 24 Occupation: Wood worker Gender: Male PAST MEDICAL HISTORY Diagnosis Date Bicuspid aortic valve Coarctation of aorta s/p end to end anatomosis repair as 1997 Inappropriate sinus tachycardia (HCC) SVT (supraventricular tachycardia) (HCC) PAST SURGICAL HISTORY Procedure Laterality Date FOOT SURGERY HX PAST SURGICAL HISTORY OF Coartation repair as infant (98) TONSILLECTOMY AND ADENOIDECTOMY HX Current Outpatient Medications Medication Sig Dispense Refill propranolol (INDERAL) 20 mg tablet take 1 tablet by mouth once daily. 90 tablet 3 vit no.124/iron/folic ( VITAMIN ORAL) Take by mouth once daily. letrozole (FEMARA) 2.5 mg tablet Take 1 tablet by mouth once daily. Starting on cycle day 3 take 1 tablet PO once daily for 5 days. (Patient not taking: Reported on 04/01/2024) 5 tablet 2 No current facility-administered medications for this visit. Allergies As of Date: 04/06/2024 Allergen Noted Reaction CODEINE 04/11/2017 Other: See Comments PREDNISONE 10/01/2022 Intolerance Fully Assessed 04/01/2024 Does patient have penicillin allergy: No REVIEW OF SYSTEMS: GENERAL: Negative for: Fever or Chills HEENT: Negative for: Headache, Impaired Vision, Ringing in Ears, Nosebleeds NECK: Negative for: Swelling, Pain, Stiffness RESPIRATORY: Negative for: Cough, Shortness of breath, Wheezing GASTROINTESTINAL: Negative for: Heartburn, Constipation, Diarrhea, Blood in stool and Positive for: Nausea and Vomiting MUSCULOSKELETAL: Negative for: Muscle or joint pain, stiffness, Joint swelling NEUROLOGIC/PSYCHIATRIC: Negative for: Weakness, Paralysis, Numbness, Tingling, Tremor, Anxiety, Depression, Memory loss SKIN: Negative for: Rash, Itching GENITOURINARY: Negative for: vaginal itching, vaginal discharge, hematuria or dysuria SENSITIVE EXAM: The sensitive examination was discussed with the Patient or Patient's Authorized Car Repairer Helper. As applicable, any other physician, advance practice provider, medical student, or other health professional student that will be observing or involved in the sensitive examination for educational or training purposes was discussed with the Patient or Authorized Car Repairer Helper. The Patient or Authorized Car Repairer Helper has agreed to proceed with the sensitive examination. (Sensitive examination includes inspection and/or palpation of the breasts, pelvis, prostate and anorectal regions). PHYSICAL EXAM: LMP 02/16/2024 GENERAL: pleasant in no apparent distress DERMATOLOGY: Normal, without lesions, non-icteric, and non-hirsute NECK: Supple, full range of motion, no adenopathy, and thyroid normal CHEST: Normal inspiratory effort BREAST: soft, non-tender, symmetric, no dominant mass, normal nipple-areolar complex, no lymphadenopathy, and no nipple discharge ABDOMEN: soft, non-tender, and no masses NEURO: alert and oriented x3,exam grossly non-focal PELVIS: External genitalia normal without lesions. Perineal body intact. No vaginal or cervical lesions. Cervix closed. No adnexal masses or tenderness. Clinical Pelvimetry: Pelvimetry clinically assessed as adequate Limited OB ultrasound exam: single intrauterine , positive cardiac activity, and POCUS performed. +cardiac activity, CRL consistent with LMP. Ashley Ambriz, AMER[employer] INDIAN POLICY SPECIALIST.VETERANS CONTACT REPRESENTATIVE ASSESSMENT: 24 year old at 7w1d wks gestational age PLAN: 1) Patient oriented to practice. Patient given new OB orientation folder. Discussed nutrition, folic acid supplementation, dietary guidelines, exercise, smoking, alcohol, caffeine, and drug use. Discussed gestational weight gain guidelines. Discussed routine OB labs including STD/HIV. Discussed how to access Your guide to a health and the Cat Tender. Reviewed midwifery and line fixer services that are available. 2) Screening: Hemoglobin A1C: ordered Baby Aspirin: The patient has been counseled about the potential benefits of low dose aspirin in and our recommendation that this be offered to all patients, regardless of whether they meet the high risk criteria specified above. She Accepts Aneuploidy Screening: Discussed aneuploidy screening, nuchal translucency/first trimester early anatomy ultrasound and NIPT. The risks/benefits and limitations of NIPT/aneuploidy screening were reviewed including the potential for false negative and false positive results. The availability of genetic counseling was reviewed. Information on aneuploidy screening was provided. The patient chooses to proceed with First trimester early anatomy ultrasound (12-13w6d) Myriad Carrier Screening: Discussed myriad carrier screening. We discussed the availability of professional-society guided carrier screening and reviewed the conditions screened and limitations of screening. The availability of genetic counseling was reviewed. Information on carrier screening was provided. The patient Declines 3) Patient offered option of Virtual Visits. Patient unsure. May consider in future. 4) Obesity (BMI >30), will order early glucose screen or Hemoglobin A1C. 5) Needs MFN consult due heart condition *she has an appt with her part time flexible clerk in [place] Follow up in 4 weeks or sooner prn. Ashley Ambriz APRN.LYNDA documented in this encounter [facility] 04-01-2024 Instructions Janae Ortiz LPN - 04/01/2024 9:39 AM EST Please select the following link to access the [facility] Your Guide to a Healthy . [email or web address] Please select the following link to access the [facility] Your Guide to a Healthy . [email or web address] documented in this encounter [facility] 03-11-2024 Telephone encounter Note Per dr alas, yes, can start Femara. [facility] 03-11-[address] alas, yes, can start Femara. documented in this encounter [facility] 01-29-2024 Telephone encounter Note Pt notified of results via [employer]. Fara Rosa Ma [facility] 01-29-2024 Miscellaneous Notes Pt notified of results via [employer]. Fara Rosa Ma Please let patient know their labs are normal. documented in this encounter [facility] 01-29-2024 Telephone encounter Note Please let patient know their labs are normal. [facility] 01-27-2024 Note [facility] 01-27-2024 History of Present illness Narrative Chief Complaint Patient presents with: Insect Bite: X 3 days- right calf HPI Luzmaria Chawla is a 23 year old female who presents here today for Above Complaints.. Patient presents for bug bite to right calf. Patient reports she was hiking and got bit and thought it was just a mosquito bite but area has gotten larger and more red. Past medical history, appointments, medications, allergies reviewed. Previous Medical History PAST MEDICAL HISTORY No date: Bicuspid aortic valve No date: Coarctation of aorta Comment: s/p end to end anatomosis repair as 1997 No date: Inappropriate sinus tachycardia (HCC) No date: SVT (supraventricular tachycardia) (HCC) Previous Surgical History PAST SURGICAL HISTORY No date: FOOT SURGERY HX No date: PAST SURGICAL HISTORY OF Comment: Coartation repair as (98) No date: TONSILLECTOMY AND ADENOIDECTOMY HX Family History FAMILY HISTORY Problem Relation Age of Onset other (sinus pause) Mother X 13 seconds with syncope, s/p PPM No Known Problems Father No Known Problems Sister No Known Problems Sister No Known Problems Brother No Known Problems Brother Breast Cancer Maternal Grandmother 60 Ovarian cancer Maternal Aunt 48 other (Myocardial infarction) Paternal Uncle age 54 of [place] Patient Allergies ALLERGIES Allergen Reactions Codeine Other: See Comments headache, nausea Prednisone Intolerance Migraine Current Medications Current Outpatient Medications on File Prior to Visit Medication Sig propranolol (INDERAL) 20 mg tablet take 1 tablet by mouth once daily. vit no.124/iron/folic ( VITAMIN ORAL) Take by mouth once daily. No current facility-administered medications on file prior to visit. Social History Social History Tobacco Use Smoking status: Never Smokeless tobacco: Never Vaping Use Vaping status: Never Used Substance Use Topics Alcohol use: No Drug use: No Review of Symptoms REVIEW OF SYSTEMS SEE HPI EXAM: BP 120/82 Pulse 99 Resp 14 Wt 110.2 kg (243 lb) LMP 11/22/2023 (Exact Date) BMI 38.06 kg/m General Appearance: Well appearing, alert, in no acute distress, well-hydrated, well nourished.. Skin: Positives: Rash: Large 2.75 in x 2.5 in red rash with white central clearing and white outer ring. No drainage or swelling noted. Health Maintenance List Depression Screening Never done Anxiety Screening Never done Hepatitis C Screening Never done HIV Screening Never done DTaP,Tdap,Td Vaccine(7 - Td or Tdap) due on 12/06/2019 Covid-19 Vaccine(3 - 2022- season) due on 01/18/2024 Influenza Vaccine(1) due on 01/18/2024 Cervical Cancer Screening due on 09/25/2024 Hepatitis B Vaccine Completed HPV Vaccine Completed ASSESSMENT/PLAN: 1. Erythema migrans - ICD9: 529.1, ICD10: K14.1 - LYME AB EARLY <=30 DAY SYMPTOMS - DOXYCYCLINE MONOHYDRATE 100 MG TABLET - COMPLETE BLOOD COUNT AND DIFFERENTIAL Kwasi Garcia APRN.VETERANS CONTACT REPRESENTATIVE documented in this encounter [facility] 12-29-2023 Note [facility] 12-29-2023 History of Present illness Narrative Luzmaria Chawla is a 23 year old female who presents for problem visit - desires . HPI: Had IUD removed about 1.5 years ago. Went 6 months without menses. Starting having menstrual cycles again April 2023 and cycles q 28-42 days with negative OPK's and no cervical mucous indicating ovulation. Has been trying to conceive since IUD removal 1.5 years ago. Had labs and US completed, ordered by VETERANS CONTACT REPRESENTATIVE. Has never been . Accompanied by Hank. Hank is healthy and has no children of his own. OB History T0 L0 SAB0 IAB0 Ectopic0 Multiple0 Live Births0 Dry Cell Tester History LMP: 11/22/2023 (Exact Date), Having periods Age at Menarche: Age at First : Age at Menopause: Dry Cell Tester History Comments: Sexual Activity: Yes; Male Contraception: None PAST MEDICAL HISTORY No date: Bicuspid aortic valve No date: Coarctation of aorta Comment: s/p end to end anatomosis repair as 1997 No date: Inappropriate sinus tachycardia (HCC) No date: SVT (supraventricular tachycardia) (HCC) PAST SURGICAL HISTORY No date: FOOT SURGERY HX No date: PAST SURGICAL HISTORY OF Comment: Coartation repair as (98) No date: TONSILLECTOMY AND ADENOIDECTOMY HX FAMILY HISTORY Problem Relation Age of Onset other (sinus pause) Mother X 13 seconds with syncope, s/p PPM No Known Problems Father No Known Problems Sister No Known Problems Sister No Known Problems Brother No Known Problems Brother Breast Cancer Maternal Grandmother 60 Ovarian cancer Maternal Aunt 48 other (Myocardial infarction) Paternal Uncle age 54 of [place] Social History Tobacco Use Smoking status: Never Smokeless tobacco: Never Vaping Use Vaping Use: Never used Substance Use Topics Alcohol use: No Drug use: No Current Outpatient Medications Medication Sig propranolol (INDERAL) 20 mg tablet take 1 tablet by mouth once daily. vit no.124/iron/folic ( VITAMIN ORAL) Take by mouth once daily. No current facility-administered medications for this visit. Allergies As of Date: 12/29/2023 Allergen Noted Reaction CODEINE 04/11/2017 Other: See Comments PREDNISONE 10/01/2022 Intolerance Fully Assessed 12/29/2023 REVIEW OF SYSTEMS Expanded ROS: N/A Allergies and current medication updated:Yes EXAM: BP 112/74 Wt 251 lb 9.6 oz (114.1kg) LMP 11/22/2023 GENERAL: pleasant, female in no apparent distress HEENT: Normocephalic and atraumatic NECK: full range of motion DERMATOLOGY: Normal, without lesions, non-icteric, and non-hirsute CHEST: Normal inspiratory effort NEURO: exam grossly non-focal EXTREMITIES: normal ASSESSMENT AND PLAN: Encounter Diagnosis ICD-10-CM 1. Class 2 obesity with body mass index (BMI) of 39.0 to 39.9 in adult, unspecified obesity type, unspecified whether serious comorbidity present E66.9 CONSULT TO [facility] WEIGHT MANAGEMENT PROGRAM Z68.39 2. Desire for Z31.9 3. History of repair of coarctation of aorta Z87.74 Discussed would be high risk . Patient states she has discussed with her part time flexible clerk, who has cleared her for . Medication list reviewed with patient including r/b/a propranolol in . Cont PNV. Reviewed risk of obesity in and impact of obesity on fertility. Reviewed labs and pelvic US and questions answered. Recommend weight management and referral placed. Discussed r/b/a ovulation induction medication, and printed out information for her to review on medications. Discussed recommendation is for weight loss first but patient to notify office if she would like to start ovulation induction medication. Kendra Torres, I spent 20 minutes in the visit, with more than 50% of the total [id number] time of the visit in counseling / coordination of care. documented in this encounter [facility] 12-18-2023 Telephone encounter Note EP appt must be in person. Last in person visit was in 2021 w/ Dr. Peacock. Scale Reclamation Tender to notify patient who was holding on back line. Jose G Brooke [facility] 12-18-2023 Miscellaneous Notes EP appt must be in person. Last in person visit was in 2021 w/ Dr. Peacock. Scale Reclamation Tender to notify patient who was holding on back line. Jose G Brooke documented in this encounter [facility] 12-06-2023 Note [facility] 12-06-2023 History of Present illness Narrative Luzmaria Chawla is a 23 year old female who presented for seo executive ultrasound today. Encounter Diagnosis ICD-10-CM 1. Hirsutism L68.0 2. Secondary oligomenorrhea N91.4 3. Class 2 obesity with body mass index (BMI) of 39.0 to 39.9 in adult, unspecified obesity type, unspecified whether serious comorbidity present E66.9 Z68.39 Please see report under imaging tab. Dilcia Navarro MD December 06, 2023 9:18 AM documented in this encounter [facility] 12-03-2023 Telephone encounter Note Can you please place the following orders: cMRI, labs, event monitor, exercise stress ecg and ecg Sheila Hernandez December 03, 2023 4:13 PM [facility] 12-03-2023 Miscellaneous Notes Can you please place the following orders: cMRI, labs, event monitor, exercise stress ecg and ecg Sheila Hernandez December 03, 2023 4:13 PM documented in this encounter [facility] 11-28-2023 Dionne Ng APRN.VETERANS CONTACT REPRESENTATIVE - 11/28/2023 8:26 AM EDT Polycystic Ovary Syndrome Women with polycystic ovary syndrome (PCOS) have a hormonal imbalance that interferes with normal reproductive processes. PCOS usually starts at puberty and is associated with irregular periods and other hormone related symptoms. The most concerning issues with PCOS are the increase of infertility, the risk of developing type 2 diabetes and cardiovascular disease, and the higher risk of developing endometrial (uterine) cancer at an early age. What are the symptoms of PCOS? Irregular menstrual periods, or no menstrual periods at all Decreased frequency or complete lack of ovulation, resulting in problems with infertility Obesity, often specifically characterized by weight gain in the upper body and abdomen Oily skin and hair and persistent acne into adulthood Abnormal hair growth, in a masculine distribution (facial hair, heavy hair growth on arms, chest, and abdomen) Tendency to develop type 2 diabetes What causes PCOS syndrome? Research is ongoing to uncover a cause for PCOS. There is evidence that shows a link between certain forms of PCOS and family history, suggesting a genetic basis for the condition. How is PCOS diagnosed? Most cases can be diagnosed with a thorough evaluation of your medical history and symptoms, as well as a physical exam. A blood test may be required to measure the levels of various hormones. In some cases, an ultrasound of the ovaries may help with diagnosis. How is PCOS treated? Although PCOS can be treated with medications, treatment is often highly dependent on your goals and your symptoms. If you want to become , you may need the assistance of oral or injected fertility medications. If you do not want to become , you may consider control pills to prevent and regulate periods. Other symptoms such as unwanted hair growth, acne, obesity, and diabetes should be managed by specialists in those areas. Specific treatment options should be discussed with your physician. How can PCOS be prevented? There is no known prevention for PCOS. However, through proper nutrition and weight management many women with polycystic ovary syndrome can avoid developing diabetes and cardiovascular problems. How can I improve my chances of conceiving if I have PCOS? While specific fertility issues should be addressed with your physician, there are some general healthcare guidelines that may improve your chances of becoming : Folic acid (400 mcg. supplement a day, with a diet rich in folic acid, including leafy green vegetables, dried beans, liver, and citrus fruits) Limit caffeine (Fewer than two caffeinated beverages per day) Eat well (Healthy well-balanced diet) Exercise and maintain a healthy weight (Maintain a normal exercise routine, 20 to 30 minutes per day, 4 to 5 times per week.) This information is provided by your physician and the [facility] Journal of Medicine and the [facility] [email or web address]. This information has not been designed to replace a physician's medical assessment and medical judgment. Copyright 1994- 2012 The [facility]. All rights reserved This information is provided by the [facility] and is not intended to replace the medical advice of your doctor or health care provider. Please consult your health care provider for advice about a specific medical condition. For additional health information, please contact the [facility] Health Information at the [facility] or toll-free extension [id number]. If you prefer, you may visit [email or web address] or [email or web address]. This document was last reviewed on: 2009 index#[id number] documented in this encounter [facility] 11-28-2023 Note [facility] 11-28-2023 History of Present illness Narrative Interlocking Pavement Installer offered: Patient declines. Accompanied by . Luzmaria is a 23 year old who presents for an annual gynecologic exam without complaints. Menses: menses every 28-39 days lasting 5-6 days.H ad 6 months of amenorrhea last summer but monthly cycles since. Breast tenderness and mild menstrual cramping. Had been using ovulation tests which did not indicate ovulation. Mucus does not change mid-cycle. Pelvic US 05/2022 - ovaries normal. Mild hirsutism, no acne, no thinning hair, , General adiposity Contraception: none, trying for HPV vaccine: Yes Last Pap: 2021 normal HPV: N/A History of abnormal pap: No Last mammogram: never Sexually active: Yes History of STDS: None Patient concerns for STD exposure: No. Time with current partner: 3 year Number of lifetime partners: 1 Pain with intercourse: No Postcoital bleeding: No Documentation from previous visit of 10/01/2022 was copied and pasted, documentation has been reviewed and edited as necessary for today's visit. OB History T0 L0 SAB0 IAB0 Ectopic0 Multiple0 Live Births0 Dry Cell Tester History LMP: 11/22/2023 (Exact Date), Having periods Age at Menarche: Age at First : Age at Menopause: Dry Cell Tester History Comments: Sexual Activity: Yes; Male Contraception: None PAST MEDICAL HISTORY Diagnosis Date Bicuspid aortic valve Coarctation of aorta s/p end to end anatomosis repair as 1997 Inappropriate sinus tachycardia (HCC) SVT (supraventricular tachycardia) (HCC) PAST SURGICAL HISTORY Procedure Laterality Date FOOT SURGERY HX PAST SURGICAL HISTORY OF Coartation repair as (98) TONSILLECTOMY AND ADENOIDECTOMY HX FAMILY HISTORY Problem Relation Age of Onset other (sinus pause) Mother X 13 seconds with syncope, s/p PPM No Known Problems Father No Known Problems Sister No Known Problems Sister No Known Problems Brother No Known Problems Brother Breast Cancer Maternal Grandmother 60 Ovarian cancer Maternal Aunt 48 other (Myocardial infarction) Paternal Uncle age 54 of [place] SOCIAL HISTORY Social History Tobacco Use Smoking status: Never Smokeless tobacco: Never Vaping Use Vaping Use: Never used Substance Use Topics Alcohol use: No Drug use: No REVIEW OF SYSTEMS Abdomen: No abdominal pain, nausea, vomiting, diarrhea, or constipation. No bloating, early satiety, indigestion, or increased flatulence. Bladder: No dysuria, gross hematuria, urinary frequency, urinary urgency, or incontinence. Breast: No breast lumps, nipple d/c, overlying skin changes, redness or skin retraction. Allergies and current medication updated:Yes EXAM: BP 108/70 Ht 5' 7 (1.70m) Wt 253 lb (114.8kg) LMP 11/22/2023 BMI 39.62 kg/(m^2). GENERAL: pleasant, female in no apparent distress HEENT: Normocephalic, atraumatic, mucus membranes moist, and no lesions NECK: Supple, full range of motion, no adenopathy, and thyroid normal DERMATOLOGY: Normal, without lesions, non-icteric, and hirsutism to breasts and abdomen BREAST: soft, non-tender, symmetric, no dominant mass, normal nipple-areolar complex, no lymphadenopathy, and no nipple discharge CHEST: Normal inspiratory effort ABDOMEN: soft, non-tender, and no masses PELVIC: external genitalia normal, normal Bartholin's glands, urethra, [place]'s glands, no vulvar lesions, no cervical lesions, good vaginal support, physiologic d discharge present, normal appearing perineal body and perianal region BIMANUAL: uterus normal size, shape and consistency, no adnexal masses, and non-tender RECTOVAGINAL: deferred. NEURO: alert and oriented x3,exam grossly non-focal EXTREMITIES: normal ASSESSMENT/PLAN: 1) Health maintenance: Pap/HPV up to date. Nutrition, exercise and routine health maintenance exams reviewed. HPV vaccine: completed series 2. Secondary oligomenorrhea - ICD9: 626.1, ICD10: N91.4 - THYROID STIMULATING HORMONE - PROLACTIN - TESTOSTERONE, FREE AND TOTAL - DHEA-S BLD - HYDROXYPROGESTERONE-17 - FOLLICLE STIMULATING HORMONE - LUTEINIZING HORMONE - ESTRADIOL-17B BLD - PELVIC US WHI - HEMOGLOBIN A1C - GLUCOSE, FASTING 3. Hirsutism - ICD9: 704.1, ICD10: L68.0 - THYROID STIMULATING HORMONE - PROLACTIN - TESTOSTERONE, FREE AND TOTAL - DHEA-S BLD - HYDROXYPROGESTERONE-17 - FOLLICLE STIMULATING HORMONE - LUTEINIZING HORMONE - ESTRADIOL-17B BLD - PELVIC US WHI - HEMOGLOBIN A1C - GLUCOSE, FASTING 4. Class 2 obesity with body mass index (BMI) of 39.0 to 39.9 in adult, unspecified obesity type, unspecified whether serious comorbidity present - ICD9: 278.00, V85.39, ICD10: E66.9, Z68.39 - discussed weight management. Declines as she just start WW. - THYROID STIMULATING HORMONE - PROLACTIN - TESTOSTERONE, FREE AND TOTAL - DHEA-S BLD - HYDROXYPROGESTERONE-17 - FOLLICLE STIMULATING HORMONE - LUTEINIZING HORMONE - ESTRADIOL-17B BLD - PELVIC US WHI - HEMOGLOBIN A1C - GLUCOSE, FASTING 5) Contraception: none. Contraceptive options reviewed and information provided. 6) STD screening: Declined STD check. 7) - discussed with pt causes of menstrual changes. Discussed PCOS signs and symptoms and that she has some but not enough to make diagnosis. . Increased risk of DMT2, CAD, infertility. Treatment discussed: weight loss to restore ovulatory cycles and reduce androgen concentrations, exercise, cyclic medroxyprogesterone to induce menses. Metformin discussed - explained that it is not considered a first-line treatment as it does not change outcomes but that it will decrease HgbA1c although weight loss will do the same. Discussed that she may need medication to induce ovulation if she does not become with lifestyle changes and weight loss. Will notify of results. Follow- up as needed. Dionne Carrillo APRN.LYNDA documented in this encounter [facility] 11-11-2023 History of Present illness Narrative POPULATION HEALTH NAVIGATION OUTREACH Action/FYI Left msg & sent mychart. Reason for Outreach Care Gap/HCC or Scheduling Wellness Visits Care Gaps due: Physical Annual Wellness Visit Patient Contacted: Unable or unnecessary to reach patient: Left message MyChart message sent Navigation Signature: Bessie Jacob MA November 11, 2023 1:19 PM documented in this encounter [facility] 10-02-2023 Telephone encounter Note Call from pharmacy requesting refill. Requested Prescriptions Pending Prescriptions Disp Refills propranolol (INDERAL) 20 mg tablet [Pharmacy Med Name: PROPRANOLOL HCL 20 MG TABS 20 Tablet] 90 tablet 3 Sig: take 1 tablet by mouth once daily. Patient last seen 04/24/2023 Deborah Tafoya, Admin [facility] 10-02-2023 Miscellaneous Notes Call from pharmacy requesting refill. Requested Prescriptions Pending Prescriptions Disp Refills propranolol (INDERAL) 20 mg tablet [Pharmacy Med Name: PROPRANOLOL HCL 20 MG TABS 20 Tablet] 90 tablet 3 Sig: take 1 tablet by mouth once daily. Patient last seen 04/24/2023 Deborah Tafoya, Admin documented in this encounter [facility] 09-04-2023 History of Present illness Narrative Chief Complaint Patient presents with: Follow Up HPI Luzmaria Chawla is a 23 year old female who presents here today for Above Complaints.. Patient presents for sore throat and nasal congestion. Was just seen at [facility] this am and provided with augmentin however patient concerned as she has a heart condition. Strep was negative in [facility]. Past medical history, appointments, medications, allergies reviewed. Previous Medical History PAST MEDICAL HISTORY Diagnosis Date Bicuspid aortic valve Coarctation of aorta s/p end to end anatomosis repair as 1997 Inappropriate sinus tachycardia (HCC) SVT (supraventricular tachycardia) (HCC) Previous Surgical History PAST SURGICAL HISTORY Procedure Laterality Date FOOT SURGERY HX PAST SURGICAL HISTORY OF Coartation repair as (98) TONSILLECTOMY AND ADENOIDECTOMY HX Family History FAMILY HISTORY Problem Relation Age of Onset other (sinus pause) Mother X 13 seconds with syncope, s/p PPM other (no health issues) Father Breast Cancer Maternal Grandmother 60 other (Myocardial infarction) Paternal Uncle age 54 of [place] Ovarian cancer Maternal Aunt 48 Patient Allergies ALLERGIES Allergen Reactions Codeine Other: See Comments headache, nausea Prednisone Intolerance Migraine Current Medications Current Outpatient Medications on File Prior to Visit Medication Sig amoxicillin-clavulanate potassium (AUGMENTIN) 875-125 mg per tablet Take 1 tablet by mouth two times a day for 7 days. propranolol (INDERAL) 20 mg tablet Take 1 tablet by mouth once daily. vit no.124/iron/folic ( VITAMIN ORAL) Take by mouth once daily. Current Facility-Administered Medications on File Prior to Visit Medication perflutren lipid microspheres 1.3 mL in NaCl (PF) 0.9% 10 mL injection (DEFINITY) sodium chloride 0.9 % (flush) 10 mL (BD POSIFLUSH) Social History Social History Tobacco Use Smoking status: Never Smokeless tobacco: Never Vaping Use Vaping Use: Never used Substance Use Topics Alcohol use: No Drug use: No Review of Symptoms REVIEW OF SYSTEMS SEE HPI EXAM: BP 118/83 Pulse 110 Resp 18 Wt 114.8 kg (253 lb) LMP 08/31/2022 (Exact Date) SpO2 99% BMI 40.84 kg/m General Appearance: Well appearing, alert, in no acute distress, well-hydrated, well nourished.. Nose/Sinuses: Positive findings: mucosa erythematous and swollen, purulent rhinorrhea. Oropharynx: Positive findings: mild oropharyngeal erythema. Neck: Supple, no adenopathy; thyroid symmetric, normal size, no bruits. Health Maintenance List Hepatitis C Screening Never done HIV Screening Never done DTaP,Tdap,Td Vaccine(7 - Td or Tdap) due on 12/06/2019 Covid-19 Vaccine( season) due on 01/17/2023 Behavioral Health Screening Never done Influenza Vaccine(Season Ended) due on 01/18/2024 Pap Testing due on 09/25/2024 Hepatitis B Vaccine Completed HPV Vaccine Completed ASSESSMENT/PLAN: 1. Rhinosinusitis - ICD9: 473.9, ICD10: J32.9 -Proceed with plan of care as ordered by [facility]. Kwasi Garcia APRN.[employer]ERANS CONTACT REPRESENTATIVE documented in this encounter [facility] 09-04-2023 History of Present illness Narrative CC: Patient presents with: Cough: Chest congestion, St x8 days Patient has had a cough and congestion for about 8 days. Patient also has a sore throat, reports it is worse on the L side. Denies fever or pleuritic chest pain. HPI: Luzmaria Chawla is a 23 year old female who presents to the office with complaint of respiratory symptoms, cough, nonproductive, sore throat, and sinus symptoms for 8 days. Symptoms are staying the same. Associated symptoms includes sore throat, nasal congestion, and cough. Denies body aches, rash, and dyspnea. Treatments tried include nothing so far. with no relief of symptoms. Sick contacts: yes. History of asthma, frequent episodes of bronchitis, chronic bronchitis, bronchiectasis or COPD: No Smoker: No Seasonal/environmental allergies: No The ROS is otherwise negative. The patient's pmh, medications, allergies, and past visits are reviewed. PHYSICAL EXAM: BP 118/83 Pulse 96 Temp 36.7 C (98 F) Resp 18 Wt 114.8 kg (253 lb 1.4 oz) LMP 08/31/2022 (Exact Date) SpO2 98% BMI 40.85 kg/m General appearance: alert, cooperative, pleasant, in no acute distress Head: Normocephalic Eyes: PERRLA, EOM's intact, conjunctiva pink and moist, no icterus, sclera white, non-injected Ears: Right ear: External ear/canal- Normal, TM - clear with good landmarks. Left ear: External ear/canal- Normal, TM - clear with good landmarks Nose: clear. Oropharynx:moist without lesions, mild erythema Neck:supple and no adenopathy Heart: Negative. RRR without obvious murmur, gallop, or rubs. No ectopy. Lungs: clear to auscultation, without rales or wheeze, good air exchange PAST MEDICAL HISTORY Diagnosis Date Bicuspid aortic valve Coarctation of aorta s/p end to end anatomosis repair as 1997 Inappropriate sinus tachycardia (HCC) SVT (supraventricular tachycardia) (HCC) PAST SURGICAL HISTORY Procedure Laterality Date FOOT SURGERY HX PAST SURGICAL HISTORY OF Coartation repair as infant (98) TONSILLECTOMY AND ADENOIDECTOMY HX ALLERGIES Codeine and Prednisone MEDICATIONS vit no.124/iron/folic ( VITAMIN ORAL)^Take by mouth once daily.^Disp: ^Rfl: propranolol (INDERAL) 20 mg tablet^Take 1 tablet by mouth once daily.^Disp: 90 tablet^Rfl: 0 FAMILY HISTORY Problem Relation Age of Onset other (sinus pause) Mother X 13 seconds with syncope, s/p PPM other (no health issues) Father Breast Cancer Maternal Grandmother 60 other (Myocardial infarction) Paternal Uncle age 54 of [place] Ovarian cancer Maternal Aunt 48 Social History Tobacco Use Smoking status: Never Smokeless tobacco: Never Vaping Use Vaping Use: Never used Substance Use Topics Alcohol use: No Drug use: No DATA REVIEWED: Most recent labs ASSESSMENT/PLAN: 1. Rhinosinusitis - ICD9: 473.9, ICD10: J32.9 - Will begin treatment with as per antibiotic as written, see orders - Supportive care with plenty of fluids, rest, and analgesia prn. - AMOXICILLIN 875 MG-POTASSIUM CLAVULANATE 125 MG TABLET Prescription instructions reviewed with patient. Potential red flag symptoms discussed with the patient. Reviewed appropriate action plan to take if red flag symptoms occur. Patient agreeable to treatment plan. Latisha Fisher Supervising provider was present and guided the care of the patient for the entire session on this date. All documentation was reviewed and agreed upon. Gisel Sweet APRN.LYNDA documented in this encounter [facility] 04-24-2023 History of Present illness Narrative [facility] Department of Cardiovascular Medicine VIRTUAL VIDEO VISIT ESTABLISHED OUTPATIENT VISIT SERVICE DATE: 04/24/2023 Patient: Luzmaria Chawla SERVICE TIME: 10:59 AM : 2000 This is a virtual video visit. It required patient-provider interaction for the medical decision making as documented below. Luzmaria Chawla has consented to this video encounter. I have communicated my name and active licensure. The patient's identity and physical location were verified at the time of this visit. Either the patient or their legal food products sales representative has been informed of the risks and benefits of -- and alternatives to -- treatment through a remote evaluation and consents to proceed with the evaluation remotely. CHIEF COMPLAINT IST HISTORY OF PRESENT ILLNESS Luzmaria Chawla is a 23 year old female who presents today for follow-up visit for IST. She was last seen via [facility] on 10/07/2022. She has a history of coarctation of the aorta s/p end to end anastomosis repair as (1997), bicuspid aortic valve and IST. She was maintained on nadolol. At her last visit this was changed to propranolol 20 mg daily. She reports doing well, no sustained arrhythmias. She denies chest pain, shortness of breath, orthopnea, PND, cough, lightheadedness or syncope. She tries to drink 3 quarts of water a day and salts her food. She wears knee high compression garments as needed. She tries to use her stationary bike 20 minutes 5 days a week. Heart monitor Enrollment Dates: 12/10/2022-12/17/2022 Patient had a min HR of 47 bpm, max HR of 158 bpm, and avg HR of 82 bpm. Predominant underlying rhythm was Sinus Rhythm. Slight P wave morphology changes were noted. Isolated SVEs were rare (<1.0%), SVE Couplets were rare (<1.0%), and no SVE Triplets were present. Isolated VEs were rare (<1.0%), and no VE Couplets or VE Triplets were present. Ashok Pedro MD Echo 12/10/2022 CONCLUSIONS: - Technically difficult exam due to body habitus. - Exam indication: Coarctation of the aorta - Aortic coarctation, PDA, and bicuspid aortic valve. Status-post CoA end-to-end repair + PDA ligation (FEB-1998). - The left ventricle is normal in size. Left ventricular systolic function is normal. EF = 64 5% (2D biplane) Normal left ventricular diastolic function. - The right ventricle is normal in size. Right ventricular systolic function is normal. - Bicuspid aortic valve by history. Valve morphology is difficult to appreciate today. There is no aortic valve regurgitation. There is mild aortic valve stenosis. AV area is 1.32 cm (0.57 cm /m ) by continuity, VTI. The peak gradient is 22 mmHg, the mean gradient is 12 mmHg and the dimensionless valve index is 0.44. Prior pk/mn gradients were 32/17. - Estimated right ventricular systolic pressure is likely underestimated due to a weak or incomplete tricuspid regurgitation signal and is, at least, 21 mmHg consistent with normal pulmonary artery pressures. Estimated right atrial pressure is 3 mmHg based on IVC assessment. - Descending aorta peak/mean gradients 21/8 mmHg. Abdominal aortic Doppler signal is non-obstructive. - No residual PDA by color Doppler. - Exam was compared with the prior echocardiographic exam performed on 10/17/21. Similar findings at rest. MEDICAL HISTORY Diagnosis Date Bicuspid aortic valve Coarctation of aorta s/p end to end anatomosis repair as 1997 Inappropriate sinus tachycardia SVT (supraventricular tachycardia) (HCC) PAST SURGICAL HISTORY Procedure Laterality Date FOOT SURGERY HX PAST SURGICAL HISTORY OF Coartation repair as infant (98) TONSILLECTOMY AND ADENOIDECTOMY HX FAMILY HISTORY Problem Relation Age of Onset other (sinus pause) Mother X 13 seconds with syncope, s/p PPM other (no health issues) Father Breast Cancer Maternal Grandmother 60 other (Myocardial infarction) Paternal Uncle age 54 of [place] Ovarian cancer Maternal Aunt 48 Social History Tobacco Use Smoking status: Never Smokeless tobacco: Never Vaping Use Vaping Use: Never used Substance Use Topics Alcohol use: No Drug use: No ALLERGIES Allergen Reactions Codeine Other: See Comments headache, nausea Prednisone Intolerance Migraine CURRENT MEDICATIONS propranolol (INDERAL) 20 mg tablet^take 1 tablet by mouth daily^Disp: 90 tablet^Rfl: 0 vit no.124/iron/folic ( VITAMIN ORAL)^Take by mouth once daily.^Disp: ^Rfl: PHYSICAL EXAMINATION: VIDEO EXAM: (if completed, performed via video enabled technology) GENERAL: alert and appropriate, in no distress, well-hydrated, well nourished, and happy, smiling, interactive PATIENT ENTERED QUESTIONNAIRE SCORES PHQ-9 04/19/2022 PHQ-2 Score 0 PHQ-9 Score - PROMIS Global Health - (T-Scores - the mean of general population = 50. Five points is a clinically meaningful difference.) 04/12/2022 Physical T-Score 50.8 Mental T-Score 50.8 ASSESSMENT: Luzmaria Chawla is a 23 year old female who has a history of coarctation of the aorta s/p end to end anastomosis repair as (1997), bicuspid aortic valve and IST. She was maintained on nadolol. At her last visit this was changed to propranolol 20 mg daily. She reports doing well, no sustained arrhythmias. She was considering baby but her period stopped after starting propranolol for 6 months (started again recently). PLAN (Active Outpatient Problems): # IST # Coarctation of aorta s/p end to end anastomosis repair as (1997) # Bicuspid AV - Please maintain propranolol 20mg/day - 1 year appointment Signature: ASHOK PEDRO MD, PhD Department: Associate Staff, Department of Cardiac Electrophysiology DATE of SERVICE: 04/24/2023 TIME of SERVICE: 5:16 PM documented in this encounter [facility] 04-07-2023 Miscellaneous Notes Call from pharmacy requesting refill. Requested Prescriptions Pending Prescriptions Disp Refills propranolol (INDERAL) 20 mg tablet [Pharmacy Med Name: PROPRANOLOL HCL 20 MG TABS 20 Tablet] 90 tablet 0 Sig: take 1 tablet by mouth daily Patient last seen 06/25/2022 Jose G Brooke documented in this encounter [facility] 01-01-2023 Miscellaneous Notes documented in this encounter [facility] 01-01-2023 Miscellaneous Notes Call from patient requesting refill. Requested Prescriptions Pending Prescriptions Disp Refills propranolol (INDERAL) 20 mg tablet 90 tablet 0 Sig: Take 1 tablet by mouth once daily. Patient last seen 10/07/2022 Jose G Brooke documented in this encounter [facility] 12-26-2022 History of Present illness Narrative Radiology Service Progress Note PATIENT NAME: Luzmaria Chawla DATE OF SERVICE: December 26, 2022 TIME: 8:12 AM PATIENT IDENTITY VERIFICATION COMPLETED USING TWO (2) IDENTIFIERS: Name and Date of confirmed by identification band and Name and Date of obtained from a relative, guardian or prior caregiver.. FALL SCREENING: Has the patient had 2 falls in the last year or 1 fall with injury or currently using an Ambulatory Assistive Device (Walker, Cane, Wheelchair, Crutches, etc.)? No PATIENT GENDER DATA: Female. status: : No status: NO. PATIENT RELEVANT IMPLANT DATA REVIEWED: Yes RADIOLOGY DEPARTMENT: MR; Exam(s) Completed: Cardiac: Cardiac PERIPHERAL IV DATA: Not applicable SIGNED BY: RT Naomi(R) December 26, 2022 8:12 AM documented in this encounter [facility] 12-24-2022 Miscellaneous Notes Reviewed with Dr Alas. Nothing of concern on ECG. Jeanne Alarcon RN ECG abnormal and concerned: 12/10/22 SINUS RHYTHM WITH MARKED SINUS ARRHYTHMIA INCOMPLETE RIGHT BUNDLE BRANCH BLOCK NONSPECIFIC T WAVE ABNORMALITY ABNORMAL ECG 10/17/21: SINUS BRADYCARDIA INCOMPLETE RIGHT BUNDLE BRANCH BLOCK ANTERIOR T WAVE ABNORMALITY ABNORMAL ECG 12/10/22: Ms. Dutta (aidan GrantArnaud Chawla is a rufus 22 yo F with: Coarctation of the aorta, PDA, and bicuspid aortic valve s/p end-to-end anastomosis and PDA ligation as a in , and residual moderate Surgery 02/1998: median sternotomy and end-to-end anastomosis and PDA doubly ligated and divided by Dr. Montanez in [place], [place] Bicuspid aortic valve with LCC and RCC fusion, no significant AR, moderate with peak velocity 3.2 m/s, PG/MG 41/22 mmHg, DI 0.34, MIKE 1.28 cm2. 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 Follows with EP PLAN: Luzmaria is subjectively doing quite well and asymptomatic, we reviewed her echo results, which were reassuring. She wants to get in the near future, and I see no present contraindication to this, nor is there any indicated intervention at present, she will inform us once and we will have her follow up in Cardio-OB clinic towards the end of her second trimester, otherwise, she would follow up in 1 year with cMRI, labs, event monitor, and ECG. documented in this encounter [facility] 12-10-2022 History of Present illness Narrative Images from the original note were not included. [facility] OUTPATIENT VISIT DATE December 10, 2022 OUTPATIENT VISIT TYPE EST PRIMARY CARE PHYSICIAN: CINDY Reynaga [address] [place] [address] REFERRING PHYSICIAN: SELF CHIEF COMPLAINT: Coarctation, BAV CONGENITAL CARDIAC HISTORY: Ms. Dutta (pronounced JuanitaArnaud Chawla is a rufus 22 yo F with: Coarctation of the aorta, PDA, and bicuspid aortic valve s/p end-to-end anastomosis and PDA ligation as a in , and residual moderate Surgery 02/1998: median sternotomy and end-to-end anastomosis and PDA doubly ligated and divided by Dr. Montanez in [place], [place] Bicuspid aortic valve with LCC and RCC fusion, no significant AR, moderate with peak velocity 3.2 m/s, PG/MG 41/22 mmHg, DI 0.34, MIKE 1.28 cm2. 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 Follows with EP INTERVAL HISTORY: Ms. Luzmaria Chawla (previously Ron) presents for a visit with her . Patient states she overall feels well. She stays active with house work as well as regular bike rides. 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 Denies chest pain, shortness of breath, PND, orthopnea, palpitations, edema, light headedness and syncope. PAST MEDICAL HISTORY Diagnosis Date Bicuspid aortic valve Coarctation of aorta s/p end to end anatomosis repair as 1997 Inappropriate sinus tachycardia SVT (supraventricular tachycardia) (HCC) PAST SURGICAL HISTORY Procedure Laterality Date FOOT SURGERY HX PAST SURGICAL HISTORY OF Coartation repair as (98) TONSILLECTOMY AND ADENOIDECTOMY HX Social History Tobacco Use Smoking status: Never Smokeless tobacco: Never Vaping Use Vaping Use: Never used Substance Use Topics Alcohol use: No Drug use: No FAMILY HISTORY Problem Relation Age of Onset other (sinus pause) Mother X 13 seconds with syncope, s/p PPM other (no health issues) Father Breast Cancer Maternal Grandmother 60 other (Myocardial infarction) Paternal Uncle age 54 of [place] Ovarian cancer Maternal Aunt 48 ALLERGIES Allergen Reactions Codeine Other: See Comments headache, nausea Prednisone Intolerance Migraine MEDICATIONS: propranolol (INDERAL) 20 mg tablet^Take 1 tablet by mouth once daily.^Disp: 90 tablet^Rfl: 0 vit no.124/iron/folic ( VITAMIN ORAL)^Take by mouth once daily.^Disp: ^Rfl: REVIEW OF SYSTEMS: GENERAL: Negative for: Weight loss or gain, Fever or Chills, Weakness and Sleep difficulties. HEENT: Negative for: Headache, Impaired Vision, Glasses, Hearing Impairment, Ringing in Ears, Nosebleeds, Poor Dental Care, Bleeding Gums and Dentures. NECK: Negative for: Swelling, Pain, Stiffness RESPIRATORY: Negative for: Cough, Blood in Sputum, Shortness of breath, Wheezing, Apnea GASTROINTESTINAL: Negative for: Trouble swallowing, Heartburn, Change in bowel habits, Blood in stool, Dark black stools MUSCULOSKELETAL: Negtive for: Muscle or joint pain, stiffness, Joint swelling NEUROLOGIC/PSYCHIATRIC: Negative for: Weakness, Paralysis, Numbness, Tingling, Tremor, Nervousness or anxiety, Depressed mood, Memory loss SKIN: Negative for: Rash, Itching HEMATOLOGICAL/LYMPHATIC: Negative for: Easy bruising, Easy bleeding ENDOCRINE: Negative for: Heat or Cold Intolerance, Excessive Sweating, Frequent Urination, Frequent Thirst PHYSICAL EXAMINATION: BP 153/90 (BP Site: Right Leg) Pulse 63 Resp 15 Wt 112.5 kg (248 lb) LMP 08/31/2022 (Exact Date) SpO2 100% BMI 38.88 kg/m General: Well appearing, in no acute distress. Skin: No clubbing, no cyanosis. Eyes: Extra ocular movements intact Oropharynx: Teeth in good repair. Neck: No jugular venous distention, no carotid bruits, carotids have a normal upstroke, no palpable thyromegaly. Lungs: Clear to auscultation bilaterally, no wheezing or rhonchi. Heart: Regular rhythm, PMI not displaced, S1, S2 normal, no murmurs. Abdomen: Soft, nontender, bowel sounds normal, no palpable organomegaly, no bruits. Extremities: No peripheral edema . Grade 2/4 distal pulses bilaterally. Neuro: Oriented to person, place and time, alert, cooperative, gait coordinated. CARDIOVASCULAR MEDICINE TESTING: TTE 12/10/2022: - Aortic coarctation, PDA, and bicuspid aortic valve. Status-post CoA end-to-end repair + PDA ligation (FEB-1998). - The left ventricle is normal in size. Left ventricular systolic function is normal. EF = 64 5% (2D biplane) Normal left ventricular diastolic function. - The right ventricle is normal in size. Right ventricular systolic function is normal. - Bicuspid aortic valve by history. Valve morphology is difficult to appreciate today. There is no aortic valve regurgitation. There is mild aortic valve stenosis. AV area is 1.32 cm (0.57 cm /m ) by continuity, VTI. The peak gradient is 22 mmHg, the mean gradient is 12 mmHg and the dimensionless valve index is 0.44. Prior pk/mn gradients were 32/17. - Estimated right ventricular systolic pressure is likely underestimated due to a weak or incomplete tricuspid regurgitation signal and is, at least, 21 mmHg consistent with normal pulmonary artery pressures. Estimated right atrial pressure is 3 mmHg based on IVC assessment. - Descending aorta peak/mean gradients 21/8 mmHg. Abdominal aortic Doppler signal is non-obstructive. - No residual PDA by color Doppler. - Exam was compared with the prior echocardiographic exam performed on 10/17/21. Similar findings at rest. CMRI 10/17/2021: IMPRESSION: 1. S/P aortic coarctation surgical repair with end-to-end anastomosis with stable dimensions (1.5-1.6 cm in the arch to descending aorta). The remaining thoracic aorta is normal in course, caliber, and contour. There is no acute aortic pathology 2. Bicuspid aortic valve with fusion of the left/right cusps, mild leaflet thickening, restriction and flow acceleration across the valve, at least mild stenosis by peak velocity (2.8 m/s at VENC 3.0 m/s), and trivial aortic regurgitation. Correlate with echo findings. 3. Normal left ventricle size (LVEDVi 80 mL/m2) and systolic function (LVEF 60%). There are no segmental wall motion abnormalities. 4. Normal right ventricle size (RVEDVi 76 mL/m2) and systolic function (RVEF 61%). Stress Echo MEtabolic 10/17/2021: Metabolic Exercise Test Interpretation: - EXERCISE PERFORMANCE: Indeterminate (treadmill study) exercise power. Maximal aerobic effort. Normal aerobic capacity. Indeterminate aerobic efficiency (treadmill exercise). - CARDIOVASCULAR RESPONSE: Normal stroke volume response. Normal heart rate response. Normal chronotropic index. Normal BP response. Arrhythmias: No arrhythmias . ST segment and T-wave changes: No ST changes. - PULMONARY RESPONSE: There was no clinically significant oxygen desaturation during exercise. Normal ventilatory reserve. Normal ventilatory efficiency. No exercise oscillatory ventilation. - QUALITATIVE COMMENTS: Exercise capacity is normal compared to a sedentary female of this age and height. The pattern of cardio-respiratory responses to exercise is normal. Stress Observations: Metabolic stress lab #: 1 Study protocol type: [place] 10% Final treadmill speed: 3.00 mph Final treadmill grade: 13.0% Total exercise duration: 7 min 25 sec [8-12 min] Peak RPE: 17.0 [>18; based on 6-20 scale] Reason for test termination: shortness of breath Symptoms during test: No symptoms provoked during stress Resting HR: 54 bpm Peak HR: 176 bpm (90% MPHR) Resting BP: 110 / 90 mmHg Peak BP: 140 / 82 mmHg Chronotropic response index (CRI): 0.86 Heart rate recovery (HRR): 44 bpm Rate Pressure Product (RPP): 93278 Metabolic Exercise Data Variable: Observed value [Expected Range] Peak RER: 1.16 [1.1 - 1.50] Peak VO2: 90.4% [>85% pred peak VO2] Peak VO2: 20.6 ml/kg/min METS (VO2/3.5): 5.89 Rest VO2: 2.7 ml/kg/min [2-5 ml/kg/min] VO2 at VAT: 60.8% [40-75% pred peak VO2] VO2 at VAT: 15.1 ml/kg/min CI: 0.95 [0.80-1.30] Peak VO2/HR: 101.0% [>85% pred peak VO2/HR] Peak SpO2: 98.0% [>95%] Peak VE: 58.0% [<85% pred peak VE] Peak VE: 72.2 L/min Peak RR: 42 breaths/min [<60 breaths/min] Peak VT: 1.7 L [1.5-3.0 L] Peak PETCO2: 39 mmHg [35-41 mmHg] VE/VCO2 slope: 27 [<30] EOV: None [None] ECG 06/27/2020 TTE 06/27/2020 - Exam indication: CHD- BAV and coarctation repair - Aortic coarctation status-post end-to-end anastomosis + PDA ligation (1997, elsewhere). - The left ventricle is normal in size. Left ventricular systolic function is normal. EF = 63 5% (2D biplane) Normal left ventricular diastolic function. - The right ventricle is normal in size. Right ventricular systolic function is normal. - Bicuspid aortic valve by history, leaflet morphology not well seen on today's study. There is trace aortic valve regurgitation. There is moderate aortic valve stenosis. AV area is 1.28 cm (0.63 cm /m ) by continuity, VTI. The peak gradient is 41 mmHg, the mean gradient is 22 mmHg and the dimensionless valve index is 0.34. Prior PK/MN gradients of 36/19mmHg. - Estimated right ventricular systolic pressure is 24 mmHg consistent with normal pulmonary artery pressures. Estimated right atrial pressure is 3 mmHg based on IVC assessment. - Descending thoracic aorta peak velocity 1.9 m/s. Abdominal aortic flow pattern with persistent forward flow in diastole but brisk upstroke in systole - likely no significant residual coarctation, but clinical correlation suggested. - No PFO seen by color Doppler. - Exam was compared with the prior CC echocardiographic exam performed on 06/30/2018. There is no significant change. cMRI 06/30/2018 IMPRESSION: 1. The thoracic aorta and visualized abdominal aorta are normal in course, caliber, and contour. The descending thoracic aorta is status post repair of coarctation with no residual coarctation or flow acceleration. There is no acute aortic pathology. 2. Bicuspid aortic valve with fused left and right coronary cusps without significant stenosis. There is no aortic regurgitation. 3. The left ventricle appears normal in size, shape, and function. There are no segmental wall motion abnormalities. TTE 06/30/2018 CONCLUSIONS: - Exam indication: CHD-BAV and h/o coactation repair - The left ventricle is normal in size. Left ventricular systolic function is normal. EF = 62 5% (2D biplane) - The right ventricle is normal in size. Right ventricular systolic function is normal. - Bicuspid aortic valve. There is no aortic valve regurgitation. There is mild aortic valve stenosis. The peak gradient is 36 mmHg, the mean gradient is 19 mmHg and the dimensionless valve index is 0.29. Previous gradients 48/25 mmHg. + saline study from previous echo. - Exam was compared with the prior echocardiographic exam performed on 04/08/2018 There is no significant change. [facility] 06/30/2018 - 07/14/2018 I have personally reviewed the Electrocardiogram, Laboratory Testing, Echocardiogram and Cardiac MRI. LABS: Hemoglobin (g/dL) Date Value 12/10/2022 14.0 06/27/2020 13.4 Hematocrit (%) Date Value 12/10/2022 44.0 06/27/2020 41.3 WBC (k/uL) Date Value 12/10/2022 8.28 06/27/2020 10.27 Platelet Count (k/uL) Date Value 12/10/2022 349 06/27/2020 327 CMP: Glucose 88 06/27/2020 BUN 9 06/27/2020 Creatinine 0.65 06/27/2020 Sodium 138 06/27/2020 Potassium 4.2 06/27/2020 Chloride 103 06/27/2020 CO2 27 06/27/2020 Protein, Total 6.5 06/27/2020 Albumin 4.2 06/27/2020 Calcium 9.7 06/27/2020 Alkaline Phosphatase 58 06/27/2020 Bilirubin, Total 0.3 06/27/2020 AST 18 06/27/2020 ALT 13 06/27/2020 NT Pro BNP Date Value Ref Range Status 12/10/2022 41 <125 pg/mL Final Cholesterol, Total (mg/dL) Date Value 12/10/2022 212 06/27/2020 169 05/01/2017 184 HDL Cholesterol (mg/dL) Date Value 12/10/2022 45 06/27/2020 43 05/01/2017 59 LDL Cholesterol (mg/dL) Date Value 12/10/2022 145 06/27/2020 111 05/01/2017 113 Triglyceride (mg/dL) Date Value 12/10/2022 111 06/27/2020 77 05/01/2017 58 ASSESSMENT: Ms. Dutta (pronounced JuanitaArnaud Chawla is a rufus 22 yo F with: Coarctation of the aorta, PDA, and bicuspid aortic valve s/p end-to-end anastomosis and PDA ligation as a in , and residual moderate Surgery 02/1998: median sternotomy and end-to-end anastomosis and PDA doubly ligated and divided by Dr. Montanez in [place], [place] Bicuspid aortic valve with LCC and RCC fusion, no significant AR, moderate with peak velocity 3.2 m/s, PG/MG 41/22 mmHg, DI 0.34, MIKE 1.28 cm2. 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 Follows with EP PLAN: Luzmaria is subjectively doing quite well and asymptomatic, we reviewed her echo results, which were reassuring. She wants to get in the near future, and I see no present contraindication to this, nor is there any indicated intervention at present, she will inform us once and we will have her follow up in Cardio-OB clinic towards the end of her second trimester, otherwise, she would follow up in 1 year with cMRI, labs, event monitor, and ECG. I spent a total of 55 minutes on the date of the service which included preparing to see the patient, [id number] patient care, completing clinical documentation, obtaining and/or reviewing separately obtained history, performing a medically appropriate examination, counseling and educating the patient/family/caregiver, ordering medications, tests, or procedures, communicating with other HCPs (not separately reported), independently interpreting results (not separately reported), communicating results to the patient/family/caregiver and care coordination (not separately reported). Bhavesh Alas MD, MSc ACHD/Interventional Cardiology Heart and Vascular [facility] Desk J2-4 Pager# [phone] Appointments: [phone] documented in this encounter [facility] 10-21-2022 Miscellaneous Notes Financial counselor in contact with pt. Will await further contact from pt. Mariya Edwards LPN Message sent to Nelda Johnston to review phone note and advise if pt would qualify for any assistance. Pt is aware that I am sending a message and willl reach out once information is received. Mariya Edwards LPN Maybe she could consult financial assistance at [facility] to see if she would qualify for any assistance? Dionne Carrillo APRN.LYNDA . Contacted pt's insurance and inquired about weight management coverage , the Pt has a deductible of $7750 then it will be a $90 copay for each visit until she has met the maximum out of pocket expense of $9100 then she will be fully covered. I can notify pt of this information. Mariya Edwards LPN Called and spoke with pt and asked if she has scheduled with Bariatric medicine and she said that she was not wanting to pursue surgical intervention. She wanted to follow with you for this and wanted to know if there were any medications that she could try to assist her in this? I explained that once a medication was ordered then the PA would be initiated. I asked her in the interim to contact her insurance and inquire if they cover medications for weight loss or treatment of Obesity. Pt was unclear initially what you ment. Please advise further. Mariya Edwards LPN Please see pt's [employer] message and further advise. Mariya Edwards LPN ' documented in this encounter [facility] 07-13-2022 History of Present illness Narrative This note was created using [employer]. Subjective Luzmaria Chawla is a 22 year old female. HPI Patient presents with sore throat for 6 days. No fever. No nv, some diarrhea. No runny nose or congestion.no cough. She has tried ibuprofen otc. She is s/p tonsillectomy. No sick contacts. Review of Systems Constitutional: Negative for fever. HENT: Positive for sore throat. Negative for congestion, ear pain, rhinorrhea, sinus pressure and sinus pain. Respiratory: Negative for cough. Cardiovascular: Negative. Gastrointestinal: Positive for diarrhea. Negative for abdominal pain, nausea and vomiting. Genitourinary: Negative. Musculoskeletal: Negative. All other systems reviewed and are negative. PAST MEDICAL HISTORY Diagnosis Date Bicuspid aortic valve Coarctation of aorta s/p end to end anatomosis repair as 1997 Inappropriate sinus tachycardia SVT (supraventricular tachycardia) (HCC) Current Outpatient Medications Medication Sig Dispense Refill predniSONE (DELTASONE) 20 mg tablet Take 2 tablets by mouth once daily for 5 days. 10 tablet 0 propranolol (INDERAL) 20 mg tablet Take 1 tablet by mouth twice daily. 120 tablet 0 nadolol (CORGARD) 20 mg tablet Take 1 tablet by mouth once daily. 90 tablet 3 Current Facility-Administered Medications Medication Dose Route Frequency Provider Last Rate Last Admin perflutren lipid microspheres 1.3 mL in NaCl (PF) 0.9% 10 mL injection (DEFINITY) INTRAVENOUS DIRECTED PRN Bhavesh Alas MD sodium chloride 0.9 % (flush) 10 mL (BD POSIFLUSH) 10 mL INTRAVENOUS DIRECTED PRN Bhavesh Alas MD PAST SURGICAL HISTORY Procedure Laterality Date FOOT SURGERY HX PAST SURGICAL HISTORY OF Coartation repair as infant (98) TONSILLECTOMY AND ADENOIDECTOMY HX FAMILY HISTORY Problem Relation Age of Onset other (sinus pause) Mother X 13 seconds with syncope, s/p PPM other (no health issues) Father Breast Cancer Maternal Grandmother 60 other (Myocardial infarction) Paternal Uncle age 54 of [place] Ovarian cancer Maternal Aunt 48 Social History Tobacco Use Smoking status: Never Smokeless tobacco: Never Vaping Use Vaping Use: Never used Substance Use Topics Alcohol use: No Drug use: No Objective BP 124/78 Pulse 85 Temp 36.9 C (98.4 F) Resp 18 Wt 116.8 kg (257 lb 9.6 oz) LMP 03/17/2022 SpO2 99% BMI 41.58 kg/m Physical Exam Vitals reviewed. Constitutional: Appearance: Normal appearance. HENT: Head: Normocephalic and atraumatic. Right Ear: Tympanic membrane, ear canal and external ear normal. Left Ear: Tympanic membrane, ear canal and external ear normal. Nose: Nose normal. Mouth/Throat: Mouth: Mucous membranes are moist. Comments: Some vesicles in posterior oropharynx. Tonsil surgically absent. No swelling or redness. Cardiovascular: Rate and Rhythm: Normal rate and regular rhythm. Heart sounds: Normal heart sounds. Pulmonary: Effort: Pulmonary effort is normal. Breath sounds: Normal breath sounds. Musculoskeletal: Cervical back: Neck supple. Lymphadenopathy: Cervical: No cervical adenopathy. Skin: General: Skin is warm and dry. Neurological: Mental Status: She is alert. Assessment and Plan ASSESSMENT/PLAN: 1. Sore throat - ICD9: 462, ICD10: J02.9 - Alere Strep Test neg, no culture pending - The patient may also use warm salt water gargles, throat lozenges and/or OTC throat spray as needed. - The patient should follow up in 3-5 days if symptoms persist or worsen - STREP A MOLECULAR (POC) Mallory Mcdonald PA-C documented in this encounter [facility] 07-13-2022 Instructions Mallory Mcdonald PA-C - 07/13/2022 8:35 AM EST Cepacol throat lozenges May take tylenol, no ibuprofen or aleve with prednisone documented in this encounter [facility] 06-25-2022 History of Present illness Narrative Heart, Vascular & Thoracic [facility] Department of Cardiovascular Medicine VIRTUAL VIDEO VISIT ESTABLISHED OUTPATIENT VISIT SERVICE DATE: 06/25/2022 Patient: Luzmaria Chawla SERVICE TIME: 7:33 AM : 2000 This is a virtual video visit. It required patient-provider interaction for the medical decision making as documented below. Luzmaria Chawla has consented to this video encounter. CHIEF COMPLAINT IST HISTORY OF PRESENT ILLNESS Luzmaria Chawla is a 22 year old female who presents today for follow-up visit for IST. She was last seen by Dr. Peacock on 10/17/2021. She has a history of coarctation of the aorta s/p end to end anastomosis repair as (1997), bicuspid aortic valve and IST. She is maintained on nadolol. Since that time, she reports doing well, no sustained arrhythmias. She denies any symptoms with bradycardia. She has had no lightheadedness, syncope, nearsyncope, palpitations, chest pain, shortness of breath, orthopnea, PND, or edema. She has been doing well on nadalol. She denies chest pain, shortness of breath, orthopnea, PND, cough, lightheadedness or syncope. She tries to drink 3 quarts of water a day and salts her food. She wears knee high compression garments as needed. She tries to use her stationary bike 20 minutes 5 days a week. PAST MEDICAL HISTORY Diagnosis Date Bicuspid aortic valve Coarctation of aorta s/p end to end anatomosis repair as 1997 Inappropriate sinus tachycardia SVT (supraventricular tachycardia) (HCC) PAST SURGICAL HISTORY Procedure Laterality Date FOOT SURGERY HX PAST SURGICAL HISTORY OF Coartation repair as (98) TONSILLECTOMY AND ADENOIDECTOMY HX FAMILY HISTORY Problem Relation Age of Onset other (sinus pause) Mother X 13 seconds with syncope, s/p PPM other (no health issues) Father Breast Cancer Maternal Grandmother 60 other (Myocardial infarction) Paternal Uncle age 54 of [place] Ovarian cancer Maternal Aunt 48 Social History Tobacco Use Smoking status: Never Smokeless tobacco: Never Vaping Use Vaping Use: Never used Substance Use Topics Alcohol use: No Drug use: No ALLERGIES Allergen Reactions Codeine Other: See Comments headache, nausea CURRENT MEDICATIONS nadolol (CORGARD) 20 mg tablet Take 1 tablet by mouth once daily. PHYSICAL EXAMINATION: VIDEO EXAM: (if completed, performed via video enabled technology) GENERAL: alert and appropriate, in no distress, well-hydrated, well nourished, and happy, smiling, interactive PATIENT ENTERED QUESTIONNAIRE SCORES PHQ-9 04/12/2022 Score 2 PROMIS Global Health - (T-Scores - the mean of general population = 50. Five points is a clinically meaningful difference.) 04/12/2022 Physical T-Score 50.8 Mental T-Score 50.8 ASSESSMENT: Luzmaria Chawla is a 22 year old female with IST being treated with Nadolol 20 mg/day for a long time. She is an established patient with Dr. Peacock. She denies any recent symptoms, however, she is concerned about her . She stated she is thinking about having baby in 2-3 months. I recommended to change from nadolol to propranolol. PLAN (Active Outpatient Problems): - Please change to propranolol when you start thinking about . - Keep nadolol in the meantime - 6 months virtual visit. Earlier as needed ASHOK PEDRO MD, PhD Associate Staff, Department of Cardiac Electrophysiology documented in this encounter [facility] 06-24-2022 Miscellaneous Notes Call from patient requesting refill. Requested Prescriptions Pending Prescriptions Disp Refills nadolol (CORGARD) 20 mg tablet 90 tablet 3 Sig: Take 1 tablet by mouth once daily. Patient last seen 10/17/2021 Prev [facility] patient. Scheduling to see Dr. Pedro for VV on 06/25 @ 5:00pm. Patient has just a few pills left. Deborah Tafoya, Admin. documented in this encounter [facility] 05-29-2022 Instructions Dionne Carrillo APRN.[employer] CONTACT REPRESENTATIVE - 05/29/2022 2:03 PM EST Condoms with VCF strips Period and ovulation tracker vitamin with 0.4 mg folic acid. documented in this encounter [facility] 05-29-2022 History of Present illness Narrative Interlocking Pavement Installer offered: Patient declines. Luzmaria Chawla is a 22 year old female who presents for problem visit follow-up ovarian cyst. Accompanied by . HPI: Evaluated by PCP for left side/abdominal pain one week ago. Currently being treated for BV with metronidazole. Found to have small right ovarian cyst. Pain was only on the left side, no pain on right. Has been having pelvic aching and cramping. Discussed malpositioned IUD noted on US. Discussed removal - pt was planning to have it removed to attempt in a few months anyway. Pelvic US 05/23/2022 Uterus size: 8.3 x 3.5 x 4.3 cm -Orientation: Anteverted -Myometrium: Normal sonographic appearance. -Endometrial echo complex: 1 cm. There is an IUD in the lower endometrial canal and upper cervix. -Cervix: normal Right ovary: 4.6 x 2.2 x 3.7 cm Cyst with daughter cysts in the right ovary measures 2.5 x 2 x 3.1 cm. Arterial and venous flow is present throughout the ovary on color Doppler imaging with normal spectral waveforms. Left ovary: 2.9 x 2 x 2.7 cm Normal sonographic appearance. Arterial and venous flow is present throughout the left ovary on color Doppler imaging with normal spectral waveforms. Pelvis free fluid: None. OB History T0 L0 SAB0 IAB0 Ectopic0 Multiple0 Live Births0 Dry Cell Tester History LMP: 03/17/2022, Having periods Age at Menarche: Age at First : Age at Menopause: Dry Cell Tester History Comments: Sexual Activity: Yes; Male Contraception: I.U.D. PAST MEDICAL HISTORY Diagnosis Date Bicuspid aortic valve Coarctation of aorta s/p end to end anatomosis repair as 1997 Inappropriate sinus tachycardia SVT (supraventricular tachycardia) (HCC) PAST SURGICAL HISTORY Procedure Laterality Date FOOT SURGERY HX PAST SURGICAL HISTORY OF Coartation repair as (98) TONSILLECTOMY AND ADENOIDECTOMY HX FAMILY HISTORY Problem Relation Age of Onset other (sinus pause) Mother X 13 seconds with syncope, s/p PPM other (no health issues) Father Breast Cancer Maternal Grandmother 60 other (Myocardial infarction) Paternal Uncle age 54 of [place] Ovarian cancer Maternal Aunt 48 Social History Tobacco Use Smoking status: Never Smokeless tobacco: Never Vaping Use Vaping Use: Never used Substance Use Topics Alcohol use: No Drug use: No Current Outpatient Medications Medication Sig metroNIDAZOLE (FLAGYL) 500 mg tablet Take 1 tablet by mouth twice daily for 7 days. copper (PARAGARD) 380 square mm intrauterine device 1 Intra Uterine Device by INTRAUTERINE route. nadolol (CORGARD) 20 mg tablet Take 1 tablet by mouth once daily. No current facility-administered medications for this visit. Allergies As of Date: 05/29/2022 Allergen Noted Reaction CODEINE 04/11/2017 Other: See Comments Fully Assessed 05/29/2022 REVIEW OF SYSTEMS Abdomen: No bloating, early satiety, indigestion, or increased flatulence. No abdominal pain, nausea, vomiting, diarrhea, or constipation. Allergies and current medication updated:Yes EXAM: BP 124/80 Wt 255 lb 3.2 oz (115.8kg) LMP 03/17/2022 GENERAL: pleasant, female in no apparent distress CHEST: Normal inspiratory effort PELVIC: external genitalia normal, normal Bartholin's glands, urethra, [place]'s glands, no vulvar lesions, no cervical lesions, good vaginal support, physiologic discharge present, normal appearing perineal body and perianal region, IUD strings NEURO: alert and oriented x3,exam grossly non-focal Dionne Carrillo APRN.LYNDA Luzmaria presents for removal of IUD due to partial expulsion. UNIVERSAL PROTOCOL / SAFETY CHECKLIST Procedure to be Performed: IUD Removal Sign In: A Moment of CARE was completed. Personnel directly involved with the procedure wore the appropriate PPE (Personal Protective Equipment). Patient/Surrogate Stated/Verified: PATIENT VERIFIED(optional for EMERGENT procedures): Patient name, Date of , Relevant allergies, and The intended procedure Time Out Communication: Intended patient and procedure match the source documents. Consent documented and matches the intended procedure. Sign Out: SIGN OUT (optional for EMERGENT procedures): All instruments, equipment, possible retained foreign bodies accounted for. Post-procedure follow-up management communicated and Plan of Care Visit completed when applicable. PROCEDURE: Speculum placed in vagina, IUD string visualized and grasped with ring forceps. ASSESSMENT/PLAN: IUD removed without difficulty, intact, and patient tolerated procedure well. Contraception plans: condoms and VCF strips Reviewed pre-conception guidelines including folic acid supplementation, optimal timing of intercourse, avoidance of smoking, alcohol, exposure to environmental chemicals and need for evaluation if not within 12 months. Dionne Carrillo APRN.LYNDA I spent a total of 20 minutes on the date of the service which included preparing to see the patient, [id number] patient care, completing clinical documentation, obtaining and/or reviewing separately obtained history, performing a medically appropriate examination, counseling and educating the patient/family/caregiver, and ordering medications, tests, or procedures. documented in this encounter [facility] 05-24-2022 Miscellaneous Notes Patient notified of results and provider's instructions. Patient verbalizes understanding. Kelly Lundberg RN Left message for patient to return call to office Jodi Alvarez Cma Please let patient know that ultrasound shows a healthy left ovary and a right ovary with cyst with daughter cysts. I would encourage follow up with gynecology for monitoring. documented in this encounter [facility] 05-23-2022 Miscellaneous Notes Pt called and is notified of providers results and instructions. Pt voices understanding. Lazara Urrutia RN Please let patient know that her vaginal swab was positive for bacterial vaginosis. I have sent a prescription to her pharmacy for metronidazole. She should complete the entire course of this medication. documented in this encounter [facility] 05-22-2022 Instructions Kwasi Garcia APRN.CNP - 05/22/2022 2:09 PM EST Received influenza vaccination Complete urine Schedule pelvic ultrasound documented in this encounter [facility] 05-22-2022 History of Present illness Narrative Chief Complaint Patient presents with: side pain HPI Luzmaria Chawla is a 22 year old female who presents here today for Above Complaints.. Patient presents with left side/abdomen pain. Patient reports that Friday night she was getting ready to go to bed when her muscle began to cramp, describes similar to ovulation pain but more intense and lasting longer. Patient states that since then she has had ongoing aching with occasional sharp pain. Patient states that this area is also tender to the touch. Patient has been using a warm rice bag to area which has been moderately effective as well as use of ibuprofen. Patient reports some bleeding but patient has copper IUD and this is not abnormal for her. Patient reports increased thick white discharge, no foul odor. Past medical history, appointments, medications, allergies reviewed. Previous Medical History PAST MEDICAL HISTORY Diagnosis Date Bicuspid aortic valve Coarctation of aorta s/p end to end anatomosis repair as 1997 Inappropriate sinus tachycardia SVT (supraventricular tachycardia) (HCC) Previous Surgical History PAST SURGICAL HISTORY Procedure Laterality Date FOOT SURGERY HX PAST SURGICAL HISTORY OF Coartation repair as infant (98) TONSILLECTOMY AND ADENOIDECTOMY HX Family History FAMILY HISTORY Problem Relation Age of Onset other (sinus pause) Mother X 13 seconds with syncope, s/p PPM other (no health issues) Father Breast Cancer Maternal Grandmother 60 other (Myocardial infarction) Paternal Uncle age 54 of [place] Ovarian cancer Maternal Aunt 48 Patient Allergies ALLERGIES Allergen Reactions Codeine Other: See Comments headache, nausea Current Medications Current Outpatient Medications on File Prior to Visit Medication Sig clotrimazole (LOTRIMIN) 1 % external solution Apply 3 Drops to affected area three times daily. copper (PARAGARD) 380 square mm intrauterine device 1 Intra Uterine Device by INTRAUTERINE route. nadolol (CORGARD) 20 mg tablet Take 1 tablet by mouth once daily. No current facility-administered medications on file prior to visit. Social History Social History Tobacco Use Smoking status: Never Smokeless tobacco: Never Vaping Use Vaping Use: Never used Substance Use Topics Alcohol use: No Drug use: No Review of Symptoms REVIEW OF SYSTEMS SEE HPI EXAM: BP 118/74 Pulse 78 Resp 16 Wt 115.7 kg (255 lb) LMP 03/17/2022 BMI 41.16 kg/m General Appearance: Well appearing, alert, in no acute distress, well-hydrated, well nourished.. Back:no pain to palpation of vertebrae, good flexion and extension, good range of motion, no muscle tenderness, reflexes are 2+ and symmetric, motor and sensory appear to be normal, negative SLR test, no evidence of scoliosis Abdomen: Normal abdominal exam, Positive findings: tenderness mild LLQ and suprapubic. Pelvic: External genitalia Normal, and vagina normal., Bimanual exam normal.. Health Maintenance List HEPATITIS C SCREENING Never done HIV SCREENING Never done DTAP,TDAP,TD(7 - Td or Tdap) due on 12/06/2019 COVID-19 VACCINE(3 - Booster for Pfizer series) due on 11/23/2020 DEPRESSION ASSESSMENT due on 05/19/2022 INFLUENZA(1) due on 11/15/2022 MENINGOCOCCAL B: Consider based on risk(1 of 2 - Risk Bexsero 2-dose series) due on 04/19/2023 PAP TESTING due on 09/25/2024 HEPATITIS B Completed HPV VACCINE Completed ASSESSMENT/PLAN: 1. Encounter for immunization - ICD9: V03.89, ICD10: Z23 (primary diagnosis) - INFLUENZA VACCINE QUADRIVALENT 6 MO - 64 YRS IM 2. Left lateral abdominal pain - ICD9: 789.09, ICD10: R10.9 Differential Diagnosis includes Ovarian cyst - HCG QUAL UR - US FEMALE PELVIS TRANSVAG Kwasi Garcia APRN.[employer]CT REPRESENTATIVE documented in this encounter [facility] 04-06-2022 History of Present illness Narrative CC: Patient presents with: Ear Pain: left x 1 week using floxin HPI: Luzmaria Chawla is a 22 year old female who presents to the office with complaint of ear symptoms for a week. Symptoms are staying the same. Associated symptoms includes ear pain and weird feeling in her left cheek. Denies sore throat, facial pain/pressure, fever, nausea, vomiting , diarrhea, visual changes. Treatments tried include ear drops with minor relief of symptoms. Sick contacts: unknown. History of asthma, frequent episodes of bronchitis, chronic bronchitis, bronchiectasis or COPD: No Smoker: No Seasonal/environmental allergies: No The ROS is otherwise negative. The patient's pmh, medications, allergies, and past visits are reviewed. PHYSICAL EXAM: BP 118/68 Pulse 92 Temp 36.5 C (97.7 F) Resp 16 Wt 113.4 kg (250 lb) LMP 03/17/2022 SpO2 99% BMI 40.35 kg/m General appearance: alert, cooperative, pleasant, in no acute distress Head: Normocephalic Eyes: EOM's intact, conjunctiva pink and moist, no icterus, sclera white, non-injected Ears: Right ear: External ear/canal- Normal, TM - clear with good landmarks. Left ear: External ear/canal- Normal, TM - erythematous Oropharynx:moist without lesions, No erythema, exudates or tonsillar hypertrophy. Heart: Negative. RRR without obvious murmur, gallop, or rubs. No ectopy. Lungs: clear to auscultation, without rales or wheeze, good air exchange Smile was equal and uniform eye were also equal. PAST MEDICAL HISTORY Diagnosis Date Bicuspid aortic valve Coarctation of aorta s/p end to end anatomosis repair as 1997 Inappropriate sinus tachycardia SVT (supraventricular tachycardia) (HCC) PAST SURGICAL HISTORY Procedure Laterality Date FOOT SURGERY HX PAST SURGICAL HISTORY OF Coartation repair as (98) TONSILLECTOMY AND ADENOIDECTOMY HX ALLERGIES Codeine MEDICATIONS ofloxacin (FLOXIN) 0.3 % otic solution^Use 5 Drops in both ears once daily.^Disp: 5 mL^Rfl: 0 copper (PARAGARD) 380 square mm intrauterine device^1 Intra Uterine Device by INTRAUTERINE route.^Disp: ^Rfl: nadolol (CORGARD) 20 mg tablet^Take 1 tablet by mouth once daily.^Disp: 90 tablet^Rfl: 3 amoxicillin (AMOXIL) 875 mg tablet^Take 1 tablet by mouth twice daily for 7 days.^Disp: 14 tablet^Rfl: 0 predniSONE (DELTASONE) 10 mg tablet^Take 4 tabs daily for 3 days, then 2 tabs daily for 3 days, then 1 tab daily for 3 days with food.^Disp: 21 tablet^Rfl: 0 FAMILY HISTORY Problem Relation Age of Onset other (sinus pause) Mother X 13 seconds with syncope, s/p PPM other (no health issues) Father Breast Cancer Maternal Grandmother 60 other (Myocardial infarction) Paternal Uncle age 54 of [place] Ovarian cancer Maternal Aunt 48 Social History Tobacco Use Smoking status: Never Smokeless tobacco: Never Vaping Use Vaping Use: Never used Substance Use Topics Alcohol use: No Drug use: No ASSESSMENT/PLAN: 1. Non-recurrent acute suppurative otitis media of left ear without spontaneous rupture of tympanic membrane - ICD9: 382.00, ICD10: H66.002 Amoxicillin bid for 7 days and 9 day steroid taper. Prescription instructions reviewed with patient as applicable. Potential red flag symptoms discussed with the patient very specific direction to go the ER if anything changes. Reviewed appropriate action plan to take if red flag symptoms occur. Patient agreeable to treatment plan. Gisel Sweet APRN.LYNDA documented in this encounter [facility] 11-13-2021 History of Present illness Narrative Images from the original note were not included. [facility] OUTPATIENT VISIT DATE November 13, 2021 OUTPATIENT VISIT TYPE VIRTUAL EST PRIMARY CARE PHYSICIAN: CINDY Reynaga [address] [place] [address] REFERRING PHYSICIAN: SELF CHIEF COMPLAINT: Coarctation, BAV CONGENITAL CARDIAC HISTORY: Ms. Dutta (pronounced SYDNEYReva) Jaya is a rufus 21 yo F with: Coarctation of the aorta, PDA, and bicuspid aortic valve s/p end-to-end anastomosis and PDA ligation as a in , and residual moderate Surgery 02/1998: median sternotomy and end-to-end anastomosis and PDA doubly ligated and divided by Dr. Montanez in [place], [place] Bicuspid aortic valve with LCC and RCC fusion, no significant AR, moderate with peak velocity 3.2 m/s, PG/MG 41/22 mmHg, DI 0.34, MIKE 1.28 cm2. 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 Follows wit Dr. Peacock. INTERVAL HISTORY: Ms. Chawla (previously Lit[place]) [resents for a virtual visit. Patient states she overall feels well. She stays active with house work as well as regular bike rides. 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 Denies chest pain, shortness of breath, PND, orthopnea, palpitations, edema, light headedness and syncope. PAST MEDICAL HISTORY Diagnosis Date Bicuspid aortic valve Coarctation of aorta s/p end to end anatomosis repair as 1997 Inappropriate sinus tachycardia SVT (supraventricular tachycardia) (HCC) PAST SURGICAL HISTORY Procedure Laterality Date FOOT SURGERY HX PAST SURGICAL HISTORY OF Coartation repair as () TONSILLECTOMY AND ADENOIDECTOMY HX Social History Tobacco Use Smoking status: Never Smoker Smokeless tobacco: Never Used Vaping Use Vaping Use: Never used Substance Use Topics Alcohol use: No Drug use: No FAMILY HISTORY Problem Relation Age of Onset other (sinus pause) Mother X 13 seconds with syncope, s/p PPM other (no health issues) Father Breast Cancer Maternal Grandmother 60 other (Myocardial infarction) Paternal Uncle age 54 of [place] Ovarian cancer Maternal Aunt 48 ALLERGIES Allergen Reactions Codeine Other: See Comments headache, nausea MEDICATIONS: copper (PARAGARD) 380 square mm intrauterine device 1 Intra Uterine Device by INTRAUTERINE route. nadolol (CORGARD) 20 mg tablet Take 1 tablet by mouth once daily. ibuprofen (MOTRIN) 600 mg tablet Take 600 mg by mouth as needed. REVIEW OF SYSTEMS: GENERAL: Negative for: Weight loss or gain, Fever or Chills, Weakness and Sleep difficulties. HEENT: Negative for: Headache, Impaired Vision, Glasses, Hearing Impairment, Ringing in Ears, Nosebleeds, Poor Dental Care, Bleeding Gums and Dentures. NECK: Negative for: Swelling, Pain, Stiffness RESPIRATORY: Negative for: Cough, Blood in Sputum, Shortness of breath, Wheezing, Apnea GASTROINTESTINAL: Negative for: Trouble swallowing, Heartburn, Change in bowel habits, Blood in stool, Dark black stools MUSCULOSKELETAL: Negtive for: Muscle or joint pain, stiffness, Joint swelling NEUROLOGIC/PSYCHIATRIC: Negative for: Weakness, Paralysis, Numbness, Tingling, Tremor, Nervousness or anxiety, Depressed mood, Memory loss SKIN: Negative for: Rash, Itching HEMATOLOGICAL/LYMPHATIC: Negative for: Easy bruising, Easy bleeding ENDOCRINE: Negative for: Heat or Cold Intolerance, Excessive Sweating, Frequent Urination, Frequent Thirst PHYSICAL EXAMINATION: LMP 09/09/2021 General: Well appearing, in no acute distress. Skin: No clubbing, no cyanosis. Eyes: Extra ocular movements intact Oropharynx: Teeth in good repair. Neck: No jugular venous distention, no carotid bruits, carotids have a normal upstroke, no palpable thyromegaly. Lungs: Clear to auscultation bilaterally, no wheezing or rhonchi. Heart: Regular rhythm, PMI not displaced, S1, S2 normal, no murmurs. Abdomen: Soft, nontender, bowel sounds normal, no palpable organomegaly, no bruits. Extremities: No peripheral edema . Grade 2/4 distal pulses bilaterally. Neuro: Oriented to person, place and time, alert, cooperative, gait coordinated. CARDIOVASCULAR MEDICINE TESTING: CMRI 10/17/2021: IMPRESSION: 1. S/P aortic coarctation surgical repair with end-to-end anastomosis with stable dimensions (1.5-1.6 cm in the arch to descending aorta). The remaining thoracic aorta is normal in course, caliber, and contour. There is no acute aortic pathology 2. Bicuspid aortic valve with fusion of the left/right cusps, mild leaflet thickening, restriction and flow acceleration across the valve, at least mild stenosis by peak velocity (2.8 m/s at VENC 3.0 m/s), and trivial aortic regurgitation. Correlate with echo findings. 3. Normal left ventricle size (LVEDVi 80 mL/m2) and systolic function (LVEF 60%). There are no segmental wall motion abnormalities. 4. Normal right ventricle size (RVEDVi 76 mL/m2) and systolic function (RVEF 61%). Stress Echo ME[facility]olic 10/17/2021: Metabolic Exercise Test Interpretation: - EXERCISE PERFORMANCE: Indeterminate (treadmill study) exercise power. Maximal aerobic effort. Normal aerobic capacity. Indeterminate aerobic efficiency (treadmill exercise). - CARDIOVASCULAR RESPONSE: Normal stroke volume response. Normal heart rate response. Normal chronotropic index. Normal BP response. Arrhythmias: No arrhythmias . ST segment and T-wave changes: No ST changes. - PULMONARY RESPONSE: There was no clinically significant oxygen desaturation during exercise. Normal ventilatory reserve. Normal ventilatory efficiency. No exercise oscillatory ventilation. - QUALITATIVE COMMENTS: Exercise capacity is normal compared to a sedentary female of this age and height. The pattern of cardio-respiratory responses to exercise is normal. Stress Observations: Metabolic stress lab #: 1 Study protocol type: [place] 10% Final treadmill speed: 3.00 mph Final treadmill grade: 13.0% Total exercise duration: 7 min 25 sec [8-12 min] Peak RPE: 17.0 [>18; based on 6-20 scale] Reason for test termination: shortness of breath Symptoms during test: No symptoms provoked during stress Resting HR: 54 bpm Peak HR: 176 bpm (90% MPHR) Resting BP: 110 / 90 mmHg Peak BP: 140 / 82 mmHg Chronotropic response index (CRI): 0.86 Heart rate recovery (HRR): 44 bpm Rate Pressure Product (RPP): 50579 Metabolic Exercise Data Variable: Observed value [Expected Range] Peak RER: 1.16 [1.1 - 1.50] Peak VO2: 90.4% [>85% pred peak VO2] Peak VO2: 20.6 ml/kg/min METS (VO2/3.5): 5.89 Rest VO2: 2.7 ml/kg/min [2-5 ml/kg/min] VO2 at VAT: 60.8% [40-75% pred peak VO2] VO2 at VAT: 15.1 ml/kg/min CI: 0.95 [0.80-1.30] Peak VO2/HR: 101.0% [>85% pred peak VO2/HR] Peak SpO2: 98.0% [>95%] Peak VE: 58.0% [<85% pred peak VE] Peak VE: 72.2 L/min Peak RR: 42 breaths/min [<60 breaths/min] Peak VT: 1.7 L [1.5-3.0 L] Peak PETCO2: 39 mmHg [35-41 mmHg] VE/VCO2 slope: 27 [<30] EOV: None [None] ECG 06/27/2020 TTE 06/27/2020 - Exam indication: CHD- BAV and coarctation repair - Aortic coarctation status-post end-to-end anastomosis + PDA ligation (1997, elsewhere). - The left ventricle is normal in size. Left ventricular systolic function is normal. EF = 63 5% (2D biplane) Normal left ventricular diastolic function. - The right ventricle is normal in size. Right ventricular systolic function is normal. - Bicuspid aortic valve by history, leaflet morphology not well seen on today's study. There is trace aortic valve regurgitation. There is moderate aortic valve stenosis. AV area is 1.28 cm (0.63 cm /m ) by continuity, VTI. The peak gradient is 41 mmHg, the mean gradient is 22 mmHg and the dimensionless valve index is 0.34. Prior PK/MN gradients of 36/19mmHg. - Estimated right ventricular systolic pressure is 24 mmHg consistent with normal pulmonary artery pressures. Estimated right atrial pressure is 3 mmHg based on IVC assessment. - Descending thoracic aorta peak velocity 1.9 m/s. Abdominal aortic flow pattern with persistent forward flow in diastole but brisk upstroke in systole - likely no significant residual coarctation, but clinical correlation suggested. - No PFO seen by color Doppler. - Exam was compared with the prior CC echocardiographic exam performed on 06/30/2018. There is no significant change. cMRI 06/30/2018 IMPRESSION: 1. The thoracic aorta and visualized abdominal aorta are normal in course, caliber, and contour. The descending thoracic aorta is status post repair of coarctation with no residual coarctation or flow acceleration. There is no acute aortic pathology. 2. Bicuspid aortic valve with fused left and right coronary cusps without significant stenosis. There is no aortic regurgitation. 3. The left ventricle appears normal in size, shape, and function. There are no segmental wall motion abnormalities. TTE 06/30/2018 CONCLUSIONS: - Exam indication: CHD-BAV and h/o coactation repair - The left ventricle is normal in size. Left ventricular systolic function is normal. EF = 62 5% (2D biplane) - The right ventricle is normal in size. Right ventricular systolic function is normal. - Bicuspid aortic valve. There is no aortic valve regurgitation. There is mild aortic valve stenosis. The peak gradient is 36 mmHg, the mean gradient is 19 mmHg and the dimensionless valve index is 0.29. Previous gradients 48/25 mmHg. + saline study from previous echo. - Exam was compared with the prior CC echocardiographic exam performed on 04/08/2018 There is no significant change. [place] 06/30/2018 - 07/14/2018 I have personally reviewed the Electrocardiogram, Laboratory Testing, Echocardiogram and Cardiac MRI. LABS: Hemoglobin (g/dL) Date Value 10/17/2021 13.3 06/27/2020 13.4 Hematocrit (%) Date Value 10/17/2021 41.6 06/27/2020 41.3 WBC (k/uL) Date Value 10/17/2021 7.84 06/27/2020 10.27 Platelet Count (k/uL) Date Value 10/17/2021 332 06/27/2020 327 CMP: Glucose 88 06/27/2020 BUN 9 06/27/2020 Creatinine 0.65 06/27/2020 Sodium 138 06/27/2020 Potassium 4.2 06/27/2020 Chloride 103 06/27/2020 CO2 27 06/27/2020 Protein, Total 6.5 06/27/2020 Albumin 4.2 06/27/2020 Calcium 9.7 06/27/2020 Alkaline Phosphatase 58 06/27/2020 Bilirubin, Total 0.3 06/27/2020 AST 18 06/27/2020 ALT 13 06/27/2020 NT Pro BNP Date Value Ref Range Status 10/17/2021 57 <125 pg/mL Final Cholesterol, Total (mg/dL) Date Value 06/27/2020 169 05/01/2017 184 HDL Cholesterol (mg/dL) Date Value 06/27/2020 43 05/01/2017 59 LDL Cholesterol (mg/dL) Date Value 06/27/2020 111 05/01/2017 113 Triglyceride (mg/dL) Date Value 06/27/2020 77 05/01/2017 58 ASSESSMENT: Ms. Dutta (aidan Chawla is a rufus 21 yo F with: Coarctation of the aorta, PDA, and bicuspid aortic valve s/p end-to-end anastomosis and PDA ligation as a in , and residual moderate Surgery 02/1998: median sternotomy and end-to-end anastomosis and PDA doubly ligated and divided by Dr. Montanez in [place], [place] Bicuspid aortic valve with LCC and RCC fusion, no significant AR, moderate with peak velocity 3.2 m/s, PG/MG 41/22 mmHg, DI 0.34, MIKE 1.28 cm2. 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 Follows wit Dr. Peacock. PLAN: Luzmaria is subjectively doing quite well and asymptomatic, we reviewed her labs, cMRI and metabolic stress echo results which were all reassuring. She wants to get in the near future, and I see no present contraindication to this, nor is there any indicated intervention at present, she will inform us onc e and we will have her follow up in Cardio-OB clinic towards the end of her second trimester, otherwise, she would follow up in 1 year with echo, labs, and ECG. I spent a total of 75 minutes on the date of the service which included preparing to see the patient, [id number] patient care, completing clinical documentation, obtaining and/or reviewing separately obtained history, performing a medically appropriate examination, counseling and educating the patient/family/caregiver, ordering medications, tests, or procedures, communicating with other HCPs (not separately reported), independently interpreting results (not separately reported), communicating results to the patient/family/caregiver and care coordination (not separately reported). Bhavesh Alas MD, MSc [facility]/Interventional Cardiology Heart and Vascular [facility] Desk [id number] Pager# [phone] Appointments: [phone] documented in this encounter [facility] 10-09-2021 Instructions Karen Melgar APRN.[facility] - 10/09/2021 10:24 AM EDT OTITIS MEDIA GENERAL INFORMATION: Otitis media is an infection of the middle ear. The middle ear sits behind the eardrum. This infection may be caused by a virus or bacteria and often follows a cold. Children often have repeat ear infections. Otitis media is not contagious. INSTRUCTIONS: 1. An antibiotic has been prescribed. It should be taken exactly as prescribed. Do not stop the medicine even if the symptoms go away. 2. [id number] pain medication may be taken or other pain medication as prescribed by the doctor. 3. Nothing should be placed in the ear unless instructed by your doctor. 4. The patient may return to school/daycare or work when the temperature is normal (98.6 F or 37 C). 5. The patient should not swim while the ear is infected. CONTACT YOUR DOCTOR IF YOU OR YOUR CHILD: 1. Does not feel better within 36 hours. 2. Develops a temperature over 102E F (39E C). 3. Starts vomiting or has diarrhea. 4. Develops drainage from the affected ear. 5. Has any new problem that may be related to the medicine prescribed. RETURN TO THE ED IF: 1. You or your child has a severe headache or pain around the ear. 2. You or your child notice swelling around the ear. 3. You or your child has a seizure (convulsion), twitching of the facial muscles, or passes out. 4. You or your child is dizzy, has a stiff neck, or cannot walk or talk normally. 5. Your child becomes more irritable or listless (not interested in his or her surroundings, does not get soothed by you holding him or her). documented in this encounter [facility] 10-09-2021 History of Present illness Narrative This note was created using Kongregateriter. Subjective Luzmaria Chawla is a 21 year old female. 21 year old female with no significant PMH presents with left ear pain. Acute onset three days ago. Left ear States that it feels plugged and sharp 6/10 sometimes sharp painradiates to her jaw. Denies cough, congestion, fever/chills No OTC or home remedies used UNDERTAKER ASSISTANT The history is provided by the patient. No foreign language stenographer was used. Ear Pain This is a new problem. The current episode started in the past 7 days. The problem occurs constantly. The problem has been gradually worsening. Pertinent negatives include no abdominal pain, arthralgias, chest pain, chills, congestion, coughing, fatigue, fever, headaches, nausea, neck pain, rash, sore throat, urinary symptoms, vertigo, visual change, vomiting or weakness. Nothing aggravates the symptoms. She has tried nothing for the symptoms. The treatment provided no relief. PAST MEDICAL HISTORY Diagnosis Date Bicuspid aortic valve Coarctation of aorta s/p end to end anatomosis repair as 1997 SVT (supraventricular tachycardia) (HCC) PAST SURGICAL HISTORY Procedure Laterality Date FOOT SURGERY HX PAST SURGICAL HISTORY OF Coartation repair as (98) TONSILLECTOMY AND ADENOIDECTOMY HX ALLERGIES Codeine MEDICATIONS copper (PARAGARD) 380 square mm intrauterine device 1 Intra Uterine Device by INTRAUTERINE route. nadolol (CORGARD) 20 mg tablet Take 1 tablet by mouth once daily. ibuprofen (MOTRIN) 600 mg tablet Take 600 mg by mouth as needed. amoxicillin (AMOXIL) 875 mg tablet Take 1 tablet by mouth twice daily for 7 days. FAMILY HISTORY Problem Relation Age of Onset other (sinus pause) Mother X 13 seconds with syncope, s/p PPM other (no health issues) Father Breast Cancer Maternal Grandmother 60 other (Myocardial infarction) Paternal Uncle age 54 of [place] Ovarian cancer Maternal Aunt 48 Social History Tobacco Use Smoking status: Never Smoker Smokeless tobacco: Never Used Vaping Use Vaping Use: Never used Substance Use Topics Alcohol use: No Drug use: No Review of Systems Constitutional: Negative for chills, fatigue and fever. HENT: Positive for ear pain and hearing loss. Negative for congestion, ear discharge, facial swelling, postnasal drip, rhinorrhea, sinus pressure, sinus pain, sore throat and trouble swallowing. Left ear plugged and painful Eyes: Negative for pain, discharge, redness and itching. Respiratory: Negative for apnea, cough, choking, chest tightness, shortness of breath and wheezing. Cardiovascular: Negative for chest pain, palpitations and leg swelling. Gastrointestinal: Negative for abdominal pain, diarrhea, nausea and vomiting. Genitourinary: Negative for difficulty urinating. Musculoskeletal: Negative for arthralgias, back pain, neck pain and neck stiffness. Skin: Negative for color change, pallor and rash. Allergic/Immunologic: Negative for environmental allergies, food allergies and immunocompromised state. Neurological: Negative for dizziness, vertigo, syncope, facial asymmetry, weakness, light-headedness and headaches. Hematological: Negative for adenopathy. Does not bruise/bleed easily. Psychiatric/Behavioral: Negative for agitation and behavioral problems. Objective BP 104/78 Pulse 72 Temp 36.7 C (98.1 F) (Tympanic) Resp 18 Wt 106.3 kg (234 lb 6.4 oz) LMP 09/09/2021 SpO2 98% BMI 37.83 kg/m Physical Exam Vitals and nursing note reviewed. Constitutional: General: She is not in acute distress. Appearance: Normal appearance. She is normal weight. She is not ill-appearing, toxic-appearing or diaphoretic. HENT: Head: Normocephalic. Right Ear: Tympanic membrane, ear canal and external ear normal. There is no impacted cerumen. Left Ear: There is impacted cerumen. Ears: Comments: Left ear impacted with black cerumen. Unable to visualize membrane. Nursing staff irrigates. After irrigation clear view of membrane. TM erythematic with mild purulence. Improved hearing. Nose: Nose normal. No congestion or rhinorrhea. Mouth/Throat: Mouth: Mucous membranes are moist. Pharynx: No oropharyngeal exudate or posterior oropharyngeal erythema. Eyes: General: No scleral icterus. Right eye: No discharge. Left eye: No discharge. Conjunctiva/sclera: Conjunctivae normal. Pupils: Pupils are equal, round, and reactive to light. Cardiovascular: Rate and Rhythm: Normal rate and regular rhythm. Pulses: Normal pulses. Heart sounds: Normal heart sounds. No murmur heard. No friction rub. No gallop. Pulmonary: Effort: Pulmonary effort is normal. No respiratory distress. Breath sounds: Normal breath sounds. No stridor. No wheezing. Abdominal: General: Abdomen is flat. There is no distension. Palpations: Abdomen is soft. Tenderness: There is no abdominal tenderness. Musculoskeletal: General: No swelling, tenderness or deformity. Normal range of motion. Cervical back: Normal range of motion and neck supple. No rigidity or tenderness. Skin: General: Skin is warm and dry. Capillary Refill: Capillary refill takes less than 2 seconds. Coloration: Skin is not pale. Findings: No lesion or rash. Neurological: General: No focal deficit present. Mental Status: She is alert and oriented to person, place, and time. Motor: No weakness. Gait: Gait normal. Psychiatric: Mood and Affect: Mood normal. Behavior: Behavior normal. Thought Content: Thought content normal. Judgment: Judgment normal. Assessment and Plan ASSESSMENT/PLAN: 1. Acute otitis media, left - ICD9: 382.9, ICD10: H66.92 (primary diagnosis) - Will begin treatment with Amoxicillin for 7 days OTC analgesics Follow up with PCP 2. Impacted cerumen of left ear - ICD9: 380.4, ICD10: H61.22 Left ear impacted with black cerumen. Unable to visualize membrane. Nursing staff irrigates. After irrigation clear view of membrane. TM erythematic with mild purulence. Improved hearing. Ani White TEACHING PROVIDER (Physician/PA/AMERICAN INDIAN POLICY SPECIALIST) NOTE OF PERSONAL INVOLVEMENT IN CARE: I have personally seen and examined the patient and performed the medical decision-making components. I have reviewed the Advanced Practice Registered Nurse (AMERICAN INDIAN POLICY SPECIALIST) Student's documentation and verified the findings in the note as written. Any additions or changes are noted in bold/italics. Signature: Karen Melgar Date: 10/09/2021 Time: 10:45 AM documented in this encounter [facility] 09-25-2021 History of Present illness Narrative Luzmaria is a 21 year old No obstetric history on file. who presents for an annual gynecologic exam with complaints, Last menses lasted 2 weeks.. Menses: cycles every 28-30 days and 6 days of flow. Last menses 14 days long but was light. Contraception: Paragard IUD 10/05/2020 HPV vaccine: Yes Last Pap: 2020 normal in [place] HPV: N/A History of abnormal pap: No Last mammogram: never Sexually active: Yes History of STDS: None Patient concerns for STD exposure: No. Time with current partner: 1 year Number of lifetime partners: 1 Pain with intercourse: No Postcoital bleeding: No OB History No obstetric history on file. Dry Cell Tester History LMP: 02/15/2021, Having periods Age at Menarche: Age at First : Age at Menopause: Dry Cell Tester History Comments: Sexual Activity: No sexual activity data on record; No partner data on record Contraception: No contraception data on record PAST MEDICAL HISTORY Diagnosis Date Bicuspid aortic valve Coarctation of aorta s/p end to end anatomosis repair as 1997 SVT (supraventricular tachycardia) (HCC) PAST SURGICAL HISTORY Procedure Laterality Date FOOT SURGERY HX PAST SURGICAL HISTORY OF Coartation repair as (98) TONSILLECTOMY AND ADENOIDECTOMY HX FAMILY HISTORY Problem Relation Age of Onset other (sinus pause) Mother X 13 seconds with syncope, s/p PPM other (no health issues) Father other (Myocardial infarction) Paternal Uncle age 54 of [place] SOCIAL HISTORY Social History Tobacco Use Smoking status: Never Smoker Smokeless tobacco: Never Used Substance Use Topics Alcohol use: No Drug use: No REVIEW OF SYSTEMS Abdomen: No abdominal pain, nausea, vomiting, diarrhea, or constipation. No bloating, early satiety, indigestion, or increased flatulence. Bladder: No dysuria, gross hematuria, urinary frequency, urinary urgency, or incontinence. Breast: No breast lumps, nipple d/c, overlying skin changes, redness or skin retraction. Allergies and current medication updated:Yes EXAM: BP 120/80 Ht 5' 6 (1.68m) Wt 232 lb 9.6 oz (105.5kg) LMP 09/09/2021 BMI 37.56 kg/(m^2). GENERAL: pleasant, female in no apparent distress HEENT: Normocephalic, atraumatic, mucus membranes moist and no lesions NECK: Supple, full range of motion, no adenopathy and thyroid normal DERMATOLOGY: Normal, without lesions, non-icteric and non-hirsute BREAST: soft, non-tender, symmetric, no dominant mass, normal nipple-areolar complex, no lymphadenopathy and no nipple discharge CHEST: Normal inspiratory effort ABDOMEN: soft, non-tender and no masses PELVIC: external genitalia normal, normal Bartholin's glands, urethra, [place]'s glands, no vulvar lesions, no cervical lesions, good vaginal support, physiologic discharge present, normal appearing perineal body and perianal region. IUD strings visualized BIMANUAL: uterus normal size, shape and consistency, no adnexal masses and non-tender RECTOVAGINAL: deferred. NEURO: alert and oriented x3,exam grossly non-focal EXTREMITIES: normal ASSESSMENT/PLAN: 1) Health maintenance: Pap done with reflex HPV. Nutrition, exercise and routine health maintenance exams reviewed. HPV vaccine: completed series 2) Contraception: IUD. Contraceptive options reviewed and information provided. 3) STD screening: Declined STD check. 4) Follow up one year or sooner as needed Dionne Carrillo APRN.[employer] REPRESENTATIVE documented in this encounter [facility] Evaluation note Diagnosis Encounter for gynecological examination (general) (routine) without abnormal findings- Primary Screening for cervical cancer Screening for malignant neoplasm of the cervix Encounter for screening for human papillomavirus (HPV) Special screening examination for human papillomavirus (HPV) IUD check up Surveillance of previously prescribed intrauterine contraceptive device SVT (supraventricular tachycardia) (HCC)- Primary Other specified cardiac dysrhythmias [facility] Diagnosis Acute otitis media, left- Primary Unspecified otitis media Impacted cerumen of left ear Impacted cerumen SVT (supraventricular tachycardia) (HCC)- Primary Other specified cardiac dysrhythmias [facility] Diagnosis Cardiomyopathy, unspecified type (HCC) Encounter for other preprocedural examination SVT (supraventricular tachycardia) (HCC)- Primary Other specified cardiac dysrhythmias [facility] Diagnosis Coarctation of aorta Coarctation of aorta (preductal) (postductal) Encounter for other preprocedural examination Cardiomyopathy, unspecified type (HCC) [facility] Diagnosis Coarctation of aorta- Primary Coarctation of aorta (preductal) (postductal) [facility] Diagnosis Non-recurrent acute suppurative otitis media of left ear without spontaneous rupture of tympanic membrane- Primary [facility] Diagnosis Left lateral abdominal pain- Primary Abdominal pain, unspecified site Encounter for immunization Need for other specified prophylactic vaccination against single bacterial disease Vaginal discharge Leukorrhea, not specified as infective [facility] Diagnosis Bacterial vaginosis- Primary Vaginitis and vulvovaginitis, unspecified [facility] Diagnosis Ovarian cyst, right- Primary Other and unspecified ovarian cyst Malpositioned intrauterine device (IUD), initial encounter Encounter for IUD removal Encounter for removal of intrauterine contraceptive device [facility] Diagnosis SVT (supraventricular tachycardia) (HCC)- Primary Other specified cardiac dysrhythmias [facility] Diagnosis Inappropriate sinus tachycardia [R00.0 (ICD-10-CM)]- Primary Other specified cardiac dysrhythmias Coarctation of aorta Coarctation of aorta (preductal) (postductal) Palpitation Palpitations [facility] Diagnosis Coarctation of aorta- Primary Coarctation of aorta (preductal) (postductal) [facility] Diagnosis Sore throat- Primary Acute pharyngitis [facility] Diagnosis Coarctation of aorta- Primary Coarctation of aorta (preductal) (postductal) SVT (supraventricular tachycardia) (HCC) Other specified cardiac dysrhythmias Obesity, Class II, BMI 35-39.9 Obesity, unspecified [facility] Diagnosis Cardiomyopathy, unspecified type (HCC) [facility] Diagnosis Coarctation of aorta Coarctation of aorta (preductal) (postductal) Cardiomyopathy, unspecified type (HCC) [facility] Diagnosis Inappropriate sinus node tachycardia [I47.11]- Primary Other specified cardiac dysrhythmias documented in this encounter [facility] note* Diagnosis Rhinosinusitis- Primary Unspecified sinusitis (chronic) documented in this encounter [facility] note* Diagnosis Encounter for gynecological examination with abnormal finding- Primary Routine gynecological examination Secondary oligomenorrhea [place] or infrequent menstruation Hirsutism Class 2 obesity with body mass index (BMI) of 39.0 to 39.9 in adult, unspecified obesity type, unspecified whether serious comorbidity present documented in this encounter [facility] note* Diagnosis Inappropriate sinus node tachycardia (HCC)- Primary Other specified cardiac dysrhythmias Coarctation of aorta Coarctation of aorta (preductal) (postductal) SVT (supraventricular tachycardia) (HCC) Other specified cardiac dysrhythmias Bicuspid aortic valve Congenital insufficiency of aortic valve [facility] Diagnosis Inappropriate sinus node tachycardia (HCC)- Primary Other specified cardiac dysrhythmias documented in this encounter [facility] note* Diagnosis Hirsutism Secondary oligomenorrhea [place] or infrequent menstruation Class 2 obesity with body mass index (BMI) of 39.0 to 39.9 in adult, unspecified obesity type, unspecified whether serious comorbidity present documented in this encounter [facility] note* Diagnosis Class 2 obesity with body mass index (BMI) of 39.0 to 39.9 in adult, unspecified obesity type, unspecified whether serious comorbidity present- Primary Desire for Unspecified procreative management History of repair of coarctation of aorta Personal history of surgery to heart and great vessels, presenting hazards to health documented in this encounter [facility] note* Diagnosis Erythema migrans- Primary documented in this encounter [facility] note* Diagnosis Supervision of high risk in first trimester- Primary Unspecified high-risk 7 weeks gestation of state, incidental Encounter for care in first trimester of first BMI 37.0-37.9, adult Body Mass Index 37.0-37.9, adult documented in this encounter [facility] note* Diagnosis Coarctation of aorta- Primary Coarctation of aorta (preductal) (postductal) Bicuspid aortic valve Congenital insufficiency of aortic valve History of aortic coarctation repair Personal history of surgery to heart and great vessels, presenting hazards to health documented in this encounter [facility] note* Diagnosis Supervision of high risk in first trimester- Primary Unspecified high-risk 10 weeks gestation of state, incidental Nausea/vomiting in Unspecified vomiting of , unspecified as to episode of care documented in this encounter [facility] note* Diagnosis 12 weeks gestation of - Primary state, incidental Supervision of high risk in first trimester Unspecified high-risk Adult congenital heart disease Unspecified congenital anomaly of heart History of aortic coarctation repair Personal history of surgery to heart and great vessels, presenting hazards to health Coarctation of aorta Coarctation of aorta (preductal) (postductal) Bicuspid aortic valve Congenital insufficiency of aortic valve History of supraventricular tachycardia Personal history of other diseases of circulatory system documented in this encounter [facility] note* Diagnosis Encounter for screening for malformation using ultrasound- Primary 12 weeks gestation of state, incidental documented in this encounter [facility] note* Diagnosis OPENED IN ERROR- Primary To allow closing an encounter opened in error (used in SmartSet) documented in this encounter [facility] note* Diagnosis 16 weeks gestation of - Primary state, incidental Adult congenital heart disease Unspecified congenital anomaly of heart Encounter for screening for malformation using ultrasound Obesity affecting in second trimester, unspecified obesity type Supervision of high risk in second trimester- Primary Unspecified high-risk Adult congenital heart disease Unspecified congenital anomaly of heart Dysuria Obesity in Obesity complicating , childbirth, or the puerperium, unspecified as to episode of care or not applicable History of aortic coarctation repair Personal history of surgery to heart and great vessels, presenting hazards to health Bicuspid aortic valve Congenital insufficiency of aortic valve Coarctation of aorta Coarctation of aorta (preductal) (postductal) History of supraventricular tachycardia Personal history of other diseases of circulatory system 16 weeks gestation of state, incidental documented in this encounter [facility] note* Diagnosis Inappropriate sinus node tachycardia (HCC) [I47.11]- Primary Other specified cardiac dysrhythmias Supervision of high risk in second trimester- Primary Unspecified high-risk Adult congenital heart disease Unspecified congenital anomaly of heart Dysuria Obesity in Obesity complicating , childbirth, or the puerperium, unspecified as to episode of care or not applicable History of aortic coarctation repair Personal history of surgery to heart and great vessels, presenting hazards to health Bicuspid aortic valve Congenital insufficiency of aortic valve Coarctation of aorta Coarctation of aorta (preductal) (postductal) History of supraventricular tachycardia Personal history of other diseases of circulatory system 16 weeks gestation of state, incidental [facility] Diagnosis Supervision of high risk in second trimester- Primary Unspecified high-risk Adult congenital heart disease Unspecified congenital anomaly of heart Dysuria Obesity in Obesity complicating , childbirth, or the puerperium, unspecified as to episode of care or not applicable History of aortic coarctation repair Personal history of surgery to heart and great vessels, presenting hazards to health Bicuspid aortic valve Congenital insufficiency of aortic valve Coarctation of aorta Coarctation of aorta (preductal) (postductal) History of supraventricular tachycardia Personal history of other diseases of circulatory system 16 weeks gestation of state, incidental * Assessment & Plan Note - Marion Morgan MD - 06/08/2024 4:59 PM EST Associated Problem(s): Adult congenital heart disease Has appt with OB-cardiology August 06 Met with cardiology today Continue labetalol 100mg BID Encouraged to monitor BP at home Orders: OBSTETRIC ULTRASOUND [facility]; Future * Assessment & Plan Note - Marion Morgan MD - 06/08/2024 4:42 PM EST Associated Problem(s): History of aortic coarctation repair [place] [facility] [place] OBSTET[place]IC ULTRASOUND [facility]; Future * Assessment & Plan Note - Marion Morgan MD - 06/08/2024 4:42 PM EST Associated Problem(s): Bicuspid aortic valve * Assessment & Plan Note - Marion Morgan MD - 06/08/2024 4:42 PM EST Associated Problem(s): Coarctation of aorta * Assessment & Plan Note - Marion Morgan MD - 06/08/2024 4:42 PM EST Associated Problem(s): History of supraventricular tachycardia [facility]* Diagnosis Supervision of high risk in second trimester- Primary Unspecified high-risk Adult congenital heart disease Unspecified congenital anomaly of heart Dysuria Obesity in Obesity complicating , childbirth, or the puerperium, unspecified as to episode of care or not applicable History of aortic coarctation repair Personal history of surgery to heart and great vessels, presenting hazards to health Bicuspid aortic valve Congenital insufficiency of aortic valve Coarctation of aorta Coarctation of aorta (preductal) (postductal) History of supraventricular tachycardia Personal history of other diseases of circulatory system 16 weeks gestation of state, incidental Congenital heart disease- Primary Unspecified congenital anomaly of heart [facility] Diagnosis Supervision of high risk in second trimester- Primary Unspecified high-risk Adult congenital heart disease Unspecified congenital anomaly of heart Dysuria Obesity in Obesity complicating , childbirth, or the puerperium, unspecified as to episode of care or not applicable History of aortic coarctation repair Personal history of surgery to heart and great vessels, presenting hazards to health Bicuspid aortic valve Congenital insufficiency of aortic valve Coarctation of aorta Coarctation of aorta (preductal) (postductal) History of supraventricular tachycardia Personal history of other diseases of circulatory system 16 weeks gestation of state, incidental Encounter for anatomic survey- Primary Adult congenital heart disease Unspecified congenital anomaly of heart History of aortic coarctation repair Personal history of surgery to heart and great vessels, presenting hazards to health 20 weeks gestation of state, incidental Obesity affecting in second trimester, unspecified obesity type [facility] Diagnosis Supervision of high risk in second trimester- Primary Unspecified high-risk Adult congenital heart disease Unspecified congenital anomaly of heart Dysuria Obesity in Obesity complicating , childbirth, or the puerperium, unspecified as to episode of care or not applicable History of aortic coarctation repair Personal history of surgery to heart and great vessels, presenting hazards to health Bicuspid aortic valve Congenital insufficiency of aortic valve Coarctation of aorta Coarctation of aorta (preductal) (postductal) History of supraventricular tachycardia Personal history of other diseases of circulatory system 16 weeks gestation of state, incidental 20 weeks gestation of - Primary state, incidental Supervision of high risk in second trimester Unspecified high-risk [facility] Diagnosis Supervision of high risk in second trimester- Primary Unspecified high-risk Adult congenital heart disease Unspecified congenital anomaly of heart Dysuria Obesity in Obesity complicating , childbirth, or the puerperium, unspecified as to episode of care or not applicable History of aortic coarctation repair Personal history of surgery to heart and great vessels, presenting hazards to health Bicuspid aortic valve Congenital insufficiency of aortic valve Coarctation of aorta Coarctation of aorta (preductal) (postductal) History of supraventricular tachycardia Personal history of other diseases of circulatory system 16 weeks gestation of state, incidental Bicuspid aortic valve- Primary Congenital insufficiency of aortic valve Coarctation of aorta Coarctation of aorta (preductal) (postductal) Suspected abnormality affecting management of mother, single or unspecified fetus Adult congenital heart disease Unspecified congenital anomaly of heart [facility] Diagnosis Supervision of high risk in second trimester- Primary Unspecified high-risk Adult congenital heart disease Unspecified congenital anomaly of heart Dysuria Obesity in Obesity complicating , childbirth, or the puerperium, unspecified as to episode of care or not applicable History of aortic coarctation repair Personal history of surgery to heart and great vessels, presenting hazards to health Bicuspid aortic valve Congenital insufficiency of aortic valve Coarctation of aorta Coarctation of aorta (preductal) (postductal) History of supraventricular tachycardia Personal history of other diseases of circulatory system 16 weeks gestation of state, incidental Supervision of high risk in second trimester- Primary Unspecified high-risk Obesity in Obesity complicating , childbirth, or the puerperium, unspecified as to episode of care or not applicable Adult congenital heart disease Unspecified congenital anomaly of heart History of surgery to heart and great vessels Personal history of surgery to heart and great vessels, presenting hazards to health Screening for diabetes mellitus 24 weeks gestation of state, incidental [facility] Supervision of high risk in second trimester- Primary Unspecified high-risk Adult congenital heart disease Unspecified congenital anomaly of heart Dysuria Obesity in Obesity complicating , childbirth, or the puerperium, unspecified as to episode of care or not applicable History of aortic coarctation repair Personal history of surgery to heart and great vessels, presenting hazards to health Bicuspid aortic valve Congenital insufficiency of aortic valve Coarctation of aorta Coarctation of aorta (preductal) (postductal) History of supraventricular tachycardia Personal history of other diseases of circulatory system 16 weeks gestation of state, incidental 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, antepartum- Primary Coarctation of aorta Coarctation of aorta (preductal) (postductal) Bicuspid aortic valve Congenital insufficiency of aortic valve SVT (supraventricular tachycardia) (HCC) Other specified cardiac dysrhythmias Inappropriate sinus tachycardia (HCC) Other specified cardiac dysrhythmias Obesity affecting in second trimester, unspecified obesity type Pre-existing hypertension complicating in second trimester Benign essential hypertension antepartum 24 weeks gestation of state, incidental [facility] Diagnosis Supervision of high risk in second trimester (HCC)- Primary Unspecified high-risk Adult congenital heart disease (HCC) Unspecified congenital anomaly of heart Dysuria Obesity in (HCC) Obesity complicating , childbirth, or the puerperium, unspecified as to episode of care or not applicable History of aortic coarctation repair Personal history of surgery to heart and great vessels, presenting hazards to health Bicuspid aortic valve Congenital insufficiency of aortic valve Coarctation of aorta (HCC) Coarctation of aorta (preductal) (postductal) History of supraventricular tachycardia Personal history of other diseases of circulatory system 16 weeks gestation of ([facility]) state, incidental Congenital cardiovascular disorder (HCC)- Primary Unspecified congenital anomaly of heart documented in this encounter [facility] note* Diagnosis Supervision of high risk in second trimester ([facility])- Primary Unspecified high-risk Adult congenital heart disease (HCC) Unspecified congenital anomaly of heart Dysuria Obesity in (HCC) Obesity complicating , childbirth, or the puerperium, unspecified as to episode of care or not applicable History of aortic coarctation repair Personal history of surgery to heart and great vessels, presenting hazards to health Bicuspid aortic valve Congenital insufficiency of aortic valve Coarctation of aorta (HCC) Coarctation of aorta (preductal) (postductal) History of supraventricular tachycardia Personal history of other diseases of circulatory system 16 weeks gestation of ([facility]) state, incidental Coarctation of aorta (HCC)- Primary Coarctation of aorta (preductal) (postductal) documented in this encounter [facility] note* Diagnosis Supervision of high risk in second trimester ([facility])- Primary Unspecified high-risk Adult congenital heart disease (HCC) Unspecified congenital anomaly of heart Dysuria Obesity in (HCC) Obesity complicating , childbirth, or the puerperium, unspecified as to episode of care or not applicable History of aortic coarctation repair Personal history of surgery to heart and great vessels, presenting hazards to health Bicuspid aortic valve Congenital insufficiency of aortic valve Coarctation of aorta (HCC) Coarctation of aorta (preductal) (postductal) History of supraventricular tachycardia Personal history of other diseases of circulatory system 16 weeks gestation of ([facility]) state, incidental Supervision of high risk in third trimester ([facility])- Primary Unspecified high-risk Obesity in (HCC) Obesity complicating , childbirth, or the puerperium, unspecified as to episode of care or not applicable Adult congenital heart disease (HCC) Unspecified congenital anomaly of heart 28 weeks gestation of ([facility]) state, incidental Need for vaccination Need for prophylactic vaccination and inoculation against unspecified single disease Supervision of high risk in first trimester (HCC) Unspecified high-risk documented in this encounter [facility] note* Diagnosis Supervision of high risk in second trimester ([facility])- Primary Unspecified high-risk Adult congenital heart disease (HCC) Unspecified congenital anomaly of heart Dysuria Obesity in (HCC) Obesity complicating , childbirth, or the puerperium, unspecified as to episode of care or not applicable History of aortic coarctation repair Personal history of surgery to heart and great vessels, presenting hazards to health Bicuspid aortic valve Congenital insufficiency of aortic valve Coarctation of aorta (HCC) Coarctation of aorta (preductal) (postductal) History of supraventricular tachycardia Personal history of other diseases of circulatory system 16 weeks gestation of ([facility]) state, incidental Supervision of high risk in third trimester ([facility])- Primary Unspecified high-risk Obesity in ([facility]) Obesity complicating , childbirth, or the puerperium, unspecified as to episode of care or not applicable Nausea and vomiting in ([facility]) Unspecified vomiting of , unspecified as to episode of care 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, antepartum ([facility]) Pre-existing hypertension complicating in second trimester ([facility]) Benign essential hypertension antepartum 30 weeks gestation of ([facility]) state, incidental documented in this encounter [facility] note* Diagnosis Supervision of high risk in second trimester ([facility])- Primary Unspecified high-risk Adult congenital heart disease (HCC) Unspecified congenital anomaly of heart Dysuria Obesity in ([facility]) Obesity complicating , childbirth, or the puerperium, unspecified as to episode of care or not applicable History of aortic coarctation repair Personal history of surgery to heart and great vessels, presenting hazards to health Bicuspid aortic valve Congenital insufficiency of aortic valve Coarctation of aorta (HCC) Coarctation of aorta (preductal) (postductal) History of supraventricular tachycardia Personal history of other diseases of circulatory system 16 weeks gestation of ([facility]) state, incidental Supervision of high risk in third trimester ([facility])- Primary Unspecified high-risk Obesity in ([facility]) Obesity complicating , childbirth, or the puerperium, unspecified as to episode of care or not applicable Nausea and vomiting in (HCC) Unspecified vomiting of , unspecified as to episode of care 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, antepartum (HCC) Pre-existing hypertension complicating in second trimester (HCC) Benign essential hypertension antepartum 30 weeks gestation of (HCC) state, incidental Supervision of high risk in third trimester ([facility])- Primary Unspecified high-risk Obesity in (HCC) Obesity complicating , childbirth, or the puerperium, unspecified as to episode of care or not applicable 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, antepartum (HCC) 32 weeks gestation of (HCC) state, incidental Pre-existing hypertension complicating in second trimester (HCC) Benign essential hypertension antepartum * Assessment & Plan Note - Nelsy Agarwal MD - 09/29/2024 10:50 AM EDT Associated Problem(s): 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,antepartum (HCC) f/u tomorrow for echo and delivery [facility]. * Assessment & Plan Note - Nelsy Agarwal MD - 09/29/2024 10:50 AM EDT Associated Problem(s): Pre-existing hypertension complicating in second trimester ([facility]) cont. asa prophylaxis and labetalol 200 nmg bid. Cont. antepartum surveillance kick counts growth scan tomorrow NST reactive urine dip reviewed [facility] Diagnosis Supervision of high risk in second trimester (HCC)- Primary Unspecified high-risk Adult congenital heart disease (HCC) Unspecified congenital anomaly of heart Dysuria Obesity in (HCC) Obesity complicating , childbirth, or the puerperium, unspecified as to episode of care or not applicable History of aortic coarctation repair Personal history of surgery to heart and great vessels, presenting hazards to health Bicuspid aortic valve Congenital insufficiency of aortic valve Coarctation of aorta (HCC) Coarctation of aorta (preductal) (postductal) History of supraventricular tachycardia Personal history of other diseases of circulatory system 16 weeks gestation of ([facility]) state, incidental Supervision of high risk in third trimester ([facility])- Primary Unspecified high-risk Obesity in ([facility]) Obesity complicating , childbirth, or the puerperium, unspecified as to episode of care or not applicable Nausea and vomiting in (HCC) Unspecified vomiting of , unspecified as to episode of care 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, antepartum ([facility]) Pre-existing hypertension complicating in second trimester ([facility]) Benign essential hypertension antepartum 30 weeks gestation of ([facility]) state, incidental Supervision of high risk in third trimester ([facility])- Primary Unspecified high-risk Obesity in ([facility]) Obesity complicating , childbirth, or the puerperium, unspecified as to episode of care or not applicable 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, antepartum ([facility]) 32 weeks gestation of ([facility]) state, incidental Pre-existing hypertension complicating in second trimester ([facility]) Benign essential hypertension antepartum Preexisting hypertension complicating , antepartum ([facility])- Primary Benign essential hypertension antepartum 32 weeks gestation of ([facility]) state, incidental Maternal congenital cardiac anomaly affecting , antepartum, third trimester ([facility]) Obesity affecting in third trimester, unspecified obesity type ([facility]) Bicuspid aortic valve- Primary Congenital insufficiency of aortic valve Coarctation of aorta ([facility]) Coarctation of aorta (preductal) (postductal) SVT (supraventricular tachycardia) ([facility]) Other specified cardiac dysrhythmias S/P repair of PDA Other postprocedural status Preexisting hypertension complicating , antepartum ([facility]) Benign essential hypertension antepartum [facility] Supervision of high risk in second trimester ([facility])- Primary Unspecified high-risk Adult congenital heart disease ([facility]) Unspecified congenital anomaly of heart Dysuria Obesity in ([facility]) Obesity complicating , childbirth, or the puerperium, unspecified as to episode of care or not applicable History of aortic coarctation repair Personal history of surgery to heart and great vessels, presenting hazards to health Bicuspid aortic valve Congenital insufficiency of aortic valve Coarctation of aorta ([facility]) Coarctation of aorta (preductal) (postductal) History of supraventricular tachycardia Personal history of other diseases of circulatory system 16 weeks gestation of ([facility]) state, incidental Supervision of high risk in third trimester ([facility])- Primary Unspecified high-risk Obesity in ([facility]) Obesity complicating , childbirth, or the puerperium, unspecified as to episode of care or not applicable Nausea and vomiting in ([facility]) Unspecified vomiting of , unspecified as to episode of care 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, antepartum ([facility]) Pre-existing hypertension complicating in second trimester ([facility]) Benign essential hypertension antepartum 30 weeks gestation of ([facility]) state, incidental Supervision of high risk in third trimester ([facility])- Primary Unspecified high-risk Obesity in ([facility]) Obesity complicating , childbirth, or the puerperium, unspecified as to episode of care or not applicable 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, antepartum ([facility]) 32 weeks gestation of ([facility]) state, incidental Pre-existing hypertension complicating in second trimester ([facility]) Benign essential hypertension antepartum Bicuspid aortic valve- Primary Congenital insufficiency of aortic valve Coarctation of aorta ([facility]) Coarctation of aorta (preductal) (postductal) SVT (supraventricular tachycardia) ([facility]) Other specified cardiac dysrhythmias S/P repair of PDA Other postprocedural status Preexisting hypertension complicating , antepartum ([facility]) Benign essential hypertension antepartum * Assessment & Plan Note - Johny Philip MD - 09/30/2024 1:26 PM EDTAssociated Problem(s): Gastroesophageal reflux disease - On Famotidine PRN during - On Ondansetron for associated nausea * Assessment & Plan Note - Johny Philip MD - 09/30/2024 1:26 PM EDTAssociated Problem(s): Preexisting hypertension complicating , antepartum ([facility]) - Last 3 Encounter BP Readings: Date: BP: 09/30/2024 120/70 09/30/2024 120/70 09/29/2024 112/72 - On labetalol 200mg bid and low dose aspirin, controlled at 24 weeks. * Assessment & Plan Note - Johny Philip MD - 09/30/2024 1:08 PM EDTAssociated Problem(s): S/P repair of PDA - PDA s/p repair * Assessment & Plan Note - Johny Philip MD - 09/30/2024 1:07 PM EDTAssociated Problem(s): SVT (supraventricular tachycardia) (HCC) - Had as a , reoccurred since around 2017, was put on beta tarik and well controlled sincethen. - Paroxysmal, induced by pain, stress. - Has had a few episodes during which self terminated. * Assessment & Plan Note - Johny Philip MD - 09/30/2024 1:07 PM EDTAssociated Problem(s): Coarctation of aorta (HCC) - S/p Repair * Assessment & Plan Note - Johny Philip MD - 09/30/2024 1:06 PM EDTAssociated Problem(s): Bicuspid aortic valve - Bicuspid Valve, moderate valve stenosis/calcification on 08/06/24 echo, no regurgitation. Peak gradient 60 mmHg, mean gradient 31 mmHg. - LVEF 57%, normal LV/RV size/fx. - Had repeat echo earlier today [facility] Diagnosis Supervision of high risk in second trimester ([facility])- Primary Unspecified high-risk Adult congenital heart disease (HCC) Unspecified congenital anomaly of heart Dysuria Obesity in ([facility]) Obesity complicating , childbirth, or the puerperium, unspecified as to episode of care or not applicable History of aortic coarctation repair Personal history of surgery to heart and great vessels, presenting hazards to health Bicuspid aortic valve Congenital insufficiency of aortic valve Coarctation of aorta ([facility]) Coarctation of aorta (preductal) (postductal) History of supraventricular tachycardia Personal history of other diseases of circulatory system 16 weeks gestation of ([facility]) state, incidental Supervision of high risk in third trimester ([facility])- Primary Unspecified high-risk Obesity in ([facility]) Obesity complicating , childbirth, or the puerperium, unspecified as to episode of care or not applicable Nausea and vomiting in ([facility]) Unspecified vomiting of , unspecified as to episode of care 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, antepartum ([facility]) Pre-existing hypertension complicating in second trimester ([facility]) Benign essential hypertension antepartum 30 weeks gestation of ([facility]) state, incidental Supervision of high risk in third trimester ([facility])- Primary Unspecified high-risk Obesity in ([facility]) Obesity complicating , childbirth, or the puerperium, unspecified as to episode of care or not applicable 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, antepartum ([facility]) 32 weeks gestation of ([facility]) state, incidental Pre-existing hypertension complicating in second trimester ([facility]) Benign essential hypertension antepartum Maternal congenital cardiac anomaly affecting , antepartum, third trimester ([facility])- Primary Preexisting hypertension complicating , antepartum ([facility]) Benign essential hypertension antepartum Bicuspid aortic valve Congenital insufficiency of aortic valve History of aortic coarctation repair Personal history of surgery to heart and great vessels, presenting hazards to health 32 weeks gestation of ([facility]) state, incidental Supervision of high risk in first trimester ([facility]) Unspecified high-risk Bicuspid aortic valve- Primary Congenital insufficiency of aortic valve Coarctation of aorta ([facility]) Coarctation of aorta (preductal) (postductal) SVT (supraventricular tachycardia) ([facility]) Other specified cardiac dysrhythmias S/P repair of PDA Other postprocedural status Preexisting hypertension complicating , antepartum ([facility]) Benign essential hypertension antepartum [facility] Supervision of high risk in second trimester ([facility])- Primary Unspecified high-risk Adult congenital heart disease ([facility]) Unspecified congenital anomaly of heart Dysuria Obesity in ([facility]) Obesity complicating , childbirth, or the puerperium, unspecified as to episode of care or not applicable History of aortic coarctation repair Personal history of surgery to heart and great vessels, presenting hazards to health Bicuspid aortic valve Congenital insufficiency of aortic valve Coarctation of aorta ([facility]) Coarctation of aorta (preductal) (postductal) History of supraventricular tachycardia Personal history of other diseases of circulatory system 16 weeks gestation of ([facility]) state, incidental Supervision of high risk in third trimester ([facility])- Primary Unspecified high-risk Obesity in ([facility]) Obesity complicating , childbirth, or the puerperium, unspecified as to episode of care or not applicable Nausea and vomiting in ([facility]) Unspecified vomiting of , unspecified as to episode of care 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, antepartum ([facility]) Pre-existing hypertension complicating in second trimester ([facility]) Benign essential hypertension antepartum 30 weeks gestation of ([facility]) state, incidental Supervision of high risk in third trimester ([facility])- Primary Unspecified high-risk Obesity in ([facility]) Obesity complicating , childbirth, or the puerperium, unspecified as to episode of care or not applicable 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, antepartum ([facility]) 32 weeks gestation of ([facility]) state, incidental Pre-existing hypertension complicating in second trimester ([facility]) Benign essential hypertension antepartum Bicuspid aortic valve- Primary Congenital insufficiency of aortic valve Coarctation of aorta ([facility]) Coarctation of aorta (preductal) (postductal) SVT (supraventricular tachycardia) ([facility]) Other specified cardiac dysrhythmias S/P repair of PDA Other postprocedural status Preexisting hypertension complicating , antepartum ([facility]) Benign essential hypertension antepartum 32 weeks gestation of ([facility])- Primary state, incidental Supervision of high risk in third trimester ([facility]) Unspecified high-risk Obesity in ([facility]) Obesity complicating , childbirth, or the puerperium, unspecified as to episode of care or not applicable Pre-existing hypertension complicating in second trimester ([facility]) Benign essential hypertension antepartum Maternal congenital cardiac anomaly affecting , antepartum, third trimester ([facility]) Coarctation of aorta ([facility]) Coarctation of aorta (preductal) (postductal) [facility] Supervision of high risk in second trimester ([facility])- Primary Unspecified high-risk Adult congenital heart disease ([facility]) Unspecified congenital anomaly of heart Dysuria Obesity in ([facility]) Obesity complicating , childbirth, or the puerperium, unspecified as to episode of care or not applicable History of aortic coarctation repair Personal history of surgery to heart and great vessels, presenting hazards to health Bicuspid aortic valve Congenital insufficiency of aortic valve Coarctation of aorta ([facility]) Coarctation of aorta (preductal) (postductal) History of supraventricular tachycardia Personal history of other diseases of circulatory system 16 weeks gestation of ([facility]) state, incidental Supervision of high risk in third trimester ([facility])- Primary Unspecified high-risk Obesity in ([facility]) Obesity complicating , childbirth, or the puerperium, unspecified as to episode of care or not applicable Nausea and vomiting in ([facility]) Unspecified vomiting of , unspecified as to episode of care 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, antepartum ([facility]) Pre-existing hypertension complicating in second trimester ([facility]) Benign essential hypertension antepartum 30 weeks gestation of ([facility]) state, incidental Supervision of high risk in third trimester ([facility])- Primary Unspecified high-risk Obesity in ([facility]) Obesity complicating , childbirth, or the puerperium, unspecified as to episode of care or not applicable 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, antepartum ([facility]) 32 weeks gestation of ([facility]) state, incidental Pre-existing hypertension complicating in second trimester ([facility]) Benign essential hypertension antepartum Bicuspid aortic valve- Primary Congenital insufficiency of aortic valve Coarctation of aorta ([facility]) Coarctation of aorta (preductal) (postductal) SVT (supraventricular tachycardia) ([facility]) Other specified cardiac dysrhythmias S/P repair of PDA Other postprocedural status Preexisting hypertension complicating , antepartum ([facility]) Benign essential hypertension antepartum 32 weeks gestation of ([facility])- Primary state, incidental Supervision of high risk in third trimester ([facility]) Unspecified high-risk Obesity in ([facility]) Obesity complicating , childbirth, or the puerperium, unspecified as to episode of care or not applicable Pre-existing hypertension complicating in second trimester ([facility]) Benign essential hypertension antepartum Maternal congenital cardiac anomaly affecting , antepartum, third trimester ([facility]) Supervision of high risk in third trimester ([facility])- Primary Unspecified high-risk Obesity in ([facility]) Obesity complicating , childbirth, or the puerperium, unspecified as to episode of care or not applicable Pre-existing hypertension complicating in third trimester ([facility]) Benign essential hypertension antepartum 34 weeks gestation of ([facility]) state, incidental Maternal congenital cardiac anomaly affecting , antepartum, third trimester ([facility]) * Assessment & Plan Note - Nelsy Agarwal MD - 10/13/2024 10:21 AM EDT Associated Problem(s): Maternal congenital cardiac anomaly affecting , antepartum, third trimester ([facility]) Orders: ROUTINE, GROUP B STREPTOCOCCUS BY PCR [facility] Supervision of high risk in second trimester ([facility])- Primary Unspecified high-risk Adult congenital heart disease ([facility]) Unspecified congenital anomaly of heart Dysuria Obesity in ([facility]) Obesity complicating , childbirth, or the puerperium, unspecified as to episode of care or not applicable History of aortic coarctation repair Personal history of surgery to heart and great vessels, presenting hazards to health Bicuspid aortic valve Congenital insufficiency of aortic valve Coarctation of aorta ([facility]) Coarctation of aorta (preductal) (postductal) History of supraventricular tachycardia Personal history of other diseases of circulatory system 16 weeks gestation of ([facility]) state, incidental Supervision of high risk in third trimester ([facility])- Primary Unspecified high-risk Obesity in ([facility]) Obesity complicating , childbirth, or the puerperium, unspecified as to episode of care or not applicable Nausea and vomiting in ([facility]) Unspecified vomiting of , unspecified as to episode of care 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, antepartum ([facility]) Pre-existing hypertension complicating in second trimester ([facility]) Benign essential hypertension antepartum 30 weeks gestation of ([facility]) state, incidental Supervision of high risk in third trimester ([facility])- Primary Unspecified high-risk Obesity in ([facility]) Obesity complicating , childbirth, or the puerperium, unspecified as to episode of care or not applicable 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, antepartum ([facility]) 32 weeks gestation of ([facility]) state, incidental Pre-existing hypertension complicating in second trimester ([facility]) Benign essential hypertension antepartum Bicuspid aortic valve- Primary Congenital insufficiency of aortic valve Coarctation of aorta ([facility]) Coarctation of aorta (preductal) (postductal) SVT (supraventricular tachycardia) ([facility]) Other specified cardiac dysrhythmias S/P repair of PDA Other postprocedural status Preexisting hypertension complicating , antepartum ([facility]) Benign essential hypertension antepartum 32 weeks gestation of ([facility])- Primary state, incidental Supervision of high risk in third trimester ([facility]) Unspecified high-risk Obesity in ([facility]) Obesity complicating , childbirth, or the puerperium, unspecified as to episode of care or not applicable Pre-existing hypertension complicating in second trimester ([facility]) Benign essential hypertension antepartum Maternal congenital cardiac anomaly affecting , antepartum, third trimester ([facility]) Supervision of high risk in third trimester ([facility])- Primary Unspecified high-risk Obesity in ([facility]) Obesity complicating , childbirth, or the puerperium, unspecified as to episode of care or not applicable Pre-existing hypertension complicating in third trimester ([facility]) Benign essential hypertension antepartum 34 weeks gestation of ([facility]) state, incidental Maternal congenital cardiac anomaly affecting , antepartum, third trimester ([facility]) Supervision of high risk in third trimester ([facility])- Primary Unspecified high-risk 35 weeks gestation of ([facility]) state, incidental Obesity in ([facility]) Obesity complicating , childbirth, or the puerperium, unspecified as to episode of care or not applicable Pre-existing hypertension complicating in third trimester ([facility]) Benign essential hypertension antepartum [facility] information availableW[facility] Work [facility]: Evaluation note* Diagnosis Supervision of high risk in second trimester ([facility])- Primary Unspecified high-risk Adult congenital heart disease ([facility]) Unspecified congenital anomaly of heart Dysuria Obesity in ([facility]) Obesity complicating , childbirth, or the puerperium, unspecified as to episode of care or not applicable History of aortic coarctation repair Personal history of surgery to heart and great vessels, presenting hazards to health Bicuspid aortic valve ([facility]) Congenital insufficiency of aortic valve Coarctation of aorta ([facility]) Coarctation of aorta (preductal) (postductal) History of supraventricular tachycardia Personal history of other diseases of circulatory system 16 weeks gestation of ([facility]) state, incidental Supervision of high risk in third trimester ([facility])- Primary Unspecified high-risk Obesity in ([facility]) Obesity complicating , childbirth, or the puerperium, unspecified as to episode of care or not applicable Nausea and vomiting in ([facility]) Unspecified vomiting of , unspecified as to episode of care 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, antepartum ([facility]) Pre-existing hypertension complicating in second trimester ([facility]) Benign essential hypertension antepartum 30 weeks gestation of ([facility]) state, incidental Supervision of high risk in third trimester ([facility])- Primary Unspecified high-risk Obesity in ([facility]) Obesity complicating , childbirth, or the puerperium, unspecified as to episode of care or not applicable 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, antepartum ([facility]) 32 weeks gestation of ([facility]) state, incidental Pre-existing hypertension complicating in second trimester ([facility]) Benign essential hypertension antepartum Bicuspid aortic valve ([facility])- Primary Congenital insufficiency of aortic valve Coarctation of aorta ([facility]) Coarctation of aorta (preductal) (postductal) SVT (supraventricular tachycardia) ([facility]) Other specified cardiac dysrhythmias S/P repair of PDA Other postprocedural status Preexisting hypertension complicating , antepartum ([facility]) Benign essential hypertension antepartum 32 weeks gestation of ([facility])- Primary state, incidental Supervision of high risk in third trimester ([facility]) Unspecified high-risk Obesity in ([facility]) Obesity complicating , childbirth, or the puerperium, unspecified as to episode of care or not applicable Pre-existing hypertension complicating in second trimester ([facility]) Benign essential hypertension antepartum Maternal congenital cardiac anomaly affecting , antepartum, third trimester ([facility]) Supervision of high risk in third trimester ([facility])- Primary Unspecified high-risk Obesity in ([facility]) Obesity complicating , childbirth, or the puerperium, unspecified as to episode of care or not applicable Pre-existing hypertension complicating in third trimester ([facility]) Benign essential hypertension antepartum 34 weeks gestation of ([facility]) state, incidental Maternal congenital cardiac anomaly affecting , antepartum, third trimester ([facility]) Supervision of high risk in third trimester ([facility])- Primary Unspecified high-risk NST (non-stress test) with decelerations Abnormal findings on screening Maternal congenital cardiac anomaly affecting , antepartum, third trimester ([facility]) Pre-existing hypertension complicating in third trimester ([facility]) Benign essential hypertension antepartum Obesity in ([facility]) Obesity complicating , childbirth, or the puerperium, unspecified as to episode of care or not applicable 36 weeks gestation of ([facility]) state, incidental * Assessment & Plan Note - Marion Morgan MD - 10/27/2024 9:56 AM EDT Associated Problem(s): Maternal congenital cardiac anomaly affecting , antepartum, third trimester ([facility]) Plan for delivery at [facility] Orders: URINE OB DIP B/O [facility] Diagnosis Supervision of high risk in second trimester ([facility])- Primary Unspecified high-risk Adult congenital heart disease ([facility]) Unspecified congenital anomaly of heart Dysuria Obesity in ([facility]) Obesity complicating , childbirth, or the puerperium, unspecified as to episode of care or not applicable History of aortic coarctation repair Personal history of surgery to heart and great vessels, presenting hazards to health Bicuspid aortic valve ([facility]) Congenital insufficiency of aortic valve Coarctation of aorta ([facility]) Coarctation of aorta (preductal) (postductal) History of supraventricular tachycardia Personal history of other diseases of circulatory system 16 weeks gestation of ([facility]) state, incidental Supervision of high risk in third trimester ([facility])- Primary Unspecified high-risk Obesity in ([facility]) Obesity complicating , childbirth, or the puerperium, unspecified as to episode of care or not applicable Nausea and vomiting in ([facility]) Unspecified vomiting of , unspecified as to episode of care 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, antepartum ([facility]) Pre-existing hypertension complicating in second trimester ([facility]) Benign essential hypertension antepartum 30 weeks gestation of ([facility]) state, incidental Supervision of high risk in third trimester ([facility])- Primary Unspecified high-risk Obesity in ([facility]) Obesity complicating , childbirth, or the puerperium, unspecified as to episode of care or not applicable 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, antepartum ([facility]) 32 weeks gestation of ([facility]) state, incidental Pre-existing hypertension complicating in second trimester ([facility]) Benign essential hypertension antepartum Bicuspid aortic valve ([facility])- Primary Congenital insufficiency of aortic valve Coarctation of aorta ([facility]) Coarctation of aorta (preductal) (postductal) SVT (supraventricular tachycardia) ([facility]) Other specified cardiac dysrhythmias S/P repair of PDA Other postprocedural status Preexisting hypertension complicating , antepartum ([facility]) Benign essential hypertension antepartum 32 weeks gestation of ([facility])- Primary state, incidental Supervision of high risk in third trimester ([facility]) Unspecified high-risk Obesity in ([facility]) Obesity complicating , childbirth, or the puerperium, unspecified as to episode of care or not applicable Pre-existing hypertension complicating in second trimester ([facility]) Benign essential hypertension antepartum Maternal congenital cardiac anomaly affecting , antepartum, third trimester ([facility]) Supervision of high risk in third trimester ([facility])- Primary Unspecified high-risk Obesity in ([facility]) Obesity complicating , childbirth, or the puerperium, unspecified as to episode of care or not applicable Pre-existing hypertension complicating in third trimester ([facility]) Benign essential hypertension antepartum 34 weeks gestation of ([facility]) state, incidental Maternal congenital cardiac anomaly affecting , antepartum, third trimester ([facility]) Supervision of high risk in third trimester ([facility])- Primary Unspecified high-risk NST (non-stress test) with decelerations Abnormal findings on screening Maternal congenital cardiac anomaly affecting , antepartum, third trimester ([facility]) Pre-existing hypertension complicating in third trimester ([facility]) Benign essential hypertension antepartum Obesity in ([facility]) Obesity complicating , childbirth, or the puerperium, unspecified as to episode of care or not applicable 36 weeks gestation of ([facility]) state, incidental Supervision of high risk in third trimester ([facility])- Primary Unspecified high-risk Maternal congenital cardiac anomaly affecting , antepartum, third trimester ([facility]) Pre-existing hypertension complicating in third trimester ([facility]) Benign essential hypertension antepartum Obesity in ([facility]) Obesity complicating , childbirth, or the puerperium, unspecified as to episode of care or not applicable 36 weeks gestation of ([facility]) state, incidental [facility] Supervision of high risk in second trimester ([facility])- Primary Unspecified high-risk Adult congenital heart disease ([facility]) Unspecified congenital anomaly of heart Dysuria Obesity in ([facility]) Obesity complicating , childbirth, or the puerperium, unspecified as to episode of care or not applicable History of aortic coarctation repair Personal history of surgery to heart and great vessels, presenting hazards to health Bicuspid aortic valve ([facility]) Congenital insufficiency of aortic valve Coarctation of aorta ([facility]) Coarctation of aorta (preductal) (postductal) History of supraventricular tachycardia Personal history of other diseases of circulatory system 16 weeks gestation of ([facility]) state, incidental Supervision of high risk in third trimester ([facility])- Primary Unspecified high-risk Obesity in ([facility]) Obesity complicating , childbirth, or the puerperium, unspecified as to episode of care or not applicable Nausea and vomiting in ([facility]) Unspecified vomiting of , unspecified as to episode of care 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, antepartum ([facility]) Pre-existing hypertension complicating in second trimester ([facility]) Benign essential hypertension antepartum 30 weeks gestation of ([facility]) state, incidental Supervision of high risk in third trimester ([facility])- Primary Unspecified high-risk Obesity in ([facility]) Obesity complicating , childbirth, or the puerperium, unspecified as to episode of care or not applicable 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, antepartum ([facility]) 32 weeks gestation of ([facility]) state, incidental Pre-existing hypertension complicating in second trimester ([facility]) Benign essential hypertension antepartum Bicuspid aortic valve ([facility])- Primary Congenital insufficiency of aortic valve Coarctation of aorta ([facility]) Coarctation of aorta (preductal) (postductal) SVT (supraventricular tachycardia) ([facility]) Other specified cardiac dysrhythmias S/P repair of PDA Other postprocedural status Preexisting hypertension complicating , antepartum ([facility]) Benign essential hypertension antepartum 32 weeks gestation of ([facility])- Primary state, incidental Supervision of high risk in third trimester ([facility]) Unspecified high-risk Obesity in ([facility]) Obesity complicating , childbirth, or the puerperium, unspecified as to episode of care or not applicable Pre-existing hypertension complicating in second trimester ([facility]) Benign essential hypertension antepartum Maternal congenital cardiac anomaly affecting , antepartum, third trimester ([facility]) Supervision of high risk in third trimester ([facility])- Primary Unspecified high-risk Obesity in ([facility]) Obesity complicating , childbirth, or the puerperium, unspecified as to episode of care or not applicable Pre-existing hypertension complicating in third trimester ([facility]) Benign essential hypertension antepartum 34 weeks gestation of ([facility]) state, incidental Maternal congenital cardiac anomaly affecting , antepartum, third trimester ([facility]) Supervision of high risk in third trimester ([facility])- Primary Unspecified high-risk NST (non-stress test) with decelerations Abnormal findings on screening Maternal congenital cardiac anomaly affecting , antepartum, third trimester ([facility]) Pre-existing hypertension complicating in third trimester ([facility]) Benign essential hypertension antepartum Obesity in ([facility]) Obesity complicating , childbirth, or the puerperium, unspecified as to episode of care or not applicable 36 weeks gestation of ([facility]) state, incidental Maternal congenital cardiac anomaly affecting , antepartum, third trimester ([facility])- Primary Coarctation of aorta ([facility]) Coarctation of aorta (preductal) (postductal) Bicuspid aortic valve ([facility]) Congenital insufficiency of aortic valve SVT (supraventricular tachycardia) ([facility]) Other specified cardiac dysrhythmias History of aortic coarctation repair Personal history of surgery to heart and great vessels, presenting hazards to health Encounter for planned induction of labor ([facility]) 37 weeks gestation of ([facility]) state, incidental Congenital cardiovascular disorder ([facility]) Unspecified congenital anomaly of heart Personal history of (corrected) congenital malformations of heart and circulatory system GBS (group B Streptococcus carrier), +RV culture, currently ([facility]) Supervision of other high-risk SVT (supraventricular tachycardia) ([facility]) Other specified cardiac dysrhythmias Obesity affecting in third trimester ([facility]) Supervision of high risk in third trimester ([facility]) Unspecified high-risk History of aortic coarctation repair Personal history of surgery to heart and great vessels, presenting hazards to health Preexisting hypertension complicating , antepartum ([facility]) Benign essential hypertension antepartum Gastroesophageal reflux disease Esophageal reflux Encounter for planned induction of labor ([facility]) Aortic stenosis due to bicuspid aortic valve ([facility]) S/P repair of PDA Other postprocedural status Inappropriate sinus tachycardia ([facility]) Other specified cardiac dysrhythmias Bicuspid aortic valve ([facility]) Congenital insufficiency of aortic valve Coarctation of aorta ([facility]) Coarctation of aorta (preductal) (postductal) Inappropriate sinus tachycardia ([facility])- Primary Other specified cardiac dysrhythmias [facility] Supervision of high risk in second trimester ([facility])- Primary Unspecified high-risk Adult congenital heart disease ([facility]) Unspecified congenital anomaly of heart Dysuria Obesity in ([facility]) Obesity complicating , childbirth, or the puerperium, unspecified as to episode of care or not applicable History of aortic coarctation repair Personal history of surgery to heart and great vessels, presenting hazards to health Bicuspid aortic valve ([facility]) Congenital insufficiency of aortic valve Coarctation of aorta ([facility]) Coarctation of aorta (preductal) (postductal) History of supraventricular tachycardia Personal history of other diseases of circulatory system 16 weeks gestation of ([facility]) state, incidental Supervision of high risk in third trimester ([facility])- Primary Unspecified high-risk Obesity in ([facility]) Obesity complicating , childbirth, or the puerperium, unspecified as to episode of care or not applicable Nausea and vomiting in ([facility]) Unspecified vomiting of , unspecified as to episode of care 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, antepartum ([facility]) Pre-existing hypertension complicating in second trimester ([facility]) Benign essential hypertension antepartum 30 weeks gestation of ([facility]) state, incidental Supervision of high risk in third trimester ([facility])- Primary Unspecified high-risk Obesity in ([facility]) Obesity complicating , childbirth, or the puerperium, unspecified as to episode of care or not applicable 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, antepartum ([facility]) 32 weeks gestation of ([facility]) state, incidental Pre-existing hypertension complicating in second trimester ([facility]) Benign essential hypertension antepartum Bicuspid aortic valve ([facility])- Primary Congenital insufficiency of aortic valve Coarctation of aorta ([facility]) Coarctation of aorta (preductal) (postductal) SVT (supraventricular tachycardia) ([facility]) Other specified cardiac dysrhythmias S/P repair of PDA Other postprocedural status Preexisting hypertension complicating , antepartum ([facility]) Benign essential hypertension antepartum 32 weeks gestation of ([facility])- Primary state, incidental Supervision of high risk in third trimester ([facility]) Unspecified high-risk Obesity in ([facility]) Obesity complicating , childbirth, or the puerperium, unspecified as to episode of care or not applicable Pre-existing hypertension complicating in second trimester ([facility]) Benign essential hypertension antepartum Maternal congenital cardiac anomaly affecting , antepartum, third trimester ([facility]) Supervision of high risk in third trimester ([facility])- Primary Unspecified high-risk Obesity in ([facility]) Obesity complicating , childbirth, or the puerperium, unspecified as to episode of care or not applicable Pre-existing hypertension complicating in third trimester ([facility]) Benign essential hypertension antepartum 34 weeks gestation of ([facility]) state, incidental Maternal congenital cardiac anomaly affecting , antepartum, third trimester ([facility]) Supervision of high risk in third trimester ([facility])- Primary Unspecified high-risk NST (non-stress test) with decelerations Abnormal findings on screening Maternal congenital cardiac anomaly affecting , antepartum, third trimester ([facility]) Pre-existing hypertension complicating in third trimester ([facility]) Benign essential hypertension antepartum Obesity in ([facility]) Obesity complicating , childbirth, or the puerperium, unspecified as to episode of care or not applicable 36 weeks gestation of ([facility]) state, incidental Maternal congenital cardiac anomaly affecting , antepartum, third trimester ([facility])- Primary Coarctation of aorta ([facility]) Coarctation of aorta (preductal) (postductal) Bicuspid aortic valve ([facility]) Congenital insufficiency of aortic valve SVT (supraventricular tachycardia) ([facility]) Other specified cardiac dysrhythmias History of aortic coarctation repair Personal history of surgery to heart and great vessels, presenting hazards to health Encounter for planned induction of labor ([facility]) 37 weeks gestation of ([facility]) state, incidental Congenital cardiovascular disorder ([facility]) Unspecified congenital anomaly of heart Maternal congenital cardiac anomaly affecting , antepartum, third trimester ([facility]) Aortic stenosis due to bicuspid aortic valve ([facility]) Iron deficiency anemia, unspecified iron deficiency anemia type Personal history of (corrected) congenital malformations of heart and circulatory system GBS (group B Streptococcus carrier), +RV culture, currently ([facility]) Supervision of other high-risk SVT (supraventricular tachycardia) ([facility]) Other specified cardiac dysrhythmias Obesity affecting in third trimester ([facility]) Supervision of high risk in third trimester ([facility]) Unspecified high-risk History of aortic coarctation repair Personal history of surgery to heart and great vessels, presenting hazards to health Preexisting hypertension complicating , antepartum ([facility]) Benign essential hypertension antepartum Gastroesophageal reflux disease Esophageal reflux Encounter for planned induction of labor ([facility]) Aortic stenosis due to bicuspid aortic valve (HCC) S/P repair of PDA Other postprocedural status Inappropriate sinus tachycardia (HCC) Other specified cardiac dysrhythmias Bicuspid aortic valve (HCC) Congenital insufficiency of aortic valve Coarctation of aorta (HCC) Coarctation of aorta (preductal) (postductal) Delivery by section of full-term infant (HCC) Congenital cardiovascular disorder (HCC) Unspecified congenital anomaly of heart 37 weeks gestation of (HCC) state, incidental state (HCC)- Primary Routine follow-up documented in this encounter [facility] Discharge instructions Additional Instructions NST at 10AM tomorrow 10/28/24 in the office. [facility]: Reason for referral (narrative)* Diagnostic Procedure Only (Routine) - Closed Specialty Diagnoses / Procedures Referred By Natalia kaufman Referred To Contact US IMAGING Diagnoses Left lateral abdominal pain Procedures US FEMALE PELVIS TRANSVAG US TRANSVAGINAL Kwasi Garcia APRN.[employer] CONTACT REPRESENTATIVE [address] [place] [address] Us Imaging Referral ID Status Reason Start Date Expiration Date V isits Requested Visits Authorized [id number] Closed Auto-Generate d Referral 05/22/2022 06/21/2023 1 1 [facility] for referral (narrative)* Outpatient Procedure (Routine) - Pending Review Specialty Diagnoses / Procedures Referred By Natalia kaufman Referred To Contact [facility] Diagnoses Encounter for IUD removal Malpositioned intrauterine device (IUD), initial encounter Procedures REMOVE INTRAUTERINE DEVICE REMOVE INTRAUTERINE DEVICE Dionne Carrillo APRN.[employer]ETERANS CONTACT REPRESENTATIVE [address] [place] [address] [facility] [address] [place] [address] Referral ID Status Reason Start Date Expiration Date Visits Requested Visits Authorized [id number] Pending Review Auto-Generat ed Referral 05/29/2022 05/29/2023 1 1 [facility] for referral (narrative)* Outpatient Procedure (Routine) - Authorized Specialty Diagnoses / Procedures Referred By Contac t Referred To Contact [facility] Diagnoses SVT (supraventricular tachycardia) (HCC) Procedures ECG COMPLETE ECG ROUTINE ECG W/LEAST 12 LDS W/I&R Ashok Pedro MD [id number] [place] [address] Referral ID Status Reason Start Date Expiration Date Visits Requested Visits Authorized [id number] Authorized Auto-Generat ed Referral 03/26/2023 06/24/2023 1 1 [facility] for referral (narrative)* Outpatient Procedure (Routine) - Authorized Specialty Diagnoses / Procedures [facility] To Contact [facility] Diagnoses Coarctation of aorta Procedures ECHO ECHO TTHRC R-T 2D W/WOM-MODE COMPL SPEC&COLR D Bhavesh Alas MD [id number] [place] [id number] Referral ID Status Reason Start Date Expiration Date Visits Requested Visits Authorized [id number] Authorized Auto-Generat ed Referral 12/10/2022 07/12/2023 1 1 * Outpatient Procedure (Routine) - Authorized Specialty Diagnoses / Procedures Referred By Contac t Referred To Contact [facility] Diagnoses Coarctation of aorta Procedures ECG COMPLETE ECG ROUTINE ECG W/LEAST 12 LDS W/I&R Bhavesh Alas MD [address] [facility] [place] [address] [address] Referral ID Status Reason Start Date Expiration Date Visits Requested Visits Authorized [id number] Authorized Auto-Generat ed Referral 07/12/2022 07/12/2023 1 1 [facility] for referral (narrative)* Diagnostic Procedure Only (Routine) - New Request Specialty Diagnoses / Procedures Referred By Natalia kaufman Referred To Contact [facility] Diagnoses Hirsutism Secondary oligomenorrhea Class 2 obesity with body mass index (BMI) of 39.0 to 39.9 in adult, unspecified obesity type, unspecified whether serious comorbidity present Procedures PELVIC US WHI US PELVIC NONOBSTETRIC REAL-TIME IMAGE COMPLETE Dionne Carrillo APRN.CNP [address] [place] [address] [place] [id number] Referral ID Status Reason Start Date Expiration Date Visits Requested Visits Authorized [id number] New Request Financial Clearance Required - OON Payor 11/28/2023 11/27/2024 1 1 [facility] for referral (narrative)* Outpatient Procedure (Routine) - New Request Specialty Diagnoses / Procedures Referred By Natalia kaufman Referred To Contact [facility] Diagnoses Inappropriate sinus node tachycardia (HCC) Coarctation of aorta SVT (supraventricular tachycardia) (HCC) Bicuspid aortic valve Procedures ECG COMPLETE ECG ROUTINE ECG W/LEAST 12 LDS W/I&R Bhavesh Alas MD [address] [place] [address] [address] Referral ID Status Reason Start Date Expiration Date Visits Requested Visits Authorized [id number] New Request Auto-Generat ed Referral 12/03/2023 12/02/2024 1 1 * Outpatient Procedure (Routine) - New Request Specialty Diagnoses / Procedures Referred By Contolesya t Referred To Contact [facility] Diagnoses Inappropriate sinus node tachycardia (HCC) Coarctation of aorta SVT (supraventricular tachycardia) (HCC) Bicuspid aortic valve Procedures EXERCISE STRESS ECG METABOLIC (WITHOUT IMAGING) Bhavesh Alas MD [address] [place] [address] [facility] [address] [place] [address] Referral ID Status Reason Start Date Expiration Date Visits Requested Visits Authorized [id number] New Request Auto-Generat ed Referral 12/03/2023 12/02/2024 1 1 * MRI/CT (Routine) - New Request Specialty Diagnoses / Procedures Referred By Contac t Referred To Contact [facility] Diagnoses Inappropriate sinus node tachycardia (HCC) Coarctation of aorta SVT (supraventricular tachycardia) (HCC) Bicuspid aortic valve Procedures MRA CHEST CARDIOVASCULAR WO/W IVCON MRA CHEST WITH OR W/O CONT Bhavesh Alas MD [address] [place] [address] Mr Imaging [place] [address] Referral ID Status Reason Start Date Expiration Date Visits Requested Visits Authorized [id number] New Request Auto-Generat ed Referral 12/03/2023 01/01/2025 1 1 * MRI/CT (Routine) - New Request Specialty Diagnoses / Procedures Referred By Charanjitac shae Referred To Contact [facility] Diagnoses Inappropriate sinus node tachycardia (HCC) Coarctation of aorta SVT (supraventricular tachycardia) (HCC) Bicuspid aortic valve Procedures MRI CARDIAC MORPH FUNC WO/W IVCON CARDIAC MRI W/WO CONTRAST & FURTHER SEQ Bhavesh Alas MD [address] [place] [address] Mr Imaging [place] [address] Referral ID Status Reason Start Date Expiration Date Visits Requested Visits Authorized [id number] New Request Auto-Generat ed Referral 12/03/2023 01/01/2025 1 1 * MRI/CT (Routine) - New Request Specialty Diagnoses / Procedures Referred By Contac t Referred To Contact [facility] Diagnoses Inappropriate sinus node tachycardia (HCC) Coarctation of aorta SVT (supraventricular tachycardia) (HCC) Bicuspid aortic valve Procedures MRI CARDIAC VELOCITY FLOW MAP CARDIAC MRI FOR VELOCITY FLOW MAPPING Bhavesh Alas MD [address] [place] [address] Mr Imaging [place] [address] Referral ID Status Reason Start Date Expiration Date Visits Requested Visits Authorized [id number] New Request Auto-Generat ed Referral 12/03/2023 01/01/2025 1 1 [facility] for referral (narrative)* Outpatient Procedure (Routine) - Pending Review Specialty Diagnoses / Procedures Referred By Natalia kaufman Referred To Contact [facility] Diagnoses Inappropriate sinus node tachycardia (HCC) Procedures ECG COMPLETE ECG ROUTINE ECG W/LEAST 12 LDS W/I&R Ashok Pedro MD [id number] [place] [address] Referral ID Status Reason Start Date Expiration Date Visits Requested Visits Authorized [id number] Pending Review Auto-Generat ed Referral 12/03/2023 12/02/2024 1 1 [facility] for referral (narrative)* Diagnostic Procedure Only (Routine) - New Request Specialty Diagnoses / Procedures Referred By Natalia kaufman Referred To Contact [facility] Diagnoses 7 weeks gestation of Encounter for care in first trimester of first Procedures NUCHAL TRANSLUCENCY WHI US NUCHAL TRANSLUCENCY 1ST GESTATION Ashley Ambriz APRN.CNP [address] [place] [address] [place] [phone] Referral ID Status Reason Start Date Expiration Date Visits Requested Visits Authorized [id number] New Request Auto-Generat ed Referral 04/06/2025 1 1 [facility] for referral (narrative)* Outpatient Procedure (Routine) - New Request Specialty Diagnoses / Procedures Referred By Natalia kaufman Referred To Contact [facility] Diagnoses Coarctation of aorta Bicuspid aortic valve History of aortic coarctation repair Procedures ECG COMPLETE ECG ROUTINE ECG W/LEAST 12 LDS W/I&R Bhavesh Alas MD [address] [place] [address] [address] Referral ID Status Reason Start Date Expiration Date Visits Requested Visits Authorized [id number] New Request Auto-Generat ed Referral 4 04/12/2025 1 1 * Outpatient Procedure (Routine) - New Request Specialty Diagnoses / Procedures Referred By Natalia kaufman Referred To Contact [facility] Diagnoses Coarctation of aorta Bicuspid aortic valve History of aortic coarctation repair Procedures ECHO SPECIALIST COMPLEX ADULT CONGENITAL ECHO TTHRC R-T 2D W/WOM-MODE COMPL SPEC&COLR D Bhavesh Alas MD [address] [place] [address] [address] Referral ID Status Reason Start Date Expiration Date Visits Requested Visits Authorized [id number] New Request Auto-Generat ed Referral 4 04/12/2025 1 1 [facility] for referral (narrative)* Diagnostic Procedure Only (Routine) - New Request Specialty Diagnoses / Procedures Referred By Natalia kaufman Referred To Contact [facility] Diagnoses 12 weeks gestation of Supervision of high risk in first trimester Adult congenital heart disease Procedures OBSTETRIC ULTRASOUND WHI US PREG UTERUS AFTER 1ST TRIMEST GESTATION Destini Hanson APRN.DHARMESH [address] [address] [address] Referral ID Status Reason Start Date Expiration Date Visits Requested Visits Authorized [id number] New Request Auto-Generat ed Referral 05/10/2025 1 1 [facility] for referral (narrative)* Diagnostic Procedure Only (Routine) - New Request Specialty Diagnoses / Procedures Referred By Contac t Referred To Contact [facility] Diagnoses Supervision of high risk in second trimester Adult congenital heart disease History of aortic coarctation repair Procedures OBSTETRIC ULTRASOUND WHI US PREG UTERUS AFTER 1ST TRIMEST GESTATION Marion Morgan MD [address] [place] [address] [address] Referral ID Status Reason Start Date Expiration Date Visits Requested Visits Authorized [id number] New Request Auto-Generat ed Referral 06/08/2024 06/08/2025 1 1 [facility] for referral (narrative)No reason for referral information [facility] Work Phone: Reason for visit Narrative* Diagnostic Procedure Only (Routine) - Closed Specialty Diagnoses / Procedures Referred By Contac t Referred To Contact [facility] Diagnoses Hirsutism Secondary oligomenorrhea Class 2 obesity with body mass index (BMI) of 39.0 to 39.9 in adult, unspecified obesity type, unspecified whether serious comorbidity present Procedures PELVIC US WHI US PELVIC NONOBSTETRIC REAL-TIME IMAGE COMPLETE Dionne Carrillo APRN.CNP [address] [place] [address] [address] Referral ID Status Reason Start Date Expiration Date Visits Requested Visits Authorized [id number] Closed Financial Clearance Required - OON Payor OON Notification Letter Patient Cleared - Admin/Craniologist/D irector advise to proceed or did not respond 12/05/2023 05/18/2024 1 1 [facility] Transition of Care (Routine) - Closed Specialty Diagnoses / Procedures Referred By Charanjitac t Referred To Contact [facility] Diagnoses Inappropriate sinus node tachycardia (HCC) Inappropriate sinus node tachycardia (HCC) Procedures CARDIOVASCULAR MEDICINE OP FOLLOW UP APPT ORDER Ashok Pedro MD [address] [place] [address] Phone: tel: fax: [facility] [place] [address] Referral ID Status Reason Start Date Expiration Date V isits Requested Visits Authorized [id number] Closed PCP Requested Referral 06/08/2024 06/08/2025 1 1 [facility] Advance Directives No Advanced Directives Records Found Date Activated Date Inactivated Comments 10/31/2024 9:19 PM 11/08/2024 2:31 PM Question Answer Comments Full Code Order Discussed With: Patient Documents on File Type Date Recorded Patient Car Repairer Helper Expl anation Advance Directive(s) 06/29/2018 8:26 PM Documents on File Type Date Recorded Patient Car Repairer Helper Expl anation Advance Directive(s) 06/29/2018 8:26 PM Date Activated Date Inactivated Comments 10/31/2024 9:19 PM Date Activated Date Inactivated Comments 10/31/2024 9:19 PM Question Answer Comments Full Code Order Discussed With: Patient Reason for Referral Specialty Diagnoses / Procedures Referred By Natalia t Referred To Contact MR IMAGING Diagnoses Cardiomyopathy, unspecified type (HCC) Procedures MRI CARDIAC MORPH FUNC WO IVCON CARDIAC MRI MORPHOLOGY & FUNCTION W/O CONTRAST Bhavesh Alas MD [address] [place] [address] Mr Imaging Referral ID Status Reason Start Date Expiration Date Visits Requested Visits Authorized [id number] Authorized Auto-Generat ed Referral 10/16/2021 11/15/2022 1 1 Specialty Diagnoses / Procedures Referred By Charanjitac t Referred To Contact [facility] IMAG[facility] Diagnoses Encounter for other preprocedural examination Procedures MRA CHEST CARDIOVASCULAR WO IVCON MRA CHEST WITH OR W/O CONT Bhavesh Alas MD [address] [place] [address] Mr Imaging Referral ID Status Reason Start Date Expiration Date Visits Requested Visits Authorized [id number] Authorized Auto-Generat ed Referral 10/16/2021 11/15/2022 1 1 Referral ID Status Reason Start Date Expiration Date V isits Requested Visits Authorized [id number] Closed Auto-Generate d Referral 10/16/2021 11/15/2022 1 1 Referral ID Status Reason Start Date Expiration Date V isits Requested Visits Authorized [id number] Closed Auto-Generate d Referral 10/16/2021 11/15/2022 1 1 Specialty Diagnoses / Procedures Referred By Contac t Referred To Contact MR IMAGING Diagnoses Coarctation of aorta Procedures MRI CARDIAC VELOCITY FLOW MAP CARD MRI LAURIE FLW MAP ADD-ON Bhavesh Alas MD [address] [place] [address] Mr Imaging Referral ID Status Reason Start Date Expiration Date V isits Requested Visits Authorized [id number] Closed Auto-Generated Referral Financial Clearance Required - OON Payor Patient Cleared - INN Insurance Found 04/18/2021 05/18/2022 1 1 Specialty Diagnoses / Procedures Referred By Contac t Referred To Contact [facility] Diagnoses Coarctation of aorta Procedures MRI CARDIAC MORPH FUNC WO/W IVCON CARD MRI MORPH/FUNCTION W/WO C,INCL 3D Bhavesh Alas MD [address] [place] [address] Mr Imaging Referral ID Status Reason Start Date Expiration Date V isits Requested Visits Authorized [id number] Closed Auto-Generated Referral Financial Clearance Required - OON Payor Patient Cleared - INN Insurance Found 04/18/2021 05/18/2022 1 1 Specialty Diagnoses / Procedures Referred By Contac t Referred To Contact [facility] Diagnoses Coarctation of aorta Procedures MRA CHEST CARDIOVASCULAR WO/W IVCON MRA CHEST WITH OR W/O CONT Bhavesh Alas MD [address] [facility] [place] [address] Mr Imaging Referral ID Status Reason Start Date Expiration Date Visits Requested Visits Authorized [id number] Authorized Auto-Generat ed Referral 12/10/2022 01/09/2024 1 1 Specialty Diagnoses / Procedures Referred By Contac t Referred To Contact [facility] Diagnoses Coarctation of aorta Procedures MRI CARDIAC MORPH FUNC WO/W IVCON CARDIAC MRI W/WO CONTRAST & FURTHER SEQ Bhavesh Alas MD [address] [place] [address] Mr Imaging Referral ID Status Reason Start Date Expiration Date Visits Requested Visits Authorized [id number] Authorized Auto-Generat ed Referral 12/10/2022 01/09/2024 1 1 Specialty Diagnoses / Procedures Referred By Contac t Referred To Contact [facility] Diagnoses Coarctation of aorta Procedures MRI CARDIAC VELOCITY FLOW MAP CARDIAC MRI FOR VELOCITY FLOW MAPPING Bhavesh Alas MD [address] [place] [address] Mr Imaging Referral ID Status Reason Start Date Expiration Date Visits Requested Visits Authorized [id number] Authorized Auto-Generat ed Referral 12/10/2022 01/09/2024 1 1 Referral ID Status Reason Start Date Expiration Date Visits Requested Visits Authorized [id number] Pending Review Auto-Generat ed Referral 12/25/2022 01/24/2024 1 1 Specialty Diagnoses / Procedures Referred By Contac t Referred To Contact [facility] Diagnoses Cardiomyopathy, unspecified type (HCC) Procedures MRA CHEST CARDIOVASCULAR WO IVCON MRA CHEST WITH OR W/O CONT Bhavesh Alas MD [address] [place] [address] Mr Imaging Referral ID Status Reason Start Date Expiration Date Visits Requested Visits Authorized [id number] Pending Review Auto-Generat ed Referral 12/25/2022 01/24/2024 1 1 Referral ID Status Reason Start Date Expiration Date V isits Requested Visits Authorized [id number] Closed Auto-Generate d Referral 12/26/2022 05/18/2023 1 1 Referral ID Status Reason Start Date Expiration Date V isits Requested Visits Authorized [id number] Closed Auto-Generate d Referral 12/26/2022 05/18/2023 1 1 Referral ID Status Reason Start Date Expiration Date V isits Requested Visits Authorized [id number] Closed Auto-Generate d Referral 12/26/2022 05/18/2023 1 1 Specialty Diagnoses / Procedures Referred By Contac t Referred To Contact Diagnoses Class 2 obesity with body mass index (BMI) of 39.0 to 39.9 in adult, unspecified obesity type, unspecified whether serious comorbidity present Procedures CONSULT TO [facility] PROGRAM OFFICE/OUTPATIENT [facility]3] 60 MINUTES Kendra Torres MD [address] [place] [address] Referral ID Status Reason Start Date Expiration Date Visits Requested Visits Authorized [id number] Pending Review PCP Requested Referral Auto-Generate d Referral 12/29/2023 12/28/2024 1 1 Specialty Diagnoses / Procedures Referred By Contac t Referred To Contact [facility] Diagnoses Inappropriate sinus node tachycardia (HCC) Inappropriate sinus node tachycardia (HCC) Procedures CARDIOVASCULAR MEDICINE OP FOLLOW UP APPT ORDER Ashok Pedro MD [address] [place], [place] [address] [facility] [place] [address] Referral ID Status Reason Start Date Expiration Date Visits Requested Visits Authorized [id number] Authorized PCP Requested Referral 06/08/2024 06/08/2025 1 1 Chief Complaint and Reason for Visit Chief Complaint Admit Date MONITORING October 27, 2024 10:1 5am Summary Purpose Family History No Family History Records FoundNo Family History Records Found Additional Source Comments Source Comments (unrecognize d section and content) In the event this informatio n is protected by the Federal Confidentiality of Alcohol and Drug Abuse Patient Records regulations: The Federal rules restrict any use of the information to criminally investigate or prosecute any alcohol or drug abuse patient.[facility] the event this information is protected by the Federal Confidentiality of Alcohol and Drug Abuse Patient Records regulations: The Federal rules restrict any use of the information to criminally investigate or prosecute any alcohol or drug abuse patient.[facility] the event this information is protected by the Federal Confidentiality of Alcohol and Drug Abuse Patient Records regulations: The Federal rules restrict any use of the information to criminally investigate or prosecute any alcohol or drug abuse patient.[facility] the event this information is protected by the Federal Confidentiality of Alcohol and Drug Abuse Patient Records regulations: The Federal rules restrict any use of the information to criminally investigate or prosecute any alcohol or drug abuse patient.[facility] the event this information is protected by the Federal Confidentiality of Alcohol and Drug Abuse Patient Records regulations: The Federal rules restrict any use of the information to criminally investigate or prosecute any alcohol or drug abuse patient.[facility]In the event this information is protected by the Federal Confidentiality of Alcohol and Drug Abuse Patient Records regulations: The Federal rules restrict any use of the information to criminally investigate or prosecute any alcohol or drug abuse patient.[facility]In the event this information is protected by the Federal Confidentiality of Alcohol and Drug Abuse Patient Records regulations: The Federal rules restrict any use of the information to criminally investigate or prosecute any alcohol or drug abuse patient.[facility]In the event this information is protected by the Federal Confidentiality of Alcohol and Drug Abuse Patient Records regulations: The Federal rules restrict any use of the information to criminally investigate or prosecute any alcohol or drug abuse patient.[facility]In the event this information is protected by the Federal Confidentiality of Alcohol and Drug Abuse Patient Records regulations: The Federal rules restrict any use of the information to criminally investigate or prosecute any alcohol or drug abuse patient.[facility] HospitalIn the event this information is protected by the Federal Confidentiality of Alcohol and Drug Abuse Patient Records regulations: The Federal rules restrict any use of the information to criminally investigate or prosecute any alcohol or drug abuse patient.[facility]In the event this information is protected by the Federal Confidentiality of Alcohol and Drug Abuse Patient Records regulations: The Federal rules restrict any use of the information to criminally investigate or prosecute any alcohol or drug abuse patient.[facility]In the event this information is protected by the Federal Confidentiality of Alcohol and Drug Abuse Patient Records regulations: The Federal rules restrict any use of the information to criminally investigate or prosecute any alcohol or drug abuse patient.[facility] HospitalIn the event this information is protected by the Federal Confidentiality of Alcohol and Drug Abuse Patient Records regulations: The Federal rules restrict any use of the information to criminally investigate or prosecute any alcohol or drug abuse patient.[facility]In the event this information is protected by the Federal Confidentiality of Alcohol and Drug Abuse Patient Records regulations: The Federal rules restrict any use of the information to criminally investigate or prosecute any alcohol or drug abuse patient.[facility] HospitalIn the event this information is protected by the Federal Confidentiality of Alcohol and Drug Abuse Patient Records regulations: The Federal rules restrict any use of the information to criminally investigate or prosecute any alcohol or drug abuse patient.[facility] HospitalIn the event this information is protected by the Federal Confidentiality of Alcohol and Drug Abuse Patient Records regulations: The Federal rules restrict any use of the information to criminally investigate or prosecute any alcohol or drug abuse patient.[facility] HospitalIn the event this information is protected by the Federal Confidentiality of Alcohol and Drug Abuse Patient Records regulations: The Federal rules restrict any use of the information to criminally investigate or prosecute any alcohol or drug abuse patient.[facility] HospitalIn the event this information is protected by the Federal Confidentiality of Alcohol and Drug Abuse Patient Records regulations: The Federal rules restrict any use of the information to criminally investigate or prosecute any alcohol or drug abuse patient.[facility] HospitalIn the event this information is protected by the Federal Confidentiality of Alcohol and Drug Abuse Patient Records regulations: The Federal rules restrict any use of the information to criminally investigate or prosecute any alcohol or drug abuse patient.[facility] HospitalIn the event this information is protected by the Federal Confidentiality of Alcohol and Drug Abuse Patient Records regulations: The Federal rules restrict any use of the information to criminally investigate or prosecute any alcohol or drug abuse patient.[facility] HospitalIn the event this information is protected by the Federal Confidentiality of Alcohol and Drug Abuse Patient Records regulations: The Federal rules restrict any use of the information to criminally investigate or prosecute any alcohol or drug abuse patient.[facility] HospitalIn the event this information is protected by the Federal Confidentiality of Alcohol and Drug Abuse Patient Records regulations: The Federal rules restrict any use of the information to criminally investigate or prosecute any alcohol or drug abuse patient.[facility] HospitalIn the event this information is protected by the Federal Confidentiality of Alcohol and Drug Abuse Patient Records regulations: The Federal rules restrict any use of the information to criminally investigate or prosecute any alcohol or drug abuse patient.[facility] HospitalIn the event this information is protected by the Federal Confidentiality of Alcohol and Drug Abuse Patient Records regulations: The Federal rules restrict any use of the information to criminally investigate or prosecute any alcohol or drug abuse patient.[facility] HospitalIn the event this information is protected by the Federal Confidentiality of Alcohol and Drug Abuse Patient Records regulations: The Federal rules restrict any use of the information to criminally investigate or prosecute any alcohol or drug abuse patient.[facility] HospitalIn the event this information is protected by the Federal Confidentiality of Alcohol and Drug Abuse Patient Records regulations: The Federal rules restrict any use of the information to criminally investigate or prosecute any alcohol or drug abuse patient.[facility] HospitalIn the event this information is protected by the Federal Confidentiality of Alcohol and Drug Abuse Patient Records regulations: The Federal rules restrict any use of the information to criminally investigate or prosecute any alcohol or drug abuse patient.[facility] HospitalIn the event this information is protected by the Federal Confidentiality of Alcohol and Drug Abuse Patient Records regulations: The Federal rules restrict any use of the information to criminally investigate or prosecute any alcohol or drug abuse patient.[facility] HospitalIn the event this information is protected by the Federal Confidentiality of Alcohol and Drug Abuse Patient Records regulations: The Federal rules restrict any use of the information to criminally investigate or prosecute any alcohol or drug abuse patient.[facility] HospitalIn the event this information is protected by the Federal Confidentiality of Alcohol and Drug Abuse Patient Records regulations: The Federal rules restrict any use of the information to criminally investigate or prosecute any alcohol or drug abuse patient.[facility] HospitalIn the event this information is protected by the Federal Confidentiality of Alcohol and Drug Abuse Patient Records regulations: The Federal rules restrict any use of the information to criminally investigate or prosecute any alcohol or drug abuse patient.[facility] HospitalIn the event this information is protected by the Federal Confidentiality of Alcohol and Drug Abuse Patient Records regulations: The Federal rules restrict any use of the information to criminally investigate or prosecute any alcohol or drug abuse patient.[facility] HospitalIn the event this information is protected by the Federal Confidentiality of Alcohol and Drug Abuse Patient Records regulations: The Federal rules restrict any use of the information to criminally investigate or prosecute any alcohol or drug abuse patient.[facility] HospitalIn the event this information is protected by the Federal Confidentiality of Alcohol and Drug Abuse Patient Records regulations: The Federal rules restrict any use of the information to criminally investigate or prosecute any alcohol or drug abuse patient.[facility] HospitalIn the event this information is protected by the Federal Confidentiality of Alcohol and Drug Abuse Patient Records regulations: The Federal rules restrict any use of the information to criminally investigate or prosecute any alcohol or drug abuse patient.[facility] HospitalIn the event this information is protected by the Federal Confidentiality of Alcohol and Drug Abuse Patient Records regulations: The Federal rules restrict any use of the information to criminally investigate or prosecute any alcohol or drug abuse patient.[facility] HospitalIn the event this information is protected by the Federal Confidentiality of Alcohol and Drug Abuse Patient Records regulations: The Federal rules restrict any use of the information to criminally investigate or prosecute any alcohol or drug abuse patient.[facility] HospitalIn the event this information is protected by the Federal Confidentiality of Alcohol and Drug Abuse Patient Records regulations: The Federal rules restrict any use of the information to criminally investigate or prosecute any alcohol or drug abuse patient.[facility] HospitalIn the event this information is protected by the Federal Confidentiality of Alcohol and Drug Abuse Patient Records regulations: The Federal rules restrict any use of the information to criminally investigate or prosecute any alcohol or drug abuse patient.[facility] HospitalIn the event this information is protected by the Federal Confidentiality of Alcohol and Drug Abuse Patient Records regulations: The Federal rules restrict any use of the information to criminally investigate or prosecute any alcohol or drug abuse patient.[facility] HospitalIn the event this information is protected by the Federal Confidentiality of Alcohol and Drug Abuse Patient Records regulations: The Federal rules restrict any use of the information to criminally investigate or prosecute any alcohol or drug abuse patient.[facility] HospitalIn the event this information is protected by the Federal Confidentiality of Alcohol and Drug Abuse Patient Records regulations: The Federal rules restrict any use of the information to criminally investigate or prosecute any alcohol or drug abuse patient.[facility] HospitalIn the event this information is protected by the Federal Confidentiality of Alcohol and Drug Abuse Patient Records regulations: The Federal rules restrict any use of the information to criminally investigate or prosecute any alcohol or drug abuse patient.[facility] HospitalIn the event this information is protected by the Federal Confidentiality of Alcohol and Drug Abuse Patient Records regulations: The Federal rules restrict any use of the information to criminally investigate or prosecute any alcohol or drug abuse patient.[facility] HospitalIn the event this information is protected by the Federal Confidentiality of Alcohol and Drug Abuse Patient Records regulations: The Federal rules restrict any use of the information to criminally investigate or prosecute any alcohol or drug abuse patient.[facility] HospitalIn the event this information is protected by the Federal Confidentiality of Alcohol and Drug Abuse Patient Records regulations: The Federal rules restrict any use of the information to criminally investigate or prosecute any alcohol or drug abuse patient.[facility] HospitalIn the event this information is protected by the Federal Confidentiality of Alcohol and Drug Abuse Patient Records regulations: The Federal rules restrict any use of the information to criminally investigate or prosecute any alcohol or drug abuse patient.[facility] HospitalIn the event this information is protected by the Federal Confidentiality of Alcohol and Drug Abuse Patient Records regulations: The Federal rules restrict any use of the information to criminally investigate or prosecute any alcohol or drug abuse patient.[facility] HospitalIn the event this information is protected by the Federal Confidentiality of Alcohol and Drug Abuse Patient Records regulations: The Federal rules restrict any use of the information to criminally investigate or prosecute any alcohol or drug abuse patient.[facility] HospitalIn the event this information is protected by the Federal Confidentiality of Alcohol and Drug Abuse Patient Records regulations: The Federal rules restrict any use of the information to criminally investigate or prosecute any alcohol or drug abuse patient.[facility] HospitalIn the event this information is protected by the Federal Confidentiality of Alcohol and Drug Abuse Patient Records regulations: The Federal rules restrict any use of the information to criminally investigate or prosecute any alcohol or drug abuse patient.[facility] HospitalIn the event this information is protected by the Federal Confidentiality of Alcohol and Drug Abuse Patient Records regulations: The Federal rules restrict any use of the information to criminally investigate or prosecute any alcohol or drug abuse patient.[facility] the event this information is protected by the Federal Confidentiality of Alcohol and Drug Abuse Patient Records regulations: The Federal rules restrict any use of the information to criminally investigate or prosecute any alcohol or drug abuse patient.[facility] HospitalIn the event this information is protected by the Federal Confidentiality of Alcohol and Drug Abuse Patient Records regulations: The Federal rules restrict any use of the information to criminally investigate or prosecute any alcohol or drug abuse patient.[facility] HospitalIn the event this information is protected by the Federal Confidentiality of Alcohol and Drug Abuse Patient Records regulations: The Federal rules restrict any use of the information to criminally investigate or prosecute any alcohol or drug abuse patient.[facility]In the event this information is protected by the Federal Confidentiality of Alcohol and Drug Abuse Patient Records regulations: The Federal rules restrict any use of the information to criminally investigate or prosecute any alcohol or drug abuse patient.[facility] HospitalIn the event this information is protected by the Federal Confidentiality of Alcohol and Drug Abuse Patient Records regulations: The Federal rules restrict any use of the information to criminally investigate or prosecute any alcohol or drug abuse patient.[facility] HospitalIn the event this information is protected by the Federal Confidentiality of Alcohol and Drug Abuse Patient Records regulations: The Federal rules restrict any use of the information to criminally investigate or prosecute any alcohol or drug abuse patient.[facility]In the event this information is protected by the Federal Confidentiality of Alcohol and Drug Abuse Patient Records regulations: The Federal rules restrict any use of the information to criminally investigate or prosecute any alcohol or drug abuse patient.[facility]In the event this information is protected by the Federal Confidentiality of Alcohol and Drug Abuse Patient Records regulations: The Federal rules restrict any use of the information to criminally investigate or prosecute any alcohol or drug abuse patient.[facility]In the event this information is protected by the Federal Confidentiality of Alcohol and Drug Abuse Patient Records regulations: The Federal rules restrict any use of the information to criminally investigate or prosecute any alcohol or drug abuse patient.[facility]In the event this information is protected by the Federal Confidentiality of Alcohol and Drug Abuse Patient Records regulations: The Federal rules restrict any use of the information to criminally investigate or prosecute any alcohol or drug abuse patient.[facility]In the event this information is protected by the Federal Confidentiality of Alcohol and Drug Abuse Patient Records regulations: The Federal rules restrict any use of the information to criminally investigate or prosecute any alcohol or drug abuse patient.[facility]In the event this information is protected by the Federal Confidentiality of Alcohol and Drug Abuse Patient Records regulations: The Federal rules restrict any use of the information to criminally investigate or prosecute any alcohol or drug abuse patient.[facility]In the event this information is protected by the Federal Confidentiality of Alcohol and Drug Abuse Patient Records regulations: The Federal rules restrict any use of the information to criminally investigate or prosecute any alcohol or drug abuse patient.[facility]In the event this information is protected by the Federal Confidentiality of Alcohol and Drug Abuse Patient Records regulations: The Federal rules restrict any use of the information to criminally investigate or prosecute any alcohol or drug abuse patient.[facility]In the event this information is protected by the Federal Confidentiality of Alcohol and Drug Abuse Patient Records regulations: The Federal rules restrict any use of the information to criminally investigate or prosecute any alcohol or drug abuse patient.[facility] HospitalIn the event this information is protected by the Federal Confidentiality of Alcohol and Drug Abuse Patient Records regulations: The Federal rules restrict any use of the information to criminally investigate or prosecute any alcohol or drug abuse patient.[facility]In the event this information is protected by the Federal Confidentiality of Alcohol and Drug Abuse Patient Records regulations: The Federal rules restrict any use of the information to criminally investigate or prosecute any alcohol or drug abuse patient.[facility]In the event this information is protected by the Federal Confidentiality of Alcohol and Drug Abuse Patient Records regulations: The Federal rules restrict any use of the information to criminally investigate or prosecute any alcohol or drug abuse patient.[facility]In the event this information is protected by the Federal Confidentiality of Alcohol and Drug Abuse Patient Records regulations: The Federal rules restrict any use of the information to criminally investigate or prosecute any alcohol or drug abuse patient.[facility]In the event this information is protected by the Federal Confidentiality of Alcohol and Drug Abuse Patient Records regulations: The Federal rules restrict any use of the information to criminally investigate or prosecute any alcohol or drug abuse patient.[facility]In the event this information is protected by the Federal Confidentiality of Alcohol and Drug Abuse Patient Records regulations: The Federal rules restrict any use of the information to criminally investigate or prosecute any alcohol or drug abuse patient.[facility]In the event this information is protected by the Federal Confidentiality of Alcohol and Drug Abuse Patient Records regulations: The Federal rules restrict any use of the information to criminally investigate or prosecute any alcohol or drug abuse patient.[facility]In the event this information is protected by the Federal Confidentiality of Alcohol and Drug Abuse Patient Records regulations: The Federal rules restrict any use of the information to criminally investigate or prosecute any alcohol or drug abuse patient.[facility]In the event this information is protected by the Federal Confidentiality of Alcohol and Drug Abuse Patient Records regulations: The Federal rules restrict any use of the information to criminally investigate or prosecute any alcohol or drug abuse patient.[facility]In the event this information is protected by the Federal Confidentiality of Alcohol and Drug Abuse Patient Records regulations: The Federal rules restrict any use of the information to criminally investigate or prosecute any alcohol or drug abuse patient.[facility]In the event this information is protected by the Federal Confidentiality of Alcohol and Drug Abuse Patient Records regulations: The Federal rules restrict any use of the information to criminally investigate or prosecute any alcohol or drug abuse patient.[facility]In the event this information is protected by the Federal Confidentiality of Alcohol and Drug Abuse Patient Records regulations: The Federal rules restrict any use of the information to criminally investigate or prosecute any alcohol or drug abuse patient.[facility]In the event this information is protected by the Federal Confidentiality of Alcohol and Drug Abuse Patient Records regulations: The Federal rules restrict any use of the information to criminally investigate or prosecute any alcohol or drug abuse patient.[facility]In the event this information is protected by the Federal Confidentiality of Alcohol and Drug Abuse Patient Records regulations: The Federal rules restrict any use of the information to criminally investigate or prosecute any alcohol or drug abuse patient.[facility]In the event this information is protected by the Federal Confidentiality of Alcohol and Drug Abuse Patient Records regulations: The Federal rules restrict any use of the information to criminally investigate or prosecute any alcohol or drug abuse patient.[facility]In the event this information is protected by the Federal Confidentiality of Alcohol and Drug Abuse Patient Records regulations: The Federal rules restrict any use of the information to criminally investigate or prosecute any alcohol or drug abuse patient.[facility]In the event this information is protected by the Federal Confidentiality of Alcohol and Drug Abuse Patient Records regulations: The Federal rules restrict any use of the information to criminally investigate or prosecute any alcohol or drug abuse patient.[facility]In the event this information is protected by the Federal Confidentiality of Alcohol and Drug Abuse Patient Records regulations: The Federal rules restrict any use of the information to criminally investigate or prosecute any alcohol or drug abuse patient.[facility]In the event this information is protected by the Federal Confidentiality of Alcohol and Drug Abuse Patient Records regulations: The Federal rules restrict any use of the information to criminally investigate or prosecute any alcohol or drug abuse patient.[facility]In the event this information is protected by the Federal Confidentiality of Alcohol and Drug Abuse Patient Records regulations: The Federal rules restrict any use of the information to criminally investigate or prosecute any alcohol or drug abuse patient.[facility]In the event this information is protected by the Federal Confidentiality of Alcohol and Drug Abuse Patient Records regulations: The Federal rules restrict any use of the information to criminally investigate or prosecute any alcohol or drug abuse patient.[facility] Hospital[facility] the event this information is protected by the Federal Confidentiality of Alcohol and Drug Abuse Patient Records regulations: The Federal rules restrict any use of the information to criminally investigate or prosecute any alcohol or drug abuse patient.[facility] HospitalIn the event this information is protected by the Federal Confidentiality of Alcohol and Drug Abuse Patient Records regulations: The Federal rules restrict any use of the information to criminally investigate or prosecute any alcohol or drug abuse patient.[facility] HospitalIn the event this information is protected by the Federal Confidentiality of Alcohol and Drug Abuse Patient Records regulations: The Federal rules restrict any use of the information to criminally investigate or prosecute any alcohol or drug abuse patient.[facility] HospitalIn the event this information is protected by the Federal Confidentiality of Alcohol and Drug Abuse Patient Records regulations: The Federal rules restrict any use of the information to criminally investigate or prosecute any alcohol or drug abuse patient.[facility] HospitalIn the event this information is protected by the Federal Confidentiality of Alcohol and Drug Abuse Patient Records regulations: The Federal rules restrict any use of the information to criminally investigate or prosecute any alcohol or drug abuse patient.[facility] HospitalIn the event this information is protected by the Federal Confidentiality of Alcohol and Drug Abuse Patient Records regulations: The Federal rules restrict any use of the information to criminally investigate or prosecute any alcohol or drug abuse patient.[facility] HospitalIn the event this information is protected by the Federal Confidentiality of Alcohol and Drug Abuse Patient Records regulations: The Federal rules restrict any use of the information to criminally investigate or prosecute any alcohol or drug abuse patient.[facility] Reason for Visit (unrecogniz ed section and content) Reason Comments Well Woman Reason Comments Ear Pain left ear pain x 2 da ys Reason Comments Radiology MRI Specialty Diagnoses / Procedures Referred By Contac t Referred To Contact Radiology / RADIO MRI MAIN [facility] Diagnoses Dx: Coarctation of aorta [Q25.1 (ICD-10-CM)] Procedures MRI WWO CARD 440 Bhavesh Alas MD [address] [place] [address] Radio Mri Main J [address] [place] [address] Referral ID Status Reason Start Date Expiration Date Visits Re quested Visits Authorized [id number] Closed 10/17/2021 01/15/2022 1 1 Reason Comments Follow Up Specialty Diagnoses / Procedures Referred By Contac t Referred To Contact Diagnoses Coarctation of aorta Procedures CONSULT/TEST/TREAT Bhavesh Alas MD [address] [place] [address] [facility] Dept Referral ID Status Reason Start Date Expiration Date V isits Requested Visits Authorized [id number] Closed Patient Cleared - Qualified 100% FAS 10/17/2021 01/15/2022 99 99 Reason Comments Ear Pain left x 1 week using floxin Reason Comments side pain Reason Comments Results Reason Onset Date Comments IUD Removal 05/29/2022 Reason Onset Date Comments Refill Request 06/24/2022 NADOLOL - needs visit with new EP first Refill Request 06/24/2022 Reason Onset Date Comments Refill Request 06/24/2022 NADOLOL Reason Onset Date Comments Palpitations 06/25/2022 Reason Comments Sore Throat X6 days Reason Comments Radiology MRI Specialty Diagnoses / Procedures Referred By Contac t Referred To Contact MR IMAGING Diagnoses Coarctation of aorta Procedures MRI CARDIAC MORPH FUNC WO/W IVCON CARDIAC MRI W/WO CONTRAST & FURTHER SEQ Bhavesh Alas MD [address] [place] [address] Mr Imaging Referral ID Status Reason Start Date Expiration Date V isits Requested Visits Authorized [id number] Closed Auto-Generate d Referral 12/26/2022 05/18/2023 1 1 Reason Comments Refill Request Reason Onset Date Comments Refill Request 12/30/2022 Propanolol Reason Comments Refill Request Propanolol Reason Onset Date Comments Palpitations 04/24/2023 Reason Comments Cough Chest congestion, St x8 days Reason Comments Refill Request Propranolol Reason Onset Date Comments Population Health Navigation Outreach 11/11/2023 [facility] Reason Comments Well Woman Specialty Diagnoses / Procedures [facility] Referred To Contact Gynecology / HOME AIDE Diagnoses annual Procedures EST I ANNUAL PATIENT Kwasi Garcia AMERICAN INDIAN POLICY SPECIALIST.[employer]ETERANS CONTACT REPRESENTATIVE [address] [place] [address] Dionne Carrillo AMERICAN INDIAN POLICY SPECIALIST.VETERANS CONTACT REPRESENTATIVE [address] [place] [address] Referral ID Status Reason Start Date Expiration Date Visits Requested Visits Authorized [id number] Pending Review Financial Clearance Required - Self Pay Financial Clearance Required - OON Payor Clearance Not Met - Admin/Chairma n/Director Advise to Postpone/Resc hedule or Not Proceed 11/28/2023 02/26/2024 1 1 Reason Comments Orders Reason Comments Appointment EP APPT MUST BE IN P ERSON Reason Comments Infertility Specialty Diagnoses / Procedures Referred By Contac t Referred To Contact Biofuels Research Scientist / HOME AIDE Diagnoses Infertility counseling discuss infertility, f/u US Procedures EST [facility] PATIENT Self Kendra Torres MD [address] [place] [address] Referral ID Status Reason Start Date Expiration Date Visits Requested Visits Authorized [id number] Denied Financial Clearance Required - OON Payor OON Notification Letter Clearance Not Met - Admin/Craniologist/D irector Advise to Postpone/Resched ule or Not Proceed Patient Cleared - CCN Request Cancelled - Pre Qualified for HCAP/501R/FA or Patient Payment Collected 12/29/2023 03/28/2024 1 1 Reason Comments Insect Bite X 3 days- right calf Reason Comments Initial OB Visit Specialty Diagnoses / Procedures Referred By Contac t Referred To Contact HOME AIDE Diagnoses Procedures OFFICE VISIT, EST PT., LEVEL 2 TC Self Lab Manager [facility] [address] [place] [address] Referral ID Status Reason Start Date Expiration Date V isits Requested Visits Authorized [id number] Closed Financial Clearance Required - OON Payor Patient Cleared - True Self-Pay required payment collected 03/25/2024 06/23/2024 1 1 Reason Comments Suction Roller - Other Reason Onset Date Comments Care 04/26/2024 Specialty Diagnoses / Procedures Referred By Contac t Referred To Contact HOME AIDE Diagnoses OB- Nausea/vomiting f/u Procedures est [facility] OB appointment 04/26/24 at 1:40pm with Karen Roland, AMERICAN INDIAN POLICY SPECIALIST.[facility] [address] [place] [address] Kendra Torres MD [address] [place] [address] Referral ID Status Reason Start Date Expiration Date Visits Requested Visits Authorized [id number] Closed Financial Clearance Required - Self Pay OON Notification Letter Patient cleared - OON Required Payment Collected 04/23/2024 07/22/2024 1 1 Reason Onset Date Comments Care 05/10/2024 Specialty Diagnoses / Procedures Referred By Contac t Referred To Contact Biofuels Research Scientist / HOME AIDE Diagnoses OB Procedures EST [facility] OB Ashley Ambriz APRN.[employer]ET[employer]ANS CONTACT REPRESENTATIVE [address] [place] [address] Destini Hanson APRN.CNM [address] [place] [address] Referral ID Status Reason Start Date Expiration Date Visits Requested Visits Authorized [id number] Closed OON Notification Letter Financial Clearance Required - OON Payor Clearance Not Met - Admin/Craniologist/D irector Advise to Postpone/Resched ule or Not Proceed 05/18/2024 1 1 Reason Comments US Specialty Diagnoses / Procedures Referred By Natalia t Referred To Contact [facility] Diagnoses 7 weeks gestation of Encounter for care in first trimester of first Procedures NUCHAL TRANSLUCENCY WHI US NUCHAL TRANSLUCENCY 1ST GESTATION Ashley Ambriz APRN.[employer]ETERANS CONTACT REPRESENTATIVE [address] [place] [address] [facility] [address] [place] [address] Referral ID Status Reason Start Date Expiration Date V isits Requested Visits Authorized [id number] Closed Patient Cleared - True Self-Pay required payment collected 04/06/2024 04/06/2025 1 1 Reason Onset Date Comments Refill Request 05/12/2024 Reason Comments Suction Roller - Other Reason Onset Date Comments Opened In Error 06/08/2024 Specialty Diagnoses / Procedures Referred By Contac t Referred To Contact [facility] Diagnoses 12 weeks gestation of Supervision of high risk in first trimester Adult congenital heart disease Procedures OBSTETRIC ULTRASOUND WHI US PREG UTERUS AFTER 1ST TRIMEST GESTATION Destini Hanson APRN.CN [address] [place] [address] [facility] [address] [place] [address] Referral ID Status Reason Start Date Expiration Date Visits Requested Visits Authorized [id number] Closed Auto-Generated Referral OON Notification Letter Patient cleared - OON Required Payment Collected 08/11/2024 1 1 Reason Onset Date Comments Palpitations 06/08/2024 Specialty Diagnoses / Procedures Referred By Contact Referred To Contact Cardiology / CARDIOVASCULAR MEDICINE Diagnoses DX: Inappropriate sinus node tachycardia Established EP patient 1 year vv follow up Per vv order [place] [address] [place] [address] Ashok Pedro MD [address] [place] [address] Referral ID Status Reason Start Date Expiration Date Visits Requested Visits Authorized [id number] Closed OON Notification Letter Financial Clearance Required - OON Payor Patient cleared - OON Required Payment Collected 06/08/2024 05/18/2025 1 1 Reason Onset Date Comments Care 06/08/2024 Specialty Diagnoses / Procedures Referred By Contac t Referred To Contact HOME AIDE Diagnoses 16 Week Routine OB Visit Procedures 16 Week Routine OB Visit Destini Hanson APRN.CNM [address] [place] [address] Lab Manager [facility] [address] [place] [address] Referral ID Status Reason Start Date Expiration Date Visits Requested Visits Authorized [id number] Closed Financial Clearance Required - OON Payor OON Notification Letter Patient cleared - OON Required Payment Collected 05/20/2024 08/18/2024 1 1 Reason Comments Appointment Reason Onset Date Comments Refill Request 06/30/2024 Reason Comments US Specialty Diagnoses / Procedures Referred By Contac t Referred To Contact [facility] Diagnoses Supervision of high risk in second trimester Adult congenital heart disease History of aortic coarctation repair Procedures OBSTETRIC ULTRASOUND WHI US PREG UTERUS AFTER 1ST TRIMEST GESTATION Marion Morgan MD [address] [place] [address] Phone: tel: fax: [address] [address] Referral ID Status Reason Start Date Expiration Date Visits Requested Visits Authorized [id number] Authorized Auto-Generate d Referral Financial Clearance Required - Self Pay 06/22/2024 05/18/2025 20 20 Reason Onset Date Comments Care 07/06/2024 Specialty Diagnoses / Procedures Referred By Contac t Referred To Contact Biofuels Research Scientist / HOME AIDE Diagnoses Encounter for general adult medical examination without abnormal findings Anatomy/MFM/OB Procedures OFFICE/OUTPATIENT ESTABLISHED SF MDM 10 MIN EST [facility] OB Marion Morgan MD [address] [place] [address] Phone: tel: fax: Carolyn Lugo MD [address] [place] [address] Phone: tel: fax: Referral ID Status Reason Start Date Expiration Date V isits Requested Visits Authorized [id number] Authorized 07/05/2024 05/18/2025 99 99 Reason Comments New Patient Reason Onset Date Comments Refill Request 07/23/2024 Reason Onset Date Comments Care 08/03/2024 Reason Onset Date Comments Refill Request 08/19/2024 Reason Onset Date Comments Care 09/01/2024 Reason Onset Date Comments Care 09/15/2024 Reason Onset Date Comments Care 09/29/2024 Specialty Diagnoses / Procedures Referred By Contac t Referred To Contact [facility] Diagnoses Pre-existing hypertension complicating in second trimester (HCC) Procedures OBSTETRIC ULTRASOUND WHI US PREG UTERUS AFTER 1ST [place] [address] [facility] [address] [place] [address] Phone: tel: fax: [facility] [address] [place] [address] Referral ID Status Reason Start Date Expiration Date V isits Requested Visits Authorized [id number] Closed Auto-Generate d Referral 08/07/2024 08/07/2025 1 1 Reason Comments Care 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, antepartum Reason Comments Follow Up Specialty Diagnoses / Procedures Referred By Contac t Referred To Contact [facility] Diagnoses Coarctation of aorta (HCC) Procedures CARDIOVASCULAR MEDICINE OP FOLLOW UP APPT ORDER Bhavesh Alas MD [address] [place] [address] Phone: tel: fax: [address] [address] Referral ID Status Reason Start Date Expiration Date V isits Requested Visits Authorized [id number] Closed PCP Requested Referral 11/21/2024 08/22/2025 1 1 Reason Onset Date Comments Care 10/13/2024 Reason Onset Date Comments Care 10/20/2024 Reason Comments OB N/V Reason Comments OB Back Pain Reason Onset Date Comments Care 10/27/2024 Reason Comments Results BPP Reason Onset Date Comments Care 10/28/2024 Specialty Diagnoses / Procedures Referred By Contac t Referred To Contact [facility] Diagnoses Supervision of high risk in third trimester (HCC) Obesity in (HCC) Adult congenital heart disease (HCC) Procedures NON-STRESS TEST NON-STRESS TEST Mraion Morgan MD [facility] [place] [address] Phone: tel: fax: [address] [address] Referral ID Status Reason Start Date Expiration Date V isits Requested Visits Authorized [id number] Closed Auto-Generate d Referral 09/01/2024 09/01/2025 10 1 Reason Comments Early Care Teams (unrecognized sec tion and content) Solid Waste Facility Supervisor Relationship Specialty Start Date End Date Amalia Mao PA [address] [place] [address] PCP - General 07/01/18 No, Ref(Historical) Referring 04/08/18 No, Referral Referring 07/02/18 Solid Waste Facility Supervisor Relationship Specialty Start Date End Date No, Ref(Historical) Referring 04/08/18 No, Referral Referring 07/02/18 Solid Waste Facility Supervisor Relationship Specialty Start Date End Date Amalia Mao PA [address] [place] [address] PCP - General 07/01/18 10/08/21 No, Ref(Historical) Referring 04/08/18 No, Referral Referring 07/02/18 Solid Waste Facility Supervisor Relationship Specialty Start Date End Date No, Ref(Historical) Referring 04/08/18 No, Referral Referring 07/02/18 Solid Waste Facility Supervisor Relationship Specialty Start Date End Date No, Ref(Historical) Referring 04/08/18 No, Referral Referring 07/02/18 Solid Waste Facility Supervisor Relationship Specialty Start Date End Date No, Ref(Historical) Referring 04/08/18 No, Referral Referring 07/02/18 Bhavesh Alas MD [address] [place] [address] Primary Staff Physician Cardiology 10/18/21 Solid Waste Facility Supervisor Relationship Specialty Start Date End Date Kwasi Garcia APRN.[address] [id number] PCP - General Family Medicine 05/22/22 No, Ref(Historical) Referring 04/08/18 No, Referral Referring 07/02/18 Bhavesh Alas MD [address] [place] [address] Primary Staff Physician Cardiology 10/18/21 Solid Waste Facility Supervisor Relationship Specialty Start Date End Date Kwasi Garcia APRN.[address] [phone] PCP - General Family Medicine 05/22/22 No, Ref(Historical) Referring 04/08/18 No, Referral Referring 07/02/18 Bhavesh Alas MD [address] [place] [address] Primary Staff Physician Cardiology 10/18/21 Solid Waste Facility Supervisor Relationship Specialty Start Date End Date Kwasi Garcia APRN.VETERANS CONTACT REPRESENTATIVE [address] [place] [address] [phone] PCP - General Family Medicine 05/22/22 No, Ref(Historical) Referring 04/08/18 No, Referral Referring 07/02/18 Bhavesh Alas MD [address] [place] [address] Primary Staff Physician Cardiology 10/18/21 Solid Waste Facility Supervisor Relationship Specialty Start Date End Date Kwasi Garcia APRN.VETERANS CONTACT REPRESENTATIVE [address] [place] [address] [phone] PCP - General Family Medicine 05/22/22 No, Ref(Historical) Referring 04/08/18 No, Referral Referring 07/02/18 Bhavesh Alas MD [address] [place] [address] Primary Staff Physician Cardiology 10/18/21 Solid Waste Facility Supervisor Relationship Specialty Start Date End Date Kwasi Garcia APRN.VETERANS CONTACT REPRESENTATIVE [address] [place] [address] [phone] PCP - General Family Medicine 05/22/22 No, Ref(Historical) Referring 04/08/18 No, Referral Referring 07/02/18 Bhavesh Alas MD [address] [place] [address] Primary Staff Physician Cardiology 10/18/21 Solid Waste Facility Supervisor Relationship Specialty Start Date End Date Kwasi Garcia, IFRAH.VETERANS CONTACT REPRESENTATIVE [address] [place] [address] [phone] PCP - General Family Medicine 05/22/22 No, Ref(Historical) Referring 04/08/18 No, Referral Referring 07/02/18 [place] [address] [place] [address] Primary Staff Physician Cardiology 10/18/21 Solid Waste Facility Supervisor Relationship Specialty Start Date End Date Kwasi Garcia APRN.VETERANS CONTACT REPRESENTATIVE [address] [place] [address] [phone] PCP - General Family Medicine 05/22/22 No, Ref(Historical) Referring 04/08/18 No, Referral Referring 07/02/18 Bhavesh Alas MD [address] [place] [address] Primary Staff Physician Cardiology 10/18/21 Solid Waste Facility Supervisor Relationship Specialty Start Date End Date Kwasi Garcia, AMERICAN INDIAN POLICY SPECIALIST.VETERANS CONTACT REPRESENTATIVE [address] [place] [address] [phone] PCP - General Family Medicine 05/22/22 No, Ref(Historical) Referring 04/08/18 No, Referral Referring 07/02/18 Bhavesh Alas MD [address] [place] [address] Primary Staff Physician Cardiology 10/18/21 Solid Waste Facility Supervisor Relationship Specialty Start Date End Date Kwasi Garcia, AMERICAN INDIAN POLICY SPECIALIST.VETERANS CONTACT REPRESENTATIVE [address] [place] [address] [phone] PCP - General Family Medicine 05/22/22 No, Ref(Historical) Referring 04/08/18 No, Referral Referring 07/02/18 Bhavesh Alas MD [address] [place] [address] Primary Staff Physician Cardiology 10/18/21 Solid Waste Facility Supervisor Relationship Specialty Start Date End Date Kwasi Garcia, AMERICAN INDIAN POLICY SPECIALIST.VETERANS CONTACT REPRESENTATIVE [address] [place] [address] [phone] PCP - General Family Medicine 05/22/22 No, Ref(Historical) Referring 04/08/18 No, Referral Referring 07/02/18 Bhavesh Alas MD [address] [place] [address] Primary Staff Physician Cardiology 10/18/21 Solid Waste Facility Supervisor Relationship Specialty Start Date End Date Kwasi Garcia, AMERICAN INDIAN POLICY SPECIALIST.VETERANS CONTACT REPRESENTATIVE [address] [place] [address] [phone] PCP - General Family Medicine 05/22/22 No, Ref(Historical) Referring 04/08/18 No, Referral Referring 07/02/18 Bhavesh Alas MD [address] [place] [address] Primary Staff Physician Cardiology 10/18/21 Solid Waste Facility Supervisor Relationship Specialty Start Date End Date Kwasi Garcia AMERICAN INDIAN POLICY SPECIALIST.VETERANS CONTACT REPRESENTATIVE [address] [place] [address] [phone] PCP - General Family Medicine 05/22/22 No, Ref(Historical) Referring 04/08/18 No, Referral Referring 07/02/18 Bhavesh Alas MD [email or web address] [place], [place] [phone] Primary Staff Physician Cardiology 10/18/21 Solid Waste Facility Supervisor Relationship Specialty Start Date End Date Kwasi Garcia, AMERICAN INDIAN POLICY SPECIALIST.VETERANS CONTACT REPRESENTATIVE [address] [place] [address] [phone] PCP - General Family Medicine 05/22/22 No, Ref(Historical) Referring 04/08/18 No, Referral Referring 07/02/18 Bhavesh Alas MD [email or web address] [place] [address] Primary Staff Physician Cardiology 10/18/21 Solid Waste Facility Supervisor Relationship Specialty Start Date End Date Kwasi Garcia, AMERICAN INDIAN POLICY SPECIALIST.VETERANS CONTACT REPRESENTATIVE [address] [place] [address] [phone] PCP - General Family Medicine 05/22/22 No, Ref(Historical) Referring 04/08/18 No, Referral Referring 07/02/18 Bhavesh Alas MD [address] [place] [address] Primary Staff Physician Cardiology 10/18/21 Solid Waste Facility Supervisor Relationship Specialty Start Date End Date Kwasi Garcia, AMERICAN INDIAN POLICY SPECIALIST.VETERANS CONTACT REPRESENTATIVE [address] [place] [phone] PCP - General Family Medicine 05/22/22 No, Ref(Historical) Referring 04/08/18 No, Referral Referring 07/02/18 Bhavesh Alas MD [address] [place] [address] Primary Staff Physician Cardiology 10/18/21 Solid Waste Facility Supervisor Relationship Specialty Start Date End Date Kwasi Garcia, AMERICAN INDIAN POLICY SPECIALIST.VETERANS CONTACT REPRESENTATIVE [address] [place] [address] [phone] PCP - General Family Medicine 05/22/22 No, Ref(Historical) Referring 04/08/18 No, Referral Referring 07/02/18 Bhavesh Alas MD [address] [place] [address] Primary Staff Physician Cardiology 10/18/21 Solid Waste Facility Supervisor Relationship Specialty Start Date End Date Kwasi Garcia, AMERICAN INDIAN POLICY SPECIALIST.VETERANS CONTACT REPRESENTATIVE [address] [place] [address] [phone] PCP - General Family Medicine 05/22/22 No, Ref(Historical) Referring 04/08/18 No, Referral Referring 07/02/18 Bhavesh Alas MD [address] [place] [address] Primary Staff Physician Cardiology 10/18/21 Solid Waste Facility Supervisor Relationship Specialty Start Date End Date Kwasi Garcia APRN.VETERANS CONTACT REPRESENTATIVE [address] [place] [phone] PCP - General Family Medicine 05/22/22 No, Ref(Historical) Referring 04/08/18 No, Referral Referring 07/02/18 Bhavesh Alas MD [address] [place] [address] Primary Staff Physician Cardiology 10/18/21 Solid Waste Facility Supervisor Relationship Specialty Start Date End Date Kwasi Garcia APRN.VETERANS CONTACT REPRESENTATIVE [address] [place] [address] [phone] PCP - General Family Medicine 05/22/22 No, Ref(Historical) Referring 04/08/18 No, Referral Referring 07/02/18 Bhavesh Alas MD [address] [place] [address] Primary Staff Physician Cardiology 10/18/21 Solid Waste Facility Supervisor Relationship Specialty Start Date End Date Kwasi Garcia APRN.VETERANS CONTACT REPRESENTATIVE [address] [place] [address] [phone] PCP - General Family Medicine 05/22/22 No, Ref(Historical) Referring 04/08/18 No, Referral Referring 07/02/18 Bhavesh Alas MD [address] [place] [address] Primary Staff Physician Cardiology 10/18/21 Solid Waste Facility Supervisor Relationship Specialty Start Date End Date Kwasi Garcia APRN.VETERANS CONTACT REPRESENTATIVE [address] [place] [phone] PCP - General Family Medicine 05/22/22 No, Ref(Historical) Referring 04/08/18 No, Referral Referring 07/02/18 Bhavesh Alas MD [address] [place] [address] Primary Staff Physician Cardiology 10/18/21 Solid Waste Facility Supervisor Relationship Specialty Start Date End Date Kwasi Garcia, AMERICAN INDIAN POLICY SPECIALIST.VETERANS CONTACT REPRESENTATIVE [address] [place] [phone] PCP - General Family Medicine 05/22/22 No, Ref(Historical) Referring 04/08/18 No, Referral Referring 07/02/18 Bhavesh Alas MD [address] [place] [address] Primary Staff Physician Cardiology 10/18/21 Solid Waste Facility Supervisor Relationship Specialty Start Date End Date Kwasi Garcia, AMERICAN INDIAN POLICY SPECIALIST.VETERANS CONTACT REPRESENTATIVE [address] [place] [address] [phone] PCP - General Family Medicine 05/22/22 No, Ref(Historical) Referring 04/08/18 No, Referral Referring 07/02/18 Bhavesh Alas MD [address] [place] [address] Primary Staff Physician Cardiology 10/18/21 Solid Waste Facility Supervisor Relationship Specialty Start Date End Date Kwasi Garcia, AMERICAN INDIAN POLICY SPECIALIST.VETERANS CONTACT REPRESENTATIVE [address] [place] [address] [phone] PCP - General Family Medicine 05/22/22 No, Ref(Historical) Referring 04/08/18 No, Referral Referring 07/02/18 Bhavesh Alas MD [address] [place] [address] Primary Staff Physician Cardiology 10/18/21 Solid Waste Facility Supervisor Relationship Specialty Start Date End Date Kwasi Garcia, IFRAH.VETERANS CONTACT REPRESENTATIVE [address] [place] [address] [phone] PCP - General Family Medicine 05/22/22 No, Ref(Historical) Referring 04/08/18 No, Referral Referring 07/02/18 Bhavesh Alas MD [address] [place] [address] Primary Staff Physician Cardiology 10/18/21 Solid Waste Facility Supervisor Relationship Specialty Start Date End Date Kwasi Garcia, AMERICAN INDIAN POLICY SPECIALIST.VETERANS CONTACT REPRESENTATIVE [address] [place] [address] [phone] PCP - General Family Medicine 05/22/22 No, Ref(Historical) Referring 04/08/18 No, Referral Referring 07/02/18 Bhavesh Alas MD [address] [place] [address] Primary Staff Physician Cardiology 10/18/21 Solid Waste Facility Supervisor Relationship Specialty Start Date End Date Kwasi Garcia, AMERICAN INDIAN POLICY SPECIALIST.VETERANS CONTACT REPRESENTATIVE [address] [place] [address] [phone] PCP - General Family Medicine 05/22/22 No, Ref(Historical) Referring 04/08/18 No, Referral Referring 07/02/18 Bhavesh Alas MD [address] [place] [address] Primary Staff Physician Cardiology 10/18/21 Solid Waste Facility Supervisor Relationship Specialty Start Date End Date Kwasi Garcia APRN.VETERANS CONTACT REPRESENTATIVE [address] [place] [address] [phone] PCP - General Family Medicine 05/22/22 No, Ref(Historical) Referring 04/08/18 No, Referral Referring 07/02/18 Bhavesh Alas MD [address] [place] [address] Primary Staff Physician Cardiology 10/18/21 Solid Waste Facility Supervisor Relationship Specialty Start Date End Date Kwasi Garcia AMERICAN INDIAN POLICY SPECIALIST.VETERANS CONTACT REPRESENTATIVE [address] [place] [address] [phone] PCP - General Family Medicine 05/22/22 No, Ref(Historical) Referring 04/08/18 No, Referral Referring 07/02/18 Bhavesh Alas MD [address] [place], [place] [id number] Primary Staff Physician Cardiology 10/18/21 Solid Waste Facility Supervisor Relationship Specialty Start Date End Date Kwasi Garcia AMERICAN INDIAN POLICY SPECIALIST.VETERANS CONTACT REPRESENTATIVE [address] [place] [address] [phone] PCP - General Family Medicine 05/22/22 No, Ref(Historical) Referring 04/08/18 No, Referral Referring 07/02/18 Bhavesh Alas MD [address] [place] [address] Primary Staff Physician Cardiology 10/18/21 Lexie Alonso, long term acute care registered nurseCorrectional Officer Sergeant Maternal Medicine 04/12/24 12/27/24 Solid Waste Facility Supervisor Relationship Specialty Start Date End Date Kwasi Garcia, AMERICAN INDIAN POLICY SPECIALIST.VETERANS CONTACT REPRESENTATIVE [address] [place] [address] [phone] PCP - General Family Medicine 05/22/22 No, Ref(Historical) Referring 04/08/18 No, Referral Referring 07/02/18 Bhavesh Alas MD [address] [place], [place] [id number] Primary Staff Physician Cardiology 10/18/21 Lexie Alonso long term acute care registered nurseCorrectional Officer Sergeant Maternal Medicine 04/12/24 12/27/24 Solid Waste Facility Supervisor Relationship Specialty Start Date End Date Kwasi Garcia APRN.VETERANS CONTACT REPRESENTATIVE [address] [place] [address] [phone] PCP - General Family Medicine 05/22/22 No, Ref(Historical) Referring 04/08/18 No, Referral Referring 07/02/18 Bhavesh Alas MD [address] [place] [address] Primary Staff Physician Cardiology 10/18/21 Lexie Alonso RN Correctional Officer Sergeant Maternal Medicine 04/12/24 12/27/24 Solid Waste Facility Supervisor Relationship Specialty Start Date End Date Kwasi Garcia APRN.VETERANS CONTACT REPRESENTATIVE [address] [place] [address] [phone] PCP - General Family Medicine 05/22/22 No, Ref(Historical) Referring 04/08/18 No, Referral Referring 07/02/18 Bhavesh Alas MD [address] [place] [address] Primary Staff Physician Cardiology 10/18/21 Lexie Alonso long term acute care registered nurseCorrectional Officer Sergeant Maternal Medicine 04/12/24 12/27/24 Solid Waste Facility Supervisor Relationship Specialty Start Date End Date Kwasi Garcia APRN.VETERANS CONTACT REPRESENTATIVE [address] [place] [address] [phone] PCP - General Family Medicine 05/22/22 No, Ref(Historical) Referring 04/08/18 No, Referral Referring 07/02/18 Bhavesh Alas MD [address] [place] [address] Primary Staff Physician Cardiology 10/18/21 Lexie Alonso, long term acute care registered nurseCorrectional Officer Sergeant Maternal Medicine 04/12/24 12/27/24 Solid Waste Facility Supervisor Relationship Specialty Start Date End Date Kwasi Garcia APRN.VETERANS CONTACT REPRESENTATIVE [address] [place] [address] [phone] PCP - General Family Medicine 05/22/22 No, Ref(Historical) Referring 04/08/18 No, Referral Referring 07/02/18 Bhavesh Alas MD [address] [place] [address] Primary Staff Physician Cardiology 10/18/21 Lexie Alonso RN Correctional Officer Sergeant Maternal Medicine 04/12/24 12/27/24 Solid Waste Facility Supervisor Relationship Specialty Start Date End Date Kwasi Garcia APRN.VETERANS CONTACT REPRESENTATIVE [address] [place] [address] [phone] PCP - General Family Medicine 05/22/22 No, Ref(Historical) Referring 04/08/18 No, Referral Referring 07/02/18 Bhavesh Alas MD [address] [place] [address] Primary Staff Physician Cardiology 10/18/21 Lexie Alonso long term acute care registered nurseCorrectional Officer Sergeant Maternal Medicine 04/12/24 12/27/24 Solid Waste Facility Supervisor Relationship Specialty Start Date End Date Kwasi Garcia APRN.VETERANS CONTACT REPRESENTATIVE [address] [place] [address] [phone] PCP - General Family Medicine 05/22/22 No, Ref(Historical) Referring 04/08/18 No, Referral Referring 07/02/18 Bhavesh Alas MD [address] [place] [address] Primary Staff Physician Cardiology 10/18/21 Lexie Alonso, long term acute care registered nurseCorrectional Officer Sergeant Maternal Medicine 04/12/24 12/27/24 Solid Waste Facility Supervisor Relationship Specialty Start Date End Date Kwasi Garcia APRN.VETERANS CONTACT REPRESENTATIVE [address] [place] [address] [phone] PCP - General Family Medicine 05/22/22 No, Ref(Historical) Referring 04/08/18 No, Referral Referring 07/02/18 Bhavesh Alas MD [address] [place] [address] Primary Staff Physician Cardiology 10/18/21 Lexie Alonso RN Correctional Officer Sergeant Maternal Medicine 04/12/24 12/27/24 Solid Waste Facility Supervisor Relationship Specialty Start Date End Date wKasi Garcia APRN.VETERANS CONTACT REPRESENTATIVE [address] [place] [address] [phone] PCP - General Family Medicine 05/22/22 No, Ref(Historical) Referring 04/08/18 No, Referral Referring 07/02/18 Bhavesh Alas MD [address] [place] [address] Primary Staff Physician Cardiology 10/18/21 Lexie Alonso long term acute care registered nurseCorrectional Officer Sergeant Maternal Medicine 04/12/24 12/27/24 Solid Waste Facility Supervisor Relationship Specialty Start Date End Date Kwasi Garcia APRN.VETERANS CONTACT REPRESENTATIVE [address] [place] [address] [phone] PCP - General Family Medicine 05/22/22 No, Ref(Historical) Referring 04/08/18 No, Referral Referring 07/02/18 Bhavesh Alas MD [address] [place] [address] Primary Staff Physician Cardiology 10/18/21 Lexie Alonso, long term acute care registered nurseCorrectional Officer Sergeant Maternal Medicine 04/12/24 12/27/24 Solid Waste Facility Supervisor Relationship Specialty Start Date End Date Kwasi Garcia APRN.VETERANS CONTACT REPRESENTATIVE [address] [place] [address] [phone] PCP - General Family Medicine 05/22/22 No, Ref(Historical) Referring 04/08/18 No, Referral Referring 07/02/18 Bhavesh Alas MD [address] [place] [address] Primary Staff Physician Cardiology 10/18/21 Lexie Alonso RN Correctional Officer Sergeant Maternal Medicine 04/12/24 12/27/24 Solid Waste Facility Supervisor Relationship Specialty Start Date End Date Kwasi Garcia APRN.VETERANS CONTACT REPRESENTATIVE [address] [place] [address] [phone] PCP - General Family Medicine 05/22/22 No, Ref(Historical) Referring 04/08/18 No, Referral Referring 07/02/18 Bhavesh Alas MD [address] [place] [address] Primary Staff Physician Cardiology 10/18/21 Lexie Alonso long term acute care registered nurseCorrectional Officer Sergeant Maternal Medicine 04/12/24 12/27/24 Solid Waste Facility Supervisor Relationship Specialty Start Date End Date Kwasi Garcia, AMERICAN INDIAN POLICY SPECIALIST.VETERANS CONTACT REPRESENTATIVE [address] [place] [address] [phone] PCP - General Family Medicine 05/22/22 No, Ref(Historical) Referring 04/08/18 No, Referral Referring 07/02/18 Bhavesh Alas MD [address] [place] [address] Primary Staff Physician Cardiology 10/18/21 Lexie Alonso, long term acute care registered nurseCorrectional Officer Sergeant Maternal Medicine 04/12/24 12/27/24 Solid Waste Facility Supervisor Relationship Specialty Start Date End Date Kwasi Garcia AMERICAN INDIAN POLICY SPECIALIST.VETERANS CONTACT REPRESENTATIVE [address] [place] [address] [phone] PCP - General Family Medicine 05/22/22 No, Ref(Historical) Referring 04/08/18 No, Referral Referring 07/02/18 Bhavesh Alas MD [address] [place] [address] Primary Staff Physician Cardiology 10/18/21 Lexie Alonso RN Correctional Officer Sergeant Maternal Medicine 04/12/24 12/27/24 Solid Waste Facility Supervisor Relationship Specialty Start Date End Date Kwasi Garcia, AMERICAN INDIAN POLICY SPECIALIST.VETERANS CONTACT REPRESENTATIVE [address] [place] [address] [phone] PCP - General Family Medicine 05/22/22 No, Ref(Historical) Referring 04/08/18 No, Referral Referring 07/02/18 Bhavesh Alas MD [address] [place] [address] Primary Staff Physician Cardiology 10/18/21 Lexie Alonso long term acute care registered nurseCorrectional Officer Sergeant Maternal Medicine 04/12/24 12/27/24 Solid Waste Facility Supervisor Relationship Specialty Start Date End Date Kwasi Garcia, AMERICAN INDIAN POLICY SPECIALIST.VETERANS CONTACT REPRESENTATIVE [address] [place] [address] [phone] PCP - General Family Medicine 05/22/22 No, Ref(Historical) Referring 04/08/18 No, Referral Referring 07/02/18 Bhavesh Alas MD [address] [place] [address] Primary Staff Physician Cardiology 10/18/21 Lexie Alonso, long term acute care registered nurseCorrectional Officer Sergeant Maternal Medicine 04/12/24 12/27/24 Solid Waste Facility Supervisor Relationship Specialty Start Date End Date Kwasi Garcia, AMERICAN INDIAN POLICY SPECIALIST.VETERANS CONTACT REPRESENTATIVE [address] [place] [address] [phone] PCP - General Family Medicine 05/22/22 No, Ref(Historical) Referring 04/08/18 No, Referral Referring 07/02/18 Bhavesh Alas MD [address] [place] [address] Primary Staff Physician Cardiology 10/18/21 Lexie Alonso RN Correctional Officer Sergeant Maternal Medicine 04/12/24 12/27/24 Solid Waste Facility Supervisor Relationship Specialty Start Date End Date Kwasi Garcia, AMERICAN INDIAN POLICY SPECIALIST.VETERANS CONTACT REPRESENTATIVE [address] [place] [address] [phone] PCP - General Family Medicine 05/22/22 No, Ref(Historical) Referring 04/08/18 No, Referral Referring 07/02/18 Bhavesh Alas MD [address] [place] [address] Primary Staff Physician Cardiology 10/18/21 Lexie Alonso RN Correctional Officer Sergeant Maternal Medicine 04/12/24 12/27/24 Solid Waste Facility Supervisor Relationship Specialty Start Date End Date Kwasi Garcia APRN.VETERANS CONTACT REPRESENTATIVE [address] [place] [address] [phone] PCP - General Family Medicine 05/22/22 No, Ref(Historical) Referring 04/08/18 No, Referral Referring 07/02/18 Bhavesh Alas MD [address] [place] [address] Primary Staff Physician Cardiology 10/18/21 Lexie Alonso RN Correctional Officer Sergeant Maternal Medicine 04/12/24 12/27/24 Solid Waste Facility Supervisor Relationship Specialty Start Date End Date Kwasi Garcia, AMERICAN INDIAN POLICY SPECIALIST.VETERANS CONTACT REPRESENTATIVE [address] [place] [address] [phone] PCP - General Family Medicine 05/22/22 No, Ref(Historical) Referring 04/08/18 No, Referral Referring 07/02/18 Bhavesh Alas MD [address] [place] [address] Primary Staff Physician Cardiology 10/18/21 Lexie Alonso RN Correctional Officer Sergeant Maternal Medicine 04/12/24 12/27/24 Solid Waste Facility Supervisor Relationship Specialty Start Date End Date Kwasi Garcia, AMERICAN INDIAN POLICY SPECIALIST.VETERANS CONTACT REPRESENTATIVE [address] [place] [address] [phone] PCP - General Family Medicine 05/22/22 No, Ref(Historical) Referring 04/08/18 No, Referral Referring 07/02/18 Bhavesh Alas MD [address] [place] [address] Primary Staff Physician Cardiology 10/18/21 Lexie Alonso, long term acute care registered nurseCorrectional Officer Sergeant Maternal Medicine 04/12/24 12/27/24 Solid Waste Facility Supervisor Relationship Specialty Start Date End Date Kwasi Garcia APRN.VETERANS CONTACT REPRESENTATIVE [address] [place] [address] [phone] PCP - General Family Medicine 05/22/22 No, Ref(Historical) Referring 04/08/18 No, Referral Referring 07/02/18 Bhavesh Alas MD [address] [place], [place] [phone] Primary Staff Physician Cardiology 10/18/21 Lexie Alonso RN Correctional Officer Sergeant Maternal Medicine 04/12/24 12/27/24 Solid Waste Facility Supervisor Relationship Specialty Start Date End Date Kwasi Garcai, AMERICAN INDIAN POLICY SPECIALIST.VETERANS CONTACT REPRESENTATIVE [address] [place] [address] [phone] PCP - General Family Medicine 05/22/22 No, Ref(Historical) Referring 04/08/18 No, Referral Referring 07/02/18 Bhavesh Alas MD [address] [place] [address] Primary Staff Physician Cardiology 10/18/21 Lexie Alonso RN Correctional Officer Sergeant Maternal Medicine 04/12/24 12/27/24 Solid Waste Facility Supervisor Relationship Specialty Start Date End Date Kwasi Garcia, AMERICAN INDIAN POLICY SPECIALIST.VETERANS CONTACT REPRESENTATIVE [address] [place] [address] [phone] PCP - General Family Medicine 05/22/22 No, Ref(Historical) Referring 04/08/18 No, Referral Referring 07/02/18 Bhavesh Alas MD [address] [place] [address] Primary Staff Physician Cardiology 10/18/21 Lexie Alonso, long term acute care registered nurseCorrectional Officer Sergeant Maternal Medicine 04/12/24 12/27/24 Solid Waste Facility Supervisor Relationship Specialty Start Date End Date Kwasi Garcia APRN.VETERANS CONTACT REPRESENTATIVE [address] [place] [address] [phone] PCP - General Family Medicine 05/22/22 No, Ref(Historical) Referring 04/08/18 No, Referral Referring 07/02/18 Bhavesh Alas MD [address] [place] [address] Primary Staff Physician Cardiology 10/18/21 Lexie Alonso long term acute care registered nurseCorrectional Officer Sergeant Maternal Medicine 04/12/24 8 Solid Waste Facility Supervisor Relationship Specialty Start Date End Date Kwasi Garcia APRN.VETERANS CONTACT REPRESENTATIVE [address] [place] [address] [phone] PCP - General Family Medicine 05/22/22 No, Ref(Historical) Referring 04/08/18 No, Referral Referring 07/02/18 Bhavesh Alas MD [address] [place], [place] [phone] Primary Staff Physician Cardiology 10/18/21 Lexie Alonso, long term acute care registered nurseCorrectional Officer Sergeant Maternal Medicine 04/12/24 12/27/24 Solid Waste Facility Supervisor Relationship Specialty Start Date End Date Kwasi Garcia AMERICAN INDIAN POLICY SPECIALIST.VETERANS CONTACT REPRESENTATIVE [address] [place] [address] [phone] PCP - General Family Medicine 05/22/22 No, Ref(Historical) Referring 04/08/18 No, Referral Referring 07/02/18 Bhavesh Alas MD [address] [place], [place] [phone] Primary Staff Physician Cardiology 10/18/21 Lexie Alonso, long term acute care registered nurseCorrectional Officer Sergeant Maternal Medicine 04/12/24 12/27/24 Solid Waste Facility Supervisor Relationship Specialty Start Date End Date Kwasi Garcia, IFRAH.VETERANS CONTACT REPRESENTATIVE [address] [place] [address] [phone] PCP - General Family Medicine 05/22/22 No, Ref(Historical) Referring 04/08/18 No, Referral Referring 07/02/18 Bhavesh Alas MD [address] [place] [address] Primary Staff Physician Cardiology 10/18/21 Lexie Alonso RN Correctional Officer Sergeant Maternal Medicine 04/12/24 12/27/24 Solid Waste Facility Supervisor Relationship Specialty Start Date End Date Kwasi Garcia, AMERICAN INDIAN POLICY SPECIALIST.VETERANS CONTACT REPRESENTATIVE [address] [place] [address] [phone] PCP - General Family Medicine 05/22/22 No, Ref(Historical) Referring 04/08/18 No, Referral Referring 07/02/18 Bhavesh Alas MD [address] [place] [address] Primary Staff Physician Cardiology 10/18/21 Lexie Alonso RN Correctional Officer Sergeant Maternal Medicine 04/12/24 12/27/24 Solid Waste Facility Supervisor Relationship Specialty Start Date End Date Kwasi Garcia, AMERICAN INDIAN POLICY SPECIALIST.VETERANS CONTACT REPRESENTATIVE [address] [place] [address] [phone] PCP - General Family Medicine 05/22/22 No, Ref(Historical) Referring 04/08/18 No, Referral Referring 07/02/18 Bhavesh Alas MD [address] [place] [address] Primary Staff Physician Cardiology 10/18/21 Lexie Alonso, long term acute care registered nurseCorrectional Officer Sergeant Maternal Medicine 04/12/24 12/27/24 Solid Waste Facility Supervisor Relationship Specialty Start Date End Date Kwasi Garcia APRN.CNP [address] [place] [address] [phone] PCP - General Family Medicine 05/22/22 No, Ref(Historical) Referring 04/08/18 No, Referral Referring 07/02/18 Bhavesh Alas MD [address] [facility] [place] [address] Primary Staff Physician Cardiology 10/18/21 Lexie Alonso RN Correctional Officer Sergeant Maternal Medicine 04/12/24 12/27/24 Team Status: Active Member Role Status Dates XAVI Faria Primary Care Provider Active Team Status: Inactive Member Role Status Dates Kwasi Garcia NP-C Primary Care Provider Active Start: October 27, 2024 End: October 27, 2024 Dr. Carolyn Lugo MD Attending Provider Active Start: October 27, 2024 End: October 27, 2024 Dr. Carolyn Lugo MD Referring Provider Active Start: October 27, 2024 End: October 27, 2024 Solid Waste Facility Supervisor Relationship Specialty Start Date End Date Kwasi Garcia APRN.VETERANS CONTACT REPRESENTATIVE [address] [place] [address] [phone] PCP - General Family Medicine 05/22/22 No, Ref(Historical) Referring 04/08/18 No, Referral Referring 07/02/18 Bhavesh Alas MD [address] [place] [address] Primary Staff Physician Cardiology 10/18/21 Lexie Alonso RN Correctional Officer Sergeant Maternal Medicine 04/12/24 12/27/24 Solid Waste Facility Supervisor Relationship Specialty Start Date End Date Kwasi Garcia, AMERICAN INDIAN POLICY SPECIALIST.VETERANS CONTACT REPRESENTATIVE [address] [place] [address] [phone] PCP - General Family Medicine 05/22/22 No, Ref(Historical) Referring 04/08/18 No, Referral Referring 07/02/18 Bhavesh Alas MD [address] [place], [place] [phone] Primary Staff Physician Cardiology 10/18/21 Lexie Alonso, long term acute care registered nurseCorrectional Officer Sergeant Maternal Medicine 04/12/24 12/27/24 Solid Waste Facility Supervisor Relationship Specialty Start Date End Date Kwasi Garcia, AMERICAN INDIAN POLICY SPECIALIST.VETERANS CONTACT REPRESENTATIVE [address] [place] [address] [phone] PCP - General Family Medicine 05/22/22 No, Ref(Historical) Referring 04/08/18 No, Referral Referring 07/02/18 Bhavesh Alas MD [address] [place] [address] Primary Staff Physician Cardiology 10/18/21 Lexie Alonso RN Correctional Officer Sergeant Maternal Medicine 04/12/24 12/27/24 Solid Waste Facility Supervisor Relationship Specialty Start Date End Date Kwasi Garcia, AMERICAN INDIAN POLICY SPECIALIST.VETERANS CONTACT REPRESENTATIVE [address] [place] [address] [phone] PCP - General Family Medicine 05/22/22 No, Ref(Historical) Referring 04/08/18 No, Referral Referring 07/02/18 Bhavesh Alas MD [address] [place] [address] Primary Staff Physician Cardiology 10/18/21 Lexie Alonso, long term acute care registered nurseCorrectional Officer Sergeant Maternal Medicine 04/12/24 12/27/24 Solid Waste Facility Supervisor Relationship Specialty Start Date End Date Kwasi Garcia, IFRAH.VETERANS CONTACT REPRESENTATIVE [facility] [place], [place] [phone] PCP - General Family Medicine 05/22/22 No, Ref(Historical) Referring 04/08/18 No, Referral Referring 07/02/18 Bhavesh Alas MD [address] [place] [address] Primary Staff Physician Cardiology 10/18/21 Lexie Alonso RN Correctional Officer Sergeant Maternal Medicine 04/12/24 12/27/24 Solid Waste Facility Supervisor Relationship Specialty Start Date End Date Kwasi Garcia, AMERICAN INDIAN POLICY SPECIALIST.VETERANS CONTACT REPRESENTATIVE [address] [place] [address] [phone] PCP - General Family Medicine 05/22/22 No, Ref(Historical) Referring 04/08/18 No, Referral Referring 07/02/18 Bhavesh Alas MD [address] [place] [address] Primary Staff Physician Cardiology 10/18/21 Lexie Alonso RN Correctional Officer Sergeant Maternal Medicine 04/12/24 12/27/24 Goals (unrecognized section and content) Goals may be documented in a n alternate section INFORMATION SOURCE (unrecogn ized section and content) DATE CREATED AUTHOR 11/03/2024 [facility] DATE CREATED AUTHOR AUTHOR'S ORGANIZ ATION 11/12/2024 [facility] FOR RECORDS PERTAINING TO PATIENTS WHO ARE OR HAVE BEEN ENROLLED IN A CHEMICAL DEPENDENCY/SUBSTANCEABUSE PROGRAM, SOME INFORMATION MAY BE OMITTED. This clinical summary was aggregated from multiple sources. Caution should be exercised in using it in the provision of clinical care. This summary normalizes information from multiple sources, and as a consequence, information in this document may materially change the coding, format and clinical context of patient data. In addition, data may be omitted in some cases. CLINICAL DECISIONS SHOULD BE BASED ON THE PRIMARY CLINICAL RECORDS. [facility] [employer] [facility]. provides no warranty or guarantee of the accuracy or completeness of information in this document.
[2024-11-14 02:10] LABS: Absolute Neutrophil Count 6.4 X10^3/uL (2.0-7.7); Basophil# 0.07 X10^3/uL; Basophil% 0.7 % (0-1); Eosinophil# 0.35 X10^3/uL; Eosinophils% 3.3 % (0-5); Hematocrit 32.7 % (37-47); Hemoglobin 10.2 g/dL (12.0-15.0); Lymphocyte % 27.7 % (19-41); Mean Corp Hgb Conc 31.2 g/dL (32-36); Mean Corpuscular Hgb 28.3 pg (27.0-32.0); Mean Corpuscular Volume 90.6 fL (81-99); Mean Platelet Vol. 9.8 fl (6.2-12.0); Monocyte# 0.71 X10^3/uL; Monocyte% 6.8 % (0-10); NRBC Flagged by Analyzer 0 % (0-5); Neutrophil # 6.38 X10^3/uL (2.7-7.7); Neutrophil % 60.8 % (47-70); Platelet Count 456 K/mm3 (150-450); RBC Distribution Width CV 15.1 % (11.6-14.6); Red Blood Count 3.61 M/mm3 (4.2-5.4); White Blood Count 10.5 K/mm3 (4.4-11.0)
[2024-11-14 02:20] LABS: Partial Thromboplast Time 30.7 Seconds (24.1-36.2)
[2024-11-14] MEDS: 0.9% Normal Saline (1000mL) 1,000 ML 999 ML IV (02:28)
[2024-11-14 02:34] LABS: Anion Gap 14 (5-15); BUN 16 mg/dL (4-19); BUN/Creat Ratio 30.4 RATIO (10-20); Calcium,Total 9.4 mg/dL (7.6-11.0); Carbon Dioxide 21.4 mmol/L (21.0-32.0); Chloride 104 mmol/L (98-108); Creatinine, Serum 0.54 mg/dL (0.70-1.20); EST Glomerular Filtration Rate 130 (>60); Estimated Creatinine Clearance 201.63 ml/min (50-250); Glucose 97 mg/dL (70-99); Sodium Level 140 mmol/L (133-145)
--- NOTE | 2024-11-14 02:55 | ED.VIS.FEGU ---
HPI HPI - Female History of Present Illness Chief Complaint: Vag Bleeding Informant: patient and spouse/S.O. Narrative Narrative: Patient is a 24-year-old female with past medical history of hypertension. She is roughly 10 days post . She states that she has been having some dark red vaginal bleeding which she knows is normal post but today she thought the bleeding became a little more intense and felt it was brighter in color. She denies any history of bleeding disorder or blood thinner use. She has concern for internal bleeding based on her new symptoms and with this presents for evaluation. Patient denies any fever and states that she has not had any bouts of dizziness or syncope PFSH PFSH Home Medications ?Medication ?Instructions ?Recorded ?Last Taken ?Type ondansetron 4 mg disintegrating 4 mg PO Q8H PRN PRN Nausea #10 tabs 04/23/24 10/26/24 Rx tablet aspirin 81 mg tablet 81 mg PO DAILY 10/27/24 10/26/24 History famotidine 20 mg tablet (Pepcid) 20 mg PO DAILY 10/27/24 10/26/24 History labetalol 100 mg tablet 200 mg PO BID 10/27/24 10/27/24 History vit no.95-ferrous 1 tab PO DAILY 10/27/24 10/26/24 History fumarate 28 mg-folic acid 800 mcg tablet () cephalexin 500 mg capsule 500 mg PO 4X/DAY 11/14/24 Unknown History Allergy/AdvReac Type Severity Reaction Status Date / Time codeine AdvReac HEADACHE Verified 11/14/24 01:31 prednisone AdvReac HEADACHE Verified 11/14/24 01:31 Social History Smoking Status: Never smoker [facility] ED Constitutional Constitutional ED: Denies chills or fever(s) Eyes Eyes: Denies change in vision ENT ENT ED: Denies sore throat Cardiovascular Cardiovascular: Reports other Details: Negative syncope ; Denies chest pain, palpitations or racing heartbeat Respiratory/Chest Respiratory/Chest: Denies cough or dyspnea Gastrointestinal Gastrointestinal: Denies abdominal pain, diarrhea, nausea or vomiting Genitourinary Genitourinary ED: Reports other Details: Positive vaginal bleeding ; Denies dysuria Musculoskeletal Musculoskeletal: Denies myalgias Integumentary Denies rash Neurologic Neurologic: Reports other Details: Negative dizziness ; Denies headache(s) or weakness Hematologic/Lymphatic Hematologic/Lymphatic: Denies easy bleeding or easy bruising EXAM Physical Exam Const Vital Signs: 11/14/24 01:26 Temperature 97.2 F L Temperature Source Temporal Pulse Rate 77 Respiratory Rate 16 Blood Pressure 119/73 Blood Pressure Mean 88 Pulse Ox 99 Oxygen Delivery Method Room Air Positive well nourished and well developed General Appearance ED: well developed; Negative for pallor HEENT HEENT Narrative: Normocephalic atraumatic Eyes PERRL and EOMs intact bilaterally General Eye ED: Negative for pale conjunctiva or scleral icterus Neck supple Neck Narrative: No nuchal rigidity or meningeal signs Resp normal respiratory effort and clear to auscultation bilaterally Cardio regular rate and regular rhythm Rate: other Other Details: Radial and carotid pulses are equal and symmetric GI non-distended and no masses GI Narrative: Abdomen soft and nondistended with normal active bowel sounds. There is mild pain with palpation in the lower abdomen diffusely. No voluntary guarding or rigidity. No pulsatile mass or fluid wave. No peritoneal signs scar is noted consistent with recent history that is clean dry and intact without secondary findings to suggest dehiscence or secondary infection. Auscultation: normoactive bowel sounds Palpation: soft Extremity normal to inspection and full ROM Extremity Narrative: Negative Homans' sign bilaterally Neuro oriented x3, CN's II-XII intact bilaterally and no sensory deficits noted Sensorium / Orientation: alert Motor Exam: strength 5/5 throughout Psych mental status grossly normal Skin no rashes or lesions noted Skin Narrative: Capillary refill is less than 3 seconds General Skin Exam: Negative for jaundice or pallor MDM MDM MDM Narrative Medical decision making narrative: Patient presented to the ER with stable vitals. She reported a change in bleeding after her roughly 10 days ago. In order to ensure that she has not developed acute blood loss anemia thrombocytopenia or having derangement to her bleeding times basic labs were obtained. Also in order to ensure that there was no potential surgical complication causing damage to the potential vessel I did elect to perform a CT scan the abdomen and pelvis. Labs showed mild anemia with hemoglobin of 10.2 but this is well above the transfusion value 7. Otherwise labs did not display any clinically significant finding. CT scan showed density within the uterus consistent with blood but this is consistent with her postoperative status. As the patient does not have a fever or leukocytosis I have low concern for retained products of conception and secondary infection. As she is not hypotensive or tachycardic I have low concern for persistent bleeding and as hemoglobin is above 7 there is no need for emergent transfusion. Therefore at this time there is no need for further intervention and patient is otherwise safe for discharge. History & Record Review Discussion w/independent historian: Patient and Significant other Lab Data Attestation: I reviewed the patient's lab results. Labs: Laboratory Results - last 24 hr 11/14/24 02:01 WBC 10.5 RBC 3.61 L Hgb 10.2 L Hct 32.7 L MCV 90.6 MCH 28.3 MCHC 31.2 L RDW Std Deviation 50.0 H RDW Coeff of Ole 15.1 H Plt Count 456 H MPV 9.8 Immature Gran % (Auto) 0.700 Neut % (Auto) 60.8 Lymph % (Auto) 27.7 [place] % (Auto) 6.8 Eos % (Auto) 3.3 Baso % (Auto) 0.7 Absolute Neuts (auto) 6.4 Absolute Lymphs (auto) 2.90 Nucleated RBC % 0 PT 13.0 INR 1.0 APTT 30.7 Sodium 140 Potassium 4.0 Chloride 104 Carbon Dioxide 21.4 Anion Gap 14 BUN 16 Creatinine 0.54 L Estim Creat Clear Calc 201.63 Est GFR (MDRD) Non-Af 130 BUN/Creatinine Ratio 30.4 H Glucose 97 Calcium 9.4 Radiography Diagnostic Testing: Clinical Impression(s) from Imaging Studies Abdomen/Pelvis CT 11/14/24 01:51 IMPRESSION: Status post recent , typical postoperative appearance. Follow up imaging as clinically determined. Reading Location: [place] [id number] Discharge Plan Triage Chief Complaint: Vag Bleeding ED Provider: Gonsalo Turpin Dx/Rx/DC Orders Clinical Impression: Postoperative vaginal bleeding, Hypertension Instructions: Section Dc Prescriptions: No Action aspirin 81 mg tablet 81 mg PO DAILY labetalol 100 mg tablet 200 mg PO BID famotidine [Pepcid] 20 mg tablet 20 mg PO DAILY PNV cmb#95-ferrous fumarate-FA [] 28 mg iron- 800 mcg tablet 1 tab PO DAILY cephalexin 500 mg capsule 500 mg PO 4X/DAY ondansetron 4 mg tablet,disintegrating 4 mg PO Q8H PRN PRN (Reason: Nausea) Qty: 10 0RF Primary Care Provider: Fozia Pope Referrals: Fozia Pope, [facility] [Primary Care Provider] - Activity Restrictions/Additional Instructions: Your blood volume today was 10.2 which is well above the transfusion value of 7. Your other labs were normal. Your CT scan shows a low-density area within your uterus which is most consistent with post blood. Therefore you will most likely continue to have vaginal bleeding. As long as the bleeding is intermittent and you are not having bouts of passing out with changes of position it is okay to follow-up with your [employer]. If you develop a fever or have those changes listed above please return to the ER for repeat evaluation. Print Language: Romanian Disposition Disposition: Home, Self Care
[2024-11-14 03:05] VITALS: BP 115/78; PULSE 76; RESP 16; TEMP 36.6; O2SAT 100
== END 2024-11-14 03:06 | disposition home or self-care (01) ==
PROVIDERS: Emergency Provider Emergency Medicine; PCP Nurse Practitioner Family; Visit Provider Emergency Medicine
DX: O72.2 Delayed and secondary postpartum hemorrhage (principal); Z3A.00 Weeks of gestation of pregnancy not specified; I10 Essential (primary) hypertension; Z79.82 Long term (current) use of aspirin; Z79.899 Other long term (current) drug therapy
CPT/HCPCS: 74177; 80048; 85025; 85610; 85730; 96360; 99282; Q9967; A4216